=== PATIENT | male | born 1955 | race Caucasian/White ===

== ENCOUNTER 2023-08-04 07:38 | Outpatient (OUT) | payer MEDICARE, SELFPAY ==
--- NOTE | 2023-08-04 07:39 | VEIN_ITS ---
Patient Name: GLENROY MOORE MR#: [id number] : 1955 Exam Date: 08/04/2023 Ordering Doctor: DR REINA HA D.P.M. RADIOLOGY REPORT PROCEDURE: VC EXT VENOUS REFLUX DOMI LMTD COMPARISON: None. INDICATIONS: I83.813 Painful varicose veins of bilat lower extremities TECHNIQUE: Duplex imaging of the lower extremity to assess the deep and superficial venous system for the presence of deep or superficial venous incompetence and to document the location and severity of disease. The study includes evaluation of the great saphenous vein (GSV), anterior accessory saphenous vein (AASV) and small saphenous vein (SSV). Patient scanned in reverse Trendelenburg and standing. FINDINGS: RIGHT LOWER EXTREMITY: Saphenofemoral Junction Reflux: Yes 6.5mm 2.7 sec GSV: Diam (mm) Reflux/ Time (sec) Proximal Thigh 6.4 Yes 3.0 Mid Thigh 4.0 Yes 1.4 Distal Thigh 2.1 Yes 1.0 Prox Calf 1.1 Yes 1.0 Mid Calf Saphenopopliteal Junction Reflux: 3.4mm Yes 1.0 SSV: Proximal Calf 2.7 No Mid Calf 2.9 0.8 AASV: Proximal Thigh 3.3 No Mid Thigh 2.4 No Distal Thigh Thrombi: No acute or chronic thrombus visualized Compressibility: Normal Flow: Normal Preforator: Dist/med calf 3.5mm with 1.2s reflux. Mid/med calf 3.7mm with 1.0s reflux. Mid/med calf 3.3mm with 1.4s reflux. Tech Note: Incompetent GSV. Patent varicose vein dist/med calf 2.8mm with 0.8s reflux. Patent varicose vein mid/med thigh 2.4mm with 0.8s reflux. LEFT LOWER EXTREMITY: Saphenofemoral Junction Reflux: Yes 7.0 mm 1.7 sec GSV: Diam (mm) Reflux/Time (sec) Proximal Thigh 3.6 No Mid Thigh 1.9 No Distal Thigh 1.8 Yes 0.5 Prox Calf N/A Mid Calf N/A Saphenopopliteal Junction Relux: 3.5 mm No SSV: Proximal Calf 3.3 No Mid Calf 1.7 No AASV: Not present Proximal Thigh Mid Thigh Distal Thigh Thrombi: No acute or chronic thrombus visualized Compressibility: Normal Flow: Normal Drum Tender: Dist/med 4.5mm with 0s reflux. Dist/med calf 3.6mm 0.6s reflux. Tech Note: Patent varicose vein dist/med calf 3.5mm with 0.8s reflux. CONCLUSION: 1. Dilated incompetent right great saphenous vein with associated branch saphenous varicosities. 2. 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 Dictated by: Adrian Rothman M.D. on 08/04/2023 at 08:57 Approved by: Adrian Rothman M.D. on 08/04/2023 at 09:25
--- NOTE | 2023-08-04 07:39 | VEIN_ITS ---
Patient Name: GLENROY MOORE MR#: [id number] : 1955 Exam Date: 08/04/2023 Ordering Doctor: DR REINA HA D.P.M. RADIOLOGY REPORT PROCEDURE: FACILITY [facility] - OFFICE VISIT INITIAL COMPARISON: None. PROGRESS NOTES: [age] year old male who presents with a several month history of reoccurring spontaneous wounds on lower right leg and right lower extremity edema. The patient's right leg symptoms are worse than the left. There has been a progression of symptoms . Wounds have now finally healed with assistance from the wound clinic. Lower extremity swelling increases with prolonged leg dependency. The patient describes an improvement with rest and elevation. The patient denies any signs and symptoms to suggest arterial ischemia. The patient describes a family history of diabetes mellitus type 2. The patient has drinking and smoking history of current alcohol consumption and cigarette smoking. Patient has a past medical history significant for hypertension. The patient denies a history of deep venous thrombus or pulmonary embolus. See separate history and physical for medication list. No prior treatment for varicose or spider veins. Current use of compression stockings. After review of nurse notes, history and physical exam I discussed at length the pathophysiology of venous hypertension and possible treatments, therapies and strategies available. We discussed at length the importance of elevating the lower extremities above the level of the heart, increased physical activity and compression stocking use. Ultrasound venous reflux study performed today was discussed at length with the patient. The report demonstrates abnormally dilated and incompetent right great saphenous vein and right calf denitrator veins. PHYSICAL EXAM: The right leg demonstrates several varicosities, no significant spider veins, multiple recently healed wounds with no currently active ulceration, mild edema, moderate skin discoloration. The left leg demonstrates no significant varicosities, no appreciable spider veins, no ulceration, no edema, no skin discoloration. Both thighs, legs and feet were symmetrically warm to the touch. Good posterior tibial and dorsalis pedis pulses were present bilaterally. VEIN/ Facility [facility] Comprehensive IMPRESSION: 1. Right lower extremity venous insufficiency 2. Right lower extremity varicose veins 3. Mild right lower extremity subcutaneous edema 4. No flow significant arterial disease 5. CEAP: C5, DP, AP, AK PLAN: 1. Continued use of compression stockings 2. Elevated legs and increased physical activity symptomatic relief 3. Endovenous laser ablation of right great saphenous vein, right calf denitrator veins. 4. Microfoam chemical ablation of right leg incompetent branch saphenous varicosities. Nurse notes, history and physical were reviewed and confirmed, see attached forms. The nurse was present throughout the physical exam and consultation Dictated by: Adrian Rothman M.D. on 08/04/2023 at 09:25 Approved by: Adrian Rothman M.D. on 08/04/2023 at 10:52
== END 2023-08-04 07:39 | disposition home or self-care (01) ==
LOC: VC 07:38
PROVIDERS: PCP Podiatrist Foot & Ankle Surgery; Visit Provider Podiatrist Foot & Ankle Surgery
DX: I83.813 Varicose veins of bilateral lower extremities with pain (principal)
CPT/HCPCS: 93970; G0463

== ENCOUNTER 2023-08-17 08:52 | Outpatient (OUT) | payer MEDICARE, SELFPAY ==
--- NOTE | 2023-08-17 08:55 | VEIN_ITS ---
[address] [address] Patient Name: GLENROY MOORE MRN: [id number] date: 1955 Sex: M Assigned Patient Location: Current Patient Location: Accession/Order Number: [id number] Exam Date: 08/17/2023 09:24 Report Date: 08/17/2023 10:15 At the request of: MARYANN HENLEY Procedure: VC Endovenous Ablation 1VeinRT EXAMINATION: VC Endovenous Ablation 1VeinRT HISTORY: Pain due to varicose veins of bilateral legs I83.813 The risks and benefits of the procedure had been previously discussed, and were rediscussed at length. Informed written consent was obtained. Vannessa Rome RN and Maeve Jacques RDMS, RVT assisted. Time out procedure was performed. The right lower extremity was prepared and draped in the usual sterile fashion to allow knee flexion in the sterile field. Duplex ultrasound probe was draped in a sterile cover, sterile transmission gel was used. Venous mapping was performed with the areas of dilation and large tributaries marked. The total length was 14 cm from the entry mid to upper thigh to 3 cm below the Saphenofemoral junction. The diameter of the right great saphenous vein ranged from 6.4 mm. A 30 gauge needle and 1% buffered lidocaine was used to anesthetize the entry site. A 4 mm incision was made with a scalpel and the saphenous vein was entered percutaneously under direct ultrasound guidance with a micropuncture set, a single stick was successful in gaining access. A micro-guide wire was inserted and the needle removed. A micro-set including a dilator was inserted over the microwire and the needle and dilator were removed. A guide wire was inserted through the micro-set and guided through the saphenous vein to the saphenofemoral junction. The dilator was removed and an introducer sheath was inserted over the wire until the end of the sheath entered the saphenofemoral junction. The dilator and wire were removed and the 600 micron fiber was introduced and placed and positioned so that it extended beyond the sheath and was 3 cm distal to the saphenofemoral or saphenopopliteal junction. Final position of the fiber was determined by ultrasound guidance and duplex imaging. Tumescent anesthetic was delivered by ultrasound guidance. 100 cc of fluid was delivered along the entire course of the saphenous vein. The solution consisted of 1000 cc of normal saline with 40 mL of 1% lidocaine and 20 mL of sodium bicarbonate. A final positioning check was made. The energy source was turned on by means of the foot pedal and the fiber and sheath were withdrawn. The total number of Joules delivered was 1046. The laser was active for 131 seconds under continuous pulse, average laser use of 8 J. Laser start time 9:50 AM, 08/17/2023. Laser stop time 9:52 AM, 08/17/2023. A duplex ultrasound revealed compressibility and flow at the saphenofemoral junction immediately after the procedure. Hemostasis at the access site was achieved. The skin incision of the saphenous vein was closed with a 4 x 4. A compression stocking was applied. Postop instructions were given. A follow up appointment was recommended and scheduled. The patient tolerated the procedure well. Electronically authenticated by: JONI BOYCE Date: 08/17/2023 10:15
[2023-08-17] MEDS: LIDOCAINE HCL 1% 100 MG/10 ML MDV INJ (09:10)
[2023-08-17] MEDS: 0.9 % SODIUM CHLORIDE 500 ML, LIDOCAINE HCL 20 ML, SODIUM BICARBONATE 10 MEQ INJ (09:11)
== END 2023-08-17 08:53 | disposition home or self-care (01) ==
LOC: VC 08:52
PROVIDERS: PCP Podiatrist Foot & Ankle Surgery; Visit Provider Radiology Diagnostic Radiology
DX: I83.813 Varicose veins of bilateral lower extremities with pain (principal)
CPT/HCPCS: 36478

== ENCOUNTER 2023-08-24 10:36 | Outpatient (OUT) | payer MEDICARE, SELFPAY ==
--- NOTE | 2023-08-24 | VEIN_ITS ---
Patient Name: GLENROY MOORE MR#: [id number] : 1955 Exam Date: 08/24/2023 Ordering Doctor: DR ELLIS BRITTON M.D. RADIOLOGY REPORT PROCEDURE: VC [facility]ACILITY [facility] - OFFICE VISIT FOLLOW UP COMPARISON: None. PROGRESS NOTES: The patient reports no significant problems following intravenous laser ablation of the right great saphenous vein. The patient did not require oral analgesics. The patient has worn his compression stocking the did have questions surrounding its use. I did encourage continued use of compression stocking for several weeks. The patient has followed our recommendations to walk 20-30 minutes once or twice per day since the procedure. Physical exam demonstrates extensive skin thickening and nearly healed ulcerations below the knee. Thrombosed right great saphenous vein can be palpated. No bruising is observed. No erythema or warmth to suggest cellulitis or thrombophlebitis Review of the ultrasound performed the same day demonstrates occlusive thrombus extending throughout the treated right great saphenous vein with heat induced thrombus 1.7 cm from the saphenofemoral junction. No deep vein thrombus. The patient expressed a desire to proceed with treatment of incompetent right leg perforating veins with associated ulcerations. VEIN/ Facility EST LMTD IMPRESSION: 1. Successful ablation of the saphenous vein 2. Persistent incompetent right leg perforating veins with associated venous stasis ulcerations. PLAN: Intravenous laser ablation right leg incompetent perforating veins Nurse notes, history and physical were reviewed and confirmed, see attached forms. The nurse was present throughout the physical exam and consultation Dictated by: Ellis Britton MD on 08/24/2023 at 11:38 Approved by: Ellis Britton MD on 08/24/2023 at 11:41
--- NOTE | 2023-08-24 | VEIN_ITS ---
Patient Name: GLENROY MOORE MR#: [id number] : 1955 Exam Date: 08/24/2023 Ordering Doctor: DR ELLIS BRITTON M.D. RADIOLOGY REPORT PROCEDURE: VC EXT VENOUS RT LMTD COMPARISON: None. INDICATIONS: Pain due to varicose veins of bilateral legs I83.813 TECHNIQUE: Lower extremity corona scale and Duplex Doppler evaluation of the deep venous system from the inguinal ligament through the calf veins. FINDINGS: REGION: Right lower extremity. THROMBI: Negative for DVT. Heat induced thrombus visualized 1.7cm from SFJ. The heat induced thrombus extends from groin to mid thigh. COMPRESSIBILITY: Non-compressible segments corresponding to thrombus FLOW: Areas of absent flow corresponding to thrombus CONCLUSION: Post ablation occlusion of the right great saphenous vein with heat induced thrombus 1.7 cm from the saphenofemoral junction Dictated by: Ellis Britton MD on 08/24/2023 at 11:07 Approved by: Ellis Britton MD on 08/24/2023 at 11:08
== END 2023-08-24 10:37 | disposition home or self-care (01) ==
LOC: VC 10:36
PROVIDERS: PCP Radiology Diagnostic Radiology; Visit Provider Radiology Diagnostic Radiology
DX: I80.01 Phlebitis and thrombophlebitis of superficial vessels of right lower extremity (principal); I83.813 Varicose veins of bilateral lower extremities with pain
CPT/HCPCS: 93971; G0463

== ENCOUNTER 2023-09-15 08:25 | Outpatient (OUT) | payer MEDICARE, SELFPAY ==
--- NOTE | 2023-09-15 08:26 | VEIN_ITS ---
[address] [address] Patient Name: GLENROY MOORE MRN: [id number] date: 1955 Sex: M Assigned Patient Location: Current Patient Location: Accession/Order Number: [id number] Exam Date: 09/15/2023 08:30 Report Date: 09/15/2023 09:18 At the request of: MARYANN HENLEY Procedure: VC Endovenous Perf Ablation RT EXAMINATION: VC Endovenous Perf Ablation RT COMPARISON: 08/24/2023, 08/04/2023 INDICATIONS: Pain due to varicose veins of bilateral legs I83.813 OPERATIVE REPORT: Diagnosis: Superficial venous reflux, incompetent perforating veins Procedure: Endovenous laser ablation of the right dye range feeder(s) Procedure: The patient was positioned supine on the table and the leg was prepped and draped to allow for visualization during venous access. A sterile cover was draped over a 16 mhz ultrasound probe. Venous mapping was performed prior to the procedure noting location and size of vessel(s). Stick Roller vein 1: Right distal medial lower leg. The diameter of the vein ranged from 6 mm's below the muscular fascia to 3.7 mm's at the entry point. Using a 30 gauge needle the entry site was anesthetized with 1 cc of 1% buffered lidocaine. Access was gained percutaneously, with a 21-gauge needle, into the dye range feeder vein under ultrasound guidance. The needle was advanced into the desired position and the pre-measured 400-micron fiber was then inserted into the needle and locked in place. The position of the fiber was imaged with ultrasound guidance. The fiber tip was visualized to be 15 mm from the deep vessel. An anesthetic solution of 4cc 1% buffered lidocaine was delivered along the course of the vein under ultrasound guidance using a syringe. A final positioning check of the laser fiber tip was performed. The laser was activated by means of a foot-pedal and the fiber and needle were withdrawn together in accordance to the desired joules per treatment area/spot weld. 3 areas/spot welds were performed, and the total number of joules delivered was 154. The total time of energy delivery was 20 seconds. A duplex ultrasound revealed compressibility and flow of the deep system immediately after the procedure. Hemostasis of the access site was achieved . Stick Roller vein 2: Right distal medial lower leg. The diameter of the vein ranged from 5 mm's below the muscular fascia to 3 mm's at the entry point. Using a 30 gauge needle the entry site was anesthetized with 1 cc of 1% buffered lidocaine. Access was gained percutaneously, with a 21-gauge needle, into the dye range feeder vein under ultrasound guidance. The needle was advanced into the desired position and the pre-measured 400-micron fiber was then inserted into the needle and locked in place. The position of the fiber was imaged with ultrasound guidance. The fiber tip was visualized to be 20 mm from the deep vessel. An anesthetic solution of 4 cc 1% buffered lidocaine was delivered along the course of the vein under ultrasound guidance using a syringe. A final positioning check of the laser fiber tip was performed. The laser was activated by means of a foot-pedal and the fiber and needle were withdrawn together in accordance to the desired joules per treatment area/spot weld. 3 areas/spot welds were performed, and the total number of joules delivered was 124. The total time of energy delivery was 16 seconds. A duplex ultrasound revealed compressibility and flow of the deep system immediately after the procedure. Hemostasis of the access site was achieved. Stick Roller vein 3: Right mid lateral lower leg. The diameter of the vein ranged from 5 mm's below the muscular fascia to 3.5 mm's at the entry point. Using a 30 gauge needle the entry site was anesthetized with 1 cc of 1% buffered lidocaine. Access was gained percutaneously, with a 21-gauge needle, into the dye range feeder vein under ultrasound guidance. The needle was advanced into the desired position and the pre-measured 400-micron fiber was then inserted into the needle and locked in place. The position of the fiber was imaged with ultrasound guidance. The fiber tip was visualized to be 15 mm from the deep vessel. An anesthetic solution of 3 cc 1% buffered lidocaine was delivered along the course of the vein under ultrasound guidance using a syringe. A final positioning check of the laser fiber tip was performed. The laser was activated by means of a foot-pedal and the fiber and needle were withdrawn together in accordance to the desired joules per treatment area/spot weld. 2 areas/spot welds were performed, and the total number of joules delivered was 90. The total time of energy delivery was 11 seconds. A duplex ultrasound revealed compressibility and flow of the deep system immediately after the procedure. Hemostasis of the access site was achieved and dressed. A 20-30 mm compression stocking over coban was placed on the treated leg. Post-Op instructions were given, and a follow-up appointment was made. CONCLUSION: 1. Technically successful endovenous laser ablation of 3 incompetent right leg dye range feeder veins Electronically authenticated by: MARYANN HENLEY Date: 09/15/2023 09:18
--- OUTSIDE RECORDS SUMMARY | 2023-09-15 08:28 | XMS_ITS | CCD ---
Author Name Unknown Address [address] [facility] [address] [place] [address] Organization [facility] Care Team Providers Care Commercial Instructor Supervisor Name Role Phone Dolce, Brett R Admitting Unavailable Karen CEPHALOMETRIC ANALYST-C, Charisse A Primary Care Unavailable Dolce, Brett R Attending Unavailable Dolce, Brett R Attending Unavailable Karen CEPHALOMETRIC ANALYST-C, Charisse A Primary Care Unavailable Dolce, Brett R Admitting Unavailable Karen CEPHALOMETRIC ANALYST-C, Charisse A Attending Unavailable Karen CEPHALOMETRIC ANALYST-C, Charisse A Primary Care Unavailable Dolce, Brett R Attending Unavailable Dolce, Brett R Admitting Unavailable Karen CEPHALOMETRIC ANALYST-C, Charisse A Primary Care Unavailable Juan David, Alberto Admitting Unavailable Juan David Alberto Attending Unavailable Karen CEPHALOMETRIC ANALYST-C, Charisse A Primary Care Unavailable SHILOH Park Admitting Unavailable SHILOH Park Attending Unavailable Karen CEPHALOMETRIC ANALYST-C, Charisse A Primary Care Unavailable Fall, Alberto Admitting Unavailable Juan David, Alberto Attending Unavailable Karen CEPHALOMETRIC ANALYST-C, Charisse A Primary Care Unavailable Dolce, Brett R Attending Unavailable Dolce, Brett R Admitting Unavailable Karen CEPHALOMETRIC ANALYST-C, Charisse A Primary Care Unavailable Karen CEPHALOMETRIC ANALYST-C, Charisse A Attending Unavailable Karen CEPHALOMETRIC ANALYST-C, Charisse A Primary Care Unavailable Juan David, Alberto Attending Unavailable Fall, Alberto Admitting Unavailable Karen CEPHALOMETRIC ANALYST-C, Charisse A Primary Care Unavailable Dolce, Brett R Admitting Unavailable Karen CEPHALOMETRIC ANALYST-C, Charisse A Primary Care Unavailable Dolce, Brett R Attending Unavailable Dolce, Brett R Attending Unavailable Dolce, Brett R Admitting Unavailable Karen CEPHALOMETRIC ANALYST-C, Charisse A Primary Care Unavailable TERRANCE JONES Admitting Unavailable TERRANCE JONES Attending Unavailable Karen CEPHALOMETRIC ANALYST-C, Charisse A Primary Care Unavailable Karen CEPHALOMETRIC ANALYST-C, Charisse A Admitting Unavailable Karen CEPHALOMETRIC ANALYST-C, Charisse A Attending Unavailable Karen CEPHALOMETRIC ANALYST-C, Charisse A Primary Care Unavailable Alberto Fall Admitting Unavailable Alberto Fall Attending Unavailable Karen CEPHALOMETRIC ANALYST-C, Charisse A Primary Care Unavailable Karen CEPHALOMETRIC ANALYST-C, Charisse A Attending Unavailable Karen CEPHALOMETRIC ANALYST-C, Charisse A Admitting Unavailable Karen CEPHALOMETRIC ANALYST-C, Charisse A Primary Care Unavailable Results Test Name Value Interpretation Reference Range Facility Coding Summaryon 08-04-2023 Coding Summary HTMLBase 64 OqzmnxmqMRz9dWu+PGhlY WQ+VH3IHWJfV21nfOHjvJ 4iO5CRUTrKAugoCLCJFJd EIlInzgOzVE7hoSGbIVMy IC8+ZQ0cFHTqKwqoxJShk 1L7wAD9K07rsm7nURqynL Z5RLTiPjZrjczlf0xnvFv 6IDcuNmluOyBt DPEjsQ11JIJ0tM07Dr23z DLdgHWbd5iqjXo4TnCvYR GvJHU2tXxoKXzts9ZuDTZ eD67acBPcn0Y8 GEWikHcjzGZaVqQmzNE0s H6aIEawyeoxr4athkatBl f5uc90zIPch2R8jYW3L3S prnF2LRBnwCVt HeudnSEVzC8ftxuwz3zfa grqTmMaRPBsNYw2HUv5GI QhwUcwPrHeVA74AGN6RLI ieiCsY8ChPAJn xMsoVnD0k3J9Wr9ON6DOX twuF1TAZVMXIUqktVI+PC 05uy02H8TjGutiFrp2YHJ dGLD6dFX7bQ6g CSRgCIsri7F9mPE2P8Yhh oAmkr6nj1evNOMkDJeeE1 7zwXZjj9U8KLNfhYF8SKS cvGfuThHiqH52 Oyc+DUEruUroy9FgQlxjr 1gdg8uktSs8GoarWFEbdr EgeXcmTUE4n1OwKa6gVUZ rsAA2gRG9wN6w DfWcOpD3PZngI583UzVfm DUhZrweV16qD0FhkYX+PH ItMwr0RRIquKvaJQ9xT8U hZGRpbmctbGVm eWwaBM8rRKLnvbyaSTMxx D5cWLAwL8m9ZgPmOtT9OY moY7YyIQVsygliCc68pC9 fHfJdCnZ0HTgx W9TkpvV9BGTuhZClLWjqT HU2I57ep5K9DSLhMMUaHD A2qLV1oA0gwGfjqkqqbDA mdDsgdmVydGlj LNrfSGlfL351PPGdbHkwJ kNvZGluZyBEYXRlOiAgMT EvMjIvMjAyMzwvdGQ+PHR jLJX3aWgsXRAw eGBrKKvlBs6ynTqcyHhfC W8dFLPhiyjmKCAabZ8cJG GniJZcjGjjSA2iJIGtqiw fg800RbOxLCN3 GJJrqEPbM3EhyK3sNjEnB QWjKLKlK7GzlRJgEHjlQ2 59JFzeUyW3OXKivuKoF7B sLWFsaWduOiB0 r5Z0Ji9Rj8UitzevY5Bcq TXkGaLnLpzaLXs2R8SdGw wvdHI+BR74NSJvIZ45UYs 1XZS1cUilJCnf GHDzD7UgdJ7oDoTnBFKpY GRkOyc+PHRhYmxlIHdpZH RoPScxMDAlJyBzdHlsZT0 hIs9dCTUfBGJs vJupyZAdUyEue5wqTAImG NtoYI2yoLkjF2XwcJH7SD Jmf1d4Ds89D59gJ5UlrMT +LUYwmVT8uDY3 mG6fKyXoScT7WMqfG005Q zGtiYSxXyxti0ghs7nsoP a1IzN9JZLvelOxaKowXWK 5l4SuMy87F53r IHdpZHRoPSIxNSUiIHZhb Zipop2bwM4mRu1+PGNvbC S5oVJ1rD9mEtWtDhM5GEo jT204OeYnxQCm Brvpj7xto0baoWr8BhEvC EKyihZwwPawAWE6z4MqIx 75O4PscBves8XdRhk7ag3 1bUDqg1W0jQC4 H1AyZHJkcklhxVQgxYbqM O8kQTGmmriiKAZctL3cLA OdL3c7BcDnBmT5XUvrK2V vfnU2AREnmDMr MFHoaOEFbN6eihrwg9wkl foaNmQjVIRzUUw2VVl0PL XzbYlyLyPwLBJ0ZjF1ZBV 5qYAjdV9ecOcy rnnqcM4fVhp+TXT3mIXor RGXGF3uAvwikXP+PHRkIH Q8gKwqLTgiOKOthT7cTYD yF0d0GcPjRvK5 TShiE8JibkL1SOKvjIDnV OTzmSFZyM2lmgndv9ofid khCoOrIXLbRAw4SHs4VNF saWduOiBsZWZ0 QmH5WCZ5jVEfrF8odAqsi hazuB5nFkv+QmlydGggRG C9MHy1W6VpBzq6JZJemGj sSP1oxULrEBzf Vr2erXqkjAalUF9hFWHdq bohh620VdWbp1bpPCParL TsJFnnIAO0I18pq9I4SMS cYJIwEID9iRY4 xM5uwIheskzaySZcfZqtq wNmeRfxZJekSJbsV334YA ZaaOzjFgMmQQc2C4PwLss 2ENGeoYgiZI4w eRBwABzlZk5guUrjqPtsV O2iMPYyeilap390HbKoc0 oqQWUtbWQsPXypZWN9V56 wn0O5JJZsOSHh DGQ7dPK9hI3stPnupwpmu GVmdDsgdmVydGljYWwtYW rtL574TKLepYjzCwIknHx 7W8BpUgw9CWIl nZqzCV5mbTSqPBvwPo5sb UcqaJllIT7rZGJjlkhmr4 87YxEfm6dmVNRqyLKpUFd nVPG2D68uc0Y5 BLOlULGzHJJ3rLT4hK8sy GlnbjogbGVmdDsgdmVydG wvQManHPdaS202LEUiiUq nPlBhdGllbnQg GIlaGSb8X1OwYjjwgLJ+P M42NKSuLB35iTUkgDYcj7 naeQq9EyJiKWWfOVD2pWf hCNjvy8AxOISr O14ydCZvx9I0VLAnuHvrf ENaZkFeyVY1eK5uKIncah gwu4ojpqngGejhk2hwft3 7pJ40B63yXVjt ZHRoPSIzMCUiIHZhbGlnb n3twS6vBd2+JJOplQY4uQ T0sT3pIQNzIjW0GHfpE28 9InRvcCIvPjxj j3qev9shoId7BwU7OZQrf zXssWhhVJW8o0VpNy99K2 9sIHdpZHRoPSIyMCUiIHZ thTaqmq8dxK1b Ii8+OKEtgTV7iII7nI2yA oBvGfV6TAwlV344EbUapX NyEcyaP86pC2ZntZS+PHR tPsz0SNEhqNdd KA2gzWHrGTiyLb4fCNR7H kVyKaRlMCchS3MuKJGejf brrhtyqMG8UFWaOKMdaV8 6Iv3lrCypQQYy lIHRlZ3yesigg5jfksksI nMrTZDvLRd4GFw7MQParV nwDvPpNPB6WeQ1CQA3sIC kzQ2hbYaomccr dA0pD2LuXSFoprqfSf26r N9vQjWrSeB9WDqpJxi+TU 1NGcGrJiRrSZiKWG46G5S pZjl1PYGgyVni NZ9clAWjFWvbIz8ulGwbn RodTS6yFFPjcztpBILqnV 4aQQIzbRMhjWvnQQ0vQJO wkfzvh530QoEy QQD0KCLtuFBtV4NjtG3dD aWzNLBsMIPqX0HgqETpEH mjX342YHqgVyL3ABIygtN uG3AvHNLvdQic JcG2h2D7Jp4lVA8lME1jG BA7TK11PW12tIJct6L2sB P7J6UwAQNrgpxyeeecjFO 8WAMeRILoaK21 qYElCVvaAn1pa6A2v525W RHzVNZynV54Kq5vcChgDW IfxQONuW4cdfzwi6afexo gIzAwMDAwMDt0 RJr4HBCqoQgbYaNhOOP3H iN1ZFZ3mMFvqB6wuMokhj eewH6hJux+NjggWWVhcnM 6P8BeJhv5GKNy wHjmFW7krOVtCWkkMu5ca EsmtEkkHN0zWYAghptxHW GkuJ5fIGMivVOynSzqOD7 aORRqstwro053 DlRaCAK9BVEmhJMtK6Tkb Y8iRwWaNXMjPLOjH6ZfzF NeFOlrS582ZPowIsX2ZXZ gzyUrM1MhARLg kAgzRdZ3l6Q8Yq1ETBvAL Z84AT25gRXrf2X2rJM2U3 AvGJDcxubviifclNC9RIO eMCXiqF73uFUm RHdyEg7nf7F0c099JUCiK UTxrH83Nn4vzBlcPIGroI EKvI7cntbjs9sxehfiPyQ jHDIiLIs8ABt6 UKSxnDocAuPzTKW1CcF0Z LQ3cGWqaL0erTpppwsenE 9wOyc+T0M7H4UcZyhzxWK +XA69WYStSD61 cIAmoCLrb8bxcRv0OwQqJ HZpSLV0aFvaGQssj9KrSB OmF60smXPqr4I5OZIruSc hcHNlOyBlbXB0 xU6lSZbnvbjin1osohlrO ojjh0qoms61pU03B77mSP dpZHRoPSIzMCUiIHZhbGl qyd4lcW5wRj2+ FZIxfSE3wHG6cF3hElImY pB2OYmrN509SzEvsNRxSl zkp2qyw7vxkTr8RaXaBLR gdmFsaWduPSJ0 p5MnLm09P18cIDmyTLRxS WCyQUSyXXAegNlfyy8epX 9wIi8+TF9uy9ltbv23lR6 8dHI+PHRkIHN0 kOsuILddIPIjgV5qBOfyE hQ8IHZmVvBzgS41bPTzLS rrTg3qpQefmXwuFY5uCVF sitymy433OmXg u8nnGMUdzMPfZBaaDYN0J 17ab3P1MCEiWEZdWBU7qU Y6oI9coYestsokxXCdwTt gdmVydGljYWwt BJmcG191XGIdyDbpGjRlx SIfV7lhsqGKTR5gEuofrG Q+TMZxKPG8sIxgLKcpQKP qsS1rAJKfN2d5 GuMrMhU0IKlcY6AasuE9R HZjePSaUFCwcIJPqI5aqp xiy5rndeokBtCiBCMaFOj 5HAi7VWSrlOyw PwQyMCO3GwO8JKS8gYBft J9yaRjaaybcgM1uXro+Rk lOOjwvdGQ+YZKsRQJ5iRe pMAiyTFOshP3z CQJbM8q2OrOqUsZ5MKmgZ 6IjwsZ8OLJhlNXmAEDprU GJlS1vjczxm0oleulmLrA iXNUeOTo3YAq2 IJGbvPvkCwZfBMF6UkW9M XU2tJXclL2ehPrcixvcrS 9wOyc+TVJOOjwvdGQ+PHR bAYT1fAyiKNhr IAUhkC3uPAFxE2r3WkKzQ tJ8IAqaG5CuxcA1CGDfkR CzKJOyjEPCeV4qyqisv8t vcjogIzAwMDAw FTn3CYj3FZOhqMrjTnLcB CM2TyI8DGW4gMVemL3gaU dkobsrjU4wFlv+ZLY0KGX 1TX15TR24L8Hd PjwvdGFibGU+PHRhYmxlI HdpZHRoPScxMDAlJyBzdH ltJT1aZo1jCNJtIYGlgPc xvMNkEmIlh5zc YXB (more content not included)... [facility] Wound Care Noteon 08-02-2023 Wound Care Note [id number]#1.0 [facility] [id number]#1.0 [facility] Coding Summaryon 07-29-2023 Coding Summary HTMLBase 64 LlprjllmEFr1rFw+PGhlY WQ+QO7RTWOtC19hfHFqkM 8zI9KKVTfSEdbjAVAVKOj IKxCdftPxND4fmHTiHVFh IC8+SJ6rMGMhPpvgoULuu 4U2fUB6X64fhz7lBNwigU U7KUQcLeChruzoe4bazLk 6IDcuNmluOyBt ZQSxjS90QQK7uC79Jd66u YMhbRZhr1eswIy3OsUtRT YwHKK4cRgjDNzxd3DbHUL bC36hmPQku8E9 YCEcjJqfuDYjIsWtpWX6f Z4tVRnmmkrom4gysdqxCc v5iq50yJUxf8A1mQT4W6I wzeK1AWUqdHSv LfqfxJSScE3atmmtt9szl tzbHiXqYRQxCZk6SFh3RP YqgZwoZdIcRY28ERS0XWR jeePmI1LwANAs tCroIsU4v2U8Zk7QX1VDN jymP9KZVBHYBBipyTY+PC 28kp15H3WfUmmmVyw6ZFF tRWS7qTH3cK1p RSKjGYsbt3I0oWN4V2Mpf iYxjh6ly7weUPJuTIayG6 8jbZVwz3T4ACJfhLV9XDE esFhmOdUgfW67 Oyc+DGOkqKqbx0UcEdroo 7dem9qjxXf8DoziAXSedw NalNmyBTK3z4DpWr0rWXH ujZV7dTW7hQ3l UdGuJqY4ITtjP883BpXnh EMtGfmsD23eE6DmrYH+PH DrBsb8DXYypHmpLI9bT1N hZGRpbmctbGVm vWqbRS8mVAEgzcucPUFbs S0nTYYqV3w8YnZuZuK7KT ajD8MrNGEwhaqcPw37rP1 wJgMxUdC8NLvh K4KndbJ6JADjaSCvIFqxO QF4O49vs5U8SLLbTDEdJR E2cHW7lR5nfIwagarlbEK mdDsgdmVydGlj QJwmVJbuE559XFXjgUbaY kNvZGluZyBEYXRlOiAgMT EvMTYvMjAyMzwvdGQ+PHR xJBQ5cUflKYFp rQFxMRcrGl1htPpeoTswP V8sEFXvuvxmLUAmsF2oUZ MezVEzwYodHQ8bPFTudun za345XxPkSGV9 AKDbrSIiW5ZalS5iSqRuY YLbZFOcQ6UinQBtNMwzR7 56FUzkPrJ8FYOyqfVzO4S sLWFsaWduOiB0 j8N8Or4Nt9ScyfzmQ5Cmg JXdPdNrBcydDOa6W4OtYu wvdHI+KV00GNKaRP83OQb 9TZO2bThzTFkv RCNkI5DqtM4vLkCpECTlY GRkOyc+PHRhYmxlIHdpZH RoPScxMDAlJyBzdHlsZT0 rMe0wPFPgYLVv hLaluFWbBvFyi4dfAEYtM UrdFK0izXkmT0VakWI1RG Brc0a7Hk17W39zQ6NkeKE +DLKmxOB4yQW5 wJ9cHwOzLaX4ZGhaY161U dLtyZFpBcsnj7dwe3mycW o7YyR4MDIztoYjqKzdXJG 4k3CwDh84L80t IHdpZHRoPSIxNSUiIHZhb Nzdgs6omL5bVa7+PGNvbC N8eDG1aW9lRwOhUpB7ZVo xJ020CqGtcVQh Lmgrb1vli5cqqYi9RrAqH UFgkmNkzNobYMA8u6CtYy 35U9JulPnkj8EqTfw2pk5 6lDZqn9A2fSI1 U8VdEHHsmqkriYRxvZpmX N3eTFIrjdauRQVrbH6cWR EkG3m0VhErDsF8UEqvE2A wvuT7PVCmnKEk GDMdwJAJvC2kirpcy8rjr llhZlBsIMXqPSq8CNt0VI XweVsiRuAcWPY7UoD0VLU 0fRBkfB7gmAto ohroxF3pAgu+CDK6jIGls KHXBO6vInqstUR+PHRkIH T9nXpkPIocNPHmvD9iTYB yE2j3RaGsQcY1 CSqiP3PoewR0FEZboGHeC RPwmOIUeY0ejydil7dvdf ljBcHmBQKwXNj1PJq3NYP saWduOiBsZWZ0 XoG0IZH0hOVcwV1vmLxfb ljzlC8pPft+QmlydGggRG J9QDp5P3TyTgi1NMYgsPc cEA5goYWnUYvf Lk3aiOzleBfxLK2aRPKoj zgsr847BpNmn4rjYWSstW BlMMvzOLM3T74ms7U4SCI wNBJpWOJ1rDS5 vY4hrEwaxjsbhGWpkVlqh eEqpPobWBqnTNlkO220GK AdhCdyUpSxTHj4I9DnTuq 8PSZnyItdER7k iLTfKBbbCo0knAipqVtyI W7fBAZrcwxoh840VkEqe9 npUMNixWClGAbfSUB3G06 jr6H6RYXxCUYt VXF2lWM7dQ2uqIsbfkxrt GVmdDsgdmVydGljYWwtYW ocC065AFJzjIpoFmQtiIe 3E1LwHid6ARTp zTmrIB0ucXEpPOqmYy1lb ZuftAxkFE1dGVUsooajy9 34JzJbg2twKMLsqYGnRJl ySQV1Q52oh0W4 SMFbERKvTSK5iIH0jN5zp GlnbjogbGVmdDsgdmVydG byJDxrOWgpH536WDZirXk nPlBhdGllbnQg IOsjOHz4G8AqTmmtiPS+P R38OKZsUH93zTEjjTTfn1 yijTv3MqTqSEGrDVE9jRx hJUntw9HwMSHt H89roWYeo3H8ETBzbLjvo GHxUjOzyLO9gY6vQZlgzy iwc3qdruqlQjeie9jttk3 0tL82A75vDPcs ZHRoPSIzMCUiIHZhbGlnb j9abJ8jOo6+DCKkuIG2wF C7uA6mDZBfHbQ7DYsoC15 9InRvcCIvPjxj k9kfq4pevJl0VlQ2TGFqk yBmkJrnTSU9k3HsUw87H4 9sIHdpZHRoPSIyMCUiIHZ vjZdfwq2jxJ2l Ii8+KQQjkJL7xRX3bR4xQ lBoGjD9NPpgE005GxTxoZ TtTfbhQ93nC7SlaRO+PHR fYwt7RXUrfOvm SU5qbPWuQFskRo5yMFP8V jKeYyUhLGvwU7GwDHRhoq fobemcfSW5UHZtSUPrcF9 7Db0lkLqhOCWi uEXPxL6mjvjau3uvjvnhO kJqTPVuAZh5NXx3BENxwJ vpKlAwAZZ0DmP3CUO9gBO ldJ6dpQkgibch vI9lY0WvFPLgbclgTi55o Q1oBtKtEcS8QZigQej+TU 9CIuBwQxBpTQcTGO53C3I wStr0NVRdeTby SF2ukDGmWCjjKk6xkJmdn IarYH9qISZdprloNWYzaV 6pQUYsfFTodUcmTI4cJVB ootnsd867YgTf NXN9BXPdtUDrO5YgtI3pL nAyMNWyKKFlL8VhnPPrVB wyU788JMepWtB4GSKzbqX dH4WaEJQdyVia YdY6a3E5Ui2vQT5cCT4wX UN9YJ41IT05aDArl2V8hJ F4L9AwANIpbybicuugkUJ 4PZRuOPZdpS41 oNKeVXnpQc8rc3M8a912Q HUjPGZgmS21Gg1myZmoVX AbsXWLfO9ymxyoa3uwopb gIzAwMDAwMDt0 KPp3TNPwyKakCsFwTSG9Z vZ0FXO3eWInlQ1mhJvujr utlZ3fGfh+NjggWWVhcnM 0R4PsNtb8ZOAp pKbsAO8cyJAvYFswUl4yy JyfqGohYE5jUZQoduioTI ZrhK1fEZKzsCBdpKruFP3 vVTFvovjmh592 GkQgSOH4JKFjhNEtE0Mwv A6bXrVbSALlWBTnE9ZkgE YsLHwrI999YEvbHrI2CTD wtkVcU8TcEVRb rNktHfF4x8A4Od9WMCcLJ X32JN49lCNeq4H4eOF1P1 RuAOZfopzlxqgxmJX3ERS qBCSwnX80aRXp DVqdPx2vg1X4l290DZOfV THlsX80Lk0scPwgQEUxjT IJvP5hcmwfy8oahuzyVuZ xCMTqFDx5AHp7 JGXcuIinRbOkSZF0LaV3R AC9rRDaqU3ohFzrshklsA 9wOyc+X2T2N9JjAealjQS +QR99ONCxDQ16 bYIhuFCmo0nruJj1OyElV SCaHWP5gKzjZNrwj2NnJT OjC14wnMXlu1I7HKPgsIf hcHNlOyBlbXB0 wT6aLPircmgrk9jlyjzjH lglp1qors55kO46U29uZC dpZHRoPSIzMCUiIHZhbGl kqc9ycI7mMo8+ LRQwjRL4fWO7qW0fDkNwY jQ1QYetR569ZkWpkGIwYx udv5mwr5pvzTi2YtXsCDA gdmFsaWduPSJ0 m6JiOj88B28oOJqkDUKnR HZdPQOhQVJraWzbyr7nqD 9wIi8+YP5hi0pkeb94sB9 8dHI+PHRkIHN0 gCseDFyqDPPxiT9gAFrvJ uD4NXVoJqTfiK93fOJzIL obSs4zhLajlCiiAM4kFKC bfoezw557NfVu b3qgJELpzQVeTFwtPHA1I 05my6U1CWTcSJMsGGM6sM U3eC5ndRaamkixeXTnwWm gdmVydGljYWwt DHkpL251TUYghUanDzNzl YWhI1gqqxEWEF6pGnsziQ Q+IWJpLJO6dDbgQSubIJW kjQ1pMLAvQ3e7 OqJlGiV6MEjoZ5ElkcT7P VFvhNSeBUEjpILPcD5wtd rxf8pizlkrXtHqYPQoIOr 7JSy7EEYciIkt EyZpRAI0XnZ8UFJ6aYCwt H1rmEyokbphdV8iCug+Rk lOOjwvdGQ+QLJpFIU4cMg zNOxoIBOdsF7j IFVoH4c7KvHxEeG2RZteR 2JqhyH4XECocLSuOFUvxB NSvD5xvokyf2gkmvvbAzI sOGTlUPz1EOy0 RAEhiAfdUtEsPGC6QrY7X GG4dYUssR8pxDwkaijfzM 9wOyc+TVJOOjwvdGQ+PHR mIGV0hNwdEPjd BLGxuQ6vUXYfK8b1BoGzG vN5DZcdN5XikvT8UVNamF FzJPJlbYNDcN0suucvx9a vcjogIzAwMDAw GEd3EQi0THBhoButRiWyK LB9AlS2XFY7wNEffW9czZ ehzvhxrI1dDea+WRX4MEO 7FS57XU69S4Ft PjwvdGFibGU+PHRhYmxlI HdpZHRoPScxMDAlJyBzdH tmXC5aTk2qSDOqKVRptQf cpGZtQyCjd7yq YXB (more content not included)... [facility] Coding Summary HTMLBase 64 TbaoglbcINh4aHb+PGhlY WQ+EE5HXFSyV81wkRAzzR 1fD1EFZJkVUydrJPWEOJp BSvZlwoLzYI9shIFpVXBa IC8+PU1uUBVzKhopqQKha 8H9cLQ9S09haa6gPXxndV Q1YHHbViLlonvcw8cdiQa 6IDcuNmluOyBt XLShpD18OSG9xM53Wj92w APtlVSyt4aeeJx0OrIdZS ZyZWP8tOakSUemv0UsDZE dD74ofXFfx5E6 CNVttCaehFQlQcGuaSR6k T8tFXixjnmss4hxiungTi o3ta08qHVwr9P2wOF5M6F kwxL7MCOqvOYn ZgvblYDOsJ8fhukwj2gic akfAvLtPEUxDBk3TTh2TF UupRmrQnCqWJ37IMH4DOT ciuCdK3ItUOCe rYppSxH8r1R0Qk6FE1EVL yfcK6ONBOEUIMzkoVN+PC 07dv25M2FqJhypSdd1OXZ iWCH5hXR3eO9h VHLfJGfub1N0nGX3U7Tgl jFwza6hj9xgVFAjDVhxD6 7yuPRit4B1GRVonJQ2VGN yaWltFxPdmB98 Oyc+NVMtlRaed5NyFkarc 1zpc4nenXw6HnbdESWfat AojQotVES4j8UwBm8tCDB vrHQ9dWN6zT8s TnSmIjC6MFsbV579ZfKhc ZFlNhxbZ94yG3LyrII+PH ClMhv5BYExsWsfPO2vP5J hZGRpbmctbGVm tAozQV6iVTTdifkcVNRxt G0nFSGjF2h6EaHkVnE5OE uuW7QbKOThsexxRh45nS1 dKwFzFzW6SIyk R4UgqnJ0EAHqtSCxNVcuP QQ2O60pa1V9TCYrMWMeOT E5pFK0tI3byLulhhhpvAT mdDsgdmVydGlj JYpnNWwpK056HMQbaQziV kNvZGluZyBEYXRlOiAgMT EvMTYvMjAyMzwvdGQ+PHR xVQN5gQppRQUy nYQzHLzgLr3utOrtwPmwD T3yMZUxlhoxIQSdlU2tGV UfiCRgtUvcZU0lIFAtnad nk023AvOeTHU9 SHCvqGLnC0LvxK5qUdWqM JRhKXUaL7VrgBSuRQtjL3 68VHzpUrL6SSIvklIqU4O sLWFsaWduOiB0 k3N2Jv4Dm8DipcqnO1Poe MStNnWhNwxuTQd7U3AzEx wvdHI+MV36LVCjVO21UYk 0VDP4zCmdLAnd GGSoU4RaaA1lElOwBQQtH GRkOyc+PHRhYmxlIHdpZH RoPScxMDAlJyBzdHlsZT0 cIx6vLDDdRODa hWnbyPCcNxDrf2suADRkA RgmJN1jkFkbD1ZuiGF9QU Nam6v2Cp61I66rZ2McdBN +HZGveBM6vLM9 aQ3hHpHoIeJ4QNzsJ684Z rPeiFZdTfrqr7nfy1znlM w9WpY6DSYimoOvxXimEXC 3e0CtSk57V78u IHdpZHRoPSIxNSUiIHZhb Qxxmj2exC3cSf9+PGNvbC M2kDE7mD8bKvVyJmI7FSb cT672WrBheVKk Rjcut1crp8ikpFw9FjUhN GZxamAtvSecXHA2c6HqTv 77Y9JvePgeh3DvNdt8po7 4eDGjx0J1nDS4 N0FzKEEpozkbsGQwrUnyN L8lOXJctgyvFVChzJ6oRL YrS7h3KxBwPtT2MMmjC5B awuW6WFJplAWz OEBtjQDZiN2adthnn1yju lrtFoTvSIZiHVf0BFk7UB NqhUesAdHrCLT6WnI8EBD 8dOMybH1ujFnt omibtI1eNhh+ZPL0jGVid VKSLG7nReekfFJ+PHRkIH S7gJfiHXfhBPWatN8rUUC vA8l9SyBxHgM4 HGuoB7RkylZ5UDBgjUKeM AIpcRQHbM0carjfe4jiot dvFpRrMVIyOPo1DVq2UNZ saWduOiBsZWZ0 FuQ5XIC5aNKgiV8cxLdsn fficI6bHfg+QmlydGggRG N3EZk1L9FnTph9BMHcaAs sSE3jyPYuOOwt Go7ugIwvbMbhUW8vEUCgf iulg775PlAoo8dzIPDzsY OvCNltJAI8R20ai7I2HTQ sGWFdUYZ9rRJ3 mW7dpDganzctjMHzvLila sDhhIvzCJknBMudP607BR QszVexFvSnOBs1C2AsGts 2SPVqxPwuAI6e jIHmYMmuBz5geEajdTkvL S3yECQrnenos094BbNgt5 llPDRlfQHkPKbqBKC2T85 zq5Q9FUZaOOLk HFS5pCQ6sT4yfGdyqohah GVmdDsgdmVydGljYWwtYW sxK030HAWapTxlDpXbtXc 9H3NeIrq1ICXu vRtwBQ4weVWaHJxzKs9mv GgagDofLK7uNNIoihbbv7 85OcYip8uiUCBfjMQhPNt eWPF3R87yn7H1 YQLbDJMvOFR1aTO0iF5ne GlnbjogbGVmdDsgdmVydG ckLJtiURnyE209XKZpqXi nPlBhdGllbnQg LHhyKWi4Z8GtIvxwmGZ+P Q21PNVkGG76sMRzrLNsw5 ufkSb4OiQtRYScTXO6fEs sKMowo9AdMCDw U27keOLmk3D6DHQmqOnis KSkHeBcqMV6qR0nEKwbta jmy0dnntdqVkvfz7mcef1 2sR98Z51vRGvi ZHRoPSIzMCUiIHZhbGlnb f4gyX4yYp5+TJMrkXM1mA Q9sR1oEQFlGeU0FJweX95 9InRvcCIvPjxj d9mka3vzpXf9VgU2LEUnq uPkkEllMJH5i3RqQn04P2 9sIHdpZHRoPSIyMCUiIHZ zeXsuzk8btR9t Ii8+XRBcwGF6zPL1dZ7wB uRbDdP8YQhvP910CdMnlL QrFkgkT64xJ1YoyZK+PHR yDsd3RGGwzTar OV5ffUQnBEubGj7mUFX4T eGbPyOcACoyR0VaCACywz nlpihkxNS9EHMjAKPljG5 7Yx6dfHywUNJz bNEKeW9jeqwwo7zfnaklD sHoVXFoCDi6YOx9CDXukG mkHsXcRWO3ZoY1WBM4mCH jfM6dhSdljexh eS8yV1LfWORaynbsFu42w U5cVdCpEbK6VUykSrg+TU 6MOkScEcCvPKbUUN80D7D dXtz2CGYnaIly MI8oiSWmJMkbHy8kbRhal EglOM1cHPEawokbNBJzdV 9qOQGksEWumJjvQL6sIZO ovmycp008LaTo ONR0NNDgyJGyS8WdtY7kX hEgPOAuDMCfD1NkwINjWW nnM721MProHpY9ZTWtzbD rM6KkFWBhtEeu RhL2d9R2Cc6fAG7pAC4qV OB3KD57LG79aPZyf6B1tU S0S6EeNWSotipdhqunoMB 4MJVaDVUfzB21 wFVbEZvyJx8rl7R5r102V MMgKVPztX24Ez6yoViqLM QcuGQEdJ2asyicy1hczax gIzAwMDAwMDt0 LZa7RIUzbFhlSjJpRPF2V vR1EUN9uMGdtV1kmYgkgf bmnV6aQpl+NjggWWVhcnM 4H5EhFgd2DEVo yRmdQH2exRExKCpiZo3bq VfeyQtwPK1rCFPtpigeES LjfI1qBVIxdEXlmEgeIU5 iWAKandyeg805 BvHnTBY0NDVhzFCwZ5Npn J8gNhJyZOOnZWMyO7FfkU AkWXxpV155GCpqXoY3JCW xqxRsE7EqEPHq sAvxYzT1r7S6Fz2KYBwRU X21TS95vPNrh0Y8pAZ9A2 FaDBHoqblonydpaPZ6YGC lUCCagX96tANb UIfbUi7ci5L2e922JYKaB DIlrD75Th2gyXkvPGYmbC RWeG9aegqdf4eblgvvFxR uAZWvCBl1HGz3 HWVaeWylWxMpSKC6QjQ4X ZB7cQLesE6kbLeombovwG 9wOyc+B0J2M4NrFxgybEK +MJ57BXBbDO98 dHBpyWVwg6hvoVy2OrSuX UKxOAM2dBmdUIbfr2FxPR VzM60gdQNkq5K8NIHpiAm hcHNlOyBlbXB0 tO2dUTnmydhbe8zaurnoR xpzt3qdlx97bF28J72tHK dpZHRoPSIzMCUiIHZhbGl dyj2hlF8nUv3+ MPVhwXM5eCB9fV1sRiHaK eA2IXdqI085WmYqqKAeBc pat6efi6snkGd5KjZuUPA gdmFsaWduPSJ0 d4XzEg17F31bZPhkQUWlV ORbNETlQMDldOkoxs8ccX 9wIi8+LX4kd2ltdo29gA3 8dHI+PHRkIHN0 kJcxROzoONVqfO4fDJzuX gY9WTGjXjEwyE07vXMlOL vhEd3fzLkcvUfkLP4hYHN mgqsej799CbLv y4shISNrtVIaHDybDGI9J 31iv1R0YKEyHPHoHSY9oR B2iM1pyHhqjndhtKPnpXz gdmVydGljYWwt YMlaA569WPYrtSihAwGnm DGaE2rbzmDIHD7gHioqqD Q+GOFyIYW1tGivTQylPYW pqI3oXLRjM5f6 DxJeIuZ3FVaeO9XautQ8B ETqsPFhBZXvoXVMkD6krd cuj5uipvalDvQgDXTaUTr 2ZHb5YFUokDdx NvDaIZI7AnU5DCS8eKLro Z2hsSgqextzaX0sLbv+Rk lOOjwvdGQ+JRVhQJG5xHt vNEvfBGKcxN1l CHNcL8p1LsXcQrU0OPeaS 2VefbZ6TKFefZPzMNCvaK QNuO4fnabyi8gymnhbPbP dNBHoPOm5PQc5 PZZezXupLoKmCXX4RyW7T XH4tSTpgU9tqVdgzhrnrL 9wOyc+TVJOOjwvdGQ+PHR vRTL9dFyhYYks YVIyqZ0iZBDyU6y0ZyFtJ cZ6CZifY1LjfdT0HGIhmO DwPSNxgHYCxH2csykpv4q vcjogIzAwMDAw WIo0SOu4LQDioPwtJiLbE UL6LsE0NTW4bTBfnX7ajL zzwkcjpD0iPde+YTG7PJE 7AY85HZ22P8Dc PjwvdGFibGU+PHRhYmxlI HdpZHRoPScxMDAlJyBzdH ucQH0sVy9dVXBfDCDhqVo usFPdLaXma6mt YXB (more content not included)... [facility] Coding Summary HTMLBase 64 SziytdqqLFk7cVi+PGhlY WQ+YK8XIJNwQ35ndBZgmO 1oR8BSZLqMWmagQKERBEf RDkUmdwBqYY5qlWYqHYWl IC8+NI1rBGYaEbshlPQfw 7P2cTP7B08lzj1kORcswR U6JETyEhEbrngge4rurPd 6IDcuNmluOyBt RNHyjR31FBT1oE06Vd82a UUkyGVig1iyhOt6QfRjNJ AeSFA4mDzeOBsoj0AtBJC nV92msMVbd5Y7 RNEomHzqzKSpErYnnZG8q E0uUIfukcbbr0dfvvodHx d5qw51rXYza2O4gHC6Q5R uqvM1IWJasAPe YnuopDIQuD7qrsibd6fmd scgHjMlYFXsKQf7LFz9ZA MnsZubXxBuIW74ZBD6PUH nznAqD8LfPUUs qRfuWiJ0d7M4Xi5YK5GJW qlrE5OLVQUCCSgynLH+PC 54vv63K5YtQbfhIwj8LME sOJV8hNK5eN6d LEGlOVohi1A4xWD8W4Qvm gLqgf0zc6arEISbKDgwI9 9ebPFuf0Q2BELlfOY3LRM brHxlXjVtkY47 Oyc+NKKjpWzmo5PiTjjvr 8juq0gdtRe5UdxeYZTdws YrpOmqOQO8c8LkCx8jDIT fmPV5uJO8hD8l HmYfUaS0LNkhG171RrDzk DEjEwgfB23tC9WwxDO+PH RpEtq4RLIbdJplTW2gN8P hZGRpbmctbGVm oDttAF2gIWMvjccvCMZot C9dACQqF0u3ZoUbOzQ9LI ezA5CgLBDjtxlcKq31rE5 oBvUyHlD6DRrr Y5EcrnQ4EOBalWByPRwzB GD5C62pk7K2RBGdQSLsTD T4hGN1jO3gdUtbbmiwxHC mdDsgdmVydGlj IJrwIKpxP264TZKyyCifN kNvZGluZyBEYXRlOiAgMT EvMTYvMjAyMzwvdGQ+PHR zZBX8iHdhMNFg xNWxPEzeYd3zjQlvwLjwK X1nELIcwvowOIFdrM2lGS EafEWzcWmzZC3rZKDsdor sw832ElRxJSY4 IYWofGLrV9OlzC5gUhYfS CKxFDZzG3TkrCAfWFszX8 92JWnfFzT5ESQpscZaC2W sLWFsaWduOiB0 y4I1Vx8Jg0MncsxxY8Eof MQqLjUaOtpgODu1U8DvQe wvdHI+US12WHCyEC74FRf 0RKR6dCeuQMad FHZaC8PeoN4nDwJbGAUdE GRkOyc+PHRhYmxlIHdpZH RoPScxMDAlJyBzdHlsZT0 dVi3kEWNqYLPe aLaarRZoTkBjm4kuBYQzY BqdCI0vzSljX6PvgBX6CU Ixo2a9Mq97T29mU8NpoMN +ZLBjlUN6jIT1 zW6zTgTyYdX9FJffL033F eQocUPhLhxyg0biu8mljP s7BfQ6HMDrfgWzqTqgWVJ 6v8LvOr20L89t IHdpZHRoPSIxNSUiIHZhb Zqmex2qsS3qXp9+PGNvbC K2mYX4lS7tWhTcKpW7ZRr lD057QzZjtNIf Nsddv2gyc7iwiCg2KaVaS LDpzxSbyNqiAUM4w3DcEg 19B3BzqFahi7UvYzz2ti9 6sDPlr3C4uBA1 S4BvNHNfctsljRVbjEzsB Y1nJCPqqxshTLAzjI9fTQ XuZ8f9VmTjGzY9CEfdX7O rjeB5ZPYppGBi PMUojIIXuJ0cwptcc2fim snqNxHdIFXoZXd7VNq4GZ EbmCczCmUdSYG3MpI6JFT 5rTNblU2mlIkz bdgyqZ8oRzq+JRA6oTOkh IVZDD9iIccnkMR+PHRkIH C8hLynLDttPWSswV3oQYX bY0b6MhVxCnV5 WEhqU6KrgmI8RZAfjFYzE EEheVGHyA3zsdoox9fidu gfLzBuYGAyKCa9HFd4PMX saWduOiBsZWZ0 UuU7IID5yBFkrT2apEuft rhzpA5yWpp+QmlydGggRG L8JHs7Z9CcDra3XQNckOr yAV4xlNAzTPnv Af8ftUunfKvxQO8xIUMcu jkrh404BhXov1tmGBWzdZ OgHPqoHGZ8J56dp0K2NPQ gSULmCOP6nFT8 mP7nuLsmsrcqsGMdtPpkc qFanOrmNCwkNKeiK210QQ RbcDphOeXlGOh1R7NsKfw 3ITQpgCrkJP4a xPWnONzwWw8lcXgvuSsaH N9fPGVirtwwe542NuSpp9 bsUZQliBLsHVloHDS3O30 cq6A8NRMuGLYv DMP0kTC4hK4rkRqqhyrir GVmdDsgdmVydGljYWwtYW aoL421XADcrUgaSbZqdVn 7Z5KmKyh0DBUb vMcuFM3dnMMnHZptPe4ul SszhJjtKY9cFLKmbwdfk3 47PrQda4vyMLUqjKYsECa bNCZ4U09qc8Z5 BNOiCIRzQBL4rJO2wY0nf GlnbjogbGVmdDsgdmVydG wqSQcsHRncM204CGOchFf nPlBhdGllbnQg PMzgCUv3A7UrWcripUG+P X88XBZfKX93aKRolHHoi5 wmrXg0HoLyTOIuHRI9gNs uCIlhu6XaTDVy W40tsXRdj5E6SFNhrSopu SLfAqPexZB8aU5dTOifyj ary8eqjayvOkwky7wdyp6 8hY44Y12tKBea ZHRoPSIzMCUiIHZhbGlnb r4lgK7iPo8+QRKtyHI0uW H2hZ1eTWHyUaN6RLmeA24 9InRvcCIvPjxj n3hrz7usvDg8CnB2HIUnr bYtlUhfZTQ2j6JcXf43E6 9sIHdpZHRoPSIyMCUiIHZ zqGhguh8ykJ5x Ii8+NHQzwJB2hGI7zL0bG rGbLeS2LKszY514NiSpuR QmAqvdQ16bR6DrvCL+PHR vJzs6NTNsqBud DV6msJLhHAbvCn1vPEI2T aPaSuPeLArfK8JzBMNbxy xynfbbqIH1TUAiXUBwuN8 3Nt6nvZjfCCRh mMNLoG8yorexl6vgymxqE eMjXZKaNBx2BMf3ZJApiY eoJyCjGFK7IvG9SKF8xOI ynI6edSmzmwnm jP0fD1NgXXWbmivxVx01k B1sBjAxMjW0BLutBdn+TU 8WTvYvZeKtWWsHTU86S4X xMcj2ZREeoGjr OZ9yqGRqTKfrWj8zkGfex BlxYM6yOVLwwmtzDBCdrK 7rWSKrrGWjsItpEQ6wEQI wxpscx153KmVa IUC1QFItjJOjR6PmvD0iI vUiVZRfNVRlB2UwfGKeZJ uhF523JEdeJtE6SDAslnL hX5LgWDOziKjj XrA4q6I6Ef4aGR9wQJ1vN XI7WO78ZW09qWDgv3S1nT C1Y7YiPLVyntwguhagzSN 9ZGLaMCIpeL90 vPKjABygHc4ri6L9o656P BQcGGCuiX75Cl6zsRfzRU GbwINMkY9gsagye8uwyoy gIzAwMDAwMDt0 TKn9VDBtoGcuHyCrJVH7W pB7TMN4jPWpnV9bxWkipm lfvF6uGza+NjggWWVhcnM 0N0IlTjp8TOMi jEaiXF7qtNYaTTwlGh3ey XmvuMfmXU1fJNQmghljKX SuvR8sNUPecRGlaVcmRN6 hEMUixhqui927 IvBwPMZ2IFRbiNVsV3Ipg I8eIfTyCBGnOAAjG2IddA ZyJApaD420VNkmMgI6GPA kogLwQ0BxVSBp cHfsWnH3u7S4Ws9KUXrRY O91KX22cXMqs9H5zLP1C8 DcVRAobzgujouyyUT6RLB ePZPeuQ16nJHp PYrlXq5kn2R7o850VRMtU HCuuH65At7kaBrwJUEnxR SPmV8rxamai7gorrxoIhR iTIIiCRy2KWt7 CGIygRtbTrNdJOB2QdB8U GU6qLYbtO7rjVbzbzndnK 9wOyc+L1O1T4OkIhxhdBT +WR77YCTsLR67 oDCavXPkd9swzAa7EfFfI JEmPCQ4zCviNQkqn5XuEC BfF29raIJuz3Y4IRUmeBk hcHNlOyBlbXB0 vL7sKSvjdovyi5ggrdzsX ytud9wgfv40gV51R54kCI dpZHRoPSIzMCUiIHZhbGl axf4pfM6aYf3+ LDHbcAV9fVY7qY2lZgZeF kK6EJheU609LoYowVGhOp xod0ayv3jflQp3UdYuALT gdmFsaWduPSJ0 x4AvVf10A41eYQubHTMnW HSeWQZgIFCjxFhffk0urC 9wIi8+AX9lq8vckm56rB6 8dHI+PHRkIHN0 zUfrKSrxNRDlsL7tQIjeC cT9HIZtEhGlvO83nJVnWO apTi3alIrfqIkxUS8zQUD pdjxxg706MaLi m1bkUJXohMGcBMpjSVB9X 51hu1J8LBDwPSSaRZH3mL E1iJ9yaSznbideiDHsaVd gdmVydGljYWwt BRbqT737BEJrdKbbYzFtj PXfZ1ufnmGJDN1zAriiyI Q+YIXhIKM7eZfdIXrlXKC cxQ4wLPNcT0e0 GyDjUrD1VKnhM1FmksH3O EYzaGSaQIAkpYMXjL9oed rta1iirybxFgOnOXDqMTl 3GWh0EZRikMaw KsDcKSC0JuX2ZJH1qJGht L5whFiaocrquL3mBay+Rk lOOjwvdGQ+IAAzNCF8sPo uFNjfCVPcxY4x SSUkX7w7GjWgXyD5AXkmF 2QtoaW2OPBsjYPdSPDnaB TJdD6qgyodf6jsfyqdZrB tIWPwOVf7VPg7 FCVhnFlbXoSlOQI1VyR8G IC7nRXquA2noHwixtsdxK 9wOyc+TVJOOjwvdGQ+PHR xUWC7fBntLUzh NZSvhZ9yMLPjG1y3JxUlX yZ5SNfvK0NypbI1ATGnjP TcUHRenMCSuT4fpxxja7q vcjogIzAwMDAw QPg1UMv3QCKpnXvmZuMeQ UZ2MoI4NJH5tAZujN2wyM ucnfpvdB4kUos+HAD1JLI 1UV38BP24P9Os PjwvdGFibGU+PHRhYmxlI HdpZHRoPScxMDAlJyBzdH vrEQ1iNk1mDWXiFHThbQg xcORsIgIin1nj YXB (more content not included)... [facility] Wound Care Noteon 07-16-2023 Wound Care Note [phone] 1 [id number] [facility] Coding Summaryon 07-15-2023 Coding Summary HTMLBase 64 NmgulrowOIu5yUg+PGhlY WQ+AR1BJGIbM93bjWWcvJ 5lV6ENMQsXIuuhORRYCBg NKwAnjhBkZW9uuFAmLOOl IC8+NE1sDOHmZyfwdREtl 6O7oFA4L29yfm8bFRzgaJ C4ECQaMsTyoyrbn2einUw 6IDcuNmluOyBt MPVncD99PZY6mR11Zr07d NIjoHQgg8njxNq1MhZuCG NtAGS9vHmfJIpxm8FnSZP fG88ucFIow7M5 LKHroUdpxMMiOhPbzIO7h G3qDUngqkrny4yvehylBh [id number] fmxM2ZJVciIIs OpsivYZBnU5txlnhs5szm hlyEqWiTEIsDRh5BGr5NR BudSyjUyIgKR32APM1CFP mekCiE6KoHSWj yEgwFpO7w7Z7Np3CQ6FDL cesI9JHBCNVBVfblIZ+PC 35di22T9XxVqsaWjq0MKG mHVH7yPL7mJ7c BLVqUQcov9Q4iUT2U8Fqj pYome1zs4znSFGsVGjsV4 7biKDtj5K1XYKhrRU4ZJX jtBmjImJnaE95 Oyc+BADacQoop6HuKhkpm 2fss7kxnVw4ZhwnAGPovr KfbMszNAF3k4VhAf5rHLE jgXD5xFB5dY8e LuNyLtL6AWwlM915ClZpy FMiTfldR00uN5DonDI+PH DfKpo9VSIodCgtQQ6pZ6N hZGRpbmctbGVm tZgvII6vUNJymdqoXOTez C6cHUDyQ9i1XfOaWvL6XL otZ6SuGFAbxqnmWo51rT4 vKsWxGfH3ZWmo B8NbrbD3KFHjrCHxLNzqB PP8R91wh4N9FKIvBSEdXU M1yGX0cV2duEzhhaahsAL mdDsgdmVydGlj RHboDYueB295SWEbxFyyO kNvZGluZyBEYXRlOiAgMT EvMDIvMjAyMzwvdGQ+PHR wIPG4lVdhWXOt aSKyTGthQo0seYqxqSaxJ F4qRKIabiecRYXvzA4yIG KgmWMjrOfvIC6aQYXcmuh sv237DuXnRID6 RGFlwAHeJ6SeeB5yIlHgC FSdGTFzB1BcjOEnPPggA7 98XManMxW9HHAvwpIfP0G sLWFsaWduOiB0 q4F9Rl9Gd6CmlmtuA5Qyr GNlPdCtSjofVWp3F7JoIa wvdHI+ZK55ZTIaWK65KOv 8QQV8oCssESmg DBYrG9TifZ0wDiJsZJGjS GRkOyc+PHRhYmxlIHdpZH RoPScxMDAlJyBzdHlsZT0 pFe4xNXQtAWIa cHsqwOUoNkThj1crTSAsT KcoZH4ifUltG2AguXI4WV Rln6h7Wq44K16tA9AvzST +GCLsvJY3pUQ7 yE2jIlJiPeX8AOhnC471Z iLvkRAuVpthx8hna2npzQ q7KbW0HEDmleNdsWmxLRA 5w7PiBy88J47y IHdpZHRoPSIxNSUiIHZhb Gcclx2cbJ0jBa2+PGNvbC U9uAS8kV1vNmDkUjQ4ZUz fU085BrNhfBGi Pvlif8xou0ulrYr7GtVnY DFepkCtoJlfWBX5h0RnLx 50K7NsjPnee0KuHdh2ij3 3fVXbl4Y7iLA1 G9CxKTGhzfnvwUCovKxfY P5xSZDhqzuoOUAmfX8cEU BdP0h2UtWgOiS6BNcnH5A dhrU7MRGfdEYv JGPsxEABjW6ocyivr9jje jzqGoWcHVZsFWx9AUb0SR CbuFpeCdBfTUZ2JfU4ZSL 4gVXwpC9awWtz prtlqD4zLkb+TLD2xKZbu ZSJFL8qVbesdPV+PHRkIH P1wDagOAoqMQKhoT2cBXP cF0j2EfRlEkN4 BDvnM9RtryJ9ADTjnZQuJ CWznDFLpV6xygnzg5mkvb ptTxKtSTVoVBn3NKc1AEW saWduOiBsZWZ0 IuF7XZI2tCCbbA4tjUeai jspcR5bWkn+QmlydGggRG T8UNf8R7XwXps3RSAklSu uFT0xhGQiIKun Xk0bwUjkkQizAZ1lTODfq nond348HsFps4lcTMGidZ YcQZvpNZU1H39kv6M6RVK xBAZeRQZ2dLT3 eG8bzUfcsisozONypDovx wEzuRsoEVwtYCdfP271PU HqyMkmOiMrLTd6A4NzImt 7OIAmnNkhNQ7w nWQuJWwzIh0jfThioEmeJ C3xJEWxyptbh359MpQyk5 weSRHtiWZxTIpdUNH3F57 eh2U1CXWlYUUr FTY4kRE4uL5joSkttssht GVmdDsgdmVydGljYWwtYW quH805SMUduHzbToHcxEq 1U4PfVhl1BRTb lRxoGZ5wkJEiPMdfOd2pn JmbmEybEF1gADUjcenkm1 75CbXoo6lbAMBdoUIzCRw vYTJ4Y79co2A9 QKQbDVBsCCB1oNA3eZ6og GlnbjogbGVmdDsgdmVydG rfKWdmSThjK451FXFjzUr nPlBhdGllbnQg VQlmTYq3C6DuIqjqzZQ+P G66XVPsSJ08eFObhVVea7 libKa6QdOvSSZkJLV6kHn jNDnyb1QvULGg H76wjSHsj8P0ERLpfXhgv SKdBhExtVI8zM8yDSxlgv fnl3ctevqmDseyh3yght8 0dJ19O32iYRzs ZHRoPSIzMCUiIHZhbGlnb b2ubR6hUd4+ZFOwqZA9fP Y2qS9mHYBlSsV5EOloU66 9InRvcCIvPjxj w2uve3vyoKy3HvI2PWEkz vDhoRyoNIH3i9YlOh04S3 9sIHdpZHRoPSIyMCUiIHZ ixMwoey0hdD3n Ii8+JPMchHV5mVZ9zN1nL qPtGlG7CQhtN393EwLpsU AuHvwlX78qA4MarFX+PHR mUcr1ZUMpjTcu CO2zyRGpHPtpQq3jDER8I kBhWeWiDXhjO6HtZMDbcj kxhliqcSX4MYNhXPGqqA2 7Jq4kjSdvEINl wGASvW7xxcrps3zjauotV yKzABTaMSz1MFg2FVFkkI vqWjWuADX6RbU7YEV6pBV zbT8mlFxikhci jD2mD2ByMSAxfigaFm67u I7xEqKvDaU9KWtgKmd+TU 2FTyFbNzPwOHtZVO72Z3W bQqt2GJUsdNyy XU6brYKlHZnoUi6uhFbxx MowYD8mIZAwfemePASamA 3cWXTiyHMciCroYT5yVTR mipzlm142MtEm KHD1ZBYanFKtG4VoxT4wE tBoIBJfURNaA9NfsIBqKS xkG065FKszXyO6DZBjmxY lI8YtSRXaiSie FfF8t4X3Qn0tIU9bWE1cL MF9YJ56GI74eKUak2F7rV J5B6BbNTHdpgaotsneoQA 9JWBmDXOhgW19 eFZhFAfsGa1lj4Z2o088E YJqYDCkjH66Wi7kdYydBE IctVMJeC0ujnugl6sldrk gIzAwMDAwMDt0 UWa9PYBskHorXcPtVFM8I vW1NAT8iNByaF1txGwrkb rgaV9dTyx+NjggWWVhcnM 8I8JbUmb6MLUr lQheCV3xgQWzSKnsCb2mx IgezBfqSW7lHTPqzrtdER UulN5yPOWssMTksXplBQ4 tNXRbcnygq952 UwMuJNL9KZXraNBlU1Dbx X3rJhIuJZAzFFHwN1PxfO AdNXebF713JQqrTyM6FCW jqwTwR0JlMRPk wDuhGlQ2e8G2Se5DNUdRC T57GL79cAEzw8Q9lCI4F7 TsNFWcsjfmqfvwwCX8ZDJ cIUCdxT61qUKi IAmuMl6la4L4d643RYUgC QNceE42Ie9hqSavTZEcuC AUiL0apsipi6yzwnpaGzE oEETwUZc3UVv4 FLHpnDyuKzCcEFP1XbF7H CI8wURajO1lbMkmebqykT 9wOyc+G1B2B3AhDzyceHE +FQ01XAQkYI63 jPGziPVvc7usnCk1WbWsM BOnFHJ1wBzfZBhot3XiTO LoQ82jgQYll3F4TMUwcCk hcHNlOyBlbXB0 tC7cWMmfvrqrm0qkhvllX mfmr0kihq17hG09A03vUL dpZHRoPSIzMCUiIHZhbGl bxc6svS6pGb4+ OREbtZZ5zXS7pB9eIaGxK mB9PWvjB022PpAamUOhWm juw7yhc7jxlHl6QqKcVPE gdmFsaWduPSJ0 a2NiQk94M82xDOxlVQGkT FBiYIKbOPTukIyowi6igN 9wIi8+DH0kx3chrx08kC5 8dHI+PHRkIHN0 dWdqLAxzQOYdlL1vSDviZ rJ2TZLlMmScbA86tZVgNU pbFg7juOdwuUrmUX3lRGD mqmunp541FiIa c7ueBTXdsIKiEHyqQGL2E 21qt7V7FALwBGWsYXR0fQ H2pE4jhJbgfhqwtXBkbZm gdmVydGljYWwt QGqnL866CSMqwYkiKfMby NOlB3lyjoDHBB2fBybmrS Q+JISkDLH1fJcdYCxyFRQ qpR7mLDAmS0p1 ViHfLqB6RUnqI6BogjV6N GEwvYRkGRUsoPKFgF1dcr rcq9knnsowHbXxUJAuJZc 3WJc9XTNmaEjr XjGmAEK5IlI7TCY0dSIoh C5xtNholpxkzC7aCbl+Rk lOOjwvdGQ+IKEtEKD8uRi uBEcmOYKmbP5e QTTlP1i9ZfNiNfM2ZBpuM 3UwoeP0HRMsxRPwARXfqW GCpU8btbgnc2wwrzxbTcX lNDGkDNp0RTx2 PNDkuEctUrTfRUY0AnC5K TC4pHNkhD3xrKmjylrpuM 9wOyc+TVJOOjwvdGQ+PHR uFGP6lVejBIfa LEQjaN6dZZXgU7f5JeNnE uN8IYkpG0WinjA4NVNwcP ZvXWEnxVHCbS7shprax3m vcjogIzAwMDAw YVl5FXt6ZKFazZlsWxFgO UV4ClY1GDI0uBZxaX6ouK oldstsvZ3dNeu+OXB3KJY 1DW46OZ61U3Hj PjwvdGFibGU+PHRhYmxlI HdpZHRoPScxMDAlJyBzdH dtMU0xDs8dJGHoESGllXs rnKFeBuUam1fb YXB (more content not included)... [facility] Wound Care Noteon 07-09-2023 Wound Care Note [id number]. 00OTGTIFF [facility] Coding Summaryon 07-06-2023 Coding Summary HTMLBase 64 XpdvzsdiWBq4kYu+PGhlY WQ+HI9PQDMzS53prLSgqX 1kB9GKJPhEOqyuPHSJTTz YCeIcqvQsHC3amODpAGEw IC8+QL9fIGFyCaobiUAdv 5U5sMG3P96kyi8gASaaeJ W0EVEuWiLqxefon7viyOo 6IDcuNmluOyBt MPOinN23JQH4zE42Xd02r YZewPUnk3uorAk1UnInUU HaOJL6sUrfLEoci4AgECD nA99mrWYlz4C9 IHGdsZxvpAHjIpYghLH0m Y0sUKxsymjlt9pzfqlaWf n3ra88cYTyr3G0xRS9P4O kdxS7OTSgxGHk DjgxmHUWxS0jzraoq0vui bnxPnKkEJCiGLj4FGv5FS YzzQobHvKwDM17QNL6IPC kzpSwZ4NlJXBe wVsaDpD0n8C2Rr3YQ8WWF lzsG3ALGMSPZEdsqMS+PC 50mh71B3AkLslzOpa4OWI eTZC8wBF0vZ9f HIHrSHkvb3H3jSA3D4Ihd tIwal9pq0eiDBZgCEdiH3 7opSUeg1W5KQWneQT7TXP osUacCxMadF87 Oyc+TLHtnNmxs9XhFmxfk 8jzv1mslWk8PbzuJUKklr LbsOvpQAI1p0TzRz1yWUV viES9kWU3uM4o OeFhNbR8GOmfS861OmQpb RIsItihQ73iI5HuhJD+PH EeJcr0NQAcnQswDD2oB9K hZGRpbmctbGVm kQdkON3gGYBojxqvGHLou F4vVBQuI4v4TnRhDrI5AI auN2BpVTBwaftiQs26uM8 nKlGxIsL6FSse G3MotpW1BTVrdJKcFYyvV ZR6E41te1P7AKOfEGSqHV M3yMS1aK4ekTwrtnxohIW mdDsgdmVydGlj BYqmSOrrZ162RPXnsQvbI kNvZGluZyBEYXRlOiAgMT AvMjQvMjAyMzwvdGQ+PHR nRWW4bAqzEYJl mSGsUTocHw1iiAacbWwqG O4hKRMrnwcfOYNgcQ6yFS JrqFKxvTvcNL2zXZKmepc ka749AfWdLMZ9 RJLuaERvK4GojV2nYjGwQ SQgNIFeS8UikIRwBNrfN9 32GIhnTaY2NXAcloCdB7E sLWFsaWduOiB0 u2Z9Jb2Gw8WsbmroS0Apo EPkFmWsYfviMMa0I1VjWk wvdHI+RG68RGIgLB70OYk 9RPJ6iCtxOHxr IVNdL3ZwqV1zHkJyQMUyO GRkOyc+PHRhYmxlIHdpZH RoPScxMDAlJyBzdHlsZT0 wUn9iEDAqNYGr wRnyjSPeOyZcr8xtMFMzS KvbLI3pcUwxX7BfzXN4DN Xcr2o6Hd38C42eR6YnhDE +PNLsjLU6bVC2 qD8eWhFeRdJ4EHkpD968G ePbbOLlFtvot6ihj6kitK i2BcB3XTNqubPjxNnzHBQ 9a3XiRz68Y55q IHdpZHRoPSIxNSUiIHZhb Osrgu1dqS2gOw2+PGNvbC F7aII3xL7kCoClBnZ4GOh xR088VlTslXUk Dmjec6zqw5eevNz3ItGoH TOsblSgcOgnQRS1m2YcDq 49M5VwlAqwg3WwZdl5oz0 1zTDuh9T7bIW2 G4CdRKXxpsoojUZcgVhbX D5jQNXloujuQGPsrJ3uIX QpO0a1UeNcEqX0EXdzX6C przQ9URQepUNz PPGweSEZlZ7cmyaoj1amh wguFpBaRTRuIMq3RTe0AM DlrQzwYeJyMMF0MeX6MSG 9hDPmtY8njDqj aqdmeF2jJlw+UYO9dUTxw GUGAU1zRjrivKL+PHRkIH X3xNbdPFvhEBOmvO3zSVS mG6d5ExEoSsC4 STetQ0FpwkD3VMXumLBnB BLhpHDWiG4haeuiw7kzct nhYaOvXNPaXAt8LIw5GBN saWduOiBsZWZ0 JiW0TWW7zFIriP3gdUusm wkgcV3lLwq+QmlydGggRG R5POh2F6VrSvv4MEEhwWz lFK5kuVIcLCfp Ij0abLhdxSfxJI4yCWUyv iucf010SsDas2vnPOVxrD KfIXbjLPQ0A43vt6E1JFW yZIOmMSH7aOS7 mO4smCyeeytkiBPstJrhf yYckTwoJCzxLJobJ577GL IdpSfvTeRtTYy4N6VcAcn 9MFMsuUbmLV5c pUBoDRzlHf2ohKlxrTunO J2bHOXkdtteb447FkMix8 ieYNTttSRjKLygSYS7G58 ia0B1RSHyWVKn TNI9gCL9sG6bdLyuomjyf GVmdDsgdmVydGljYWwtYW osT617CPYiqYowXpKyeGi 9M3DpZog4WQEw qPhwNY2zjAGcRObxVr3xk QsueRwxBL3iTXDqlyeov2 90PdQvn2teRKLgeZCkJGu sTAL0L85gs3Q0 LEIxXDOcPGY2ePJ7jF2oz GlnbjogbGVmdDsgdmVydG lrFQrfRQeiG613VNAgjGu nPlBhdGllbnQg OSjlDMn1F0IfXmuajQO+P V89IXPiMQ53xDFfaZHee3 ieoEv3WoFwASQbSHP4hBz uNRmlj0RxNBUi U49wwAKez7M1KSUdwSakl RTlUvSrzIZ0gZ1aDSbqma vvg0llhtxrCugvv3jztu0 2pS70W43uOPti ZHRoPSIzMCUiIHZhbGlnb i0zcK5dKx4+JOZzvLY5mL E7hJ2eRSGtMfK6BNhzK52 9InRvcCIvPjxj i0fqw0ztfMm7DlK1FBOqq bOznAlvSQX4z2RdZd93N7 9sIHdpZHRoPSIyMCUiIHZ fkHvsuk3hxN6k Ii8+JQDhzYP8aML2cQ7pD rWjPtL9GYziF099CbNnfA MdIxtcH08zX2BgiRP+PHR fEdt7FZLsuMtu AW9laJWuGIgxSv0yPMU3H fUzXfTgHIckY7XzFZNkkf olhkqddYW5EUUqPNSzfI4 4Gh3hjRcjYRNk rVZWdD9rlamxb0ouvztkJ mMeNXHzTEs4SLb2MXIpwJ cqDwHfNMV0GoH8FOE9vFN ztQ0fbJfvvcxp tL7wP9LlOIWboadpTh72w Z2rQfSxBiU6LEirIlt+TU 1PUnVjNjUwFVaLSR38J0Z xJvn0QUBcxVgq DS4isVBsWLevGf3kgKpfm MylFI9kZXAxvfueLJKhcT 2gDEEzxZOtpOlfCT1rKYO mgeytn302SvJu CYE2BUYnbCIxO5TofI1jY rJqFDWsRUUhN2EjnXVqAS vnR392GNybRgQ5MKWedeB pK1PcHVZdoEnm XvT0k2O8Yv0wQF2zVI0uY DM7SX36UX93mEIua0R1yN I9O7LmKYBuiongfxdpoYV 2QLDjPQRgxE16 vMAaIEyjMp3wf2Q0a052K IEbQHUovF33Td3ctLwzJD LxzCPYbS5hgoveb7pduod gIzAwMDAwMDt0 YOt7QSAfnJqaOlLlYME3F eK3CQB5rZSfgL0bpUflkz ttyN8oIxo+NjggWWVhcnM 5U2OmVfv0SVMo fNnbKV5isBTeFHzqEa6as PdbrBhuVW2cEMSfwwtlQV VxoR6iULCnzRFmuLneWM1 eDLNoefkaz849 KySsSAQ0LXClxPWuT5Yao P3yKzOzUGBlRKDmK8AepJ DjXLheM008MXclPaC8TKH tnsSrW4VrHGZw wBpbNuQ4e7B2Oq1QRDrVG Q11BQ13iUYjh0T1hLO1A1 EpTSNgbvoqrufhdRU4LQX lNQUnhM53jQTg UAcoXn8iz2W5e259DTMfI ZAchD28Py3hhQmvBAWoxJ SSoD4uqnmyo1mofrwyCiR oCXXvROh0HLr6 AHHgnSosImFbHJE9WrP5T OJ4uABbjL3cyPrrfueeyR 9wOyc+L2T1I5KsHwcidBO +OA62UXXtSZ28 sXYfyJVhi3midVi9YyDxS JJbAYL4tCeoGMyza3CzTM HvI89egYCvi7J5EDLgoUy hcHNlOyBlbXB0 zT2wFPkrlwuac4odtflwN kejr7qgot97bB69Y47yFC dpZHRoPSIzMCUiIHZhbGl tge4ktZ6jVr8+ XEAbdVI9rFL1zV2pLaJyC qJ0NJqyC910AfPzmUStCo wop1xmi1eznTe2DtTgFDN gdmFsaWduPSJ0 j5KqTx10D87vCNvdEUWxC PUvYBFhYOShqZnfln3ziR 9wIi8+KJ1td0fggb63qT2 8dHI+PHRkIHN0 iHuvBNnyLTCauD3iQMscI hM6GHLfUcAvsR25aEUwTY ttOy7dlWdfiNuaFU4uEFP kmjocg528GhDt q2smVKHhzKAjOAdfEEH7L 14ez1F2BFQcZBKeJEB2xY D5hU4boPqyeutrwFCfvAl gdmVydGljYWwt QEvlA309KRHlgYmsWjUvq QMcJ6nuruWAPI5kCburwT Q+EIZdQHE0xUzqZUpaDXL lmU5lVBNkU8i7 WpBiNdK9HCnhH2WdxpT1U JSouPFfLIOemGIYlK2qet dbk6jpsynhAgRbMOXfAAt 5YCo5JLVjqSpq CtElSSF5KuM2TVG7gKQmo Y3rySnkeeqgnD5nJwa+Rk lOOjwvdGQ+CCGjNRS8mLj tLCnaOZMldP5r XBOeW7f9WxGySlQ2CKnwO 1VbxyE0NSHcyWOzCMDfhD UXhC3hqtfmr3pdqqefNgV cJGDrJNf4QDz7 YAFxuUmvTkVzMGX9YxZ2C ZS8wMUfqW7grLpdssvskA 9wOyc+TVJOOjwvdGQ+PHR hSKK4tYgcHEna DWDgmH6yLDGqT5a1CmIiZ pZ0ZAobT1VgesA8JQCbyP CzONNjnCMHyE8labmyo0w vcjogIzAwMDAw IEw4TQp3YELreAkwWpJeZ AJ2KyX0XJE3sJVgyL0oeI ruzffjvJ2tXja+BOL0PXM 8JP94CL93T9Ay PjwvdGFibGU+PHRhYmxlI HdpZHRoPScxMDAlJyBzdH xjBE6wEu9aZHVmXDNabZl noGOiUuFmu0qv YXB (more content not included)... [facility] Coding Summary HTMLBase 64 DbppellvCUp7vKk+PGhlY WQ+VH2BQLSoC81yfIRfrU 6oD4DISZsOSdwePYMZLBk SCvDhdzWfNA6jsHHkYQPj IC8+PA8mHEQjLrmbkWIob 4A7xXT1Q84jjj1pFZtyoP H5GPVgIhOuhobom4zbiBy 6IDcuNmluOyBt XCGjlB39UWZ3mN21Uj27r FWxmQWyc8jtjJs1RnWpZZ FuMLX7fHziOMldu5KbLSY nF02inSYvs4S1 YIXuzAwwdZPiVuQlhZT1i X8bYJtvvajmq2llfzdiAt d6ou37tPNuu7R7nZZ6E4E wukK5IEKctIDr SdwjiJLLqI0mhckse7hdu hdbQmWbKSHwGNi7UNj5IH RevOjuTtDuYS10EJA7RYZ ulaWgC0XpCOBp sEoeMtS7a9D7Qw0XP7CRQ jooK1IBYSLFVHcjqZA+PC 60yj65N3OrYexiYzg2EZQ eMML5iNO9hK0g MAQlOWfkm6S7bCJ6Y1Tfh zUxox8jg2wkYBLoDMwqP2 1jwLEwk1R8DHAcyLV3MVK byAhaPzRbjH73 Oyc+SLUkaOins7JjLvrac 5odi6hqwJj4FpbwVMWwaj ZqmMeqDGS9d3FcFq2yJNG dwVC6lSA9wR9s HvGwNhC5NFnvP830MqJqs VJoSxtrY64xL0PqbBA+PH KeKbv4WACkpCtsIG7vX3X hZGRpbmctbGVm bLaeEX1hMUVxetdoOAIvc H7bCLKmB8n5HbOuReI1WJ ilU1MzRDEwapkoVi77nK4 jGfKaLxX5TCcw C1OaneX2YKIouAGcDXtrH IP4X54gr6P5ZZZfPHSdTB E8uBB3sH3rvFgnfoivkKQ mdDsgdmVydGlj DTplSCsnQ717HSAgfIglY kNvZGluZyBEYXRlOiAgMT AvMjQvMjAyMzwvdGQ+PHR bKBD1dMghLYRt lEDzYUqiCj6dgPspjBdwE U5kRAEwddeeAGYeyU7lXO PlyUMmxDgfIQ5jQWFktbh ee909NuTbXTF2 QULwoZVlU6JlzU2mPbKmS ARgVVKhE6FywDEkYMwwA1 29TFrgHfN5YUQbcyJvD4N sLWFsaWduOiB0 y2I0To0To1OedltoZ5Djp SYmAmTcClutSWf0W8VxLf wvdHI+CC91YEFcQM83ELb 1YFI0pCykEIzw JBBoH2HejL8hByZtMGEvF GRkOyc+PHRhYmxlIHdpZH RoPScxMDAlJyBzdHlsZT0 rZl9zWCDqQISf uLvsxEKrMwRdj6cwPNRnN HvjQU4pzRoiZ0DfvZL0XD Sya2n3Iu78J30oX0YkbRX +KAAfyJB6tKV5 qX3xIsZeVoC5FUcvQ675S lUmaNSzMrmqy8svh6rymY s4DmK4QRMrnpCwdPloRFZ 2r2NoKr52L87z IHdpZHRoPSIxNSUiIHZhb Dkqif7czY8mKb7+PGNvbC S7gCD7iI4rLtJvVpA9FAc rO863CqWffDJb Emfmj0som7ubnId7TjYzQ BTdapOlpWliFGT4f5RjUf 00O5RlfLnlm8VeVgt2cd7 0eOJpx6D9gMR0 Z0TkFIRfpkwvaHXmgKztU K1dWTObneleASFdgH9mFM NfO8i6KkXcVsB5AKdaH6P gxmB5WQTrdZZb WJJuiUYUfD1cpvrij7jrr mmaQtRxWXCjYXr2ZAc0DZ IhhVfdBxIqTCI3YfG5CMI 2vWYlsK1opFqi mpqebW9gIad+WOL4wWBtw WHMLD4yPevapHL+PHRkIH J0eEnbWGjiGZVngW2mIZN gE2i9FjZgQfP1 JSsrV7AxtfY0PIEcvYTtM AEctIQRiB6hpmmzt6mign rzRgRkTMCzEHo5VKe9YBW saWduOiBsZWZ0 CsU1JGY0xDLqgZ4cgUgfy nyxyP7bNuc+QmlydGggRG T7WCq9Z7IpQgn5OYIzgXf zIW0cwFOrHRie Vs1htSfypYyaLR7fPGOwf enbf380LqKgp3cxNAZekA MjPUdoHIP4P57bq3A0IHL sQCMqTHU5mDF4 pN8oqFimtryucSLjcAcxq iGjuDaiQSsvGCjzR465GR WzzRtkEzAnGNl4S2SfSzd 5PDJnzJmhXV4i uUMlDHyjYd4blDsagVcuK E8dGUTjjwxyb183JkGxz2 puKHPkeDPqWRxpJZM8B50 zj0A8LYSkVNBn WVV3gCJ6fL7kuRbpvtesd GVmdDsgdmVydGljYWwtYW jmK875DULsuGiiEhBpdHp 6G7KkYup8XPWd bByfRW4fgEOeCKolQe0vp BkpdKwgUK8oEVEdnwcri6 19GfEwb0oxRFLovBExCSk mNZM9S56pv9O5 FQDiUMNkPHX7gMV2yC6ty GlnbjogbGVmdDsgdmVydG hxMUsvDZvnB409CBLgfXl nPlBhdGllbnQg KCspTAv5N6MjPjasrNO+P M11AKDxSB48uAWljQOlr6 lsbHa7PsIsVZYhRLB8dVt zXFyzd1UpZUZb A10ikVSya6E0ZYJyqBbve AQfGaBaaJG9zT4pMRomys vzv6qzoulrDiubd2sgiv7 7tR62T36pYWcn ZHRoPSIzMCUiIHZhbGlnb u0glC6iWy1+CLBjkKC1xO Y4hO6pCKJyTkO3EOftV01 9InRvcCIvPjxj t4vxa0xanLp2KcI5IQYfd jSpgXpyXER0a8PzJw09M0 9sIHdpZHRoPSIyMCUiIHZ qjKjxsa4lpM4m Ii8+NMXxdBC2uXS9zV4cO nGjQuB0UCpoE037ZrQtiF IfCirzA43lQ2GbpOQ+PHR oIxz8LWHidAxl LC9cnEBpBZnfSs7pBBX4T hThKwXrALxbY3JsUMSogq xgajgvgCP4PKQoNTPxyM6 1Fa2pfEgdXRTe pXBFfE6ahvmfi1rqhgygB lJiHWBlOPv4SSz5KXIyyW rsXsUiMWS4TjT7AVM6oWE qlE6itZmlidkb iB5sK4ZuGXCegzsuWw92r F2dCqGiBjK0CWgySxb+TU 9COhKiPgViXShPWI92S5K kDwa5IZHatEqx VO8edEQzSZubFd5yqVkhn EbjDM4pGMMxdudlUYYnvS 9sJXFewQXsmTkxFF6rHGM mpctbj524GvZc RML4ZAHymUFsA3NboY6aT pLeBQXoVPNmE8TajDJzMX wwW296PZoqGjF4HFGwlkM zJ2CiDRJhlRbj HdW6e9D2Jz6yCK0fPC8bG DV3CQ92WS66xGRmk1X5hG Y7I0ZlZLDwmtudpjfzpAL 3VXHkCKRjfG29 hASyXYsmNy2pq8D4s533I RSzRTAjgM64Fc4jbMkwVI CbrFCAmO7rmibgv6payzv gIzAwMDAwMDt0 RPx0JDXamYyjVmIlSHO6S bB2JEC7cCDavU9vyZnbxh cbgT3iEsf+NjggWWVhcnM 5B1OdTgb1QNBq aOqsYI6kkLBnNDhsWh6zr VumvWucZZ3iKUTwncglKV IxnH2rBSYbbWHfrGdvOW6 iBYSauynep211 VfXbTPQ1DJBveIJnF6Wss Z8eQlPwICNiPZJmC8UmhY JaRKhiJ064JYafPfB8IGN vqeDvS6NjGVWh yShlMpX0r3J9Hs2JDAwBS F95PZ63uYVoz2S2uYD2Z6 KrCIFadpeobhbowSS4ZOU rVOBazI01lSQu EYtfDu4ws4B7j587POVnU GEtmL93Sr4ayRdjAHAcqG DXmL5pzczjr6ilqmjyAlF qOXRoFMb7TLa2 QGEvwPofErWuACQ8PvC3D HI7xIKmuZ6xwYatzqtryJ 9wOyc+M1Q6F2PdJmxxxWL +OU39VHZmJE20 vMFwyVImj0whlLu2ZoRaY QYpFZF6tHqaJGerz8YjZP IgY86gyPXus1O1KUTahTv hcHNlOyBlbXB0 iB3gJNxazebfl5ypzarcI vxba8tfxp31tH99L20dCB dpZHRoPSIzMCUiIHZhbGl sok4qoO4yGs4+ JIKfbDM0uPB3wI4tEjNyZ bY2SZnxQ641DiRcjKSiEm tsp4bmw4wgtGz0QqHcDKP gdmFsaWduPSJ0 i0OsTa38D27yBGqtGDRzA MRqHWOjTQUupTpydj4upZ 9wIi8+YZ7xf1doqs66nU8 8dHI+PHRkIHN0 uDzfXSpoODHqrQ0iXAufV mC3HJNsUyFvrG56jDKeLK hvPf4waVhxpYtgOA6zKXJ bonusf926RqDh n9ggLRYilKPcZJibSYT1A 98ai4C3DFQsJMAjXSI6hS J1cA9cnQremkgqiHGlnUf gdmVydGljYWwt IPsgZ249KXHxfZupFmEyc LPqO8egcaBROE3nBibdfP Q+PEIuEUY9bNqsXMqyPHM uhS6rLJAuI1b2 DwBmZtW7DZgxT7EybcF9F PPdjYHsCNNvbFPHjT7qqx eml8wdfmygUmEmDXEbLIv 1GNo2SGIobMur UmWpDOX6ZpI9HME8lBXki P5qjSeszvlslC8yLvl+Rk lOOjwvdGQ+JDVoKMJ3xWf iDUvsCHZfuR8s MMMcT7f7TiZaZiX3HTfhT 5NxyyR6ROTqnGSzAJMhxO SWuN8upeqkn1baqdzrUdD cUHWxNNg4GNo8 WGZnrNsqLuTrWXC2IlO0W AK8zLWrpK5osMqljdplyA 9wOyc+TVJOOjwvdGQ+PHR dSMO8tNhlHVml AGGfwS3gMXEiQ7e6ZoBiX fC8TAlkN7RbhwQ8JNAomZ HbTUAsoJVIzR8yhdqbv1k vcjogIzAwMDAw UGk3ZCz8SJDfrOouUwNcN MC5JvM0BZY9uLAotJ0cpB yvildyxZ9vYfh+FAJ7MFE 1CY74WY96I6Pt PjwvdGFibGU+PHRhYmxlI HdpZHRoPScxMDAlJyBzdH izMB9xFo9aWTIhOEKjzXi jvDNzPpTpk2yd YXB (more content not included)... [facility] Wound Care Noteon 07-05-2023 Wound Care Note [phone] [phone] [id number] [id number] [facility] Coding Summaryon 07-01-2023 Coding Summary HTMLBase 64 QyudpmjlEFh9dPm+PGhlY WQ+RZ4UVHJzO28blEThnP 5iP0YOLLaONfsrUNNJWDc TMfJtnmSdAT6mrAKiMGPn IC8+BI2jCCJbRytbjMEyp 9G2oZH0V35hat4dCJgcnQ B8KCNcTjOvnbjkd1rwjOo 6IDcuNmluOyBt RPUmrR67UWE4yR58Ve33v KGvyBKzw3triGr9LrPcQH QeEAB3xZhtGMszx0HvSYU rK10iiNZxw6Y7 LGXawQdjxHMpSnJagOU9y B2iYGsepyizk2hnhmfuMx y6wn11sFOiy2G2nQT4N3R mfuD9DSPtrKUz LuetiAMZqI0mjkgeu3jcg dyuMdHdDDDnJJi6QOa9UZ TncCqgKiVbOF43PEM2YCT jnaAhJ9NsAKQs dAvdEzN7k4O0Iv8FU4NXP lzgM5FYTEUGWOgieDN+PC 54kj75P7BbShjcOta6GHF kWRR8yBE2dI1z OWLdORpte0F8wDZ6V6Qae cHbzt1ty2uhJYOnZBqyT3 8rmBHkg7J9ZXCduDE6VPP muAujUwYtuH19 Oyc+DMEegWsuv2NzOzdde 8unm2upeWn7MuwvWLMmto VueKwlYYS7x0ObZi0lDSS bbCR6bJU6nU7t KyLqFhC7UDlqJ211QhUfu FLlTxtmV22eZ5UycME+PH UfWky1GFErsUbnGX1aP1E hZGRpbmctbGVm lXdwEQ6lDIUpzkqdGTXbo M6tXVNpI1p4FnWqLaP6GS jcG2BrXLDjdiyyIp54aA4 dKnLsFfU8AAda V0NhkkI1OOOklOYmEUjsK OI7L22vc7N4QFJbUVIoOV Q8lPT6wY1hiJtcgmjlbWW mdDsgdmVydGlj FDgcFJwoU419YNMteXnsD kNvZGluZyBEYXRlOiAgMT AvMTkvMjAyMzwvdGQ+PHR wSKM0zHrsQSZt qFIqSFkwFf2doKnazSybS M1iBZDwkexhGRHxbA3uIA HqyISduQtgFP1jIJCxrcw at100YoQpLWU2 KFWieIOgM0YawN6kWeQuL ZNuYSThV2IbsGUxUAalL8 25WBhnJoW6JHDajjJsR1S sLWFsaWduOiB0 i4P8Ke6Vy7OgyvwhR2Fyd MAqQtXrZwrgTLr8I4PrMg wvdHI+PX69TAHeFW06ICn 5FIR6wCnlZWgk FQSnH3OigZ7yDiUsHPKiS GRkOyc+PHRhYmxlIHdpZH RoPScxMDAlJyBzdHlsZT0 aNy0qSTLyVCVx aDcbaAVtXtDwh6ozWIYbU PrqFX6jqYwxL3VavWZ6QH Rmq5x6Rx58P48wC9SmuAK +BMDunZY9dKB9 rG8pKfIoSfN5SVzjG378T bYbdVEeDzylr9szd3oquR g6ZvM5KJEevaEfgOlgAID 7f9FlDs91B77w IHdpZHRoPSIxNSUiIHZhb Zibuq3kcP1jPz6+PGNvbC E8mQM2wK0hHiPgFxM5SPc xD319QaWcsLAy Ipuvv3saf1zpaWz3JkGqX TBmhxMimCuaJVU1e8UpBh 13U7EypOimy7AbHmk6gl1 9wMVej0R7fLY2 V6RrXJTdtrimhOSmqPufD V1uPIQmifciAJCooT6aAZ IeA1k6PpGpSmL4MHtmF3O ovuO1OPLzhZJm KIOdzUVUjD9hgwsjs9ioo hnvGtEjQGAzEQi1KOp0BR LehIvjAzTxADY6LeO2WOH 5uYHewE9uoFhx xwrleT4eArz+EUQ4pCFyl AONWL9pHckugEN+PHRkIH M5hIiwPQboUWWaaN2cYWT fN4y1FyHiGqS2 WBdtN5WiwgD8FWFwmGYjR YGuvJSWgE1uwiosw6akjf nmVjTfZDYkMPh4VOy3BPG saWduOiBsZWZ0 TpQ4MMK1dAJloR3hwNpme concJ8oTla+QmlydGggRG W9WDt8O8KgUsm6ZVCcqBy fAU2ppDVrBGwo Qf9yfEridYhwOD5uRYGbt jaun020YmFsr8ysFKYykK WxUGkxUDA1H75fx3C6XDO kVMVaZGK5zUY9 uV2pnRpjllobsJWykFuty yQftWydOZmsEDywN807MY JoaOsmJwAkGOt3P1PjKuc 1ZUXqoAilKM5j iHKiFPyiXw4bzDjzwBujR L5mVBEmezzec318CbSxl4 trXMPhdTFaGFayYDG0L49 bb0L3JHGbXHGu VXP5nCP8fG2ouWmnpbeuq GVmdDsgdmVydGljYWwtYW izN468FDZovVddSqFppAk 3F2VqYob3UDVh tPzpCK5utIEsPPozEt1qz YoqjHcoAW7fFCVyehzhj1 18HlArl8eiTWEqcLZaVTv iILY8U09cj6V8 XPKhJQEcNRQ4mEL8aX5ni GlnbjogbGVmdDsgdmVydG jtFAuoPZqtR677TJOraJq nPlBhdGllbnQg BGucZFe4N0LxCzjusCB+P H78MYEkYD65nGGdsGFnd4 lyoTg7VnWrWLVmUIS7jQu iAQjag4EgKFZu G90yiMSeg8K7HVJchRojn PGhSmBflEX4qV1aHWsaed mpx0zthraoDtiab0yrzw2 9lW37D26tGRud ZHRoPSIzMCUiIHZhbGlnb r2mzT9iTy6+HDBsxZB9zA G4uY5jZTFmMrW3NGdfH13 9InRvcCIvPjxj e1gim9ndlFg6FxY0FGJuo lCcvKnsAMT9e6EcDj63C2 9sIHdpZHRoPSIyMCUiIHZ ysSxsaf9gxD9c Ii8+HASweOM5cVN7lH0gQ qNpUhY5GVtgQ134FtNqnB PyApgzP51rF4OtvAO+PHR oFoa7UVUtpCze OD0kgYHgJYnxDr0bPHO8E bFwHuTqZNtaF1NoHYUekh yonqjafZY3DEWlSFWooF5 4Qf6pmRgqAJYd yMAYnK8iqtzhq4jqtsgmA xWfVEDqQEa2ZZu9MTQmpE hcNuNjNMO8OyQ9IZI8kTW drM7nwVemdaxh aI5aD5YsJQTmutafIv81q T8nYwSaVxO2NZcrVoc+TU 8OYbLfLxCkBZrYRZ39B0C yWix8WYSnaTdp UI5arXIcMYtaRy3zhYyxr OytWG3jOUVzirrkLSIbtL 2qBKGjnJFecDwoRT8aHEQ thmfxc335GqGr PLK8IKCvsHDlA1UiaS5xH rEbXLPeJPPiP0UxyLPkEV pjA140URepBiU7NYJwneS oK9ZnBJDjpSih YkP3b4V8Je0yMP6tTD6dP UG4AH46LY35uXIrx4A4rY E1Y7OsSFPtftyhngwueBR 5TJJsSNSabW86 jLZjPUbjXc5je3U6d080S BQtTLOftP47Ce8nxLklWI JjwHFYfH6lejgjt6pgrkq gIzAwMDAwMDt0 QYg3IZFhmTghZsHpZYB2W kE5ICK4vUBjnE7yjZlgtr jewF5uMmt+NjggWWVhcnM 2I5TdKun8QATx tVlmAX2ljQTwBExmEu7hn GqfeTyfBW0oLGPnroijVN LyzB6wAFMdoSJotXstXX0 tGRCjqiwhc918 SvCuPVO2GKRefRUgL8Xhp Y9kDoHxHXOjXLQxI3EcrB UdIZkjG500AKhqKaQ1QUS qhePtN4UbNYRu aKjaJqW0x5O9Ny2WEEdPD L17KH14zALmr3O7vNX0M5 WbOJZcajrqcaaquHR1ESA bPATuhF97tJVx HRvsKn4cy8S1v225LUHzU RMceH55Ah7bxUzzYMEheT IFuC5uhkakz8dfsnxmJzD tRQGoQGk8VEs4 FAEywBgzXyCeBGA3DjF0P ON1iUUdrB9piQqxevxzaO 9wOyc+F9E8N3XvXjbdcGH +VI09MPDyTL93 hQWjzDEsv7gqbAp6WrUlF TOkTQA6mXliDNqxw4DjML IkQ86otTEil2Z9ZKDyoYu hcHNlOyBlbXB0 oZ3fUIfjpimoj2yaejchJ zlgx5yqql23dL37S91gWS dpZHRoPSIzMCUiIHZhbGl hjx6uiH9gAk5+ HVIrlBN7dCJ9kR7bCmPiR fA5QNifL820XaAmpTNhRs bta8yqw0rzsPl3DyFpCHX gdmFsaWduPSJ0 s9YuEt44U29lCIvdWMNgK JQvHAIbIYLfxCfbik3uiM 9wIi8+SG0yd9nykg84uR7 8dHI+PHRkIHN0 bPqrNTurSJLgjC9kVErsE cK7STKuKeNfhA53hOCiTA tuGz5awMxrfDsrOU0zYLS fjuail777TlJl c1auKSKplSBkTVrlIRM5Y 59an6W6HVHkGIYgYPZ1uL H9yT8mpNpwamzcuUAueWy gdmVydGljYWwt HXgeA815FODruFzpFiLda WFsV9ebytXFCX7mWvlyeJ Q+IIClCAR7cSbeCYzgKBY xrS3cYBQrC1x6 GsHbDzM1SSxeQ9KlelE3A LDizIEiXIBbeALSnR3kfj iij7dhxzpcSyGgBWNvICv 5HOu5YSTqbDul TyBxACE9FzJ1DIE8gCMcu C2rgLftimirsU3xJhn+Rk lOOjwvdGQ+WKKoWHR6jOh nTFmbLDQioN2t PFNbL9w2ZhIuBhO0YNvgF 1VlhbE7VKOtlEUqREJqfX GUpC4vxyqro4ougjfbCgJ aXQHcQZw4MZj7 LMCsvNrpZtFvZAV9TqW1U MU0gFOyxJ1jpGwkygftbR 9wOyc+TVJOOjwvdGQ+PHR nHLL0rZreISwn BHYnkQ3sMNPaK1v1PdInH eN1CMrnI7BrnrD4SUCpbD ThSHUtsSMIcJ5gietem4z vcjogIzAwMDAw QHw1UJn5GPAlfAliHpMsC JY8JfR7UKR2cCTjuE3abA obawxefR4lAiy+YYG5SNE 7ST06YB78B0Ra PjwvdGFibGU+PHRhYmxlI HdpZHRoPScxMDAlJyBzdH khLT2aVr9fQSXrLYWkoJy wtRKdTaFsm4wk YXB (more content not included)... [facility] Coding Summary HTMLBase 64 BybcjwvuBPd9yTk+PGhlY WQ+KC5KFLHcA99azNQakL 7nZ3SJGGvACuvhKZBEBAq TXyCwifWvPZ1vnNUiWXYn IC8+PB1xTCXbOlunfNRog 7Y7aBS1X20xfo5jVNipwP A2PRWlVfTwlzxgs5qicQb 6IDcuNmluOyBt NGOvwM63ILY1mT74Ix33a JAhvEDzm0fusJf7FtSfEN HyKAX2rMbgVCeer7TiLAM tM88zvGWqm5E3 WASdvDczvDGcSkEknBN0d N0lNEpxvsavz8kmdiwdKl k4qm85vERbr1E2nHD8U8R nssF9BJQaoTEz AaomiBGUjU2umaebm9kvq eqbGtFbOPFgKDj7UXb0BE FzyNidAgYpQR40PLR5RBH kdzPlC0QjNCCp iQlqFqN8g4S5Ey2XJ2YNN cydD8ARNNLEZHhbaVL+PC 95ar34N8PcZdwsGjs6XHH nVFZ6zOK5tW3c IGWaXKivo4H8vIV0R3Nsk gCemq3wv1pbVMEbTPydK1 9tnTEng4E1EJWyzDP5KHE dqSncKbLunQ14 Oyc+UFOxrEjdz8LdZjkhn 1kjh1esoNg4VszqPKOsul GbaCysZOE4c5RkNk8dOEL hhAS2qKM7wC6e GpQbSrL8LIonZ102GxImo VSjLzpvL14dY3ZqkLK+PH XtVhr8FUApwNcnSJ3fI2A hZGRpbmctbGVm wCsnHS4zGRByeznrXNIxm R2jGLFiP6e5HnKoZvO4MI qjE1WiRXYbiwqzUq97gE0 rEqEsIqM0QMea E6GgofK2DVCpvMJyNWgzP ZM8Y67ok9A4FMDoUKPiGT O6zEJ6cM8ieLrwbekpaRM mdDsgdmVydGlj LIrgRWnzF487JOTtxResY kNvZGluZyBEYXRlOiAgMT AvMTkvMjAyMzwvdGQ+PHR qEBR3bLuoRHLt gQSoCVebYj4wnDxbnZlcA T5fAQPjgaoqAAIiuW1tXE FgzDZauNggJW7kYLGlrcw pg089GdMbBBG0 RKHzxLSjT7UjgB3xLzYlY SJxJVJqC4HizXEkYTkbE7 90HKtzUuH9DDFfokFwI2B sLWFsaWduOiB0 b4U6Qy7Zz7XxeaspH4Szh ASqOyQgKipoWBh1T7UaKa wvdHI+GD80EEUmOG31WKf 3GPS3mOazTIoh EIFrH9IjyO7nGbPvGLVzM GRkOyc+PHRhYmxlIHdpZH RoPScxMDAlJyBzdHlsZT0 hOv3tUIVyVUTs fMydrDCgRoSxd0ogNAGnF RyuGD3jyJxwU9LbuVM3SH Xlc2w1Xb44I18xI4RdpMG +KZKlpBJ5eQC8 dQ0hHhTkBuR7FTvuD284Z iMacPOkWfvyd0cgj9mbkC v2KxD5UMFbdlKikYpuUSU 3e7CqSk11J75c IHdpZHRoPSIxNSUiIHZhb Gbaxu0uiD0uBi0+PGNvbC Q4cFC0nG1xHtPeAqC9PXm pD919XuXpwYYo Npvys1dhm8jthOr1MeUwN HTzbnDwcPecPCA0o1EeYf 52D5RuxIqdg0VqJbb6px6 2dHHvn8O8pBX1 G5JcBTQbxlisyXEjpIwyV I2fXGYbqrhoLIDssN5hWD HiT1k3YeDeWfJ3DEkoP4F tmfP6PGUfjNRv HNDonXTUiI9ipopki9hmn wgzWcHcLGWjIWk8PWr2CN EzyOuoMuWeVFG1IlW7MBA 2tCDpoX8rtCwq dqgocL8dGrf+XKX4pAHuw BXBHC0hVyxydAD+PHRkIH J0iPmzACcwJQEcmJ7gEKN cC2z7XiNrFgJ9 VWooW2NxyyH4NKUdrIPpD DQccRIHmI5yuapoi1hqby ktSxPtZYXiPPm3EGc7AOA saWduOiBsZWZ0 ZiB6XCU9qNVopW9nqVcfo fkldZ3jZei+QmlydGggRG W1UDy9T5EjXml8WPTdsOb mLU8dtPHaFFkd Is9ihApfyUrsVQ2pYFEyc dohy927KxNec7sxNEPnnT EeXXitSDJ9G12nj8Q0MRK vSCItUDD5nGP2 fJ9riMktgecbtCZjcQwwp fJvaAnbEUyjNPodC386CY AdpIseAwGrLTl2M2AfXwo 5GQSfiRebRG1m kJHhJVojGd8eyJxibBxkX X7zNJXtervys237BiMfl6 hhKICdnHEoZKtnTUS2N71 eq6R4MIToLYVk NAC0gFT1xE2qzTwtvguvn GVmdDsgdmVydGljYWwtYW apE862SMEakZhlCoPyiXv 5T4IvYqg6OUKz eGulJP6ndBImCBiyVw3yp OgelRuxLA7tBGEigrxbe6 14FbUde6azFMQepGFtOLv aOIQ1H14az2M1 PUWuDIAvBNJ8kOR7zI3kp GlnbjogbGVmdDsgdmVydG myJGbmXPdpF110BYJnfRr nPlBhdGllbnQg WRzfAGa3E9KvEyfigJW+P U47EYToZG09dYQltWGzr8 lyoXh0HuJoVYBmNPE5fVa mBIgsr7NvFPMn X88qqYUuz3Y0WCHfoAmvl PJdKbGtvLR0cW4jYVlbey dtm5djnknvUqfvn6opqr4 7mT77B23cUMaj ZHRoPSIzMCUiIHZhbGlnb c5anI4wAc3+UDWsaHC7vK W4vA8xZBLuEdS4BBdpN54 9InRvcCIvPjxj j8wui9rsaQh6GvB7YWIdo eVjzIvtJGE0u0YuHw45T2 9sIHdpZHRoPSIyMCUiIHZ oyAqafg8ieX2k Ii8+XKGsmHA5yBG6rL7hF fVqPbQ9SGwhO848NxSagV BzRzbpN13uK6CldMO+PHR zNgv0JNFupPtn TB2jeAJzKPinIh8pMLM8Y rLmUwHtXEklS9VgITOhpx iogxyvrHE0ERLeSXOxoW5 6Ag7fqWqgXKOc cJRJvZ1ibldvs2dwxfdcG aAmRDDyWBq2FDx6DVMhjY zfPzBnHJS5BdF8PRY0zBR ktO1rcOwomatd mP0cL9WgSDOgoyryIj23c P1qLpGrExE0ZWkqJev+TU 9ZTePjVxIuGOgHRM65F4Q cWmq7ZEXbtNvq MQ1xoKEvCVhhBo7zeHqaf BdfRX1pCMRjalxaYQVheL 7yPDQopVRdwCobAH8nWVW nabhjm581AjUi YUC6KCTayATtB9BxwG7dL mXhZMIoOKJqZ2PtnIThIY vwE158KHmsQpT7WWWloeX jW3KyVISovRrl EbD4o3F7Rv4aPZ3yAV3oE XU2TU94HM72uWFqd6P0kF D8O4DpNFHyogikbeuqeDR 6PPKqZHLnlB67 nDGdLLyfHx9de5N1x632K UDsLCGoxC63Kx8rdFykVU NbbDPJaD0ivdxsw7abzrr gIzAwMDAwMDt0 RWx0GIQrfGyvOfEcQFA3K eH5EZF3iMDglB1frYztno sqgZ8dEnv+NjggWWVhcnM 7R4ZiCyz6FDAb tFwqFU3omFIaVPhxXb1ku VqoeBgsZZ4aJIPsykflSD VsgN5pUIAevBXfmQwbLK0 vGIMadsbwo329 TcHjFBH5BITtoSWiV5Rob C3eYdXgTXEkLMVhB2WoxH EbOQpeI669JPtlEkG3UWC yllXbQ7ImVCVp aUyuHzT9b8X9Ew4MVJfTM G65MN50iRFeq7A9eFC8F2 YnKMIeqxnuueipkLB0FBP aOIClsR40pUXq WHkzEq1sm1L7a872MONqD UUfqP65Cn1ssXwsZJYfcO RLeO8hpxjwp3tzxvqgZdJ nPKXfIDk8JLm5 ZJYsnLcyHpNfKMO6MzY6C DG2zPUmrU0lgTjhwryqcK 9wOyc+G0D7E0FkYytamTZ +ZP23CZQnHT47 rYRdpZCqv3vynWl6DbUeX UQeWZB6zBfoRMamm7GhUB FvM65hoUPre7K5RWWpwNx hcHNlOyBlbXB0 uK8mQHozjoull7ceuqobB snbn5qfvj94wC09J98cYA dpZHRoPSIzMCUiIHZhbGl fku7bjR8bJc8+ QAEtxUI4gHR1rZ9tKdXjP uZ8PGxuO495FiVbwQAtWl ouk8bvn3sycNc5RaWeWBU gdmFsaWduPSJ0 o3SqNt74A05zYDkrEHAlN LPnLHFpHMWziZzaea2bnO 9wIi8+UT2in2tixc66sR2 8dHI+PHRkIHN0 oMzgOKlyXDTfeX2tLChgW vZ1AQFnXdPuvM04mSMkNN dfBg1inJoirLzzOL0oRIL fuifyg845OrMk r1hyMMSgdZIcVDroVFK8Q 19cf7K7SRToODWtMTR2sL G6lP7ogYstujkfsCJklVs gdmVydGljYWwt JJjcN409TTAmrIfqKbJqt RBcJ6znofLQJI0yCimanT Q+MWJzRSE7zXubDSrvCOR jkC6jDQTyI2k8 HxVvAuA1RXfuA6HssfD2Y LOfyINoPTYfaNNYtU4fhq ksh7pctpckXfRhIAPmRIw 9MHg1LDEkkAmd RmWbPCD0HeY8BGX4hGUiq Y9yyKkalznvwK4tZoo+Rk lOOjwvdGQ+XRAnYLZ3cXr mAPfqXUJgeZ9v KZSyX2q0ZmRpAyF2NLwuI 5XlbbM4KSTfiDVuOCKxaG AUwS0gphhsk2uceeziUiR zWRDoMQj5DTe4 HSJwjVtpMlEwVMG8McP1Q WY9nHBmaK5kzZaciwswoF 9wOyc+TVJOOjwvdGQ+PHR tJAB1sAugFJlv JKUasY9vDGZpK6n7JuWhQ wY8ZGwvF1EodtP5FBNycX MsWJLtpVPXzG5dxuuaf4c vcjogIzAwMDAw HXq8NMo5EUOvgDviBeWkB SD7JxK4XZZ5qDKaeY1msA trfdrsbM2iKyg+EVE2WFV 6PW50ZX68I3Sr PjwvdGFibGU+PHRhYmxlI HdpZHRoPScxMDAlJyBzdH xyBX6gRu7rXMPnGJAuoYt ajSWnTfGzt8kc YXB (more content not included)... [facility] Coding Summaryon 06-30-2023 Coding Summary HTMLBase 64 ZyptdqfeTPh4aIg+PGhlY WQ+DH7IVGYrA56pzKKhsA 9nB3JMSBzSLxfmGTXNVXl UXcVqfzUvTH0oaRHcJCWg IC8+YV5mJAOmIowzmXDsi 9O9aEA8S03oiu5sXUplpM E6LXNcKiBvpnuas2lhhLc 6IDcuNmluOyBt BBWwgM51VVW3pB57Mi84c ENovLNcj2jzuYt3OeHjZF YyECK7hCihHIhao7LrOYR rO50dzVFou0R9 OWKhjOdncSRfSqVxlQJ8p D8iZAcfermfd5ggsldeBz g3de00mSDil7W4fKM7Y2G nxsA7YTKrvCPj QombpRNWkU3yvpuhd9xvq txnPwAbTASgJSc0HBn6VL EtaYbtUfIdHU57AHV5BDV nyrVbL0SfMVHa sUhhUxQ4r8I8Wx0OF5OWD fjmA1CLNHXLYZclvIK+PC 14jx96U1VlDcutKlg7ARL cPAU4kZF1mR8l ZFUdMEtak3H9tRW5Y1Cpn dPufz6ma1sdRKJfCRooL4 7sqUOha4G4HLSgaMO5JTD ywPipNmBbvC56 Oyc+QCTaoUpvh5CwIubds 4ali4ufmJa3KizaIHHxcr IjwWjnUXI3z5McXd6sBOG fjLT3tWT5pP4h IiVbRiB6ZZopW788RlXfi COsMyjsD05uP7QdnUV+PH RoQay9JVNokJnhCJ2pM3D hZGRpbmctbGVm vNzeRD4lGBWgnetxJCVdw G8hUMPfQ2m3RbPxNpW0VH mnS5MgVTAmlgvhZq39iF0 mNtCtJtX3ZLyn M6ZrjpC8EURaqMIrWVekF KD5W90pi1P2MCZrMNTbER L6kCX1mZ3mrBunaraioOJ mdDsgdmVydGlj TLdiXOqiD454XAZxaIowN kNvZGluZyBEYXRlOiAgMT AvMTgvMjAyMzwvdGQ+PHR zGGW7lCpxANIs tEXpBZbsGa2epSdpeLjvZ L7jAHGpkpyeTMQrqR8mSW DhyUTbdJnfDI2fRXIszze ag885VeKgVMC1 EVJddZZsM6TwkP2xZfHnP AApLREqG8AcmDJbEZcqV8 97FIdkWkT1GBYvqyQxI1O sLWFsaWduOiB0 b4E1Cf5Vx5HcdarqX9Ehn NHpDeBcYgfwQPa4Z4MbKg wvdHI+DG67KTXcUQ83TBh 5RCH9qVmzBGru VPHcE6IsjO9uXsDpDLHbW GRkOyc+PHRhYmxlIHdpZH RoPScxMDAlJyBzdHlsZT0 mAm7fHAEoOBYd cQstnFPfAnXct2xuCJBeE DxaOW1rdNgiT2XnzIC5QK Xlj3z3Ip10W15fQ7JqcIP +BZEnaAE8yOR7 hW2aPjZgYaV5GWveW572K jHgiUBwPfuho1pov5rhcX g2GmP3KIMcceLhbAoqBUM 4z1HtGc10P40q IHdpZHRoPSIxNSUiIHZhb Pqjyb9gkE6fQk8+PGNvbC K6zXT5gR4rQxFeZxZ6OBz mN479ClNmlOBd Onozi3vvt5cjdHo1GyNkC KChhwFqdCzrBHV7m5QzEr 29Z1VwzQcgc7TnZvx6jw4 3jLNia7W2hNQ8 P4PjFOWzxvgmoVPdvKdzO U1aAECphzswQFWbtT3uBA NmS3c6ZnHsZaX6ZZjkG5N tapL7QMKwiNYa SZNfxZBIbV8ejtbvx6sfp ftzJsAxKOFcATc6EEj9YS KasEnxCwFeJIH4KjW7ERR 0aXZipV0smBbf cmcqyF4uQlz+KJN7gVQqk XUKEJ6aZzeijKL+PHRkIH B7xXlxNNvaVCTmyS3fEJH iV9a6EeEtYcU6 RPppV5LktqH7GZYpiTQxE JUfoWAHmG3dvqinh4eira bkOtLdURCpYHo6IUu0AYT saWduOiBsZWZ0 YxF1QJE5eHIdnN3fjKgrl ciytQ0oWdo+QmlydGggRG J4ZCj5G1EaZiz9BSVckUi kBS4yqKVpIMbq Hc5ycOvlxGzdUU6oMEZdw wpim217QbNul2miVSStqF YxSJtkWEO1G65yy5M2CUQ tIGSjINK5fXI6 gI9dnLdibirmeMSsjKhmu dTkwQkjYHofUAqbQ556GI GdlIntBgQkAHi7O0AeMqj 3NGFdlOysTS2q dINwOQkjYl9ntLmttWykL J5xKRWjoyebl868QhDke2 wfWYUatRShRIesWHF3S78 et9L6NFUzZRQg RML4cVQ3kG6ziVbxljvtv GVmdDsgdmVydGljYWwtYW ovM361OXLsnDpvKdAtfGk 3E8VvLvf4BUPt cFjqWN7usMYvHQkwUq7ll ZiidZvfYY0oCORasfsob6 60QwLkl9ugSXBucEYjANq tGWT6A11ji2Q5 VOByYSZiYDE7gVU3gQ1fj GlnbjogbGVmdDsgdmVydG faBWjwYZaaB277FAIcmOq nPlBhdGllbnQg HFjmEOm1Z9PtDaslsQN+P D83KBFaJH47zZKlmXTbr3 tjdPr1SaZtTZWqNTU6kAa nRHwyw8OnQITv N33xqXQlk4S2CJJakXqyd FQwJrIknAB4fF4lXYnhfa ruh3whfvgqFnvau4xhfr6 7rD19U68bXHvn ZHRoPSIzMCUiIHZhbGlnb y7teC8vBt3+HFQoyIL4iP T9hH3dRQKbTzQ2XWtaI59 9InRvcCIvPjxj f1bam9asiJv3VcC9UUMct fRmqZbdUBU1t8EjXu15B9 9sIHdpZHRoPSIyMCUiIHZ joAcyul4smR0n Ii8+HQAosOY8hLX7iB0sF sEuSnX5HCipA220QfPtfV VwThspN91qS6QogUR+PHR iWlp4EWSmySyr XP6otMNwCBhhMk8iXYC4V tMhSiIxTAfpK9WeTIDrjg ywrbmloNO2WUFpUZRydR9 6Di5clObxSZFk mUDEbL3pllcnx1gahcrjS fWhSWYiYJt4UFf9CRQklO oeWuTxRKG1PaK0AOX4xZW liG0imGbjgapx wS6oT2CeENVwbsuhVj00c N2bSoQcRdE7RDpoZjb+TU 2ZPiIoNaGrNGtZSS78W2V zNzd9PSPjjOoc TW2miFKgQThrOs5wpLzvu PnpVI0hVCBoscehGAXnkU 6xUAVsqJMgpXvoHF3aSLN brbebm925IsXg XDM3KHPzoZUzB8GxeP0pL sHfHDNwIAAvT5EghPKjRX meH250ZIrbUmS8HKTmyjP kL0SrJNBxrHuz QiJ3p1V0Ha6pHY5eZJ6gR MW0BS78VQ54rFWhq2X4kO H0X4VtFUMjqwzeweuhsMV 9QGMjPPWdsE41 sCZgGZvlEs1ps0E2p103M NAnDUAndO73Ih0nrIsnRU UqeYRYdD0xtnoru8nekui gIzAwMDAwMDt0 CSb1CSTpaPvfTzVyDKO5R hK0COP5rAHjtI7igSxjlc revI4eBpr+NjggWWVhcnM 6X6WrEkv1EKDh oDooZW5afGQlIGcvRq8yl XjchZbmDQ4mITFmdhfvJB MeeD5yPNMleBTirRggMJ8 uPLUgxfqdf105 HpVxVVK7CCVroECxM3Ney E5lTxIsVBBaUVSzA9SxtD RkKKjuX606HSmzJyN5ZEX bntYlL8XxDYEr uNzyYoO9q3O0Ex2HHVnOV Z96IJ01lQKuq1E8lEQ3Q2 ZuXXQmklkisltrqUF9YOF tVAVsvY89dUXm UDyvFx4bg2N3g718PCRaB COdzJ77Cx1vdNfiSBKmiD GVlP0lrjrvc0bnikabFsW cNPFbOUf3VQc5 WEClxYebBeYnSCO4HeU5W CE5wBLadD2bfPewqgeewZ 9wOyc+V7F5K3UyMzumdXY +LK49XVQuFH14 nPIccOZhc8hxiIo5FtJdE ABnJWV7iKcmYEqbf3MrLF RjV21hrYJsr6N6HVLicUb hcHNlOyBlbXB0 aT3oAByyewbhx6hrfgpoH umzg7pmno94vS00P43eBK dpZHRoPSIzMCUiIHZhbGl ptx4zxL0uMm7+ RONpuMV5aXR3fN7yZqKzC cD8JBvgT180EiKhhLQjZl jqs4ppe9jcxOn0UzRzLFJ gdmFsaWduPSJ0 r9PjIh08F68gORdnECArP SSbOGYmRFMoqIzfck9ilY 9wIi8+VL4qp7cudd53bH7 8dHI+PHRkIHN0 dDihOLviTKMboD1jAKujG xB3TZFkGvXqzI37cRBnHA jwUh9exCukkRohQL7fMJT lijkuz224ObLa h9rsKJWmoUBhVSztWTZ5P 01no7V0AOJeNBNqYKD1jM E4eH0vkQygskibrFEdmPs gdmVydGljYWwt LOpuP078UHOphTytYqCgy GAwT3ydvrDDFZ4vBglgrN Q+LXQwQYJ0hTmzBCspLLH ydD7zUTYsJ7a6 WxZlTsK3ECfeK5LqkcX2B UEgySFfQTXwfFTStN4smk zre7trsedtNwBtVZAtOOr 0SZu2CWAvgOpz SaRrYOP2PsL2EXN1lXYhn V4mqYaxgrmpnP7eNod+Rk lOOjwvdGQ+HEScHPP8wJd kLVfsRBOvrS1f PBBlJ9a4TeXwJwP6MEpmR 9NcgsS0HGQptJMdAEDsjL GFaB7uxysnv4fmslxcLcL bSDBeWKl4UIn3 NXDwuRpeFvAvWYH9RjQ9D JO9fSZllD3xhPfeyaveaM 9wOyc+TVJOOjwvdGQ+PHR lGUP4fHciFOxq CEOtdF4qTAJsM7u4MiHnG wX6SCrhB1OsdbK4RPVkwB LpYMNcaIGIyV8xrpkbm5w vcjogIzAwMDAw OWx3MDf6UIAeuFdzNkNeS QT1NtX2VUM8wWIqmN0qxV tinrnlfH1uWsj+IYE6DIQ 8SL84EW60J9Df PjwvdGFibGU+PHRhYmxlI HdpZHRoPScxMDAlJyBzdH idRX3mNt9nMXFnUADufXm flJHePzMts8hq YXB (more content not included)... [facility] Outside Recordson 06-28-2023 Outside Records [id number]#[facility] Note [id number]#[facility]. [facility] 06-24-2023 Coding Summary HTMLBase 64 QairvfppOKi0jAe+PGhlY WQ+HT1LLXBfM80tjRLcpU 0rS3DBILoRBfxiTKICWVw RWfJxhrMfOD7zyVKxXBJb IC8+UI4tZADfNqtdbFSxm 4V6qFE7G20coe4tYTffnS B2NTBsByYmfnvpv3ruwYf 6IDcuNmluOyBt ORGpjH36XJT9rR05Df12f UIhgYMwm7hfwXl5QcLzIZ GsLUV1mJmxYAluv2TjFZJ nP28hrWUax4U9 ZYAuuUzhxNXbIfPbzEA1e Q2fXSlovnjrp7ddhuvgPu m7or16eBIvm3D8gBC5X1D vazT0TWKxpTYk QibyeAOCuR6rbznkg2ull fkuDnHlUJBkCXp6NIr7OS RvqCduWzJaPO03PWN3BOD hrxFtW1HhNNPr dXbzLuB7v0O6Uk9VK0TVN jtkD0EWNWHFWComzIC+PC 10kh03M0OdKpowYee2XSG lLNV7lKW9nL6r KPMpALytl2Y7eTF6S6Svt aCahr8ql7nzZNCtTErzY0 2ilMBwk6U2JDCbyNJ7YPM acWbgWtJlgU07 Oyc+RIShfRfff7IrHweta 3zbb9viwAx1DxepILXkxu PphLzjSYR9i3NpWu2yPSM ldIB2nHD8lY7l BrOwYpW5EJarJ217WnNsi IFcDejoA11xI8UrcXH+PH IhVoi1RFLlgEvzOH2cD9M hZGRpbmctbGVm tGieYC2wHPDrdkufRNOli K0qKSEsF7q8IiZrKxI1QT giT1XpIXDjykrgMp86uI9 qYuYrFaB8CMkp N0FsfhP6VEJhlGPaIFrlX CQ6P82zn4V7SDPqUAFpGT Y8zGX0cT9ndTkffwuisVE mdDsgdmVydGlj WNmkMHugU231QYWzaFbaZ kNvZGluZyBEYXRlOiAgMT AvMTIvMjAyMzwvdGQ+PHR xFFP3zBreBVKq gIAoYOqnYq7kvGoimUgmD B5pBAMvuzenMKKolE0cER EpjRVbuRnaMZ4tNQQnadr bv227ZuZjCZJ4 ZWYmoGEnE9SyuS3aIjGuX EUsXIZtU8PncFOwIDfbE8 26GRydXgU0TRFcnyRpQ3W sLWFsaWduOiB0 y2C5Ev4Ai2TioolwB5Zxj JQkIvFzMlcwABn7R7PvPx wvdHI+UP10NAPhTG99OSh 6JOI2mTzmUKud PRNwY7FvpL1oQkSqBOZjZ GRkOyc+PHRhYmxlIHdpZH RoPScxMDAlJyBzdHlsZT0 eZi1nBWLlARUm gNmkcFJoRlNds6ytTGUtI TziUO2avWleN7KnaBH0NC Kma7u9Mu04M16uT6JjuEQ +TWFjwBC2xRX9 vU3hFmLjKgP0GLrmP207M uOjsWCnMgmkp2lgv0okqS q7EvE2JWHqgyAugVfkXCL 1z0SfCo15H75l IHdpZHRoPSIxNSUiIHZhb Isykf5nzJ5aUk4+PGNvbC I2nMU0qH7iInTmNoR3YZi vL366HlMqsRNn Wwymo7tqw1bpiQl1NnMyT VRqdhAuhEbhLBU3a6MfMk 29F4HxkMmxy8CoYdb0sj4 5cURcm3F4dPD8 U4RfVUGjrzodeQEuiXatX B4vZKWacxgnHXYaiV2uWJ VzA1a2ZfLpSqU4PZrtM2Y mnnF7CWQfhGEk XSUaaHDSoX2auouqv1tzb cqbLmDxCCCoKXu2ASy4IY OpaVidZhUoRFE4RtR2TTD 4hGGwyS3twFsy nywwwO9vZrs+SMT7fCQur BOXLR5fXvuccOW+PHRkIH K7wKwbKQzqKEZhxC1tOSN bT6x6GvHtMwO8 JNpeN1PkzfU6STKjuNSnR MMjvHLFdZ0ogrxpt4rgau opJnWpLZKhAUa1VHy2ALQ saWduOiBsZWZ0 QuM1ITT2pCLkjA4fsNktp lwhcM2gBej+QmlydGggRG G8FXj7S8FfGph9IZAnuKq qSD2vhOWnNDph Uu8axCkfgHwnZX2sGPCqv kbhe642ZyMes2nrZOJuvE SxHOmiQRV6E10wo9B7GKB tYUGlCDM8dKS7 sB2esZmehfejfHHaoStqi rOytVdgFBimMQipH470GZ GbiFflPxToNLm0Y3QbHmm 2UZTsrBttSK4v bMLvREygNx8kpPxajTqhK Z2zXCGodrlyq764SnErn5 riKPJdhWDzYWomPFD6N52 bf9W1CUJfYJGc PZT6lUI8rG9lhCckpugtl GVmdDsgdmVydGljYWwtYW joL342PIMkmQfkZdHilSp 5W6BfMyx1AYBl aQoiNS6wiOPcAZsmQr0tz YandLleHG6kLOZixbkmr8 05RyTcv5nhMHLfwMSeLNw uHNW7D83xw8R4 GUTqVMZmRCB4hUX8gJ5bi GlnbjogbGVmdDsgdmVydG kcPWgqRCdhH354UOWjbHm nPlBhdGllbnQg CWngTYl1G6DoLewdaIG+P V83SAQbHK19pUZwlJVjm0 wxmHj7AvBdBRXyTQA8jBs eGThyp2PmRETo Q25pcCJvw4B7MNRjwBtir WUbFdYabFN6rI0fWOfizs xif7paglxpDcklh5roqa0 5lI11W25pQVfj ZHRoPSIzMCUiIHZhbGlnb l8yqZ0oJw2+GYFomEZ7xV T7bP2jFMFmCvG9UMpoR80 9InRvcCIvPjxj e0tai7ybpVv1NxV4PKVvs uZykDkhASI2o9QbVc78I1 9sIHdpZHRoPSIyMCUiIHZ nrSyjda4xvX5x Ii8+NOEcaHI5sKD7oL2tL dVtQrJ0YLljA839HbBzlN AfPqejC85gI1FxoFI+PHR aTli2YAVmsYlq QP8nuMEuDLjaJl0kAJF5Z gTiGeUfKEgoI6WgKLInra yakzjtnGI1PTReTTRloR2 3Yw6zzRioKSYf cBLAjF6pvhtrk0awfzxvD eIfONFgJUg8VDz9WTFirX ucVrIbEER7IuY7WDZ8yBD dlK2blNjlnlqi aW5vE4UdUMGmghakTf81i H0vJuWyUnB9FLoaDxn+TU 4MHsBzZnRbSXuMNP64J6C bRme7HCRgnKoo FG6srLUkOTduTz2omVqiu GfqYV5hKVBlwfueNIIrlF 7kCGXatSPvgGgyMR0mRDE wsmkcz193LoDq JAM5ATZfdAOeZ5MhjW1pN hVqPRUmIOBnG5IkhREvYN lrE123CTbfXeT1OFMyzcC pB4VtBXYmwKsz YlQ1r7H3Cn7qYC9yEJ3yK EK0LM67XW34wLWcx5X8jH X5C4OxBKUqtpmfdaoxbGS 0YXQvLOEvaP70 oQBuJDxhAx1he0A6f095J ZThZUOviK25Il6kjCieJS OisEYRtX4tdlcgl9viyii gIzAwMDAwMDt0 OSo7DEQnaWblAjNmOHK3Y gO7WOL5wHGvwY0nxKqkjy tklF6jNra+NjggWWVhcnM 9W1GyCva8VQEo lBtbQK9egZFbSRofJh5je TyuhNsmOA2uTEWbehebQR JmgJ7xTZUjgQCfcMddBS0 aJITchzvue327 EsPlWTN2XVHqyBHyF7Qdd S5xJeApQXUePAYlR8YwjV VeGQzpL208VRjfVrU2FTY rayHqA1BqJTUb kAlmOkM6y3D8Av4YPTeFS Y87PY21eLLps2F1uKS1S6 VbBHBqjomtsyphtRI6YKQ mLADkuU63mNFe KXmdQn6zi3G5m573OLJoF LIdtB81Ru5fmGhnBLSfeJ AHsB8yuxfsg8vfpfzuQqB rNHHrOWa4OIq4 WCPiyCkmNdUfQUI5AyC4P TM3sIWcaF0lsDhofvnvtW 9wOyc+L3W5U1CtDwpabIZ +RS90ZCSaSQ62 hQFmrWKpg7vicEn1ZpFpD GYfQCN4hCmvKEmjn5CaFC DgG17pfVZys6I3TJRgvQx hcHNlOyBlbXB0 vL8rFEnxyrxjx0sezaecK fbkg7jmcw81zQ36H17qBR dpZHRoPSIzMCUiIHZhbGl thf7zyS3aFy2+ FRDfmJU9cEP7kK7bZnFaP rR2JSrcX001JeUuoILjRs vul5uil2qnoBe6OkEkWNB gdmFsaWduPSJ0 t4NnJf10X18wXJcxDRRkB OHzCICkRVQzsVpzkm6uzL 9wIi8+MC1fy4xevf82vR9 8dHI+PHRkIHN0 nMjoKCrjQINgmX4oZDxhU nJ4FHZbOlAdlJ62eDSvMR mhCa1duCvndQkcDW5fFAO jaofat347VqFe t8nnENCkcFNgLYraNYL2R 68bp7V9OBFzKJEaVSI7sC H0vV5nfWqobmqygNTwjBp gdmVydGljYWwt TDhpN401UVCkpJnuIlVnc WMpL0aploBMZN1vVtujoV Q+BAWbAPM6gDjxAFgbGXK diE6bUEGkK2l1 KjUqEoJ7EQghB2KaqqY7G LRzmCVwZCKmgRUFoW1myi bwx7fzgeyeVfPrNIPcGPr 7VIr7XTZvhIvp EhPlWEL0NkM4QGJ0pTMhw F5nlMoulfogyZ9iPrz+Rk lOOjwvdGQ+VEVtGCS8eRd yKGqzTZNxuD8o NQLzU0u4WiGpBfS2GOihJ 4PuonY4HRUwpAAkWKFnkS HZmD1ecszcc7mcbiqoGjK hWUPfJPo5ZAp0 ADZcxHowFwMaYRI4AtA5N PP4oLNtiY4yqPjfvnjdpR 9wOyc+TVJOOjwvdGQ+PHR sUHG6pLgiWTxk VFJvkA3xFITvQ2k6OvWdX hT6OIcoF0DaxdC5OQUypC HaWOSixNPEhJ2ttwpya6n vcjogIzAwMDAw JFp5XFe4WYRklRgvNcAiK HZ0JpJ2XQC7qIRujE9qkO jmdvbfuA8qRgl+RWZ1VWQ 5VF12WI51Y5Ft PjwvdGFibGU+PHRhYmxlI HdpZHRoPScxMDAlJyBzdH saHC4eTe8hNXAdQTRmoDw exUKbBsEen3ah YXB (more content not included)... [facility] Coding Summary HTMLBase 64 TjhplmrcLJq5iIw+PGhlY WQ+CA1ZZIRtF61zeLIikW 6jZ0VWLTiHWxlhZXNKAQx SWjYmnqLzIM2ywATzQRGr IC8+NI3tABKbQqmciQHvu 9U9mAQ0W27mea2bNRabqJ F0SIQdBkFnnhful8oyiUj 6IDcuNmluOyBt YIRjwI25SWK1gQ61Gm49c MFjdIFac3rxvOn8IpIlUZ ZhPNE5eMefBZmnm6YeTOQ tL42ciTHkp2Y9 SXLsfPdqeERkJeGrfKF3j D2gRBtvcebcg9tldjnrYs s4yt97uIRmn3C3mCT6W2L oqeG2BOIcpFXv UctpoASAcT5vrqklc4tcl jcbDtIlZEBiBHm1TRl2AM KoqHqrIlRyJI87DHG7ACS xuzCtS9OwYRJt hOyxUqU1u4H2Hi9EU5QAO gbfJ6KEKCIHCQqcpUW+PC 28el14R3PeEkplVtz1ZLA rWNM5fPS6xI7z OUHhRGbwf9K9aFE4A4Kul cQcsx8wn1uoSEVzWCvrV9 9huYBjr6L2UMCpnYH9TAR etLzhYsQceK57 Oyc+RAWqhZvks1XmLajfo 8qfh6hunDn7RkvfSDUcwa AlvIkyMPK1y8ViBk6yTYV mjSA7qFT0rW2f KsJoTjK7LGrqC683JlZel XUcAwwqD18pV8SfeXY+PH QrKzg0YDFocQpbVN5qE5N hZGRpbmctbGVm pWwxZQ5qFEKcucbmRFIuq T4pYVWjJ1c7JmUpEoG5ZF gqM5LzKEBssofrSk89mU5 yInTwSiQ5TYem X9OcfyK1EUJvlRFhQIyjP WJ6O06nw9H7ERTcGKVgSG E8eNC8xX0mwOxnmarcbBC mdDsgdmVydGlj KQixLCgoL719TAVtwKbwH kNvZGluZyBEYXRlOiAgMT AvMTIvMjAyMzwvdGQ+PHR vEMM3nQuiXKEe iYKfOCdmTk7pvPgbyGyuM T3rVAMzqvgyFOQpoM4lLI RpnMGifAnhRN6mPZRaeeg vl928CgIaKBN8 KDAluEFeK1FehV6lOdIoX UDoQQKpE9NuyHHhMMqsJ8 18AFucJqX3ZNMwuyYdS1Z sLWFsaWduOiB0 x6J7Jm2Gm2VkqkwnV7Ezl VGfNgXfAqdiAQi7T9LlOm wvdHI+FL93GIRxBN77BGg 7KYW5iXciOXjr AXDdQ2KniV9kNlKlQFSvT GRkOyc+PHRhYmxlIHdpZH RoPScxMDAlJyBzdHlsZT0 eSm4bJPHlHVNu oQuybQQlLiLhn0zpCOMgV LhfRE4spVapM6DsrKQ8OB Tzv8x6Vy93I08xZ4QevQA +UQOskMK7zUO7 yJ1xPcSeWxY2UOpzF309D xXiuGPsFvipx8ocm8kblQ h2JkL2TYAoegRyrZvgQES 3g8ZkTh74K86i IHdpZHRoPSIxNSUiIHZhb Exmli0fnJ8rJp2+PGNvbC D6qZP7wJ1cHbGeGiU7EUd aD697DwEwkTRo Nnjhf7ssd9rfbWf9PaPdK YWlyoWrmBojCFK0v9EkLe 85N4ZwyMbjs5FcUax5zn4 0vFXpg7B3jXD0 V9EvOJOujbohqTUrkXieM Y8oXPWzwvjvQDHknP6mWD AgG9i2OoVeEpD3SSnzE2X lanW6RNClcFZf YGPuiBIWnE1ukhddq4qea rnsKxLjNRSfMXk8TZd5MT EdaFszIpQdKCE7SnS0RDQ 0mXLwaA7bgNcn hulgpZ2eHcq+AMF6gMZjz LRLJA4tAryiaLB+PHRkIH J9oMaaNMbkITFypG2mTQM vY0g3LfEoDgS8 CUjbS7VhdcR8ISJlxYZbP MDemOMRkX3joefgj8ogwv jeFqOuVFQnWDf4GXs0PBN saWduOiBsZWZ0 JrJ1AFR0pQWeaO1npQtmp xdxzR7vScm+QmlydGggRG Q3SLe0A9BgAdl0RLVieFt nNA2rtPVjAZma Lp4vlHqkiXdwFG9dKKExi gjjn776HdKby0wtEFFgsH PjEHieDYR7H46ba7Z2ULH jXBVwNUM2dKW6 kT2yiYsululckJAaxEzux cNpkUgzWVmwIAdsA657SH MbgFybMlKwDPn5F1KdZwt 0XGLmiLvyUE0i jLEyMXmcMv5tbAkdjYnhM Z9uCXGmlgkbs887WnTln0 xbMWJmyOWmKLbzTYP3N25 se2D6YEJbEERy ESX1dCO0zH0mbWugvrynr GVmdDsgdmVydGljYWwtYW xxQ849XDFrxOthZeOimRm 4C0YvVoa0WIUg xEsnLQ8bjBYkZWsbYh5gy GwfrUdrGR8cHLYeiwqhh1 21LdTsd3klEOPxmPFnYCv iBNL4C45op8A2 BNEmRWHqSOX6zJF9pG0qu GlnbjogbGVmdDsgdmVydG mkDGqmDXjhN738ZKEhkFe nPlBhdGllbnQg GGeaCBl5X7RyGqiwiKR+P A70AVDxMZ84oMTxdUIke8 ddxLn5AyPtLIFxMAN7iEq wAQaqx3NdXBIb S68gxQPlc6K1GWPesKdxx QNpNcWxuLR5kK6uFLhubl sid5lltgigWutkz7znkn5 5tT44R20zOTwk ZHRoPSIzMCUiIHZhbGlnb q6beN6tKe7+SBEfrKW5xX U5uS4rKCGiRlC9AEjyC83 9InRvcCIvPjxj d5hux7nnuCa6UsI2SIXjn tQtjWfqGLY4e2YnJf72D1 9sIHdpZHRoPSIyMCUiIHZ ecWlkya8dsA3n Ii8+KRKcwVS4fHC4eV3hI eNtRqX5KUapJ680GaXfgV ZcOwqwQ17lS0SfjXE+PHR hYct4YHQmgXuy DL3jlCMcTDuwTo9eDSK0X lFaXoLmNPutY5UpLQDctn zswuxuyHN4OHZwPQEyaM1 6Vj9vnUitSHDg cIQHaL1tjcdyo1fnfdknL tTtDYClMPg8GZc5JASgpO ggCwRxCFS4SdC1JVU3tMH bfC3jxRmzleoj qE1sG9OmLCPuhzucRx79k K3cOtKkJbW8YHvbEdr+TU 5UUlUpPeRiMIdTIM78N2H nOmt5UKTmhUgf TM5mcADgFQabEf1rpFeeq AcaSY8uBODqnolxKZYlqK 1hVHDzhJImkQypYH6rZRD lrtoqr853QfTt EAM8INQiqEQbH1FzwE2jH sKuQAAfZDCiU0UeyFNjPK toD387RUrwXtR1NDJljkX iE7QoDLGmhFeq KmX6a9Q3Xh4kXS8dEX3cT LL0SX27LN26wIMfq8Y4qT V1P1ZkPRInjmerrvrzdZU 9LNOoJRDfkP41 bKOyMYynRl0je0G9x975F WCoWAAjiT33Dn3ctHxqKP UxjJBKgE8mlfsar6begvu gIzAwMDAwMDt0 YUb8PIRunXjgUuHhUSG9M yB7IMP5pAIhfQ6qiFcrgu regM7sTqa+NjggWWVhcnM 7Q5ZxWbx4OQQs xBnzSX0drQJuGBcjQo0rg RgyrJgaKL8yOLGjbxafJC NfcI0sRQBxbWGzwRrwXF6 nOPZhohvde495 YoMnWOJ3YQJnkIDaK0Pvc T5rVrMvECBkQWIgZ9PgfP IdFFmeW292JXheOxM2RCW zrjLpJ7BdBTVz zZrcYfV0j6H3Ih2UMUiEE S37RH10lNEwb8D0xHI5S8 JjMVMjiypjphzmeKN7NOL eGLEihE07eLFk VRdeIl1sv0Z9w150QSCaJ NWzkO45Ya0woFfhOIMcqJ EYlU1vywwak1oqdoxnWeT iXTEmPVb3KHl3 YTHbcWumNfOkRTF9MoF5Y TM9pPCzdD2qvNxgfjaupJ 9wOyc+E5N2H2WpFaufcJE +VZ74BZPwXY89 nPXfdYGuq2drpNq2XnZmA LYkPES0dGajQAhxe2KnTX IwG04uqCIhr3F7ENOiiSz hcHNlOyBlbXB0 xE9vLTgcjktcv2kvpudqE uhvy2ggvi12sG26Z15vTB dpZHRoPSIzMCUiIHZhbGl otz8woL7sMv8+ NJSfyIZ9jQN6tH2yNbEpN xO9ZFvhT916KtWqbVIqUp sca5bcn9dfaGe4XuKjXFH gdmFsaWduPSJ0 h4NoYk94L67hUQkuGIGwZ FArPOFrDUWoeXnllw9euS 9wIi8+VH0oa1sgul54sK8 8dHI+PHRkIHN0 eXjwOEksTJKqcE5bYRlrO jM7JSPoIxTxmR84bUWaDI exSn8dzZemoSqqHI2wUHS brtpez247SdHb n5ktUBLbqERxEXdoRBT8Z 60bc5O8ZYMmQFNaNVL4vZ M6wA5zhNfeovpqqSQfkYr gdmVydGljYWwt VCulK976FTOgfTlpPuJht XYyJ9fozxMMJY2aMtzdwZ Q+PFXjJCF5pGjyJOmsEOJ gaL5zDVDsJ9n8 RmFfBrY8YHdmV6SyswK7G WVtsPUiSSSnpCZQxJ4qkn veu0zgsjxcJqFxJQCaYRm 3MQo5CVAtrMgx ClFkHBN8ZkU5HYG2uWIca U7lzBvkittoqN7oPtm+Rk lOOjwvdGQ+PKThDCC2tWo kKLmvENVtpN5j XFEvB3t3MgJuGmN6JLtvL 1EnrzO0QPBvdLWqTDMoyG SYvT4enmcsp4sezxqvXqE mNSXyKPh8PAu5 EIAyfMbuEfXyBSF4WwE9N OT0aSAnaW8kyEtfnkydiQ 9wOyc+TVJOOjwvdGQ+PHR tOZP8dXbzNLod MKTtoX5zITMwD9j9FuJyG lI9WKvkZ4GlpxC8XRCroZ WzYKAllLYQsC9tasqsq6n vcjogIzAwMDAw PTk8TSd5MGWweXaxNjXzV VJ4KmA5RAR5wZFcwV6eeV whukbryG3uTrc+IHY3QXM 3VJ53FG19A3Vf PjwvdGFibGU+PHRhYmxlI HdpZHRoPScxMDAlJyBzdH vrGO6kYx5cSESjTRGjxVx zuCXhMbNlq7yj YXB (more content not included)... [facility] Patient Handouton 06-23-2023 Patient Handout Nutrition Fat and Cholesterol Restricted Eating Plan Eating a diet that limits fat and cholesterol may help lower your risk for heart disease and other conditions. Your body needs fat and cholesterol for basic functions, but eating too much of these things can be harmful to your health. Your health care provider may order lab tests to check your blood fat (lipid) and cholesterol levels. This helps your health care provider understand your risk for certain conditions and whether you need to make diet changes. Work with your health care provider or dietitian to make an eating plan that is right for you. Your plan includes: ? Limit your fat intake to % or less of your total calories a day. This is g of fat per day. ? Limit your saturated fat intake to % or less of your total calories a day. This is g of saturated fat per day. ? Limit the amount of cholesterol in your diet to less than mg a day. ? Eat g of fiber a day. What are tips for following this plan? General guidelines ? If you are overweight, work with your health care provider to lose weight safely. Losing just 5?10% of your body weight can improve your overall health and help prevent diseases such as diabetes and heart disease. ? Avoid: ? Foods with added sugar. ? Fried foods. ? Foods that contain partially hydrogenated oils, including stick margarine, some tub margarines, cookies, crackers, and other baked goods. ? If you drink alcohol: ? Limit how much you have to: ? 0?1 drink a day for women who are not . ? 0?2 drinks a day for men. ? Know how much alcohol is in a drink. In the [place] one drink equals one 12 oz bottle of beer (355 mL), one 5 oz glass of wine (148 mL), or one 1? oz glass of hard liquor (44 mL). Reading food labels ? Check food labels for: ? Trans fats or partially hydrogenated oils. Avoid foods that contain these. ? High amounts of saturated fat. Choose foods that are low in saturated fat (less than 2 g). ? The amount of cholesterol in each serving. ? The amount of fiber in each serving. ? Choose foods with healthy fats, such as: ? Monounsaturated and polyunsaturated fats. These include olive and canola oil, flaxseeds, walnuts, almonds, and seeds. ? [place]-3 fats. These are found in foods such as salmon, mackerel, sardines, tuna, flaxseed oil, and ground flaxseeds. ? Choose grain products that have whole grains. Look for the word whole as the first word in the ingredient list. Cooking ? Cook foods using methods other than frying. Baking, boiling, grilling, and broiling are some healthy options. ? Eat more home-cooked food and less restaurant, buffet, and fast food. ? Avoid cooking using saturated fats. ? Animal sources of saturated fats include meats, butter, and cream. ? Plant sources of saturated fats include palm oil, palm kernel oil, and coconut oil. Meal planning ? At meals, imagine dividing your plate into fourths: ? Fill one-half of your plate with vegetables, green salads, and fruit. ? Fill one-fourth of your plate with whole grains. ? Fill one-fourth of your plate with lean protein foods. ? Eat fish that is high in omega-3 fats at least two times a week. ? Eat more foods that contain fiber, such as whole grains, beans, apples, pears, berries, broccoli, carrots, peas, and barley. These foods help promote healthy cholesterol levels in the blood. What foods should I eat? Fruits All fresh, canned (in natural juice), or frozen fruits. Vegetables Fresh or frozen vegetables (raw, steamed, roasted, or grilled). Green salads. Grains Whole grains, such as whole wheat or whole grain breads, crackers, cereals, and pasta. Unsweetened oatmeal, bulgur, barley, quinoa, or brown rice. [place] or whole wheat flour tortillas. Meats and other proteins Ground beef (85% or leaner), grass-fed beef, or beef trimmed of fat. Skinless chicken or turkey. Ground chicken or turkey. Pork trimmed of fat. All fish and seafood. Egg whites. Dried beans, peas, or lentils. Unsalted nuts or seeds. Unsalted canned beans. Natural nut butters without added sugar and oil. Dairy Low-fat or nonfat dairy products, such as skim or 1% milk, 2% or reduced-fat cheeses, low-fat and fat-free ricotta or cottage cheese, or plain low-fat and nonfat yogurt. Fats and oils Tub margarine without trans fats. Light or reduced-fat mayonnaise and salad dressings. Avocado. [place], canola, sesame, or safflower oils. The items listed above may not be a complete list of foods and beverages you can eat. Contact a dietitian for more information. What foods should I avoid? Fruits Canned fruit in heavy syrup. Fruit in cream or butter sauce. Fried fruit. Vegetables Vegetables cooked in cheese, cream, or butter sauce. Fried vegetables. Grains White bread. White pasta. White rice. Cornbread. Bagels, pastries, and croissants. Crackers and snack foods that contain trans fat and hydrogen (more content not included)... [facility] Coding Summaryon 06-22-2023 Coding Summary HTMLBase 64 YsgfhffeYZg9fZv+PGhlY WQ+HM9DEPDbJ33znJDkhW 8sZ7SEPQdKEgraJIEDHNv KIlUfioSkEY5jeMMuMFEd IC8+IH3cHHUoSuzbfEToy 0W9oRP9C75ylb7lNQdkmG F8JOCsKgSqtcexg3udoIh 6IDcuNmluOyBt EDPvtB45YFQ0tD28Ny50g YNloTBhk6hozKg1RtYrGJ WmVTE1xXzyDYweb4AeWFF gE50gsZEhk6J5 SCNacWqfzBFcBfFxyKT2w H3mLBilxggsm2pzdhtpPi b7zh36zBKay7V3uIK3V0V kopJ4FJWxaKQc HstyqJBMnB1tvbvsm0mak cypCcTmMOGmDBq0AQl2YM YuhAopQwIrJG74EXP7YLY fmaNcL4GcVFSh hObbRxL3s2Y6Xc2SW3BWS adiC1ZRTQBHDQnlmES+PC 81ye48P9DnEcndSzs4MZM tJOY6xHB5rF9l JZLhBGmuu3U0tLF7I8Mby uWcln9ic7tzZWSpXMkwI4 9rgFXnd3F3JRLacLS3JHF ujAhkJpKxtP13 Oyc+XGShgVssv3DsEfftp 8vmk3evfWh3FcvuIPSibm ZmyKrfXSJ7q3IhYt9rGIV tbQS5kGG7dY3t YqDfYuC7DKwxS400VpFin PJdFpqfM04eT5FhxZY+PH EzCeq5GKYwzJyaYU1qK4L hZGRpbmctbGVm vRuhAK1vCQGtljreSWBlu J7bZKXwG4x8MuIyJhD8QI fbQ1DvFCAconuwNh20sK2 iOgMdTbD8SOak Y5KvxuG1QDJijGRiUCpiL FX5L30rv5V6OAEiHZZmNQ M8oOV9tY6acCynhezskKG mdDsgdmVydGlj QEslDLozT323HHOgtBelA kNvZGluZyBEYXRlOiAgMT AvMTAvMjAyMzwvdGQ+PHR oWBX8mZmhGBAw fRPxWKyqVs5bxFyjpIxkL S6mDEWfvxxyVDHdsH2qWA GutNLvgGbrVS1zQSZrdsc xw286UxBjQMJ9 WMLdoZHqX8KbbN4sZgStT OQrWCOmW8OhiQXjAJqwF7 71UGnlIrN8BYHxwqTdP0Q sLWFsaWduOiB0 t5C3Tn9Gd0XcfhvhN3Jtr JEjEuDpOnzkQCu8B1YpAi wvdHI+EK57ZXLtIQ98XDa 6LWF3tCbzVFhx ZEGyZ1BniX2qOpCpQXQhR GRkOyc+PHRhYmxlIHdpZH RoPScxMDAlJyBzdHlsZT0 qCs9dPHZwFVYd fKosxABgFcOtq8jkUTThS ZutDE3gbPnxQ2TnnND7NU Zfx8e1If57T99gH7EeuAB +PNGazMX8cWU8 pI8lBrQsTrG8DRieB560T vMiyTFaZuqjm9yze2wctV c4HkL1XAQifkUatUdjNQK 7s5XxEh61B37y IHdpZHRoPSIxNSUiIHZhb Zawwe6jyA6yAi4+PGNvbC J2mPS3fS6nNkAsQuM2THa jD866IrDapJFh Wdpzw3mrg6ehhIy6SpNvC OXlxeBrmVdwFRP6c5HeEm 71I2LulZull6OhIoh1gc3 5bKTam2M1gMM6 A1PhVHXlbhsheSAwdPnbX X9lIHWplxouUIYztB3dOP CpK0a1NuYqQbD5JGhkA2A grfP6YCUnqSLx VONasHAZmR4vizthf0rxa iunFqWrBLNrNOv3ZSr1NY EenFqwGjQfMNA8WzQ0FQQ 2mINvpF8ykMkh qqlckY6dPuk+ANI4sUMmi GZAEQ1oQseotRI+PHRkIH I5lLymEZjgHFDixY7sRSN rC1o2PvFeGoR0 AEitJ9CsanB6JKItgMTgS VZepYMAbG0cuhayc7vzhl ioDkBhCUAgOXa2VYr6TTY saWduOiBsZWZ0 MiZ6NPM8kTPcaQ7exIbuo pbtzX1lFzr+QmlydGggRG L5HTz9P6IhEvk8RLHzwLz yCT6tyESyCKjc Xr2tzIonfTjgIJ6aSTGgr dcim821NyEfw6esIHHgpL AeJMsgVYC3G46id5G6SVN hAIDuQIE5mKH1 sK6sfIawjygqbYGkrAhnn zUaoQygKVzpFXnsD058VH LecWgjHxPuVUl6B9ClIqa 6SQCrmCfrEB0z oGLhDWcmGo1fjXehdXdjB L6bRSOzuzitl652PnEwa6 gzWUTutODuVJccCUW5W83 nt7K3ZQQyJWAg WGG3zOS8kL2fsKpvhvtwu GVmdDsgdmVydGljYWwtYW yyM847KAXbcGydRwQxbNk 3F6QdCwa4RSZu cGglVP2miKSrYOjpKv8gs JtdlZukQN0tPHOwmnata7 05VfBll4thEBAujQKrCMf qTBS8Y48rp9A9 AOZcOSFbEMT0iOD5oO2kg GlnbjogbGVmdDsgdmVydG fwVMimYRedI423LZFfiOf nPlBhdGllbnQg SJjfNWc7V0OzHkhpuHU+P V72IMSxPC14tEUgwDOze3 rxjWd8OxGnIXNvPNJ0aSg jGHrkf3YnYECf H16fkMUpi8F6WCSetGdps UDeKyXeuYO4vC3kKQjdzg jhp8verhfmKmnmk5nfgm3 6dW60I92uXBjp ZHRoPSIzMCUiIHZhbGlnb y3fmD6pUu4+MVQicDA3tF C5dZ8iAHUiShT1ZFkxQ07 9InRvcCIvPjxj j3uod7zixLe0BrG9BUEoc kKleBfcZXU4l2HxSd55R4 9sIHdpZHRoPSIyMCUiIHZ ocVdauy3ymN6u Ii8+ZXGkxWY3gOQ2xC4dQ bPeBlZ0IPwqF718CfOwiN UgJmbvG88lR2ExqLF+PHR yJic3ZSGosOqj UZ8bpVHhEEbkBl5oREV8G fXzUpOiSUgeP0SpNKUyze pkoqeewGM0BQGfASGckG3 1Zx6eoWukPOEx nHVJyV2kazlns9wrdlovL tYaDNVoJPp4ZXs4WSTsuY pfTjEuMAJ5ReK0FIL6nQZ tbF6twZeveugb sA2fI8VcKCYwflciBb66a O0aPaCcIfR3QQhqOny+TU 6AWnRrUbHuXTgOCM25K9F eDnn3QITicLze SF7uhGObGPzzYs3qgYmkf RbcPM8xNHUzycuhCCAolB 0mVEWelYNtpZapTA5pNMT yuguub535ZxHy JQC4MKGaeVRxQ2TpyD9xP iWjERKgIPWqI8WhrUGbCT bdY680LSyjBrJ6PYNkngE iY2SoYEIvbNzk SsH6f5M4Lv6cWB4uIB1dM CL4NT06KG87yZQll7W1iJ L2G4XdRFVbxtbmlbrklWH 6JSPdRPDocQ29 nZWlHEpuYz0ct7Y5j829H NIsAXVxfK10Vr5utLteSG SqnPDSuC9gewqwv3ndrkt gIzAwMDAwMDt0 FZs7KNRwvSftRyUsSJZ0G nZ6THX7bFKcvS7lpIcqmm yzkA2vGiv+NjggWWVhcnM 3K1MeFlc5UHRo nTxzRM9ajADzWNnhVy5uu YccaPhsFP0bXKTqyavyUX KgzO9wSTCkrADnsGpfJN3 hBANwptesh295 OgMcIRT5RBRjiNUrR4Rag W3hRbMlCSRzPVBkJ0GygY AbYQiaU228NSibWaS7CTU stuBcP3AgDFTd kJmwKzE1w0I4Jp6GYPdDO Q23GB36yKCer3V9vFV5V7 DjJOCamzrvgktslFW5ZPO iZOEwoR94yFVo GAphKm8hg7B3o372AZHiR DGjuZ77Xm4hdNyrHKYhtQ KVdO9rowfog1zopfcdJwJ wUWKiKWz0DSb2 KQGmrEjoObQpFYJ0FoX4Q UC0dZTerS6njGkqjczdwZ 9wOyc+M6Q8P0VlCydgcGV +LJ61HOXfFX92 dIBwbYPic9fcxUx0VqDiD LZsRBS9wGsjRKjew7IdVQ JfY78dqILqx0I6MDFtlFt hcHNlOyBlbXB0 xX1wBSfaznowy3kxikakG rlkk3ogck20kM14G40uPE dpZHRoPSIzMCUiIHZhbGl rfo4zoQ8vFo1+ KVQrqHC2dHN5rG3vSkOcV gS9ODhfG954NwWdzWBzPs atk2hsn4gzxNj6QuDtIED gdmFsaWduPSJ0 p0EdYv74D92aRTysZIBsN VWoNVMcSJMnpWzjzl9jvG 9wIi8+UH2pq8ztsh96aR2 8dHI+PHRkIHN0 yAlyOVcjIYCeyW7ySAhsI zP8ROGvDfDkyV39oOBzQA jmKz6dzGwciIneAF3vHSX fzmmen145GxUk c9wuHYThgLWkFTffUWZ8G 00cr6P9UFJkYNMoYXE6vY N1mG0czLhikczpxTLbsQy gdmVydGljYWwt DEnbT743GZCofDikJaJid AVpS5olfgMUCI3xGqqdmJ Q+EEFbSAL1zCrhFEbsUCU mbL4wILUhK3q6 QdCbUiS2PQzqZ3VdduD0Z WEmpTUsYVRfpZGLcA2zhp kyo6ljsnyoGiYrAWJbQOz 6HKp8SVLftYuq SqLcJHM2YpN3OIL2bRUey Q1mzQsumziedR2vUvz+Rk lOOjwvdGQ+HCIjKJJ2cCj lXRepHOSykF8t UNZcW3p9KrBnHfZ3YVegD 0CfgaU7MNPimGZwXLYcvQ UVuX9uiinow9igpqrsMlL jFCLuBBu2RHr5 XOJreQwsUrIcFLR6GiO4E UR1fDYlnC8mdGhfrpbvyB 9wOyc+TVJOOjwvdGQ+PHR nARO4oTxpEJql VUCwaV7gHEBoR5z3WxTgP yB9QZeyA0InadE0VLOvpU WhYJCqtZOOuM8ygnkhe6t vcjogIzAwMDAw YFp2EXp2DWRnzSydMmSpN WM0EvA4QHK2bSDhvZ6bfX tgmtvceP5bBke+AJC2XYC 1OQ63NW36T4Dj PjwvdGFibGU+PHRhYmxlI HdpZHRoPScxMDAlJyBzdH brFS9lWb0pSUVxFKUvuHl aeIHiCcSwh8ng YXB (more content not included)... Normal [facility] .Auto Diff 106-21-2023 Auto [place] % 13 % High 12 [facility] Comment on above: Performed By: #### 1 [id number], 5265573, [id number], [id number] ####[facility] (DEFAULT)[address] [place] [address] 72361 Baso Abs# 0.1 x10 Normal 0.0-0.2 [facility] Comment on above: Performed By: #### 1 [id number], 2700454, [id number], [id number] ####[facility] (DEFAULT)[address] [place] [address] 17293 Basophils/100 WBC (Bld) 1.5 % Normal 0.2-2.0 [facility] Comment on above: Performed By: #### 1 [id number], 7185952, [id number], [id number] ####[facility] (DEFAULT)[address] [place] [address] 51506 Eos Abs# 0.9 x10 High 0.0-0.4 [facility] Comment on above: Performed By: #### 1 [id number], 4082894, [id number], [id number] ####[facility] (DEFAULT)[address] [place] [address] 46203 Eosinophils/100 WBC (Bld) 11.2 % High 0.9-4.0 [facility] Comment on above: Performed By: #### 1 8021049, 2409916, [id number], [id number] ####[facility] (DEFAULT)[address] [place] [address] 03879 Lymph Abs# 1.3 x10 Normal 1.3-2.9 [facility] Comment on above: Performed By: #### 1 [id number], 1959002, [id number], [id number] ####[facility] (DEFAULT)[address] [place] [address] 04032 Lymphocytes/100 WBC (Bld) 16 % Normal 14-48 [facility] Comment on above: Performed By: #### 1 [id number], 7476361, [id number], [id number] ####[facility] (DEFAULT)[address] [place] [address] 23223 [place] Abs# 1.0 x10 High 0.0-0.8 [facility] Comment on above: Performed By: #### 1 [id number], 6740931, [id number], [id number] ####[facility] (DEFAULT)[address] [place] [address] Neut Abs# 4.6 x10 Normal 1.5-9.2 [facility] Comment on above: Performed By: #### 1 7986097, 5018476, [id number], [id number] ####[facility] (DEFAULT)[address] [place] [address] Neutrophils/100 WBC (Bld) 58 % Normal 44-88 [facility] Comment on above: Performed By: #### 1 [id number], 9131096, [id number], [id number] ####[facility] (DEFAULT)[address] [place] [address] CBC w/ Auto Diffon Erythrocyte distribution width (RBC) [Ratio] 15.9 % High 11.5-15.0 [facility] Comment on above: Performed By: #### 1 2999728, 9639433, [id number], [id number] ####[facility] (DEFAULT)[address] [place] [address] Hematocrit (Bld) [Volume fraction] 48.2 % Normal 34.8-51.9 [facility] Comment on above: Performed By: #### 1 7181316, 1447526, [id number], [id number] ####[facility] (DEFAULT)[address] [place] [address] Hemoglobin (Bld) [Mass/Vol] 15.7 g/dL Normal 11.8-17.7 [facility] Comment on above: Performed By: #### 1 0104710, 2239573, [id number], [id number] ####[facility] (DEFAULT)[address] [place] [address] Man Diff? Auto Invalid Interpretation Code [facility] Comment on above: Performed By: #### 1 [id number], 1385391, [id number], [id number] ####[facility] (DEFAULT)[address] [place] [address] 74372 MCH (RBC) [Entitic mass] 29 pg Normal 24-34 [facility] Comment on above: Performed By: #### 1 0859508, 8848014, [id number], [id number] ####[facility] (DEFAULT)[address] [place] [address] MCHC (RBC) [Mass/Vol] 33 g/dL Normal 26-37 [facility] Comment on above: Performed By: #### 1 5091214, 9093701, [id number], [id number] ####[facility] (DEFAULT)[address] [place] [address] MCV (RBC) [Entitic vol] 89 fL Normal 81-100 [facility] Comment on above: Performed By: #### 1 9736701, 4300330, [id number], [id number] ####[facility] (DEFAULT)[address] [place] [address] Platelet 430 x10 High 138-427 [facility] Comment on above: Performed By: #### 1 5648748, 6227001, [id number], [id number] ####[facility] (DEFAULT)[address] [place] [address] Platelet mean volume (Bld) [Entitic vol] 6.2 fL Low 6.3-10.2 [facility] Comment on above: Performed By: #### 1 4692639, 0708733, [id number], [id number] ####[facility] (DEFAULT)[address] [place] [address] RBC 5.43 x10 High 3.70-5.30 [facility] Comment on above: Performed By: #### 1 8461497, 4907894, [id number], [id number] ####[facility] (DEFAULT)[address] [place] [address] WBC 7.9 x10 Normal 3.5-10.5 [facility] Comment on above: Performed By: #### 1 0260991, 7555774, [id number], [id number] ####[facility] (DEFAULT)[address] [place] [address] CMP Standardon 06-21-2023 eGFR Non AA >60 Invalid Interpretation Code [facility] Comment on above: Performed By: #### 1 1561607, 6659676, [id number], [id number] ####[facility] (DEFAULT)[address] [place] [address] eGFR AA >60 Invalid Interpretation Code [facility] Comment on above: Performed By: #### 1 3401931, 7364889, [id number], [id number] ####[facility] (DEFAULT)[address] [place] [address] Albumin [Mass/Vol] 3.6 g/dL Normal 3.5-5.0 [facility] Comment on above: Performed By: #### 1 5999366, 4023363, [id number], [id number] ####[facility] (DEFAULT)[address] [place] [address] Alk Phos 69 IU/L Normal 32-91 [facility] Comment on above: Performed By: #### 1 3256223, 2161115, [id number], [id number] ####[facility] (DEFAULT)[address] [place] [address] ALT [Catalytic activity/Vol] 14.0 U/L Low 17.0-63.0 [facility] Comment on above: Performed By: #### 1 4928839, 3670250, [id number], [id number] ####[facility] (DEFAULT)[address] [place] [address] AST [Catalytic activity/Vol] 23 U/L Normal 15-41 [facility] Comment on above: Performed By: #### 1 7104273, 4645380, [id number], [id number] ####[facility] (DEFAULT)[address] [place] [address] Bili Total 0.7 mg/dL Normal 0.3-1.2 [facility] Comment on above: Performed By: #### 1 2381161, 3077307, [id number], [id number] ####[facility] (DEFAULT)[address] [place] [address] 85441 Calcium [Mass/Vol] 8.9 mg/dL Normal 8.9-10.3 [facility] Comment on above: Performed By: #### 1 3291359, 7398742, [id number], [id number] ####[facility] (DEFAULT)[address] [place] [address] 70028 Chloride [Moles/Vol] 99 mmol/L Low 101-111 [facility] Comment on above: Performed By: #### 1 4522541, 1600541, [id number], [id number] ####[facility] (DEFAULT)[address] [place] [address] 20839 CO2 [Moles/Vol] 25 mmol/L Normal 21-32 [facility] Comment on above: Performed By: #### 1 3654293, 9599985, [id number], [id number] ####[facility] (DEFAULT)[address] [place] [address] 17405 Creatinine [Mass/Vol] 0.96 mg/dL Normal 0.90-1.30 [facility] Comment on above: Performed By: #### 1 1568528, 0683972, [id number], [id number] ####[facility] (DEFAULT)[address] [place] [address] 69354 Glucose [Mass/Vol] 105.0 mg/dL Normal 74.0-118.0 [facility] Comment on above: Performed By: #### 1 3363082, 1971812, 8076427149, [id number] ####[facility] (DEFAULT)[address] [place] [address] 94726 Potassium [Moles/Vol] 4.6 mmol/L Normal 3.6-5.1 [facility] Comment on above: Performed By: #### 1 7015729, 1186830, [id number], [id number] ####[facility] (DEFAULT)[address] [place] [address] 33884 Protein [Mass/Vol] 7.3 g/dL Normal 6.5-8.1 [facility] Comment on above: Performed By: #### 1 7131943, 3707281, [id number], [id number] ####[facility] (DEFAULT)[address] [place] [address] Sodium [Moles/Vol] 133.0 mmol/L Low 136.0-144.0 [facility] Comment on above: Performed By: #### 1 9263726, 2860478, [id number], [id number] ####[facility] (DEFAULT)[address] [place] [address] Urea nitrogen [Mass/Vol] 8 mg/dL Normal 8-26 [facility] Comment on above: Performed By: #### 1 7835154, 8470518, [id number], [id number] ####[facility] (DEFAULT)[address] [place] [address] Albumin/Globulin [Mass ratio] 0.9 {ratio} Low 1.4-2.6 [facility] Comment on above: Performed By: #### 1 2795159, 7581560, [id number], [id number] ####[facility] (DEFAULT)[address] [place] [address] 28287 Anion gap [Moles/Vol] 13.6 mmol/L Normal 5.0-19.0 [facility] Comment on above: Performed By: #### 1 9187161, 0174082, 1269004603, [id number] ####[facility] (DEFAULT)[address] [place] [address] Globulin (S) [Mass/Vol] 3.7 g/dL Normal 1.5-4.3 [facility] Comment on above: Performed By: #### 1 0961543, 1664913, [id number], [id number] ####[facility] (DEFAULT)[address] [place] [address] Osmolality 265 mOsm/L Invalid Interpretation Code [facility] Comment on above: Performed By: #### 1 0218226, 0064138, [id number], [id number] ####[facility] (DEFAULT)[address] [place] [address] 38199 Urea nitrogen/Creatinin e [Mass ratio] 8.3 mg/mg Normal 4.6-16.2 [facility] Comment on above: Performed By: #### 1 6055255, 0713474, [id number], [id number] ####[facility] (DEFAULT)[address] [place] [address] 40283 Lipid Panel Standardon 06-21 Cholesterol [Mass/Vol] 225.0 mg/dL High 66.0-200.0 [facility] Comment on above: Performed By: #### 1 8707759, 7119294, 7219353588, [id number] ####[facility] (DEFAULT)[address] [place] [address] 48793 Cholesterol in HDL [Mass/Vol] 91 mg/dL High 40-71 [facility] Comment on above: Performed By: #### 1 1758980, 5851819, 0101058175, [id number] ####[facility] (DEFAULT)[address] [place] [address] 95564 Triglyceride [Mass/Vol] 104.0 mg/dL Normal 0.0-150.0 [facility] Comment on above: Performed By: #### 1 7553858, 0974741, 0636093610, [id number] ####[facility] (DEFAULT)[address] [place] [address] 44542 Cholesterol in LDL [Mass/Vol] 113 mg/dL High 1-100 [facility] Comment on above: Performed By: #### 1 7950726, 0017162, [id number], [id number] ####[facility] (DEFAULT)[address] [place] [address] 16854 Cholesterol.total/ Cholesterol in HDL [Mass ratio] 2.4 {ratio} Normal 0.0-4.5 [facility] Comment on above: Performed By: #### 1 7483175, 7007054, [id number], [id number] ####[facility] (DEFAULT)[address] [place] [address] 83885 VLDL. 21 mg/dL Normal 5-40 [facility] Comment on above: Performed By: #### 1 5843233, 8264832, [id number], [id number] ####[facility] (DEFAULT)[address] [place] [address] Provider Orderson 06-16-2023 Provider Orders [id number] [facility] Wound Cultureon 06-16-2023 Wound Culture Light growth of Staphylococcus epidermidis Normal skin poonam isolated No pathogens isolated No JUANCHO performed on this organism No organisms seen. [facility] Comment on above: Performed By: #### 6 [id number] ####[facility] (DEFAULT)[address] [place] [address] 17475 Coding Summaryon 05-31-2023 Coding Summary HTMLBase 64 TvvbmhcjPNx0fEa+PGhlY WQ+TX4BCMNfV12jjGTanH 5cU5THTSbQGoflJEDIESx WDlPcxvXvEC3hcUTvEBDn IC8+VZ9cPQGxJbynxXJvq 1T7pYQ3N66miw0zWXskwI J2WBSbSmQyatgny8qtpNh 6IDcuNmluOyBt EHQslU41PZO5wM55Xs33v WQtiNCkx3gevAd5IoOuVU DbETG9tRwrJQebk6UuMLZ cA58uwVYzr3A6 FMLhmCajjCGlSuKfuXV5u R0oSKxwnwwqp0hefeqzGi q6eb52zXSqp8O0rDC3I6M gwpR3HDXkeXFo HsrikEZKiP0vztxvt5qqu yrgAlRsRAWaSAs4IOr2PY OaxLbiNwHyDI42BWK6GME wkbVgI0KcHQRi dKfaSzD1n0Y0Pb9MI6ZHK gkgD1OJSMHNXKwgtJA+PC 40mw99F8SjGfhcIrp3AKD iMHW2sXO4xO4z CWUeDZsti4G9cTS0M7Egf tLqxa8vz8raPDDiTZbbR4 0ltCGsj4V0BVAkxQQ1PWC upTurXpTxcT03 Oyc+NBZypCvxm8LhPxuyg 0meg8afoOu1BkaeZUWvpe WvmCsnKFD0u9QwRe3zGXZ tuXW4jLE7iT2d OtFtVnA3KZglX617SvShy RVyUariG72gA4KrvBT+PH QmTfi5GPFxpNyhKK5zW8R hZGRpbmctbGVm vDfeFT0pQLWucgbmDLSek M0sUAPwE2a6JiMgWyQ1BS mcW6OyCNZqwtaaHg84uR4 vZzExDzG0AXgx I9VpmsH4JROhcIRmKUyiI OL1F44dy2N4BDGbWCWpQP E0rVU2xV1dgGkchgcxdYT mdDsgdmVydGlj YVzsOTwfU478ETHgwHphO kNvZGluZyBEYXRlOiAgMD kvMTgvMjAyMzwvdGQ+PHR pIUD3hNnrLAEb dCExDCwxPj0myPjjqHtxX W5tFKMaiyhuLLCkhH3oOF TmgDJmmEjzAZ5qXPZvxzs ch567McUyNRW6 QQNchMLlH1WjoP6iObCiQ YRhSFOoU7QazNGaMRkjK3 13STpwYtO6FOPpqjUoQ0S sLWFsaWduOiB0 d8Q4Lr5Ng0SzdtmlG3Ynt CXnBhLkAikcMFz0B8WaIu wvdHI+IB36NLWrAW51IXe 1TKU7eXadLGqo VXScK5MryN7yTsItRMOvR GRkOyc+PHRhYmxlIHdpZH RoPScxMDAlJyBzdHlsZT0 pYh2mSVOwIUHb nHkguXEyBdBif9oiEJLvI QxpCO4nbFcuZ7LnjQG6NM Yxo6e6Ns81X57kH3TlsFS +YNWzxHY7gPX9 hB7vLkYoYzH2WKyvR661P aQziOYgOdjnu2cxj0souF f8EgR0NUHyovPskCchAPA 0v2EiRl26I49s IHdpZHRoPSIxNSUiIHZhb Ytssn5npZ7rRo5+PGNvbC D4hOC5gT7fPpJsGrX4JNw wQ427SqTijEBl Mlnik4gxo9xcpSh0MwCuD VZysnKwrEfjTHR6w9AvFp 60U3SpcEurl2NrZky1un0 3pRXae3U9zJU1 T3UqRVMvrecgkBVqjIvrR I2oVUKnqrvuRPCsvK6tCH UyW5i1CiGyDsD8WXkhT7K axjH7VLSvkZFq LQMegLQFhU6lxpfmu7ryg qwxCqKqRYNoHLx2VSv3ZH EocDhbEuQlWIO3LdW6KYG 0lFUmlT3ovNdf lmgzdB9jCao+PFV1zOCdn OINQZ6fTjsxvIP+PHRkIH L5cKhhQAndBYTzkG7jZYP yP9q6MzVpNdD0 JFwnL8GhfwA2FESmlJCwO LTpbQLGxO7chezcl8rski fvImFjNEBlKOp8HAw2VPR saWduOiBsZWZ0 ZvA1GSR3uQHkrI3vuLepp uqaoD0tQbd+QmlydGggRG Z9KPn6R5AcGev1JQTqgHm hZO4qiFZbDXqt Qj7wyWxoyErmSF3qCPLvn cpvj454BhHhc3gqZSNtaC KfEKdxOHC1A80rt4B0NXV qMUAtGQJ6mLA1 qC6tfJajqktjzZHvoJlyb oLgeQfvXEqrQRjmV786NB GcpDrmIgSoSSh6M2NtGer 6IYXnjMnvQT4t cZSiGPoqBe4pnPndsAzqY S4pPVZewhiln457MbSwm4 sgKSTtrSKwVJevAKF6O38 de5S8UTKjSSGl LPS9iMC3wT4ceMlnbstni GVmdDsgdmVydGljYWwtYW nkV563PULlpNffNkFwaCg 7Q3QkVxf9WMUd zMteMU4brONjRLclLb9ib QmukYwfOP7iANQpfuptq3 37VcTys8dxNIExhPNtOGs iLJW4A41lm5Y6 ITXiFMOePAK2dHE1dB9gb GlnbjogbGVmdDsgdmVydG wwLUesCKyfF791TQFtxXr nPlBhdGllbnQg RRqhOZv5J7VaJsupjIN+P O41GUZqQC75cQOvgHAjm0 almSx8QxSeOWYhOLC5zJw pSJnaz8HnSJCw I15qmOByw4F2MPFotEtrf PFaNtLgzEQ3jW8lYFatfu qhh0wovquwShwbt0xnbd3 5dY28V75lUCnq ZHRoPSIzMCUiIHZhbGlnb r0iiS3kMg7+PEMtlWM5mQ D7sI0tQIPmUkJ8NYopS63 9InRvcCIvPjxj x8jeu3cffRe3FbL6BYZcu zYoeRoeSHW0m7WkLs26H1 9sIHdpZHRoPSIyMCUiIHZ wiLucyu8jjL2i Ii8+NJIsnXJ3nNQ1yO2iS wEsTvT4SMuxS069CvEfpJ KqBdebW24pO6KujUG+PHR zClm7DSOajTpt RM1ilYXiTDryMx5gYKI4I yLfEgSbGMdrJ9BlFMGkfi ucupyhzTK8UWJgMJZclX9 5Rl6ygYlwSAHe yMQDgJ9jikzbz9pumutfI uDzEBRaLBi9HAh3ANOdrJ rlJkOhAIH0UwQ7HBQ0yNS ubW4pdRbqltsl xN6lN3CyEEAfttflAt52h N1iYzYlKlD8WEqfZow+TU 6GRpMtRwRxMEkMMD05P7W bSvr1FZBkoSqv SD5loRQtUSudZl3srBeop CugUJ7xIOFvckdiUDBdbD 4uDBTkoURwwHcrYD0yCCX hlyfor337CyEy WEX4WVFdhWBnW3NoiW0lR vEiOOMsTIOnC2SwuOAfEX vtB257AGlrOfU9NWXuquR bG3NyVITxaNcm NiV2u1K6Yw7jWI5zBT7sA HI1KU18KQ50gNZie3V7cU R9T5JoWLMznyxsanyzcSX 9NRLvETXgpC98 dEPjITwgUq8mx4V5l109M IBeUARmaW93Bq5bqChiVL EpmCHTeD8nmawam0uqgth gIzAwMDAwMDt0 CRk8XTCprGdcErJfLGS1R hH5DFQ4fASynV8bdTanfx mziL6jNuy+NjggWWVhcnM 1Z0ArZiu1FAAz uFjoFU3zmSVkMLmgDf7ru TtkdNcgJX5dSCRtodkcGE JppJ8kZJXzyPVvlKdlXY4 yMEZtmgafq955 RzZaQOX4GSRwdRUmR6Qpe B0rMkMiTYNiWURiR3XzqK FiRQmmO243LVqaPyD2TYX wpwWvZ1FmCKCj eDbgTxZ9s0P3Mw5ISEvFR J92TZ89wEGdf7F5bWN5A8 JnUBHrdawsitmubMG0MSD eUTWlpP49jUQo XKocTv9uw7F8e595CBRuC KHfaE22Sf4jkYpjSYOrrC WRaJ9adaiux8ocouigOqX dLAYbKYh7QJu8 JZGnyMelTjWlLYZ5LpU6V BO0lCYxaV3nsIqqiddfnP 9wOyc+F1K0H3DdJvobsXR +EH26FZOqNV61 uFTblVPxi6tmeTe1TmVoP UEtCQM0sFnxPLovc5ChAP XeV56vdQKzu8N6OHFzkCr hcHNlOyBlbXB0 vQ2pRGfnwpjnt0aslrwfU vsjh0sdrw03wR29Z48xID dpZHRoPSIzMCUiIHZhbGl uet6loF1zCj7+ QGUdzMK3vQC9oL0cYxIwN wJ1MWygL987JwUymJYtQn ccy3hgq3woxWs4SaViZGR gdmFsaWduPSJ0 a1KbMj69S10zXYzyNBDfA KIxPHEeMPKwhAsaxq8lkX 9wIi8+JE2sp3lkup58oI0 8dHI+PHRkIHN0 uEypNSmfIADldF1wDUlpD bW0NZWmVvXiwM01vLFnXW azTv4vaGtzhBowDI0jDGR yuzrze367UeVr o1kjXEAnjDWoLNdqUAU5X 44rn1I7VCQgPJUrXQY4zG O5lH7lpPzemhdadLOgyNb gdmVydGljYWwt XDqiS962HVBgyMbnPoRsj IJjQ7cmrzEUUZ4qYqkycL Q+KNHwICX7iClbJYxlVDK nvE8wIXLmX0b3 MxTbMpT1HZwsB0MewcU0Q ZQqoLOaGOCjqJTUqQ8kox srs2gacknhJfXgFOVmYPt 5STj9ZZRoxDba FeOhIOB0GiW7HHT7oMEyq P4ykUgpksjqwS7tKql+Rk lOOjwvdGQ+BODsJGT1tDb bSIfrSWXqzM8i XZZjT4r8TeOdIxU3HWogF 5BwiiE5GQBpdMUjCBNhmF HSzP5sctfcr1ikdsbdFyC tIDGiRIv5MAf1 CJInqRxpYmPqBGY2OvL3D FA7zXEqtR1rvNeumhpwzE 9wOyc+TVJOOjwvdGQ+PHR yLTZ9bJkoLPcc ORBxzL8jZUAwV6k9DrSuJ eX7DCwlB8PdbxU2NCMpeE YqNYPsgCVIhB6dviuqq6a vcjogIzAwMDAw AAg1XGo9XROapUjiXzOhG KO0JuY2UIE7vBXmsL4vtG pfjfzchC1gRtz+KLB5BBL 1LX89TV58R1Kb PjwvdGFibGU+PHRhYmxlI HdpZHRoPScxMDAlJyBzdH taQQ8cQa0hYJFhENIjoPa ajPEfEfPwm3bx YXB (more content not included)... Normal [facility] US LE Venous Duplex Righton 05-26-2023 US LE Venous Duplex Right CLINICAL HISTORY: Right lower extremity swelling. COMPARISON: None available. TECHNIQUE: Grayscale, compression, color and waveform Doppler analysis of the right lower extremity venous systems was performed. FINDINGS: There is no venous thrombosis, abnormal masses, fluid collections, or other findings of concern identified within the right lower extremity. IMPRESSION: NO RIGHT LOWER EXTREMITY DVT IDENTIFIED. Final Signed (Electronic Signature): Adrian Staples MD 05/26/23 11:14 a Technologist: DIANA [facility] Provider Orderson 05-19-2023 Provider Orders [id number] [facility] Encounters Encounter Date Encounter Type Care Provider Facility Start: 08-03-2023 End: 08-04-2023 ambulatory SHILOH Park Facility:[facility] Start: 07-26-2023 End: 07-27-2023 ambulatory Brett R Dolce Facility:[facility] Start: 07-22-2023 End: 07-23-2023 ambulatory Alberto Fall Facility:[facility] Start: 07-19-2023 End: 07-20-2023 ambulatory Brett R Dolce Facility:[facility] Start: 07-12-2023 End: 07-13-2023 ambulatory Brett R Dolce Facility:[facility] Start: 07-05-2023 End: 07-06-2023 ambulatory Brett R Dolce Facility:[facility] Start: 07-02-2023 End: 07-03-2023 ambulatory Alberto Fall Facility:[facility] Start: 06-30-2023 End: 07-01-2023 ambulatory Alberto Fall Facility:[facility] Start: 06-28-2023 End: 06-29-2023 ambulatory Brett R Dolce Facility:[facility] Start: 06-23-2023 End: 06-24-2023 ambulatory Charisse A Karen CEPHALOMETRIC ANALYST-C Facility: [facility] Start: 06-23-2023 End: 06-24-2023 ambulatory Alberto Fall Facility:[facility] Start: 06-21-2023 End: 06-22-2023 ambulatory Brett R Dolce Facility:[facility] Start: 06-21-2023 End: 06-22-2023 ambulatory Charisse A Karen CEPHALOMETRIC ANALYST-C Facility:[facility] Start: 06-16-2023 End: 06-17-2023 ambulatory Charisse A Karen CEPHALOMETRIC ANALYST-C Facility:[facility] Start: 06-16-2023 End: 06-17-2023 ambulatory Charisse A Karen CEPHALOMETRIC ANALYST-C Facility: [facility] Start: 05-26-2023 End: 05-27-2023 ambulatory TERRANCE JONES Facility:[facility] Payers Date Payer Category Payer Medicare [id number] 1955 [facility] [id number] 2.16.8 40.1.913286.3.579.2. 1955 Unknown [id number] 2.16.8 40.1.938834.3.579.2. 1955 Unknown [id number] 2.16.8 40.1.399080.3.579.2. 1955 Unknown [id number] 2.16.8 40.1.793857.3.579.2. 1955 Unknown [id number] 2.16.8 40.1.147276.3.579.2. 1955 Unknown [id number] 2.16.8 40.1.444680.3.579.2. 1955 Unknown [id number] 2.16.8 40.1.693352.3.579.2. 1955 Unknown [id number] 2.16.8 40.1.907313.3.579.2. 1955 Unknown [id number] 2.16.8 40.1.456732.3.579.2. 1955 Unknown [id number] 2.16.8 40.1.162622.3.579.2. 1955 Unknown [id number] 2.16.8 40.1.092333.3.579.2. 1955 Unknown [id number] 2.16.8 40.1.021254.3.579.2. 1955 Unknown [id number] 2.16.8 40.1.252641.3.579.2. 1955 Unknown [id number] 2.16.8 40.1.093487.3.579.2. 1955 Unknown [id number] 2.16.8 40.1.155622.3.579.2. 1955 Unknown [id number] 2.16.8 40.1.897576.3.579. Medication management note 09-14-2023 Note Date & Type Note Facility 09-14-2023 Note Entered by Ashley Echeverria on September 14, 2023 08:04:05 EST From: Rosalinda Echeverria To: [facility] #[id number] Sent: 09/14/2023 08:04:05 EST Subject: Medication Management Not Approved: Refill not appropriate, proposed to provider amLODIPine (AMLODIPINE BESYLATE 5 MG TAB) take 1 tablet by mouth once daily Qty: 30 tab(s) Days Supply: 30 Refills: 0 Substitutions Allowed Route To [facility]acy - [id number] Signed by Rosalinda Echeverria [id number] To: Karen PARRA, Charisse Tidwell CNP Sent: September 13, 2023 8:55:00 AM [employer] Subject: Medication Management Due: September 14, 2023 12:30:25 AM [employer]ENT On Hold Pending Signature Drug: amLODIPine (amLODIPine 5 mg oral tablet), 1 tab(s) PO Daily Quantity: 30 tab(s) Days Supply: 30 Refills: 1 Substitutions Allowed Notes from Pharmacy: Dispensed Drug: amLODIPine (amLODIPine 5 mg oral tablet), take 1 tablet by mouth once daily Quantity: 30 tab(s) Days Supply: 30 Refills: 0 Substitutions Allowed Notes from Pharmacy: [facility] Summary Purpose Family History No Family History Records Found Advance Directives No Advanced Directives Records Found Additional Source Comments (unrecognized sect ion and content) No Status Records Found INFORMATION SOURCE (unrecogn ized section and content) DATE CREATED AUTHOR 09/14/2023 [facility] FOR RECORDS PERTAINING TO PATIENTS WHO ARE OR HAVE BEEN ENROLLED IN A CHEMICAL DEPENDENCY/SUBSTANCEABUSE PROGRAM, SOME INFORMATION MAY BE OMITTED. This clinical summary was aggregated from multiple sources. Caution should be exercised in using it in the provision of clinical care. This summary normalizes information from multiple sources, and as a consequence, information in this document may materially change the coding, format and clinical context of patient data. In addition, data may be omitted in some cases. CLINICAL DECISIONS SHOULD BE BASED ON THE PRIMARY CLINICAL RECORDS. [facility] [employer] [facility]. provides no warranty or guarantee of the accuracy or completeness of information in this document.
[2023-09-15] MEDS: LIDOCAINE HCL 20 ML, SODIUM BICARBONATE 2 MEQ INJ (08:45)
== END 2023-09-15 08:26 | disposition home or self-care (01) ==
LOC: VC 08:25
PROVIDERS: PCP Radiology Diagnostic Radiology; Visit Provider Radiology Diagnostic Radiology
DX: I83.813 Varicose veins of bilateral lower extremities with pain (principal)
CPT/HCPCS: 36478

== ENCOUNTER 2023-09-29 08:58 | Outpatient (OUT) | payer MEDICARE, SELFPAY ==
--- NOTE | 2023-09-29 09:00 | VEIN_ITS ---
Patient Name: GLENROY MOORE MR#: [id number] : 1955 Exam Date: 09/29/2023 Ordering Doctor: DR Ellis Britton M.D. RADIOLOGY REPORT PROCEDURE: [facility] - OFFICE VISIT FOLLOW UP COMPARISON: [facility], 08/24/2023. 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 The patient has worn his compression stocking. The patient did not require oral analgesics. The patient has tried exercised best visibility. Physical exam demonstrates reduction in overall swelling of the right leg. Persistent skin thickening and scaliness is observed. No large varicose veins can be seen. Review of the ultrasound performed the same day demonstrates occlusive thrombus into of the treated perforating veins with nonocclusive thrombus in a 3rd treated perforating vein of the right calf. No deep vein thrombus. The patient expressed a desire to proceed with treatment of incompetent varicose veins with micro foam chemical ablation. [facility] IM[facility]ION: 1. Successful ablation of treated right leg incompetent perforating vein. 2. Persistent right leg varicose veins. PLAN: Micro foam chemical ablation incompetent right leg varicose veins Nurse notes, history and physical were reviewed and confirmed, see attached forms. The nurse was present throughout the physical exam and consultation Dictated by: Ellis Britton MD on 09/29/2023 at 09:45 Approved by: Ellis Britton MD on 09/29/2023 at 09:46
--- NOTE | 2023-09-29 09:00 | VEIN_ITS ---
Patient Name: GLENROY MOORE MR#: [id number] : 1955 Exam Date: 09/29/2023 Ordering Doctor: DR ELLIS BRITTON M.D. RADIOLOGY REPORT PROCEDURE: [facility] EXT VENOUS RT LMTD COMPARISON: VC EXT VENOUS RT LMTD, 08/24/2023. INDICATIONS: I80.01 Phlebitis of superficial veins of rt lower extremity TECHNIQUE: Lower extremity corona scale and Duplex Doppler evaluation of the deep venous system from the inguinal ligament through the calf veins. FINDINGS: REGION: Right lower extremity. THROMBI: Negative for DVT. Heat induced thrombus visualized in two distal medial perforators and partial thrombus in mid medial right leg manager machine. COMPRESSIBILITY: Non-compressible & partially compressible segments. Non-compressible segments corresponding to thrombus FLOW: Decreased and absent flow corresponding to thrombus CONCLUSION: Complete occlusion of 2 treated perforating veins with partial occlusion of a 3rd treated perforating vein Dictated by: Ellis Britton MD on 09/29/2023 at 09:31 Approved by: Ellis Britton MD on 09/29/2023 at 09:32
--- OUTSIDE RECORDS SUMMARY | 2023-09-29 09:01 | XMS_ITS | CCD ---
Author Name Unknown Address [address] [facility] [place] [address] Organization [facility] Care Team Providers Care Field Sales Consultant Name Role Phone Dolce, Brett R Admitting Unavailable Karen DOPE MAINTENANCE WORKER-C, Charisse A Primary Care Unavailable Dolce, Brett R Attending Unavailable Dolce, Brett R Attending Unavailable Karen DOPE MAINTENANCE WORKER-C, Charisse A Primary Care Unavailable Dolce, Brett R Admitting Unavailable Karen DOPE MAINTENANCE WORKER-C, Charisse A Attending Unavailable Karen DOPE MAINTENANCE WORKER-C, Charisse A Primary Care Unavailable Dolce, Brett R Attending Unavailable Dolce, Brett R Admitting Unavailable Karen DOPE MAINTENANCE WORKER-C, Charisse A Primary Care Unavailable Juan David, Alberto Admitting Unavailable Juan David Alberto Attending Unavailable Karen DOPE MAINTENANCE WORKER-C, Charisse A Primary Care Unavailable SHILOH Park Admitting Unavailable SHILOH Park Attending Unavailable Karen DOPE MAINTENANCE WORKER-C, Charisse A Primary Care Unavailable Fall, Alberto Admitting Unavailable Juan David, Alberto Attending Unavailable Karen DOPE MAINTENANCE WORKER-C, Charisse A Primary Care Unavailable Dolce, Brett R Attending Unavailable Dolce, Brett R Admitting Unavailable Karen DOPE MAINTENANCE WORKER-C, Charisse A Primary Care Unavailable Karen DOPE MAINTENANCE WORKER-C, Charisse A Attending Unavailable Karen DOPE MAINTENANCE WORKER-C, Charisse A Primary Care Unavailable Juan David, Alberto Attending Unavailable Fall, Alberto Admitting Unavailable Karen DOPE MAINTENANCE WORKER-C, Charisse A Primary Care Unavailable Dolce, Brett R Admitting Unavailable Karen DOPE MAINTENANCE WORKER-C, Charisse A Primary Care Unavailable Dolce, Brett R Attending Unavailable Dolce, Brett R Attending Unavailable Dolce, Brett R Admitting Unavailable Karen DOPE MAINTENANCE WORKER-C, Charisse A Primary Care Unavailable TERRANCE JONES Admitting Unavailable TERRANCE JONES Attending Unavailable Karen DOPE MAINTENANCE WORKER-C, Charisse A Primary Care Unavailable Karen DOPE MAINTENANCE WORKER-C, Charisse A Admitting Unavailable Karen DOPE MAINTENANCE WORKER-C, Charisse A Attending Unavailable Karen DOPE MAINTENANCE WORKER-C, Charisse A Primary Care Unavailable Alberto Fall Admitting Unavailable Alberto Fall Attending Unavailable Karen DOPE MAINTENANCE WORKER-C, Charisse A Primary Care Unavailable Karen DOPE MAINTENANCE WORKER-C, Charisse A Attending Unavailable Karen DOPE MAINTENANCE WORKER-C, Charisse A Admitting Unavailable Karen DOPE MAINTENANCE WORKER-C, Charisse A Primary Care Unavailable Results Test Name Value Interpretation Reference Range Facility Coding Summaryon 08-04-2023 Coding Summary HTMLBase 64 NgkmuktvVIh8hCo+PGhlY WQ+PA7VEAEcW22obZAatB 1hM7RIEQaFGjnwCQYPEFg HUlOucoPmWA0ooHHeDNIx IC8+GA2rTANbLqwmhTRgp 6P2zHX0B64cii3aRPyatL O0AQAvUsGbwrlxf1oqkTa 6IDcuNmluOyBt QNAgiF64ICA0jG18Bx08s ZEgxVUzx8gtbZa9DaWnUM BxLRE3yBkxYOedu1EsQUB lP74ipMLnx4C1 EWTanMyhhPDdHhYtzRO4g P1aKKzwtwxkc7hawxmjIm b2mb31yHMhp4C2pNQ3G2A oqhT5TTSrgLLj KrvfsBYRpD8qmppkw4lan qgbQsMxEJXnFOb1BSl9KI QjtIsdEqNlUW43GIE0CDN iykTkF6PkDMIw hFivCkU5x7N9Qy9LB4FMF qdeJ7VKFVFMRCsymNA+PC 29qt55F5VbOzanRhp6FSA eEZY8rEG7mZ6c JGEkCDwdn2Q9gNI1L7Cwy ySdvw0ic8giKRHrYAjpA5 7igPVbi7D6FDWaoLA9QGQ rrKsqEwPrmL25 Oyc+FLPklLuai2BtPvteq 9yea9lbxMl7VeilZFXbpc WiwDjnMSL7x8NoWt0wLEM moGE4xKG6iY6e BqIrWaW8CUflQ917WyWdc AGwKfvdO05qM5XrcEE+PH CbMyw5FFWqzXfcTA4eD9O hZGRpbmctbGVm xFchQQ5tIPFkdqamGYMzb X3yKWNtK8b9JpVcHcU4OX qvU5MiCXWysidaTj90fI6 hGyCrJeX4EXpf D8RqevM5VEHzeVTiSNnkN RG1U44xv1T0VOCfVLAcUU K5eKQ9cQ3ddEuxrvkifTF mdDsgdmVydGlj OCfiCMzpG139DGOgqOvtX kNvZGluZyBEYXRlOiAgMT EvMjIvMjAyMzwvdGQ+PHR eSUS6kSvmZCVl aKCmJSluJz8mxQhhgDhsU M9bXJBbokyhCHBgbL2eYL LcbCFfoMfnPH0pXPGblml zj685GcWnJTM6 GXHxlSUeO1ZluP2jYlPoI XCiDLJjF7TarINsZOuoE7 88LDrwUfY0JOMpslTqZ7A sLWFsaWduOiB0 s4I2Cq1Ua2CcsltiV1Tut MOuGdPzEexyPOg8F7LeIg wvdHI+NN65ZIAeWE56KRb 8TWZ4yGphPCok IWUhU3TsiC8bWiHjZZTiV GRkOyc+PHRhYmxlIHdpZH RoPScxMDAlJyBzdHlsZT0 qGi6wPBGlCDMq jEnmiJWtDcBgy4awPVExV YtuQX1hlExtR4AmpYT8TU Din1j4Ky11E43pF4PjqDL +NGTqzIG1zZB6 wP1tGlDcJzN8TQeqW846D zFjlWLpPzsdh4jok3lfiH t6GvQ9AIIzpdZmdJllFDW 7o6LaCa66O68y IHdpZHRoPSIxNSUiIHZhb Tcphy8ivC7nIs9+PGNvbC T1yQC5yF3gBzOpUsA4RAq eT330YvNrhLPm Egpbg3bzp0auhGq6BtLqN ONyamKqkLfyQEV5c2WpJg 45W3JitOkul3EvYpf6dh3 9oYPsp3V5yYV6 F1FpKJQywxfxkJSupNtvQ R7aLLNmfzujLPOvxG5fWA ZqY7e3EnWzAxS9JKnoW6R cxdC0VCHhnMPd DCUqsSTSsR2cwlcdu6hoi dqjPfSwFPAiMKm1YJn7GR TagIgsDcDwNDI7QyA1AZZ 1nHYlsW0gqZra yqwwaA0hUto+JBZ9eEHgc QRVMJ3zZwuoxMT+PHRkIH G7rEpzIYbcQEVvkU2kZNW iX5h3IkFdPkL4 BSxtR6MnkzC8PWJibROsY CSzyLAEtO0pdtpxx6iegy fhNcAyUUBrLRn5CIp9FVI saWduOiBsZWZ0 YvO8BVG4gARxjM6alFxen phksH0iFna+QmlydGggRG Q2WMd6D3UiCbp3FDJggFz gZC5dfILjLQwt Dz7bkQagrBkmZY3tGIPao gzes042IaOez6mmVSZicR RuDIikXYV2E31fx7T8YXE aQDCtLID4cRW2 fI1cgIkmwfzvxUPvvZvml dBghNxwNKcfSHjxY333OB VahZhkLvPbHNb4N1KdYyj 2KVRzxZldSO8l xPHkBKsjLy7bpHuddEovW L2tWULserbkv486PrYaw7 khSTNceENeZFvoTGP5X15 jn0A7NKIiRZZp XBU4zUB7oE9vdHypwouvj GVmdDsgdmVydGljYWwtYW feF665KAIhaRrtNmSlbSy 5Y9HlRjc2ATUh qHkrTC7gfJZyLZnwCf7ju UskqKfoBY3jZTSjawcvc3 32MoUxq0zmXYWfpJQpBTu nJPP7D68qd0N7 UHNgEIUlOZV9aUZ4eR4gv GlnbjogbGVmdDsgdmVydG maAPteTKoeS644ESIbvPi nPlBhdGllbnQg BGjvWPx7Q9XvKiiwdDW+P W42TMMiLA73eHFuwEZxu9 wabBa3EwCvQZHuWZD5uXh yURisq9SnCWVi T43twFZwd3M8WQRiyAbbe WFeSjYzbSW0sO1lBKnwij qjc2xiotabPlskn6yfkt4 5uV87A71nBLnl ZHRoPSIzMCUiIHZhbGlnb l2tkG6wDx6+VPAonZL5aU P8oA3bJLDqAlL4BJoqE45 9InRvcCIvPjxj z0jsx6gvrNi5TkH2BHXvz yMleVhbATH4x0ToTi14C1 9sIHdpZHRoPSIyMCUiIHZ wfLtzer4yxC3s Ii8+ABFpbLO7dSR6qZ0cJ oCaQnA2ZRanQ645SxOjiC SxRlohS46xO4VzqLJ+PHR qRpc8ILVaqKop QN5qyITzERdhHl8sWYT0J mJcPoGiGNtuE8WtBPRsed wouisikIG8RPJiSMSrnF5 2Gk5fiYkqFQKa gIBPiU4othmbt0sajcjvF cXgNWOkLCk6GLu4IYQzuH mwRqTsZLW2TcQ6YPM4iPV tbX5vjQubkgwc rJ2dI6CwAHQgfupmLk89a Y6bWmEeWyM4MTwoMkl+TU 4UZcEvLmVoUTlXBW12I0J jVxe8TPKssSxp TQ3qyZDtDHruDc1ilVnlb BqiCP9uFAAldjwfDISpiQ 5fEGAfmGVwfDrpPV9ePYL ybmgxv699NvNb BPH2LYKfgLTiT3HtvL0tI xZpVURoQQNkB9MogBWlDU ikQ697YGssEiJ6FHWrvsQ wM2GyUWKkjFlq SvG0q5R4Vx4zZI3uWQ5fC ZK9IV20WB08oKOsx7V5kO Y7E2AyRPJcirixrbeobRY 8XHQlQKEbzW11 mEOqVZuqMx4ji6B3b123Z JJfNIIeiA66Sl1soXlnFD PovRIUgX8covbaq4ygeov gIzAwMDAwMDt0 OUu9KDTaaNhrFiZtDBR3M kB4XQX3vKRkcE3wbGmvvs ckdM9rPfu+NjggWWVhcnM 3R3NeNhf4FERn bLugIM8xmAXlUFbmWx1fu PiaoSecVY5nVYMacibuMC OeoY1yINRpmQVbzJkfDZ3 wFLNaptumm641 YoAyTQQ0TJTxlDOvL6Tke H8wOzAmZXLqLMGgE9HixU JiEYpiZ160DNhcIgG4CSE mxnEgL9EaDKYn bJinQxU2p9G0Yh4BGFiGT N66KK55uRWpf5P6qHG1L9 DxPOIogvhownxgaGY6ERY lPFUyzN92rJNd HMhiTw5ye1Z2d962DDYbD EEwbR35Yf9cyPlaCEOglP XZpO3pazoxp1ozeurnLhN yYHGmRRi9ZNl1 DFQlxQzuAjAjQVE5HmF1U DH3iTPkrI6txSxojvfpfI 9wOyc+F1K8H1FyHmbcxQP +RK49YFMvFC05 iCXzcOPaj6mcnBg7NzCxT GJnFAS8uSmsCNwgt6OeRB NxL22cgWMky2G2LDKeuEz hcHNlOyBlbXB0 qK0jJOcxcfcoj7fksdqzN nrvu3jszn58tK33V50oOW dpZHRoPSIzMCUiIHZhbGl bnp5wpW4lFc0+ MDKwhJT0bCL3bT6uPwTrM uK7YEpdG422HdWmcIAwCr bmt2mgn5xxzUx9UgSaOBA gdmFsaWduPSJ0 d9UpLs76G60oCVypHYXcZ DNuEGFeWSKwmIamhg0tfQ 9wIi8+WF2zi5zevw81sF5 8dHI+PHRkIHN0 xLofSFjuIABbkN8zNZddZ mG2BTPkQsNinP03nMCrWK ttTd9vzJtmrClrGV7eIXK pxxwii302AkJi v7isTZTpoGNlSMizHKP5L 59vw4P4NBPiYCIeDMO9xI Y5aC4hxXkoffjwbVSmbSt gdmVydGljYWwt DPkzU233GQGgoChfXjWwo KCrK1avmwKUTO6sZevxkH Q+DQIsMOM5sOtsXDxmTVE nrC0bAFVyR3j7 KiMbReO3ZJicX3IbzsO1C MPmeYAkUZTtkEWCsZ1uej fsf0aygkukQdUiWMCcREh 2AWh9HDKwiQfg ExXcPSH9ZhN0OXG6bTDys C7tiUlmdkfvkR0vPlz+Rk lOOjwvdGQ+IXWrOFY0rUk cNIsnZQYwsX5j IXDbP7y7OoBjStG2VJbfH 9FnfkU2USFnuNJpYQXpvE MDnX5qifdhd7hxscawHtQ hAKZkKSq2TMu6 NVJpjBtkLkShZMT6HkI0D XA6oQJvsC7dkEniavwzcN 9wOyc+TVJOOjwvdGQ+PHR tRDV7dMvbLHlp MYShdH3jLWLaA6n9LpNpP eZ2YFipX0SczwU2IBUneF QjFRQrpHCXgG7ffnhjn0y vcjogIzAwMDAw MBv5PBt4NPZnaAokZnXzE GA9WxZ5TIR7xDTavU3qmL pcehzkvV2tHou+FHX7KLK 4MP79OO70M5Qo PjwvdGFibGU+PHRhYmxlI HdpZHRoPScxMDAlJyBzdH beLY0jSr6bXXRpODLhuVu oiWKxZrFlr5uo YXB (more content not included)... [facility] Wound Care Noteon 08-02-2023 Wound Care Note [id number]#1.0 [facility] [id number]#1.[address] Coding Summaryon 07-29-2023 Coding Summary HTMLBase 64 CwossijxZPt3jRb+PGhlY WQ+XK3IAIMlY07hoIQpjF 9hE6MYQUgDEyafNJXKEDy ILvTnfxIgQH0cbSFpZESs IC8+XI7zVFShMbtdvYZrn 3U7sFO4X53rbx6xPXdqnG R3OHJcMbYhjmbtm2qjzOn 6IDcuNmluOyBt TZCtnA30RJD4aG58St19n DIluWLnd7syxIz9MiOzLC QzNUM3mDjmPIlki4SrLTX vT34doWFhd3B9 ZQKtmErusHZaTpRciVQ8w L5zXWbcbwohy7ovmjdiZz u5ub36sBRod8C2fFD1X9D hinI4QPYjgAUj NtngcBHMxG4zvdfys2jxj cyoDjOuTBJwVCq0AOo8QJ JseVehWmAdKP08UPN6LCS euqKfU9TeUMLo eUntIrC1l3N1Wu8TI8LXX unyZ5GWUAXIYQaerSG+PC 67on22B2FtVbupBat6YMA xBIR6aWR2yT4n SRNpDErfi0N1yEP8C6Nfk iFggd9hi8cgAUQxFPpeP7 5htYMtn3H0VZAylKV1BED laDvfYpUqyI29 Oyc+MLVxgUkwn1DjBeqkq 3mkw5kpnNn8CyecWIVkmg DusFolBFD8u7NeFv4iSAE vaFR5cWQ9vW8e WpAhSxA7WBpuD064LqIci FRxCxseA09jS3VjqEF+PH ZgChp8VKNonKbgBP9jV5O hZGRpbmctbGVm nRnwUB9aQPCwkvttZYGqy X6bOSAmC2p4TeZlOsO0YN sdW3EyMRCyhfpoIw74wN8 cOpRbGeF0JDup O6HkycT0MRZmcOOwCCfqT TE9B81jx1S0TJMbWRQpIQ U2sWY1uN9otTolcoeyyCE mdDsgdmVydGlj AJksFTgfG645DACfiHvjL kNvZGluZyBEYXRlOiAgMT EvMTYvMjAyMzwvdGQ+PHR oPJF7kMzxNPCv eKOoMRndSs8bxVyfvWhdH J4rYMSjxwrmMEEfbV3kXE HhvNPkcHdpAE4wAHErvgf qi021ByTnURC0 TALkoIEoV6BexG1oLqKnO BEzYGMsK9QvmEInTGncV8 45CSchTtM7DFUuhwFuH2R sLWFsaWduOiB0 y2B8Ef1Mv4XqnwzcF2Cfh SMjZoDmEcgaKAs5M5AkOd wvdHI+ZX94XUViMP66GDb 4YMC0tRrxTJfx KDBwF9HiiU1tOhHwFPZlJ GRkOyc+PHRhYmxlIHdpZH RoPScxMDAlJyBzdHlsZT0 mNc7qTPUzWWZh lMzdwYUjZcZcd6gpNLBrT GxbOT1lzRnhH6FwkAX8AV Zqr3f8Ps77N50xP8OirIC +VLVelHZ6tIJ3 dH8tFfXhFrC4OXnuW964C tGomJHaVkcke2wvv6hayD d2XgU8CKZjjsAczWeqZDF 4o5ApYv16L15d IHdpZHRoPSIxNSUiIHZhb Rnopg5paG7jPa1+PGNvbC L2lQZ9iR2xHcPbJzY8WXh zG236NxUwvKKa Uzjef7hko3owyTa0GoHsV KWctlAlhTchCHB4t1RiTm 65O8KmhUbwj8MjPij5fh7 6oDKui2G7xKT7 K7BvNLKafknguCCvhFhbK Q4mSPHlfynrKGSltY7mAN ThW5k9RhIeXmT8HRalQ6Q hqfX0NUBzzANy IRXihEDTeH3jfbghu5kjd pwhZjVsVZKlNKe0QAr9YY RckVerXbPdRPX3GlK2AVK 6fQCimX8sfUnd lfulbR9aWaf+HYA6xLLij CDDVW5iOnednSH+PHRkIH O7kSymFEbbJJCgeP7lMXT aE8g0BaEcUpX4 OByaL3CznuG2TVHniFMcO TEevMZUwN7swmcqk3qarh cmCiUyUVOgNJw5VQr7FOZ saWduOiBsZWZ0 ZuY9HFG5gMTceT9hoMusc sbwzC5kSxp+QmlydGggRG V2DAd6B5XoQuv0ZJNsfVj zGR8pdXNpZGvn Xa2paKfczKnvWM0gFEEks zgjc068FoAem8dvXDWkkO InABwkGDO4E12kl0B5LVU qNNChNHU3vVA4 wK8fiAwniheqdXRjfJhla gWxhDesLRquUEesW171GB YoyLccQjCeXMj6I9QkWmv 7XVTlyKduFU2g wEDrKHehZi3khDlejWahJ L0dZTMvjxuyj275QdVvb8 bdNJTjxYXpILxfLKC8U09 gf2M8HWWjDPVd CSS0bXV3vT4geScwczszn GVmdDsgdmVydGljYWwtYW hhO887RIKnaUvsEbYbsBp 4G6MdCxy8SIVf zJqmFR4hdMJxXCewRf8oz RjphKehWA7vXFYsqopeu8 70FyRyv8mdTTUppHZmRQw eHXT3R11nx5C9 YGMeTTQxMTH8nNW1wX6cg GlnbjogbGVmdDsgdmVydG paTBlqNTysT523ECTnnDv nPlBhdGllbnQg FKfqLNg0W6BqAsbhqIX+P J47XYUyKJ76rQPzvGHiu7 jhtAb1JkHmMZUiGQO8uVr nXVjrv3KbTFSr Y30ddVGky4Q0YGDljRdsf NHpGwIhsCI4jJ0eIEexip bkw6lfpdirHcpqi2hnxs9 4gM13W46rENzy ZHRoPSIzMCUiIHZhbGlnb p5jyM6aBj8+HZPaqUN9vK X5wT5nROZbUcL8IKakP70 9InRvcCIvPjxj j2zlr4takOs3YvC6UCPjo cPifCcaOIF2c1AqNa84O5 9sIHdpZHRoPSIyMCUiIHZ exEcksn0aeG9v Ii8+SRRxnUL4fQB4wB5lP jPvBqC1SXajG805XyHmqY SmKixwU17mD6YvlRH+PHR vOiw5JMKgsGoy KE3rsELjMXhaBg1kOMP8W aQxVaPoWWssO7McUGPoyy cgrknmsIS9BMUqMNRlkZ1 1Kk9pzEmgLCUm zRRPrE3kbmspq5pgdobaU wIzXRYaHMq9CHn1UWWscC hzZlDiZLL6KoW5UDV2pPK pdW6osJhexqbl vT0xM0FcSDXrwjqxFf37s T7zFyPnHhS0YThuLyz+TU 0VGtGsCfYbDBtBGT81I8V uZbq8GWWwpCkr QJ5vsOWqAPfxXg5tzUorz HxkSZ3iXVTsuiwoBQHjpD 6fRMMipVIisPcyUY5tINB sczavz479UoNz FVQ2OGTvfBSoZ0KwsY9dI nUvISHkKFHbD5NhjLNpRT ybA458YDtaYvP5FYPhljB oJ9IqNCNntLqe ZiR2f3R4Fx1vLN8aNE8bS BE0QL11JF75eRKlo6I0jA K5K8QlHJHgvxrgevxktNQ 7HIOzPHIbqG99 fSSzXSieQm7ge0Q3y769N XTyZMSspN05Vh7jmMfrHD SynHPMrN4crqaor0rzots gIzAwMDAwMDt0 ALd6GJMdrUlgWfRmGDH6Y bA3FVW7cCSlfZ7anTzsqy evbM9nQwh+NjggWWVhcnM 3Z5SdXhf5IELu iLclKY0onPUzOJvhSg0py RqfpAxwWG1nEAPkxjzeGF IgjH4lXOEuaSEodDzhID4 zVLRgzoacz297 YoFjZYA2YPUxmYGuG5Gad A8iTqAfUZAuGGBdC8DfyO QlQFsaW254IQcuHxY3YAM nolWnL3OtTAEv jKatSeM1c9V2Pa8NGZzPH I64FM73xTAua0S6jZX7T4 TiNZTwxftjwnrnuFQ6SQV qUNRftH90hHAi LVbmSe5rf9P8z165WPHqP KSaoA86Er6bpJvoLVRltN TYdD6onuosd9xgijbnJeM tSNCgVOc1SPe2 UNPxmKqzPeTrRXW0NgE0I ZC8pZPzhN8eaXpgciacrS 9wOyc+T8A1J1FeLppegVJ +UT41NHObLU41 cNWodGAjh1ichOn9ZpGsA GNpPSH8pGozJCtko9NkDI KdJ82zmGUoe4U6DFTnlGa hcHNlOyBlbXB0 wB4zITgoendjj4dbdjvbO vfbs9pdws36cP24T29yJO dpZHRoPSIzMCUiIHZhbGl edp9dfC2dZm3+ XMGvpIO5wFB9pL6yYvTjH aD5VPrlB702XnTkpNIsFs nnc9jxd6ggqWg0GxFpNJK gdmFsaWduPSJ0 k3CjAa83J27aKAfvQJExB BTwAZFdEXBbrQnhiw1qdW 9wIi8+TI1pp7ciws82aC5 8dHI+PHRkIHN0 tUduIYjkPQKzmN7qTBxfZ lW8LMSoDvPknB25lXBuSE waBk2zfPyvaVtuMU8wBQA yejbpl260SnMr d3ijTBLeuYFdLIkcLSX9U 96tv3C0ZLXzLONgUGA8kE O4nH8muFpqksflrEFkfBq gdmVydGljYWwt IFxyB782HQHabKjhIcPjn BTrZ6cekvOLDN0nRlkfjO Q+PIDtYUW4jFgkRYuxLBJ chM0aPYDqG4q3 BpNnWeX3SWsdZ6YjgjK9I OWzzTIpSIGidYFEtY0tmd bzd2nbulaqVyKlADIwHVd 6VEx3ZUDzjQrx ZyKfNQD9AbA0SFQ3aKNbd Z2shBlndihvfK7zNla+Rk lOOjwvdGQ+YSEdZUB8eXx xOHsiSORwnM6z VSRmD5n9ImXySgP0HPhaP 1QuukB8TICiiWFxSHCowE UIyY2escsbm1ucdtdoKzO eDPKjTOn5VRz4 OJZpqWnuMcOxMPU6XqU2D GF4uWElwS4ffHmxnnnqmQ 9wOyc+TVJOOjwvdGQ+PHR xNWB9yOhrXJjd ZBKikA0wIIJuK7q8MlYhC kX8DObuV2DyvwK8FUEsaY ZzIYNqcOGQfQ9vrjxbx5b vcjogIzAwMDAw RPt8JTq7WHPexIhoWsOrA YK4ZaE7AQA6cJZzvM6qnV xmnjgtwR6hOgy+LRF9FAM 0DC25IX49G8Dj PjwvdGFibGU+PHRhYmxlI HdpZHRoPScxMDAlJyBzdH oaOC1oJr9gARXcAJGzgDh auDSmFdJzh4lr YXB (more content not included)... [facility] Coding Summary HTMLBase 64 LjbzducqGAn6jJq+PGhlY WQ+OG2OGHStM86lkIBojO 5nM2OHTDxWTwrgDQMKIMb VRrGwdnWzDN3woSShKKBu IC8+EK5sREBhAqvwnVEau 6O2fAY8T65ubm5mNMclwM F5UJHfNzQkyrpft0yfbDg 6IDcuNmluOyBt RHRpcL20DBE0nK59Qf84w VUiwUSxr9mygHa3YmAiTY MqWAE0kWwqYWbvv5IoHLH uT09poZRky1J4 RGXjeCufdTRbMhUeqNH0p C3pVTucrnqqv9fotaiyIo n4hw84oTDtd4X0kYU3H5Q synE9JRDhiVFn SiswcNFGiN1bcajyi1sov umtNyCuHZNuYTl9WXw9WX SzyMgjKfTzNM20BPQ8PSO rgvJgN7NiEUDt iEkvRkZ6u6R0Xm8CA3XIB lyxF2PQYTVJCAuflYI+PC 29pl48I8WwXhfhJzp9BAC yOLJ7tOZ7yI4x NRZeURjit6K6mAC9M5Mlp qOmvv8gs6xkJVWnKLajN6 6poNGyx2M1NUNmjNR9CTN ccLvpHmZaqO30 Oyc+SBClrJthd7GaVftkz 8kpd7qjtIm9NganFODkda FbdApzIUA7a0DuFq4wAZZ ifEU7oFI0tY0h OkObXkH4NZxyI609OsRde MFhYsstJ57tQ7SqmOR+PH OpPlg7KFSefIwjWQ6nP5O hZGRpbmctbGVm bBojUB1dRDHzkmuxYEPju N0eYUQdB7j5QfYgTaJ1OH qrO4PpHMYpjxnmGt68jU5 dAkQxQaZ9WIrw D4FihvS3BTSpgIXyHVhrH FE4S13jf0G9UMXiGUOcEX U9lFC5wC7sdRphtezgkQP mdDsgdmVydGlj DOeoAOcbT303AZTlrKiyV kNvZGluZyBEYXRlOiAgMT EvMTYvMjAyMzwvdGQ+PHR uINW2gTvfHXKl kZCjANeaQw0ybDkcnFczN R0gXPAwvyvwANQzoK7pFU DhcJDrcRppLH0kSEHmmdn zc511QoKzRDL3 VEYjbEPjI9AkrJ0oEsGmT AArZGUwV1HlmWKhEKffX0 71NSzqLpR3SIUmnyYhT9J sLWFsaWduOiB0 m8R4Dx8Xq9CrgfmgZ7Wfw NSeYpXyYtidGBh1P5FcQn wvdHI+AI89IHZtQQ06LGw 7PGR3qHlqFSnj FOCqJ2FxjP2hEnIgTESpM GRkOyc+PHRhYmxlIHdpZH RoPScxMDAlJyBzdHlsZT0 uVw7nMCYnIIQu uLuaxAKdSiOlw8lpIZDcR PiqZS8bxOiqX2FqgVL8MN Qyy0b5Eq61R33eO9XcqXL +YHBzfJY7oQU8 tZ5jTgEfEkT1ANjxE225C kCmzLHzYqeae4wyi2bynM j4FzG0PGBsrmXzqOzeUYV 9x1UyMn93N75k IHdpZHRoPSIxNSUiIHZhb Dvwfy7ngV3uKh4+PGNvbC K4oFJ6bG2xDiVkYnE7QYq gZ042JnFpuCVl Vwwpi9vhf4qebMm7CaLoX GMpjkZzcKrwQOS5g5JxZf 79C7UehQomc8IpHzw5dk9 9yHOnx5I5vZH8 J9XcSQAamsfhtYNrmNoyB C9iBVQodhjjSZYikA8eQV PcQ8b1MaWjLyV9OUtwC4R wnhL2UEJzoKEy IRLubZSPhM7yxuzdy0kfz hywMcBaTSBjGOj4TYz0TQ DieGvlEcUvBLI9BrF7JRE 6xJKumD7vwLmq txgtiE6xMnn+CVX4qRUsd AUAJK8rJwjfmWE+PHRkIH N9eLqeLRdlBFRldD0iIRD iH6o4QvAiGqE8 MSugS4YtcdV6UBOpaQCvA BPtyWIOeB9tphkty5zyes vfKpCiLDDgZHz2GWq2RQQ saWduOiBsZWZ0 ElO0LNJ6oLSxyR4gaZcei ydqwO3aPaf+QmlydGggRG Q2PHr2P6ViOco8TIEomPo uTP9wzDSsCBrz Ig9ioXfvvDcsCC0jLIIyk pwoo152LzUgu7atPCCloA LhOHxhROY4K82wp7O9PPM wNWLhLMX0hMD1 gN7vnDuaexwedUPtoKpnr nXebPbyKJmzLKmiO967MY UqtQnlDvBvVSf9O3IhMii 5JONxzFxuNT6v dNVeLTllXp5psPbioGkyB E9iUGIlvmzlb928XfGnu6 vgZJGtwXCwJDvvKKT3I55 tq0X2JNDfXSCc RSE7aNB9cS6nyLjxptpdn GVmdDsgdmVydGljYWwtYW wgE375JNDdfOdvUcRqtJh 9H9WoPur6YLXy iEheIS1jaGPrRPbsAo0rs UnjzLghAW0wHANxtfbib7 60VfIjv1vaWALayAFgUEw eVKL2M70uw3C6 QHFdNILpQDN6sLN2vA1xd GlnbjogbGVmdDsgdmVydG pmRPtkXGdzP983MHTiaZw nPlBhdGllbnQg QRlqSRj4Z4MeYroejXT+P A06ORUzGI50nLDzcCZxk8 dxoOq3UeWwWNXiQJO3cQh rJTvxm3SoTRGp I90zpMJaj1J0KJXxxXrbj NOwQoNtlGL0jV1rKWgppg tcs6whgunrLnzhm3dpab5 6sH10Q20nJSlx ZHRoPSIzMCUiIHZhbGlnb e6myL8fXn8+GSKurCM1uO X4wG5zQLCuXxV1AZknX04 9InRvcCIvPjxj e1cva3zjzLa0QgG2RHPlq sUssSzrQNV0h6CsXu07F5 9sIHdpZHRoPSIyMCUiIHZ mvEdgju6zjK8h Ii8+WXRgfEH0mVI7vF7uF kKvNgA5FEruZ681OfMpmO GcLnjmO11wV9KqtSE+PHR iRqv0KAOhaOnt IV7ezAGaVDmgYh9rRHG6J aEvWsYvJYdbO0HjBSCmkz psvdiomHS8JGUtSYDagT1 9Jw9zaGasWPIn gZOPpQ8htpwii4lvgpauE eIeFGTnAEy8QPw9PUDltG ywSkOkZFP3KmK2IPU0fYR swJ3woBcrzwky eK2oK6FnKTFezoncRr88y D9yAtNmMtO9CFujUrz+TU 7NQaAnPpNfFRgZSC40S7G lVyd7ZSXedLho OT3ajCAmZPprRd9lpKczm WfoIP3vSDAvpmuiVWMfxN 7gIPUadEJlaZyzQS1uLGK fembbx179BjOf KDO0KCGfoUUjE4EhuP1yR pBhFVFaIOAjU5XgiLEyNK dwR023MHhlZdH9CIFzbsZ jI1NqVXWirEzf InO9o2N2Ab6tQP2sYX2dU JB6KB34ND42yQVmc3O7oD L8O0WdTOHoiozkjgmfgBB 9QWClDJSmaA91 sORdTTuhEs0gl0R9f419P DXbUVEsiB81Rq2raXvkCL BzgDKZxV7ltzxub9bunzb gIzAwMDAwMDt0 DJi5KQPakZveGzIsKIC4H lF4OSE9kKDzcH6vaLjmny gbyX9hPia+NjggWWVhcnM 1N7GvOlt8HNAl vNvoVH4vlTIyNXvcMs0ub OrdeWdiSQ0cZFHpudajDU JjgA5sGEDymNYhmMnaBD9 fGMWmghune308 ZtWmEOO5NIMwnYFsQ9Czx P1mRzZrRWMxQKClS4GipZ HvSFvkM540HRedQlQ3IRU yscLsM4YeBDVt pNnsUqW3l9Q7Pu9EINpEE Z10PI37bJXjb7L6nBP8C7 PbBDVoomkkjtzhoZR2UTF mXUFegM05dMAs WXezLd1wp5Z8i696BATvW VQdwC79Vt3suGejBVOraA WCaG4aaqmlg4rvbcltTjZ qFTHsZUk2XWm5 WNIgjBzwWtYiPCA5PyV8T UY7cNHgeI7izUiwvkcdnL 9wOyc+Y6I7F4OuYxywkGR +JX02XVXaMQ46 vAHgiCUbq8okpKy1RaBuV DOdTTX7vBhvNExyz0CaCI VnJ14jkWOlv3A0KYHwfHx hcHNlOyBlbXB0 xE7oLXjpfzmtc1mpqivxR scix2poqs08wE83K09iXX dpZHRoPSIzMCUiIHZhbGl hzi4erZ4uYe2+ RHJrwCN0vBP1iB4wYyMbS uR3QHtfM638FsQomPOlXn iip4ifr9iutQs2DsBbSAP gdmFsaWduPSJ0 f7AqZp55U13pNYvzKJKrN BMqNUHbGEBosBczoi9whS 9wIi8+DN7if4zxvv28kS7 8dHI+PHRkIHN0 rFpqZNoyIMKmpP6oFRqzW gX9GVHjGmKcyX48aWZnBS waBe1eiPoqdGxqGP3aLOF vednqw593ExVh x4hfNPIvlUGhAVejYHZ6O 79dv5N9YWPvSJJzIRH2lS S9dD5bpApxptatjCYhrAj gdmVydGljYWwt SAvkV447GYKmcIamHgNib GJoB6isrrTKPZ3xVuiflV Q+VBLjLNO4zAckHMebUTF asR9gUZZaX5i4 IfIxDyR0RTdtS9CksqX6F QXcmGJtOUUnzJLNvC3epm aen8uldjcoJwMiJFBiKRb 9BEc0SCYyjWba YqCiTPG8ZfM3NQA9zHPon H6egAmchrjyeL2oJhu+Rk lOOjwvdGQ+ZKSmXRC8cHa bEXxgWKEzsZ3x YBSgX0r9DsCgCaX9JBbbR 3KjawU9CQKrjFVlMBMmsL XPuX1cmkcss4vihajjCsZ eROYoWPs9FNf8 CWFghZfvEuAxPKJ9JqF2X HN5tDQgxC2ydDqpazsqvE 9wOyc+TVJOOjwvdGQ+PHR dCEI6iVkvWIwb SDKgpV9pAVYjA4l3OwVcJ iP4AIigK7ChkkJ9MGHuiN WaTXMtaRZAtD1fmrbjk7d vcjogIzAwMDAw BVs3JXi6KYQhmMdoFkMbA UT1AzU4TQJ6rBSmkJ3xsD wxjumdvY1zTwj+BKT5MXZ 5NM45VN76I3Mq PjwvdGFibGU+PHRhYmxlI HdpZHRoPScxMDAlJyBzdH jnIR0bPm1rPSAyOMSdkXe qpQRwUmDnh4vq YXB (more content not included)... [facility] Coding Summary HTMLBase 64 TjmuscwxIFl5sCb+PGhlY WQ+ND9BQXAmQ66dkYXacP 2cV5HTUZsWAvrwWYLQLPf GPrBzmmJyMN4cfNHbJDIr IC8+EO1oDJYgFbcirERaq 9L8nBM8G63vth6qSHofnC Z1OJDsTrPixvmkb7jafDy 6IDcuNmluOyBt XEDrfQ65YKZ5qX90Sr67u JBngNUov1oizMv3BdSwYJ OpASF1eTycIVdau1CrKJD yU86ubCVjr3A6 TIPyjPtklRLbVbUrrND5m R5mYXwbubgsh3pmyducAy c9ta31cWRfb4O6bLK9A6U zqmF9RWYkjLQb JawfxCOQlW2mlxber8xpi zqxKrOxAHAtXTs7AIr3PR JqoIeeWpVsJV97IHY7SHH bkiKeV2XoSVNh eGtuYcK2q9C7Vf7TV2XVB kzeK8AFXSLQXCxgyKF+PC 58rh29I3ItQxjvYzj6HZN tKEZ3nFF0dL0t BOYzXNoll9W3qQC3I9Vjd pWmwx1ch3peONOxXDueX4 7xvZAxz4V3UTScnKY9VTU oeYbvVtDumK92 Oyc+MHYkuKtch4OkOqlyv 0ouo7txsZn1EqeyARWatt EnaYpwQMK3o9TdVb0iXCO ntXE6bDZ9bT1j YzYoWxE9MBnqO973SlJdq BCzYvyzD07xM9LypAP+PH BgOvl0VDGogSeoGI5hX4D hZGRpbmctbGVm wQzwQF5oKZCjjkqsHGJyi V5wHZLrK5j7PtYqJpC8AW xvZ5CiLNSoardlDo30iN7 jOtZuLqS0DKlj Q7RzytS5MRCnyCFdQCzmI KN3R65rg7T1HDTcEYWmTH B2iLS8lA9ntXaerfijsVW mdDsgdmVydGlj UXrnDPcuY406OOKpnKpjQ kNvZGluZyBEYXRlOiAgMT EvMTYvMjAyMzwvdGQ+PHR yPML7oUleNQJa eLWlKXoaDq9uyJupxPtiM R1kIGQsoyzcXUUoeC8sKM GgcHFjzGduCQ7qWBQjzhs fk320XzQtYVP4 JGKylOCiH2TvuE0xUeKwS VZvTJWdO0QgpMSyTMdfK2 28VTmiJgD3FOCebnPkD9P sLWFsaWduOiB0 b4B1Mu6Em1DnkdgxR0Zdl ZGrMbOxPnshYJo7K7IbHw wvdHI+ZF45AGAfFU42VJc 0ZXE4oYaoMVol TQNmP2LiyI6fHuTrQRUrL GRkOyc+PHRhYmxlIHdpZH RoPScxMDAlJyBzdHlsZT0 dQu5zGACdWRWh wSdvpJHeUjOvs2nuYJSdJ XmhXF7mxPndE7OglFF1HX Drc0j2Ay85Z84wG3GqoAP +CESvbNM9fAN5 bG8yYiUgNsH5TVtwC608E uBddAKwYbucn6vqe8xmmA p5BcC5ACFojhAotYebLRC 2f8WdSg70M43t IHdpZHRoPSIxNSUiIHZhb Oulxi1rjS0sJp0+PGNvbC B6xGU9kD1iOrKpMyS3VLb zC690YxOlbQVx Nzjlj7vmn1olgVa1VoVeQ ZJxkfEttQpgOSZ9e8LnFz 93R6AvjJwvg4IrHce3sb2 6yYZif7M9hWK3 G7HiMHUsrfobhMDnyHxyU X0yADFdedamADEjpE5aAB NgO6l2XtKsAeS8PYjoK3Q lmhU0ZAXybLJi UECkqZFZlR1dbpqvh7fmy htlOdPwVQLrEFq7LLv1RD CgqMhgYeVcKVJ9FtH2ZUS 1lYMluN6uiPgj gtpbhF6xWjj+QYT8yPYkh LTPCA8zGcanwHJ+PHRkIH V1bJksNEdbZAUqhU3uZUJ zE9m3RlVmCiC3 QGmaV3KbzqZ4LLRhhZPfL HRdrDVFmD2ftufok8qqmk hjMhJrXNIuJTp1FOf6ARJ saWduOiBsZWZ0 AwB9GZG6uHEhrY3roPvpm bojmZ1pVdo+QmlydGggRG X8XGs5A2OlEtd5ZUCpgKo aXN0uwAAnVQhi Md4qvFmsqOksIB9cKYNym ytag612YyPak4lvEBRtrN AfESajAAI0G64il9Q6DPA iODGsKVS0lKD9 oB3gfWkoxwfyrPEueMoim iLjnTviHYjrXCmaE436EH LhnYpwQgVqAZn9I3FxPib 9FSHwcCrfGJ8g aSRgBOyrFq8liEoudEayV D7tDGJhtgzqu746BqRcv1 xfYKNtjHYgTVolCSY4N59 oa3O1LKXrPUEu FYN7dVA3fM1hdPynclpks GVmdDsgdmVydGljYWwtYW ksL603DKSavDkrJiBsqEx 1G6RrGsb1CLTg lBkaUX8bcXDwIIwzFg5dh DvpcGwnNM0jZADdiezgg1 62LcEyx7wdDBRbmRSuJCo sMDW2C79ac4S1 LLOqEBRuVOB2cVV7rJ9sy GlnbjogbGVmdDsgdmVydG grRYjdLVpsQ199PWEnpDx nPlBhdGllbnQg JBstQNq8D4NwLofayUL+P B44VBNhLO34hNBmsJLas7 apiVx0OoYbGVFuKUV4hJj kVZgbi7DbVXMz H44qaEXwi6C3IBRasJgnp WFwOuNenRW1mJ3fWZwmsa aru9huqwgfIbogm4medd4 9zZ95E91lWCyx ZHRoPSIzMCUiIHZhbGlnb i8ldS4eIq1+NQWwiJV3vH F1fH8pXZPqQeU3NHamX45 9InRvcCIvPjxj y5btw2zonAq1RuS1SJVwy zIwqAobNYA5z0NaOx02Z7 9sIHdpZHRoPSIyMCUiIHZ mbZgiih0aoP1p Ii8+QAGpsJW0kPP7fT5cA tPhSwP4BKqlG332XxLbgD DeOuxbL74aT4KlxZD+PHR sVgz7SAQduJxe VZ3lpYKzXOiaMd0nCSZ4Z wMrBlMoXKtcS0JtNNJqoq kvkzrtbCL0JCMwLNKlsF9 2As1bdGzfNMSj aHWSuQ1kepmdf1gxlqilS tTcRJFdGKv3SFg7GYVafM alMjPwBYR3YvV4AJR9mDU wwN8clHslgqfc cZ0iX0TzOJGpkvajXd50d E0rYjHcXcF1OTkiSjr+TU 3BXpGtWlNaSSpFFP58E3G uZpu9GPUdbUkz SO3uxGAqCUwgBc6qjLkib IjjTB3qZPTkpdonJQUxdA 1wPTRzvIOjhQqbCT2bNUV mpgcrk381DlWn DCQ9LRJbxHYkP5GvjW1eU oNeLBWqCXFpE5RzuAIkCG tqN607TVqpHbR5EYLcnfD zP8NrPIUrlQls EjC5k2I1El2dGH0tOU8lB JM4SQ14CF48gBSoh3P2oM W5X3CdWLTjdtnovucntUU 9MJUbFIFcdW02 hQDoGQejRt7jg8Y5m622L DXsUDYbcN59Jn5tqTkhUC SunUMLzF8mutlbl2fvrdu gIzAwMDAwMDt0 WPm0PPRvnEhuCrViCAZ4H nJ0UCY9bPJjoH8ueLqyzn cpdH0rGgz+NjggWWVhcnM 3V9WqUpe2ISVn fYqpQA8idXVoBGiyDu5sg NsveWwgLF6zDDPhwkitNF YhyE4aVSHwmQKviWzhDP3 cSFSsfkxvu554 YmInURZ3JQZzaWWyT5Pvk R7iSjJwODVcPFPhO4FdnD FqZHsuY031IQmvMyF8BNS cseDfM5RgIOFx jBvqWqI0p1K7La6NPIsDW C80KI15hHGqn8T8nBJ8F0 TxOTYlxthubbkmxOR9SWG jBBOsuV83rVAe RFkvUc8sb0K5x346GZKqJ WNcxA14Bo9doYziIXJmuE IIgJ1qqcsni0xfesabZaS vEZCbPXl5GPe8 FDZzoIibGcUaOUI3EtK0R QR5aKJflJ7oiDwtbzrgzT 9wOyc+I5L7G8RgPiezvOF +GL80BNAcYL03 pQHksNFnu1dzmZf3YlLmW ZAqOCD8fAqqNNitw2PjFH OvU13geQEdp7N9XDXtfNo hcHNlOyBlbXB0 aD4qZHtfhtipv4oxoeqmG owsh2copo75mL61Q00gYZ dpZHRoPSIzMCUiIHZhbGl xwg6wcC1iMn9+ YASdfKK3fTO4pL8oDhQpO yT5BIpyB519EkGqsSXgUd csh1dbx6rucMe3KqErIPB gdmFsaWduPSJ0 a0CxBq47V84kHMnuFSOzP PDrOZWfPTRoiIlzsj5bhO 9wIi8+KR7fq5wlbs49mH0 8dHI+PHRkIHN0 dDifIQpoWNMebK5jQXubR fX4FNJxYjCrxV26qUZtUA dlCg0bmZuyzLqfRK9tSYP zccykt327WqFo g7qqXZDezCWzGLsyJAJ4F 12zh1F9NCVmIZAqMZB1jU C0vA3ujFcxlibfxGXffSc gdmVydGljYWwt BBceD633VCRbwVvxMwSlf VBgV2wujcQFTX4fFhvgyY Q+YVZePUD4kUblPXvpPRJ rdR9oUPEbN5s2 NxCrAmR1HPeiH7PegrK6M TZkcPYyIMDajIGQsA9ydl wxw5ncncjmHoKsBOCzERh 8QKy8LUNgjRaq KtDeJJW4DuZ9QKC5oMEhf B3uvMosnuscuG0zTdl+Rk lOOjwvdGQ+SDQgZHA7dEd cGCyoVESxcC7p RAFuH7f4SiInKqD3RWdpJ 5JkuiF0ZPDbkTYfFFMpmF CBwW0nwolig2oovdxbQsE eXFHvMIf6UWq1 NDMnhNmiWtBfLPT4EwV7N RB2kEFvcB3dbBiyymanpQ 9wOyc+TVJOOjwvdGQ+PHR sOXF6mSnzLBvk LIMtjL1dTPXfS3s1TkXaC xY7MGpdB8NxqmA7UOXajJ UdABXjuOWAwR4rjdnpi8r vcjogIzAwMDAw UJa7TCi2NWZiaXocHjRvI OB4TyA0JPI8iUDglU6vpO qmlibfnJ0cDxv+TCC8QWY 1MK94WP46E8Ls PjwvdGFibGU+PHRhYmxlI HdpZHRoPScxMDAlJyBzdH twOW1oNp1eWBBlONWgqYj nhJSfJmLnr8pm YXB (more content not included)... [facility] Wound Care Noteon 07-16-2023 Wound Care Note [phone] 1 [id number] [facility] Coding Summaryon 07-15-2023 Coding Summary HTMLBase 64 RfcpvovoDWz2bDi+PGhlY WQ+OT9WSKLoE24thRSznI 5sJ4AORCvDAdulLRHSUFj KBkLshbOfWM2xyGRsWRXb IC8+QJ7uKUZiLccklLRtj 5N0tYS7W19usb8bXAdtxJ Q0WKNfOeRhvkmho4gcrPl 6IDcuNmluOyBt GIUuhD09RFY3sZ85Tb83l NAupUYaz9sjmHw4PsHyRU DvDAK2qYdnTJgbi6SjFLB cM83itQOzy7R0 DQYqcClmdILxOjKgyVL6o D8bFVnjnrkjh8qvjjpvCf [id number] rllB3XYHugDJj EpplmDUBeV6iqjmap1asv gfiQgOfCPBcQPz2GGl9OR FxbSyqAaInNB19QHX7WLC lcmYiU8UkYZSl qThbGyY9a7G6Av0ZH3QIZ gleT1BTSWXCCIcvpRZ+PC 13jt42W4EoRtszAoo4HVR zBNI5nWR3gY4h CPQdVEnuw1Y0jRN8T3Ihv vXvwi5rq3trJLJuZSvnM8 5ttRQxg4V2VHNyvIG5CYW nnPjwUlOkaH91 Oyc+TEDzeTawu6JgYtawa 0jub4hfeCu5TorzDNFtfm AseNxbJRJ9t4QxAx6hFUP glKV4zXA4sT2d KwQxHoX2GSljL267BcKyq OLqUohvR11hB4WtjQV+PH UsYcs3TLJyxKlwDL0hW6C hZGRpbmctbGVm rSbpSM0zOUBifpeiYBZoh N6zLVBaM0q5BcPlQuC1RK maM1NvFPStiomfCb34tZ3 oOrUxOjS7VNnd O4BvnkZ6SAWtiZHiVQnaK ZA6A82br8A1GMXvNQCoEW C4fUX6nK3jiOcruqxwhVE mdDsgdmVydGlj EYddYXlsQ349ZXBfaTrcJ kNvZGluZyBEYXRlOiAgMT EvMDIvMjAyMzwvdGQ+PHR cMYU6uIarQHBg bNAbHTrnMy4vtLdceHphT L2sJVFvwxnuUZYpoN0nBA IqrYAthMvqCT5iVILolav xx790KsQoUEQ8 DXMjzXVzJ5LozV9eDwLoE EJxFTOxH9IpgZBzECuuY8 29ZZrfBcI5THFlwxJmG8W sLWFsaWduOiB0 o8F0Kx0Je5FycjpvR0Rbu KYwFjDtItaeFFi3A0PzGy wvdHI+RY35CRJzAJ69OTy 8JBG9zDvjMMkg DDLvA0VopU5qPzXcLUIbP GRkOyc+PHRhYmxlIHdpZH RoPScxMDAlJyBzdHlsZT0 uLa2zVFJqJACv wXeowDJuNyYkw8uhXVJpL EijMY8lkSixJ2HoeJB6ZK Bbt4u5Ff45F89lZ1CmiHZ +WMYegYW8nQX3 vS5sCkYvOgG9GAmeB423H cNjlQLxQfvqv3imc5kajC f0YpQ6INHeprNfwKjqZNI 0g2GaJk18I87e IHdpZHRoPSIxNSUiIHZhb Foebt7yqR9hQi1+PGNvbC Z9aRF5dM6nMtLmIzG1VLt kF695HeOazCZt Nwrft7iue4yzhNj6XiInZ VDyjzGpqUyaISJ8x0BgEu 12G4GurWdso6GyGun6mg1 6zNRki7P5bVR6 G6KpROOmiriilOJgyQdaH P2dYSQsqyvfSCFmcL2vYA DxP4q2StSsHkJ8EQbnD5S khrI3CXKesDQu RQXngULXkY9zhvqek7bnj lpoEmOkCAXxYZq7VGv4QR ZpjAjzJoVxOZS7HpU3PYV 1oQRweU8zpAxg owkytZ5uQva+SSL9kFVac YLUNG7lPwweqNV+PHRkIH A1gZwaGTnnQNLyeX7lOTW hI3x1WpIzRrH0 XJvlL9BaxhO2QYRzhBPcD UFzdPQWnJ5wwusry2fovn uyKvNxKASdZOh6HSf0SYY saWduOiBsZWZ0 TmG6PNW4oWWnkU2lnKsaf mjrhV4mObe+QmlydGggRG K0UQr3S0AqNfy1FOAogWn wRQ4wrSFgOZka Rn4ykHfzdHntAX3jVNDwx evmi699JeHhh7dyXJJwhO RhYPjjWVS1E55al2S7PHX bYARoTFR8uPH0 oN2cfUojzitbfNWwfFjaw uHzlNrcWUnrZGolZ555ZW CkmMysXmZiDTr5D5JrGdt 0TNYahHqtCI5z aEKiPHifVg0aeIwpcFggH O8cEWGlhuodu244AkWpl8 srLKUmbKLeNHegLQG8Q83 bx8Q8EZKyYLPf FHH8aVN8gF6itFliwdlin GVmdDsgdmVydGljYWwtYW mqN675ACWbbLgyMxLzoSb 1K3HrKor1UAFf rJcaFZ6hcABuOXnvBo9fi YglaAbxBH8nDRUdovpez3 56WhRzy1zgACOivKJxKJi wHDA9K94qf5Q9 BXPeENOmUJV0dYG7bF3wy GlnbjogbGVmdDsgdmVydG wdRHunJQteU564DGFsmWv nPlBhdGllbnQg GSknLKt9I3JgQwxuxQZ+P U33JPNfUE61eSKiqVJig9 zocEa8XaXvXDGnKWS5fPg hZJktn7BzZHXu N16mgREkq9G6XMSjuMymf PEzZuTnbZF6fJ6rSDtmtg mwx7idnwlzBfzmp0srmf8 6hS88M54eZQct ZHRoPSIzMCUiIHZhbGlnb v0udJ5uNi7+PTFoxFO3oA T3xF4fETOvDpW2CAzmO72 9InRvcCIvPjxj k1hvx4jrfXl5RmA9QVGkq hQzeTctWYX6b8TiHc39S4 9sIHdpZHRoPSIyMCUiIHZ rwZmoea9kvK4y Ii8+ZRHutAJ7uJO8dO5qL rNsVlO7ZBjmL353FhKteY BeCgciS56dU8HnxLO+PHR jVnn8BRJvgRwx UJ7cdWWrNHdoQs7gLRC0T fUvPcEnKRnfP8GbXZUfnd cpcxmwgNI1ZGGcKWUreF0 7Ho8otYwtPNYt bJJWuJ3tiydiw5zmrwsaQ zWmNSZnJOe0QUm7ISFbcC jkHiPrSWW2VsR4CQT4vCO ieH7xaWozklhi zD5pF4OuLVHzmdgrWd25l W7rYbGrCiZ8WVbcQxv+TU 0JDqIuLmRfBYxCKM48Q1U aGbd2EZVfrQuj NN9uuXFvGGepNw3jcRtff TapLY4xJFNapsnaVGUcmP 5lHRGrxPQhuBtoVH9eGXS xtuhoa615FpXa NOS7VCHcuABjB6WhkS1wG iYxKCTcTYSeD9VdcHWmIY svY632JTvfIiI0CZCkkqK nX2AjJJWmxJly HhV8a5N3Ti5gBV1rJT3oA KH8OM07BB67ySWbg2I9vW H4F8JcBGTmgamicongaPI 0ZOZjBUXgbZ91 rYVaAWgxJs2uc7O2n475Q HKuCGPzyJ46Vl1qnGliTM MpoDUPeN7klxknu4lhljd gIzAwMDAwMDt0 XRy0CPPceRscSwFtYJP0O iS4RNK9hIDwtE3nmLyxvg lhvM9tKrn+NjggWWVhcnM 0D9RiHkl4TUNo qEbhKY0opPVpAFpcBt7er OeyhGvjNC7oZWNsvzuhOO RtoQ3tXXUmrLAaqHpaTP4 rMSZbartjg417 JtMhYOI6RJTvpPTnL0Drx Q9oZyKoQWKwNEWxP0PjsA TrCMcuV659BXggCgF2EJW ixeLuK0OsIZCo dWxsBdS0i2N8Gp9OTKyFO G40DN09aXFgk6S0yDC7Y4 YzVNDolqgtytzzwGA4SOS fJETpfB14iQMl BZbvPz6cr8O8y600NPAvC WUvdY42Np8eiCqzQLOzmS MEgU5afpyhq5zphembPoJ sEMMlDEp7TYk1 FEMzzCigOcTdUKY2HwB9O ST5jJIxyA8iqAofxhuecG 9wOyc+C8B1G6OlEbuubHP +FO82EXNgHW84 wGWurBCvq7ehlQn8ZiRmZ MSzRFG6uHbpHAqmo9YvMH EhD06vsESjm0I5IREgtWo hcHNlOyBlbXB0 gQ0jLPhyvjoao4cgrgadK nokl0odlp85cM52O52mVT dpZHRoPSIzMCUiIHZhbGl lvv6sfS0gYg1+ CKIxjDQ6bPZ7fS5uVeMbR qJ5KJefK843CpHrpLQcQt ooy9zpn5qgrZo4IuJlHKA gdmFsaWduPSJ0 q3SrIz34F47fNFsnERFoN HYgVJRnAWLngOtvxn3piP 9wIi8+GY3fi6srbl65dB0 8dHI+PHRkIHN0 fEoxOLppGQCtdT8dFUfiG vH5XWFpKoHrkS99xPViHE enZo4weVahwSvzYX6qLPJ eethht751OqNl h6srJBJpdXBxCKbcNOY9Q 33jb5R2UDGyGYPcTAL7aJ E7dC5noAmuorhvpIGupDs gdmVydGljYWwt VCdaR724ODIzyNtxXiJte NKzU4bnspHVHN0gDatptC Q+LHXyUYI6gPvjHBrxGSJ rlU2yZTHzR5k3 EfXsCtI3DWrpR7KqruG4F XBnjYRhOKLaoLBJrM7nwu doo5wdgzzbScAtIUDxQYf 3BHm2DBZvyCsl LuKiGFV1GzT1CHM2eZKzm E5weCrmuonedU4pFay+Rk lOOjwvdGQ+GHPjFKS8yLk zTKmtKRNndN3e IWZxB0y4MuAaFfG9FXnoG 8IzflK4ZAUogQRtLGPbfI XUfV6agpavh1oysmhyNbA dDENoMGo5YYw9 BANsyVtcOxAgLTJ6FvR1E ZA8dFKobV9rsGmoscohkK 9wOyc+TVJOOjwvdGQ+PHR rUJF4lTjkGMnw ZMJcpR3mIAUyD0g9PcUhC yD4OWkkV3ZqlpW3WYKfwQ EwBFTlqGXTyV7wnfvsb0h vcjogIzAwMDAw IQw8EHj7DDHftBjlVtOwZ NB7RuY3DYU2fRAufT7ubL brbzdhlP5sOxo+TBM6FBW 6OK35AL42F2Hs PjwvdGFibGU+PHRhYmxlI HdpZHRoPScxMDAlJyBzdH kxCU3qPq3zBDGrKBVncMu xaDZeCkNgf2qd YXB (more content not included)... [facility] Wound Care Noteon 07-09-2023 Wound Care Note [id number]#1. [id number] [facility] Coding Summaryon 07-06-2023 Coding Summary HTMLBase 64 TudtsbiwPCf0pQi+PGhlY WQ+NP8FBRMmP30jnWIjxK 1mX0FNQBqIKmgrVKWNSFv SDyOlblXdRA7vfDJkGBGm IC8+NL7fWAAhRisyaPHpo 4Y7lNP4W67zah1qXQfxxU H6NTNnOlEovnbhv6dqmXk 6IDcuNmluOyBt CHPoeT88YSS1hE95Ex88b JKjdGRny7dabMm8AgUzIV HcILO2uSkiRNfuw4SaOGL zB84jwUNmk5E6 LAMorQispUNsVbZduYW9u P1fJTgkpcrxy1nswqurMz h6rs41cPIph5Y3tXG6A9D mznX0OPLfdXLe EtljiWGKxI1qqefzf5qvc phtOjVoXBLqQGf8EEq4EH TpgTbmQyEtNO23EUF3JSP shyVmJ4BjETFa lPzsSmA8b6Q7Ge1NV6UVN wvjF2MZSDUIRJzqgAY+PC 26et64Y4PmAltiGwn8RIR bZSO7gAI4qD4f ACWoYEuwr3A7fBK2K8Txx pKgxz3hb7dtLEIkLEsoP6 5dlAImn4H7LCYuoKN4SMP nkMikYvCqsU06 Oyc+SGMzyJvda9OkGclcy 0mlu1ztyJl4WhufPJNmht RveTpvRHC9g0ZmNh7nMOC sbCQ6uBR0iV7q NlRlAvC5JXxfU054UzIxl TBtIykgI35xE3ExoIF+PH SjNsw5VZBsoSauZP2zP2T hZGRpbmctbGVm tQspPQ8tGIOayhwqATXaq U9eKTFrD4r9ZhUkOmD4SN qtX8UsIYJaxhlyGl75yS3 cYnZoIhS9QYzg I1NksjO1GKQslOLyOOenO WZ9Y44os8L4MXNySOXqOP A2uML5jW8dkNnnqlpglFB mdDsgdmVydGlj FPavEOlxW430AMDanIhpX kNvZGluZyBEYXRlOiAgMT AvMjQvMjAyMzwvdGQ+PHR qVBT0uEuwLLPo sEGcHGfyXo2pwEjqsVpmW C2yGBDyerioBRBshX1uZT UcfBNjcYwhGJ3hCCXdbef bz950ZgMdOPZ1 VYSluZDcX8BbgI0ePxWwY LMfHNLjS8EhxSWsGQdyR8 59KTvwMdD6OXUxgcYjJ2A sLWFsaWduOiB0 t2N4Nb2Sg5RulzawF2Ipg CPhOmIaXmtsCPm4F1DzXg wvdHI+MJ91ALErBZ18HEn 0TTM8vPxzKCnb NIQzW5KvkS6hRsLlPZLhN GRkOyc+PHRhYmxlIHdpZH RoPScxMDAlJyBzdHlsZT0 oEz9vHSRvYLNs kDgysFCvQpRrr1faTJVsX HbrTA2vbJrqW6IlkZR5AD Qqo1v1Ed27R90fM0ImrVR +PZOmeUU0lVF7 hB3oWsAqUdA4OUdgZ792C aJfcZZsYgxse0uhi6qprT j0ZxT0EWJibeQktCudUGX 6v6BbXt27M75e IHdpZHRoPSIxNSUiIHZhb Ftsne9peO0mDn3+PGNvbC F4dWH8aD4gAyJxHaN2BGy hM656BfCzlILh Omhcc1fzh9inhOc8XtHyM ZQcxbJxwHwqMJL5b0KqGy 41L8YqsXiid5XbGta4fi5 5kOKsb0Z1sXR6 H6MsHVJihvxlkSNrzHivC Z8kFXGjyfbrLJQoqS8kZG RhN4h6SvHlQuQ1TDpnX1T pjpJ2JKJnnNEv GKMtdGQLpS0rrfdcf8nrv ncfUnQfBISfRPc8XCb1XX VnrHrxWvIdTTL3AqK1WJX 5jUKqpU5ldVae mnmdbS6yMgo+XLI9bLKgb FEHAT1zVqvnyAK+PHRkIH L1tMjsSIiqCFHvzT1zRIH mN6g0GhLtIoM9 QTqdE4IpibE5MUZvnGNuB TQqgWNSqV1sehvio6ycgg cuDsItNVFtCHq2FOf6AUC saWduOiBsZWZ0 JcF8IZO0uFPyvQ5jiBrtx hgjkE6nIpb+QmlydGggRG K2SVj0E7VtUdm6PHMddFa bUH9oqOVdGOyd Lj8vjPtmcZbtQC7tUFLco uhaq244ZuQvq0xkUEGqqJ VkGMoqWLJ0W60sl8W5VVL eTPCgHHM2oQY3 nJ0mdRnydvuloBDsgRzjy qWbfOmgQZvcYVsdO352XC HreBpgZoLlMWt2F1ByEiy 6IDGzmNezCQ4x yUYzITucGz2taUeszMfmU T6tNNFwrivmp162EyQkf9 nfLUCnqXWrHKzaSCM3U74 bl0B7XHStIVBr XVD3vQV1gZ7tkWsruyqjh GVmdDsgdmVydGljYWwtYW mgC055GAAubLjcYqMpcMr 1B3OpIrz5OAQh rRbdNO7nsWCmOBnmIo4aq GzzwYmbBL2nOLOmtahfp2 12DqKpx3xlJVFctSShZFp yRHS5H65er0H4 KKLcKWNsLVN7dFI2yV4xn GlnbjogbGVmdDsgdmVydG waYAuzONgcT011WHWueWr nPlBhdGllbnQg XSwjLGt4R7BpVbsdcFZ+P E96MKPaWL68eXYihIBpz8 bhkCn4PgFrOCDxVUN5jUv wVYymy3GrWDJi E66zcCVvi9F7QXMmpFjyk WVcXcDfkVN7mU9xWXbsdx pkb2xpwkyxJrcmk6ptdy0 7uN20G00nWJei ZHRoPSIzMCUiIHZhbGlnb d4pcH3hSf8+DMKfgNJ4pD T6bS3uYZMsElB1PCfhD39 9InRvcCIvPjxj n0ruv9jccGk4JoC6YAIws jRiuGcfESK1o7DoNm99M0 9sIHdpZHRoPSIyMCUiIHZ tgYptee3jdF6s Ii8+WYOmoSC3tUU5xN0hU kCpMeH9PLrxY196WxYulI QhOpxnS42kU4OkiGF+PHR yHer2TKVfeGym TK0vrSCyVGusLh8fEXM9Q fTwPeSuQPdgW8EeULGqzj ytfezpoQO7AUDsBXIinD7 5Og1dxTwzLBVz gXFIzS6vbqoun6ctuumaV wWmJZRdVIu7BHt0QXOslV huExAsMOD8ZdO3ROG4wVH qoQ0ktEvphjxk gN2pW1LpEUYlpkxcFw29c S0tZvSoNmC0PEowXvp+TU 5CWbNqGrQkRXhHLU07Y5X aJve0DLQatYki GL1ohTSqEMisGw3pqFmbb GhzLB3bPVQcwozmPEDtwQ 8lGOBfwEOukPzvEO4yGVO nvzgwr318GwEh XFS2QRTevBYgL3ThnE2sN oKpTQAkNHEeC4EbaPBmON puI848XLdnAmA6RCGtllM cE5QwSYNdwLjd YtG1n3M6Ug3yXM5qAN5eH QC3MV68ZG38wKCdm0N5cI D2E7BvXLWimaudzbchuGD 1CNKhVJIchF26 kIHpEWprEa1op6A7s223X JYaQYAlyS89Ga0lxDrjDP BelCEZcM5sfevod9qvuek gIzAwMDAwMDt0 WKa7MFVgdThwVzAgJZV9A eL9VSN8oARifF4voQrdxh zeoE0dNjq+NjggWWVhcnM 5C9WiJzw3KSZq aUkpRK1xhIPrJCyfGd5qq QcotNbbSJ4mRHDikuekPE JavP9vGBDmrVVecKvgRM4 tPSGroauou811 IuApFAW5RSYheQNgJ3Mlj E4hAhSxNZPgAEIuD8WwlW ZeEAobO893DXmmRaV2EYE zngMcJ7ZiZXFg iUxyCrK5i6P8Dq9BUPbDN Q09WM24eFYpl6Q0sXF5L0 ByQADyeujmfceawQR8ZET oFSJoaQ85fMGd WFrtQu6qg0K2s427KBQzH DDzsF24Ra9alRbgAWXinO LCqM0fxyqni8qdezegTzG oVPBxOCi8EQp4 ZDTwcSdlAyWqAQE9GjI5I FE5nKYccA9slIwfysvwwN 9wOyc+O8A0U9JxMhhjnQN +VR42KMQxXR66 dRHbaCQwt7brpUt3TtBeO YBfAJQ9lAykIJgek8SoXU JtE28xoMPaf6K6JJEdoMh hcHNlOyBlbXB0 cE4eNUjubuqhz6ktzvfuQ mnlq3johc96gD59S90yGT dpZHRoPSIzMCUiIHZhbGl odr3iaT6nFc3+ RRKzyOY7qIS4zE4dQaCfE gJ2OXboZ948GhYbbXVhVd zxq7ypj3myxPr9YtTeNAB gdmFsaWduPSJ0 i7OcTb40F60cIRpzXRBiA NMsBYGiHCCqlVnnbt3rwQ 9wIi8+MV9nf3psut88mH1 8dHI+PHRkIHN0 yGtmYFrbJOHrnB5rLZipV qE6NHLfZeCghE36iHLhBR vhGm0qsHvutCznQD8sSQV dazsym295KrTa u4npJERtkLHfSRyuTIR7J 87bb1H9BLLgVLMpUXH8kC K2oN1ltSodoezcxMPsfOz gdmVydGljYWwt VXqyH397RUIodJmeZmOva ZXhX4aankVFWA1fUokduN Q+YFZgJLI6xSynTHniIXT ljP8wDEIpE8q8 CpWzZyA7OJcwL1TgqmC0F WWkcRKsIVSktMNBrO4ztc wfd5zsggjjDcBnUIZiCPq 1QCt9WZHmpDzc BsVcJKT7MyR6MCT3xJExt E1lhTdoyaxeeM3wUuc+Rk lOOjwvdGQ+BWOiSPC9dMn zWCwtKUUyeD1y JUTnA0n9HxRcBzH0RNtcI 2GhhwN3UKIqfNEaWNCwkH XUzG6wsfezr0ynnildWiZ xQDPrGAm6QNd9 JTZqvOwuQjPvHSB4MbP0F AG4dRPmvH1khBhzndfntQ 9wOyc+TVJOOjwvdGQ+PHR jZPE4aDzxZOrl JIJmrJ1vHZZjM2c1WxGcO xQ8EZbrX8TppbM6NHCjiY ErRTDhcMIMtC8vezqhk3x vcjogIzAwMDAw GUc8SYu3ZHKjnCeyBiUlH QG9WgZ9HST8sTOptF9kxY zejgrvvZ0zEhl+VZP8AJD 5PB62CS20Z0Vv PjwvdGFibGU+PHRhYmxlI HdpZHRoPScxMDAlJyBzdH ipLT7oNr1iJTGzUTJtmBn mxIDxBrTdg9hd YXB (more content not included)... [facility] Coding Summary HTMLBase 64 OxdiyhyoJJm9oAj+PGhlY WQ+GH1SKIImB99eaERtiX 7dA3FJNWgTJvyhQBIKSFr OLfVfrzEdXI0gtXWhTBQz IC8+WH6xNOXkCgfztVRkq 5L7jOW9A72rjm2gTZiypM W1BCDbKuKaeoqqw4bjmPe 6IDcuNmluOyBt WJCwtO52XIF7jS58Mk99i WKfyFPjw3wykKp9SzNtHP AfNTM3uQfrVGybc7QwEBC fM04tfSLoy4I6 ISKtmRlvcAXyJoAfgNC9w E4qVAtuimhrs2qejdvnYo k7sp01eZExm2Q9fAS2D6J tqsR5JZAdwNJd MyxcxYMBwN4xvintr8gbr miiEvVtGXVlRJi9FEa4AY IrdLgzXsPbOP55AWC6PYG umbBrD3EkHETw oAfsHcG5j0G3An2SS0DTG tftM5DXWNEISZodsZX+PC 11sg01D6XxGpamPgs5WCV cMIW9rRE0vF5z FNEiIBgrh1V8aIP9L0Buq uQrzx7fd8chNTDdLDpsR6 5cyDEnr5S9IFLzrDP6MJB lwIijRsEogG52 Oyc+DWDrwMkax6TqGgqna 4mqg4fwoQz9FzisLYGhoc LvrJxhPWG2k2GyDr4nFVA hfJJ4vGT4lI1n PmEyRvA5GIlmY919PxLxl ERkLqmaV15sZ3GdaOP+PH RuGii3FNZvtLeiVQ8fM1R hZGRpbmctbGVm lYdrFY5aTTRnznesKNZox H7pCNWhH8w7HfPpMrQ7RG elJ3GxGIOcvwejHf94nF4 bHdGzJjD6SJdl B8WapoH1KBUruMDhVNskW CS3K66gt9B3LLBvQLRoPX K8oAS5tZ7hxEkwqatmtRA mdDsgdmVydGlj ERvcXGhdG637PHKzdSxzU kNvZGluZyBEYXRlOiAgMT AvMjQvMjAyMzwvdGQ+PHR uGWF9wOxtYRZn vCHmPLrlBk2bsNeuaJxvB L5vIUYtflyrRJDoeY5vZM InaQNqnKgfHK5dXDGmlsh ek220SvQuEEN5 ASAqgBWwT2BjvO4sCtTfR XSyGGVoX0UabOFbVTjcL2 33XTndYgJ5IVMrvhSlP8O sLWFsaWduOiB0 i1E3Bm2Dt4FyfvbtS7Ryz LReIyAjZjfaUEw2Z2IgNd wvdHI+RR47KEMiPI30TNy 2ZJM9cCnaHNes LJZtK4GzqR2nUjVzGNWsW GRkOyc+PHRhYmxlIHdpZH RoPScxMDAlJyBzdHlsZT0 fOr4gYUCzUPKq nCvgjTMdNxBjv1phLTNoW GttAO8fuJkzE9AtjTE1EF Xvy8g3Hu78B16iF8PwkVI +JGLjvKN9pWW9 pK5mTeFoYvI4JSchZ880W iZlvEDtCjiba3qbu1cfqF n9AnF0VZYarnEhtMiwUKK 1c3UpUn49N34l IHdpZHRoPSIxNSUiIHZhb Rkbrn1kyP4dGj8+PGNvbC B6aWO5cM9aIjEbOzR8OOs rX216StLybELq Zncbz5bjw8faoQg1LmUtK EHkzdOxwFnpQYR0h6LyNq 66I8MzhCygf1QwFba3fo0 1dDMcp3W2oHE7 E7MwQEZyihhfwWMjpUbzF W0kSYRilcwuBUElkF9yOQ JaN6z5ZlRjDtE1LNdxS4C xbgM0RLTpdBOa SCRbuFFAiC7uttmtr9bxc nktRpJgCEJbHBw1JXo0SE CjcCzuGfGpRDI1ZiB3XZJ 2aTPodQ2psKlk rvcnxG4sDcc+NQV3rANhl ZWYAX6aImispWI+PHRkIH D8dCwnWCuxXMTmnS1mKIS uD0k1ZrDfVlG4 QEwxD2FqhvL5YDAbxXWaY JTneOOQfR1qgkoua5uhwy ykMiQgHUIyAHe4FMi6JAX saWduOiBsZWZ0 JvA2ZZP6vBIpzO7wiYpoe wgemV3rWpq+QmlydGggRG A6LXn3P1HbDgc7OWBksZu qKP1amTUiUZma Up4mnVgafLymOQ7mJDDeh uyjy139TaEoc3cfEWZbrK JqVVehNKC9U10sk4M1NPG tNCKlNTZ4qQM7 sZ7urVaxqywlzEKvgQeer dYkaCkvAVxeHNfiT017SE KyjBynHnRqRRk5X0EhCqg 4ALDrgFgbUP8d yKOtNJpuAs6nwCzcjOlfK L3cVNPmidnoj611TsYrh9 daZTNywKJwUNnyCPL4S56 wx1E8QDTmQXWj UQF6lIU5lY6lkVyygmfvm GVmdDsgdmVydGljYWwtYW riP139AWCvnNwnRzNknAf 2O4WdKpz5SBOc zJmlJB3tlJVlRZzhPg0hb TjdzQoyVC2eOCSrzleum1 41FyWzy7guYNKrtGMbACa wPBE4U12qm7G2 RMXoQGCkVRP1fQF8tP1xd GlnbjogbGVmdDsgdmVydG exODeiJIuoI173OVIqcLn nPlBhdGllbnQg LNmxQPo4Z7IgLcacoHN+P C58ZVGnZS23bPWlvKKqs2 nioTo3UcZrYABhATD4ePy cMLyko9BdJVTx P06sdKAwp8R5HNTyeOozx LGwEvEftUT2hO0oQFwaoj jtz8wodggdDyjzm5avpr8 7wP07J03aPCpw ZHRoPSIzMCUiIHZhbGlnb l5qqL3mGo4+GGDsyCN8rP P6pC4sPVYxFjO9VXxnL92 9InRvcCIvPjxj b3mdh3frgKp7WsT6DWVjq bAqmRgbCOC5q6DqKe95K9 9sIHdpZHRoPSIyMCUiIHZ dzAuxbc2jyT7l Ii8+TDRkqQA6mFE3pO5uU cMaMgF6FDjiU188FwNxoA VyVvnaY28yD6AhoNF+PHR eMhn1QYYmjTon TU6xyQJoOQtqZu5eXNA3X iRaQjGfIEhzA3QgTZMzpd yiblvxlCL2KYAvPRAnsC3 0Wi7rjSqqQHAa iCGWpC5cvieau0ddhvclM jGbHVZkGEh2XMx5BMCsoN xeYrNcMUE6TkK0GOQ5vBT xxC7ijFejmlrm fL5wO7RmUEVuuytgJy96a D5qQwMsUiU4TJyjClr+TU 5YMrBjFjItAIiLLY52R5E oHel2CDLdlQsz SN0hhLEkSItlVt9ceOdnc OzjBD7qFPGnxsjyWLYirV 3dBEBmfLXyiNiaSJ6hVLV shvecy931MlDu FQN1NJDdtCPpI2NoeA3wR oVoRDVbINYiH3SelEBaCK krQ449COcaPuZ6SFQwtkL jU6ZvAXGofIea NrO5c9N0Oz6xLQ1pNK9dM PB3EN46KG34uWLmx3S0eJ Y3C2DjURGmocfteqgpfMM 9NBRiASHxvA68 dZAwRQzpDb5rd7H9q910Q HIkIGHreX93Oi6wwPjgAD SjfMLEoG8lncghu9ozzzz gIzAwMDAwMDt0 BEo0BBXvzJepDqGdDCG5N uG4KDM4hKKdgZ0wjYymcs dujC3sCmc+NjggWWVhcnM 6B0VgJqw7CZEn eAvcEB2ipYBrFJhmPj8vv IuhkHylSU7zBKHjquuyQF UcuU2sVPLfmMNanMksWB4 kJOUielfrn853 HbTzTTE9FHRdpNEiG9Ueq H1aAyRjEYSeCAUlO6DpcP EaSQalK765NXutBfO5OBG zxfQqE7EvHTIb zCobKmY0v2Z2Oq2HEEvJX Z86HE65bVNac3N4eSK8B9 XmPMMdpzavogvtbBF0HUA lHTLikK73yUTl EJmsOm0is6V0g046OCUrI JDtxI50Sv0bxSfiIMBdqF PQjX5vczjqn4abemepHiB zMCJuUXg0YVt3 HJRhfOxtKuGkAIW3QgC9R ZU0pLMqpK9agXvfhlqncA 9wOyc+W7G4Q7LrFyagoEZ +IP08SIRmNS23 kZOrmPXyq0hvsBb2GmLnP XUlEXA4dInxIGsqs3MrSA LtQ37ilUIgu0Y0ZEUeuHu hcHNlOyBlbXB0 aA8zLQiqsqedo5pjpgmrL pdij4sddr67xQ28M19eDG dpZHRoPSIzMCUiIHZhbGl brg4yaZ1pWk3+ UWBevFU9lBC8fJ6bDmXkK aB9GKpeI519IqLszCWwQt ynp5yes5kixKi3IgAoDLI gdmFsaWduPSJ0 x3McNk89R05mASsdRAChI WQzGRAeYDSleUkkgh6uaY 9wIi8+YC5ii5uukp29vC1 8dHI+PHRkIHN0 kNlnHZgeZKUbgV1gYZjtD cF8AXYjVbTgwT69gKEoOJ lnCo6azDirpOlzSF3mTHS bfuscy126EzCu a4sySRMawVFtGHksGKD2U 28ri9P8GPOcUQQgNPW2dZ M0kH7qcOdnxacyiBPivOa gdmVydGljYWwt ZBnvQ483SLIwcCrrSpVuc ZPaJ0stdqWNAR9oLacvgE Q+OQJgSGH5cFhwONnfQXJ saD6oTDVdE8i2 LmYiMjS9IZfrZ1OjldI3L MOmvSXxEARuuKWLrW7dgw luk3plgffhRpBsSLDgPYo 4ARi8FMTpyDmj ZzOvYRO1RrB0AXC4jOXjp I4yjPtbzfgziS1rHgy+Rk lOOjwvdGQ+JBFzZVQ0zYj xVTgbKNIiyA4z JBLrU9o8BhFdTlH8UVofL 6VtxlJ3SKNqsMPrCODlvZ UTkP0mrolfj2peqwsgPtC wHGMeILl2OJm8 WIQxgCsnMpQdQTN2PeU3T LA8gOEmgQ0efMeadmgncE 9wOyc+TVJOOjwvdGQ+PHR gZJM7pBenNPpb QSLftY0xWVNzK4u2XaWmJ bH8WRifD4LposP3VMVhgO MfUVQhjZYJiL2uhtbzf7o vcjogIzAwMDAw XYn2RPn4RQYwsVkpXlBsU YX3VqA9BJE3oYSncU0ggN xaeiathB4mQkt+EHD7KCF 0PH84YN06L2Ru PjwvdGFibGU+PHRhYmxlI HdpZHRoPScxMDAlJyBzdH lfDQ8uDc4mTQXgSVQniNn kyOGlJeFwm1uw YXB (more content not included)... [facility] Wound Care Noteon 07-05-2023 Wound Care Note [phone] [phone] [id number] [facility] Coding Summaryon 07-01-2023 Coding Summary HTMLBase 64 EurdcbmdLAm2cYl+PGhlY WQ+UN6SLKJsW76xvUYroM 5rS4LMDIpOZgqbXUECYHq QZhDeioEmWF7yjGZjIUVf IC8+KT0qCZBwGheyxZNwc 7K7yCS5Q64iip3lEEryhU M3NYJuObUcnsgyu1dhhMc 6IDcuNmluOyBt RPVfhY71OCG6rK01Uk21g TDtdCDlu1uziBg0MeLgMD WgJKZ8rEdsCVchm8VqJQM uI15zdXWdl3N7 NZAnnQomjPKlQdZoeFQ6y P7hPBkcrdbik9zhvaswWj e8fp35iKNms0Q1oJY9U8Q azuF1MIXisRJg XyzcjRPTgD2dbgwcy9vfg msxJmKwWOWiDFd3UCj7BB DjxApbJdCnDH47NPW0HKE zrxTfX5JfRPDn nWosLfQ0d1Y9Ef7DE9PEX yeqM9DPMAYTLJkqeSH+PC 12xk67R1DsZbmeKwb2BAN dKMR3gMN9cH6c EZHrORslz0U3qYK3M9Hwy sQthl5dt1whDHMpACqcH3 0pvKAso4Y7FONhcZM2SJB ptRbmCzIqyF52 Oyc+FLFntHghb6KqLrjjc 8prs2hbqFv0BbdcFZOygy TgpXlwXCU1i4HkKm9tVGR xeRW4vIY2eD6g CkMcSsK2PNnkZ324XbNir YBpNdjuP06gF0PwxAK+PH XtThw9THMpeMdiDJ7yM5K hZGRpbmctbGVm eHyfMM1rZMMlatdeGXRti Q6jHOJvV1u1WwIaPhE3ME dgF1AbBIPhmavoBd39bW1 lHtDmOyW5ARgq P5GgdnG9ZIZrqCQsCMjgF FP0M15jo9A1MVKoHYHcPA A4mST8tG2xdTknycxkeVV mdDsgdmVydGlj UDcuMTveZ866VJVgdXfjT kNvZGluZyBEYXRlOiAgMT AvMTkvMjAyMzwvdGQ+PHR xLJP9bKgyKDPz jGIsILepNz3apXqsuNkzS E0dVVZkciqbKQXyeT5lQN DwwOHahXseSE1kJEGqgzm ns276QmQjMVL1 CRMetXApM7ZiaF3rFvYfS WVsPFMyB9WxmYBbSXesB4 40PZhsPaZ5SGMkqkNbE0L sLWFsaWduOiB0 e7M4Ni3Ej1LjwdexE1Vrj NRfUbBtHjyoJQd3Y4YsBg wvdHI+ZO82MRFuHX71IQd 0RKL6qXbhZGum CMTxN2MtiO7uQfYvJNKxP GRkOyc+PHRhYmxlIHdpZH RoPScxMDAlJyBzdHlsZT0 oKj1xCZVkXEWs nUbrkNVeUiTwh5kzCZWfX MevPF1sqHiyO9WcrIH7IJ Luv0r8Gb10H05jR4OkiAY +GLXbuQX8jSJ4 bC2eXvToGqE6ZCbgI350H wMxlUThZsvvc9veb6hzsK t2BnY0BZPiytFvmKwhHQO 0p6XcTc15G61k IHdpZHRoPSIxNSUiIHZhb Vdvbd2eaP5uQe8+PGNvbC H1uAG6vT8tUaEhRnD3KLc lQ313YgSxbUFl Emzlu1vyp4fyfRe5HaRjW OIcokOuuIgiBMO4b2DvOy 78R3LhiItvp2DeNcd5bk6 9cGEqj0R0mBB4 E4BsICWjalmmqWLdoHkiO Q4lZQZzvejySKDooL5gTL QzA7v5AdGlXqK1WJtkC0N gpgY7GRAgxJCn NBDzvAWGiX0vmnpes7zad erdDoMiPYAnWMe3AGs5JW BnaRwzQlRcKNF4HhZ2GYO 5iMHktD5kfOrw kdkdrO4vDkg+PET5qIQrl DUXII4gXcgzpZW+PHRkIH W7gOmfYEkuHQDhsZ6nSSY sD8b0VfGoKyH9 MJtpK0WnbpS5ZKSdjAFgZ RSdsYIDgU1rdgbjg8eakp ewQtXaITFlYMz3EAn6PEQ saWduOiBsZWZ0 ZuT4HXP2jXJsbB0phCrqi lbdpH7dLta+QmlydGggRG W7AMo3Y6KdIbg9WBFvtRm eXB1nbATzDVuq Cc6gwKwwiWuiIN0wEQCov wkom475ZfWta0urVIAskZ PhWQzyEWP2Q88kr8D6EQZ yDRKaZFJ7pVD3 pV3mxNdnrasaxNMxiSkar eUpeQgzKCawKTseI146OC VqcQxuPhYbVHm0K8AyRkp 6VZUysYzhHA7q gOHbMErnFp6tqCoadYepS K7nBXEnzupjv826StXnx2 afWWRfzZKnQOobPJN6T76 iz9C9NAYzCXTg EIV3vXN8tH0qeHmdrfnhn GVmdDsgdmVydGljYWwtYW jmO259EBRahYenCtJhxPo 1A8LhCst6OEOj sNtcMV2neKPvCJrxDo4sr SyfhBxeWC1vANSlhncgy2 07KqSkl4tqLDDpfFHxUSn jFJY7E86hg0M3 URViQWPiXQQ8mWP2eX5os GlnbjogbGVmdDsgdmVydG slUEwvWZylV100FLUkaTe nPlBhdGllbnQg MClgOLd7C9RuQzrbbDO+P O07AMVoWL17xXTewCDxc7 ggeVj9RyGrVBEbHEB5zVj yREwjf6DfKOQw R97ftWWsv0B4LSDphTrww FXqUhSywDT1aR0dOPbbli zgx8pazyiyUyiwl5wgyh0 5rW17U00jVAcj ZHRoPSIzMCUiIHZhbGlnb j6wrK1hEs4+OSWipYP7vT J2vM7aQVYoFzT1CPlcF57 9InRvcCIvPjxj k7zkh1ljpIk3BxV9GHJjz sPluNbrLOA4s9RbTc52V5 9sIHdpZHRoPSIyMCUiIHZ pqQdrur3aoC6x Ii8+XYEykOX7uGJ0qF3kX fCmZfN9RDfhY105EhTobL ZeYatzO83aG3BzxKR+PHR zGyg1EAFycQpm IB0dnNLwVEklAk0nQEP9B dJuGySnBZctS3IxKLZrfb dyerhllZD8DLGfWRNthL1 8Tn8leEtrPDTp pIBZoX0oxymxl5zigkddQ aJuCQRxQAt0BRp6AXKymB ycWiVaOGM6GmY8GLL0hFS nzZ1wsMoiwaxf qQ5yQ0AjDKQyucqzEx59r O9mVcMdXnC9HKvvXqw+TU 3LNhDqYdZbNLeAPF92T8S cXbz8KAQsiMvb GO4hiNUtCZsiLj4vbCwby RrgMA5tUTDegrdlIDCzyK 8jGTNemMCmtFgaYD3dGOE qrlbqh969DdYm EIW4GJRrnHVfT6PnuH2rI aEgCVLfVCXjP2EnjSZvBR qfF474CJquZwH0MWUtidU mH2MyVFYylLcx IyT1c6S8Vo8hRV6vAL5xG PG9VH89IS10cGFiw1O6cQ T9U7EpPZBzcvmhmzwucBN 2RBDvOZZvkC78 uJEiIBqzHh1rr9B1e280Y EDwIWWvkH13Hy6wsLaoBC XyxMQEgJ9azjxfi4olrvq gIzAwMDAwMDt0 CRo3JSBgsEovXzYnSZI2B qW0FYC2lYTvvY6wuLubah mncK6lEyo+NjggWWVhcnM 5M9EwJkr1PXVv qSvhSU6zuQWyMFsiCc9aa HdwzKdhCU0nMYYmnzhkUL AfpS9uNSTapLTqbUudLB4 pMMOboliqm264 UaSjVMS5IAZjbEXxJ4Ewm Q3bBqNeIIItYFBcJ5XcyN AlTAixE580UHraEpB0EMD txqRlV2FaGEYf pOnvPxE6v0R9Pv0LUXcTE K71KV14kZWxm6G2gRU3P2 JfSCZpobasnlnuwCQ6DRF oDEWyqS40oRIm DSobRj0oe7O4n427CIPnE BZalH48Cx2zlJnsJEUleT RGbG0sjhvwp8infsmpRuM oMNVxSBg5WUu6 QDHdfMxaLkIoWBB8TeP9B RO5pDJtbU3mnLgzszgqhK 9wOyc+W0L4B1OyBwvekHJ +LQ36IZGwKS58 kJPevICvi3wguRc6ClHvP TNmPYV6jNviUJegq2XoKN VtF61rnNNsn3O1VEMxzAq hcHNlOyBlbXB0 bG9rVTxkalvbd1rtpanwG gxxf7spbj57uQ74D41dQC dpZHRoPSIzMCUiIHZhbGl krd5lxQ0lIm0+ NXZmnAO3vDX4aD9zAoOcP yS7RDqsP010DaBgnZAkFq num7ccc6txjAr9PlVuRMM gdmFsaWduPSJ0 c8QaLa97P72uYOukPRUqB FObWOUzVBLpcEotqa8jeZ 9wIi8+NG4sz0hbqt55kE3 8dHI+PHRkIHN0 rVtwVXrkLRYctH6aDPvuF sW7JRQhQlGarR00rNGwAT pzYa9tbVxlrNezMJ5yRDR jjnkam180DgSv u0ttWLGrkOWcCPloFIL3F 83eq8S2SZUsLIOcLBI0fA K3uN9moDeqsqgxwIZvzJx gdmVydGljYWwt KOklH760GWHmtBbhSiZtc TIpW4posjSRYC7rEvhewB Q+CPIgCTG5lMcjPUbjCHS ppZ1cTGDmZ7c9 CyVhFiN0FYdpI2CigcR5B WBemUVvLJHthZELfP2kip phc1hdrakzWnXoCTPtBRo 4QJx7HSZpdXch WaPeAEB3GuL6BQI8pAEja Q0obBmtwfxxnT3pKfr+Rk lOOjwvdGQ+BQEhZHJ5kKc aAXshNWTzwM9v TZTvE6m0YhUbGiA2VVopT 8CaepR0HQFgaZBvWHOizE VCuS5ojyabt7jsdhjbJvH xTWSsUKn0CTk8 GFDnqQrpBbBoYMU0XbG9E YZ2vCHzcQ5mhEidxoxpfF 9wOyc+TVJOOjwvdGQ+PHR jZGL1jLsdGBpm YJVhqG7tIUNeD0j0SaQeP rJ0AGkiV7ThsgY1BCUamM ZmSDMmdPGHlC0sxlzvd7p vcjogIzAwMDAw FJc2YEf3BUHxbDdqNzDzF MP5DcS4GMZ9kUSprM1vxC wbiztinK7mVel+FSM5WBC 2FU00MB63K2Bb PjwvdGFibGU+PHRhYmxlI HdpZHRoPScxMDAlJyBzdH fjUN7cPi7dZDJwRQDplYj ztHRxNuAac9dg YXB (more content not included)... [facility] Coding Summary HTMLBase 64 JtyqeycpHWw8yFm+PGhlY WQ+LB8EVMWnI27dgUNvxO 0aG8LGPYvRCcuaBTEBTEp XScXgydGfZC8brCNjZUBf IC8+AA0gXSWgCzdvtCOax 4W9sPH8M79mbg7vAOvjiW B5CAIvZcBaiaezs5nyyGn 6IDcuNmluOyBt GZImbK83DHS9qF99Qt52j RMwrUPut3jseSs7LjBmSO FlARU1xCbxQPrsl1WdEIV jA50peIWlx1G4 XFIqrKampBVwMaRajQS2c L9oFBqawcvgc0abfuxqJq u4xk26tSArm1L7qGL5T7I txwH1JXGtiOMn JhevhCGNiS0vqunci5kyq ffoNpXhQNUaDIi2WPt4MS ClnHkmLfAhDI35OPS3WJN sohFzC2HuTINs tMggWkZ0s9Z3Fp4YE3JQY sxfK3BNZWFYSJwfzBJ+PC 14km59N0ByXyvfOri9PYN kHNR5sZN1vE4s QDIgEOkyg0K4tYW1O1Vxz dOhje6zc1rwVMJbRZumA0 1onLHvw0P6BFRwyZM4HBZ ylQrlMlVeoG58 Oyc+HHYeqWqon9HfOorbc 6hnp7ltaPt3GilvCXDoeu NuxExtENM5u2XbGg1gKDS brDT8pRI4eI7e AsTmPhE2XZbaT415LtMtm UZdFdulK63hY0YpuWP+PH QtNim6GYLejOlpDB0tR9N hZGRpbmctbGVm kQopJB6xLQLklmbpPUFxe I9iPOWtU5j0WtQhFoD4TW wiY3PuHTSjmugiLn27xQ3 wSpCrGxU3IIga Q2JvfaK5ZEGacUDqCMqxX SO1H43vn8I4ZUErZVKmSQ H3hDI2pI8pxZkntgkojBS mdDsgdmVydGlj BUnlGInhW721NJMebGqeO kNvZGluZyBEYXRlOiAgMT AvMTkvMjAyMzwvdGQ+PHR jDRC0rIboSKTb yPHgCOybGy5clCncnUkxR S0cFPEpfbhsWMDisG3vQK HfmUQscJslQL4yTNOgqux am089FgSfLRY9 TKJdeQMbO3OgxU7sNzEyH WPmROMdS3IqfUXnGKjvB9 81FHvySnF9ENQgahThB2H sLWFsaWduOiB0 j0S8Ia2Sv7YxqbawD7Wvm USgNqRiPjkdNRs2P2CmJt wvdHI+KK31FFQiJY00QKi 2QLO9gFtiEEyy NYAqO3OlbY3tJlQuOQZfV GRkOyc+PHRhYmxlIHdpZH RoPScxMDAlJyBzdHlsZT0 mVj2nONEtVSNe tFvbqRAkZqAla8xdDEXcN IymCI0gjZeeQ1JcpQA3LQ Gpj0m7Qk64A63aS6WwwCM +VNCfvAK8lQE4 mH1hVcGzThZ3GFhaO218F oOgeBGjVcmua8sde7lyoB r4FiJ7TZRpheJmfFfvOLH 2k8PuDz99Y76g IHdpZHRoPSIxNSUiIHZhb Urmff2yoK3xNn2+PGNvbC P1qZC0dC0aRyUaDoV2SKd gT034AeLkzPCe Isdhl4nqd4qbyQd3AbTmB XNwiwEcdLicXWD1h1FdOw 41G9RnjFmai7NwNui1as4 0jTKnn1S7yKG0 P5DoQLAhzcqfrCHexWwbC P5pUFZibgshQTLivH9lXB NcD4s1RcPjYlC2ADcwH2G luiU6LCJsrLUh MPZubQMIuM6ysqaln1sgd bjwKzOoQTYmFXp0VBg1KS RnxSpnSkHyLXT0FqB4PIM 2qCVflZ2adQvr uprchK3cBax+IXE0jEXzx HGKQK0eKtgwzQF+PHRkIH R6wAvdHUagLKBikR7rEKV iT5k1EeLhZcO5 PXhuP6TzpgD8UVMqiTIpJ GRecWKPlO6qyfdtd0bqgf inViWjUMStEYw0RUo2SHR saWduOiBsZWZ0 JqE1QTH5rVLiiD8zyLqed vlbmD7fAnt+QmlydGggRG X5OQg2T2YeWof9RXQkdDn gNJ4keXOeTRhb Ki2uqIgwcVzlNA6qKZXfn acnr556CeUwx8msQNQdnD GfGPehTKL3U04jk0Y1ZHD zPQGfNJZ6rYW8 jK2gjKinsajdaFMlnRupk mSdiUesWHbqPTopZ422GE LszTxnPsEcPWd2O0SvKom 8JASkaTpgTR2c oWJaCTefUp7mnGvucDxxR Q0zWCThbgfaf307IoIjm7 nwNREuqUPuPRltLQG1V41 uz6S6IOLvBDVl YJX7bJK7nF1igQnvdpoje GVmdDsgdmVydGljYWwtYW etX026QQEauHrbQoLduDo 0G2WlVvj0KEMb fVjmRX5bzUIqSKlcEc2bz RyyaGloZN3zRVRxcqawx6 63HkCsd2zsPPTwlIPdVJz uLIB3K59os6U4 CWWlHMIkUTM1xMS7yU0wk GlnbjogbGVmdDsgdmVydG utPMdaJKimH633AUYaeAs nPlBhdGllbnQg IEvuPJt3K1VdIjbxyWZ+P V86ATBxFI30iSGrzURtx4 yzkYm7JeKtYCDeSDW5kYy sQWazo3GxSMLm I34iyEHiq4U8RFNwaEspl AVrOzFfaYD1nC1oSMffil zyy1dtvtzkGgjwv1ekob3 8pF17I72dHJvz ZHRoPSIzMCUiIHZhbGlnb x8lfG1uBp7+OEQrnEI2bN H2tZ9oDHCsGpT2CRgrP79 9InRvcCIvPjxj z2srw9yxyGf0JyG8MCQhy bWxbUtlELM9p1BpNp26U6 9sIHdpZHRoPSIyMCUiIHZ hgZgcdg6afH8r Ii8+LEDvoWE4kQJ0uB1jR eZpBkW4QBgbA983SxUgqX MlDjavE71wS5RbuBI+PHR bYuy5YXSwcUkp JV4izZAxOLuiBm8hGUO2E pCyRxWwHWjrZ4RjIECwsd uenwlxyUD1XUEcCOAroE4 1Ga0ruQtpGQCm oBTZcS7toaawh2vpaqfmR mZaWMLoJTt8GGh6MECqeB pxJtSdOFF5DuT1ZBQ9eJM vfD3lwMqommci eN3hN7CoHNXlqwwuNx92m R6yNsTgFaE5QUtaFrc+TU 3PLvVaYkAmNVyNQS96J4M nSto4OGGklSfi XJ3nmNIaXVjlVp3kgJmdt CcnEZ1wOYWwcxsiZMRqbZ 0pDRVypAUalJyrKI0hNNA ascozi596RzRx QVI9JNTxkSJoY2KtlP4nG aUtQTIzYVZkQ6HakGNqGW uoB078DEraQhC7ZQTaysC uK7HbUSUekWny LjC1p2R7Ul6oPA2jRO7mF VF2GY93XO87kGAkr9V7oJ P3E0RgKBOodochacwdcNT 2JVUlJVTwsA50 pSVzVMdtDo6ng5X9h944J DNbOIFovY88Jp1nnUowFD GegUDPpE2dwlukw8rlkoo gIzAwMDAwMDt0 RNu3CRFntVgiRmFhCMA9H iB0IZE0lEZmsV7jbDhyey nxpN4nPyl+NjggWWVhcnM 0D6CaNuf4OUGb nJzoKQ7rcFIpLIhoYc7xw YqcuNisIE2dEKCystvsOM GppQ4iODMoqVTldJjpTQ6 oGTKhhyclf720 RbYbMFX8BSWfbFTiJ7Udz B2cYlJuAIVbPIDuV6JfvK NmTUemA536GVsfEaK6RFC fovGyG0FmOTBc lBjjQjS3c8E6Qh4EAFpMQ W48EF29cUTcu1X6cWI4L2 BaRTUobwpwljuwvLM1ITM kZTLrxF53yHYh DQpoCf6hz2A0t122IWEiO GMqjV72Kd3qrVncLAUpzZ YPeD0qwgkdt0hlufjlTiX cRCRcMSn0HBs1 ERQvtVbfJsLtVIT1QmD1O HA2jGWxwY2ypBtzvggifD 9wOyc+K8C8D6AgFbpowHP +FK10KAVqVD49 jTCntZNrl0gjpEs1OuGyU ZBaKWP6bLytAInie3CaLJ LnV83ngHRtb2A2LNFoxMv hcHNlOyBlbXB0 fI7iAUxbdomzy5sajdjkL ousk3milp13nE41G81fZB dpZHRoPSIzMCUiIHZhbGl xgh3tpN3wMp2+ TQCyvIC5iRY6vW8mTqClN dS5YNiyE169IhTccPTcBr mpv2ukj4kuwBn0AaIeVKG gdmFsaWduPSJ0 e7GwWq93C11oWZhlFGJxI VXwFWXvXJIfnKjesf6fyO 9wIi8+JS5wj5oxwm03mD6 8dHI+PHRkIHN0 wMlxQFdgYUPmhO7rALqsU iY4LUAfRpAwnQ28aNXnIV gdAn6jsGclpYfeRM9jSFX jzrpbr513SfBd o2ntHWEsjVTiBCwvGCY1O 50zu9K6NNAxGCPvBCE9zB R3tD2khQbhroujlNJwsDo gdmVydGljYWwt VQloW592JHHyfLbrHqAms QXnG3huhyEOFD7kDyndrI Q+IIBsRRK3iMdkCFixBWZ voU9wYXGgI8i3 CwXfYdW9JKemJ4QssdK5X YKliTNxNQJcfZWJlD5vot ant6qvhhftFbAqOEOfVTj 7YQm1VVBrrXah JcFiHII8ZxI5ADM3gNYdl I5ysTihnxbzqU9yVmv+Rk lOOjwvdGQ+QSIzMEY6zDn vBEboTHUniA3f YRUaB4f1BaDkZdK1UFqmI 2PprzF2LKZkhGFaCJMzfD VHoS5ahgytd8zqsqphYrK iMLOyEVv0RHw9 RVKtjQhsItMhTZB4BeG3C TJ9jZQifU0blNwsamimsR 9wOyc+TVJOOjwvdGQ+PHR pUOM5yYspWRox GIEsfS8cAFXtD3a2IeLzA xX0MIuwE8AjmdQ0YOVttS WkFWNaaZDLgV9gakjez3w vcjogIzAwMDAw HMp3RBo6SQUroOafFwFxW LZ4UuE8AZT2hLScdG5ofG aywoxyhL5dGqt+WVD5ZSP 1AL12BS46Z6Bn PjwvdGFibGU+PHRhYmxlI HdpZHRoPScxMDAlJyBzdH xvCD8aDs7rKHHzPYEffHf syEFcCpDlv0fb YXB (more content not included)... [facility] Coding Summaryon 06-30-2023 Coding Summary HTMLBase 64 HrbkllfmEAt5eTh+PGhlY WQ+QD0IRGPgV22zcRIriJ 6iH8TEYCoONhsgXEFFGKa PYuIwmkMbOX9lsRRmDFUi IC8+YC9iHUGoLhogrSBbe 5Q7kGH1E26kvb2pGNxnmO Q0SLKtOwAfadjon1kzuCq 6IDcuNmluOyBt YDAlqC18EMI7hQ80Et12x WHrfGDzf0alrYw4MeTeGW MkRLK2aGfkVTdqi7AeJBF tM38ysTMbg0G3 FECffGgiwAHnXtFtzSX1v M3tXRsnutgcf5nnpruaDc j8jc15oVBau3Y9eQE0Y9K sxnX8DZZwrTLi RoeqwFKBxZ4ykwfhp6vgb hnzTiBjOQTiTTt5NOb1AQ IrzKmeBvLgAH74RZK3VBX xmwOyJ1EsEUBw wIcdRxB7c6I2Pq2PJ5OOB mxbK7NGKAQEUGxvuNB+PC 43is07D5EwMujiDpd0WUA fOFA2zXO4tD4a VNKoVPgth4Z0kZX4B3Riq jXcke2ll3bwDWCvBRaiG9 9jgUOed3V3YPTjwCF4XUS bwGorYrTovN38 Oyc+WRKhuUlfc8QhFipcl 9cqo7zjuCn7XyfcUUUmwo OtdVrpJIE3m3IkLy5jZXF pzVG0jIT4qF9v ThLxHsL7NIebI596QyVty ZDmZbkbN45hX9XzhDD+PH GfPcc7HNIjzLpbKY0aD9H hZGRpbmctbGVm eWerWV7qEDShawsrQJHlh A6aCFUaL2a9RoDoFoW1LP thQ9LnXLHwxhfaEp61hZ8 eMrCnCwN4MBow S0AryhQ2FFEjgXAfBYceV XE6N20lg6E8VGJoROIqJQ S7oMC2bF8kjQqkxryccDJ mdDsgdmVydGlj HZncFVunG894SRLxgJoeL kNvZGluZyBEYXRlOiAgMT AvMTgvMjAyMzwvdGQ+PHR hMWL2oZybGOPf aODjGPwaSo2pmRhzdFmnK I3xDXEwimfoGMUliQ2xRQ PgyAAtdYpdNR5hHHUhwre fh584JoLrGAV1 ZEGzsWNkT7YlmK5gKfRoY JUzKMCeL4UkcJVyYLuaK3 60PYmeReB1CRHpuiGxP3W sLWFsaWduOiB0 n1Z2Pt5Qg9BfwnlmO2Kkq ATmJaLpRjesDTi9Q6FrHy wvdHI+AB21NLIwYF17LKs 2KXO2uLymAPhz WEDxH9OzdR3cNyPwSTJuE GRkOyc+PHRhYmxlIHdpZH RoPScxMDAlJyBzdHlsZT0 sLh9xNAMxIBUj gNttwGSoXiEkn1luWHVfA InyCR8ccJjaI3NlqYX2VG Sky4y4Hq38J58zS0ExnVQ +QBCvdVO3nOM0 iP9wZxMjDfZ2YZhvU045H xGeoOOuElcye1ubr1wtfH r9IeX0YCNwoxXnkPklUOE 2v3FiLl20A01z IHdpZHRoPSIxNSUiIHZhb Ydpsb2vmT1yTw0+PGNvbC Y3iHJ4hX0mAhYzJfK1IXl pW093HwIpnEQw Serdr1dht6pnlPm5JrXwC OHoamRptWljUBX9s0VoKp 77U6ZewKtvg2VuCsg5ax8 3sORfz5Z8xZI7 A3UvHCIihtzklTFmeWzuO M7rJYXjfivhPQUgwR6yMK IlN1p9RvHgZoU3JRyiV7P eoaU3TMKlxSZn XEIamHQJsI1inlvfc8rpk ypeQgBdPCAxBXb6AEz3LT BcwDpgYkDxOIL6JxR0NVH 4gRQswP2vkIjc xzoujQ3cSyb+UHJ4xXPfc ANCNV2kClclaCI+PHRkIH F2vFasEMysJDXrnR3bGIS oS4w2TdHoWfT1 GQvsI5VvcsV0WRAnzMVcQ RQmbCUQdG2diutbf6vvsl biQwKbMEVkWWa8HXx3CDW saWduOiBsZWZ0 QxA8CIR2oTYgdQ2mmIbud pzfpX5eYph+QmlydGggRG B8YXu7L7ZuDko4NIQqdHc rAH6hrJMfRLol Km6wuDfuwEwoPH9hGBAla qefn202UeXdf1buBSWisM BbUQsjRJN2R57fa2J9ZJJ hNLSaVSW5hGI2 uL3xlSfdcdwgdREcbMnbb iJfkSnmHXcqNDnhW511BG AntUngOfTkYDs2Q4CoXfb 8REVvpOydRL1c gBCwYVraFn2fqNgdaLdtS X5cNGZecrnuc138RdOeg7 oiISZkcJKkZWjzHXF7J49 zt3W0PSCgNSFa UCG1uDN1yD4uzNxlazqlv GVmdDsgdmVydGljYWwtYW bdH727LIIdhTvoVgSsfLm 1V5TtVkp7QIJd nEozBM1ogUGeBOssLb6il EgjnTrnPA7rQRTksshhu6 16PaGio7lmVPBbgFKqGUa aEGE1U09ax0K0 WFAjBBNeVBC3rQD4wR5oo GlnbjogbGVmdDsgdmVydG llCRwaGKssH733WJLobYv nPlBhdGllbnQg QCfqPAp3T7EkJttebJG+P L11UKSjLH14sMFxyXXwv5 mjpOq9VwYnQRTsWPD3jJl iVYhjt7FzGIPk A79dsLHrl0U8PSSurCrzz GErUrRfjBC3dO4hRJetkn iji5odpcrzLblha7dldd7 3wG67M51rGEtx ZHRoPSIzMCUiIHZhbGlnb e1voD3jGk0+CHYrbYO3fK M5gA1hQDUdQsO1FEwfW66 9InRvcCIvPjxj n5ddw6lwyVd3YnS7AKMrp gWxjLapWLQ4i1OoDn66I9 9sIHdpZHRoPSIyMCUiIHZ pxIaghb5mtE9e Ii8+JVGwoDQ5kUY7fQ8pX bLuMiH1VEznD015RaXwiF LyThbgK90kR4ZjlUU+PHR vAis1MVRgqTkg DK8kpXJxUKqaHi3jYXY8A kKfIzOyCOraO4HfHAAknj tlcamipXX6FGUfXXAgyI7 4Vq8bpUteNAGp eYRZgH9ategeq5syjddsY xCuYKNfFYt2PVc1ARHdvP qqTjJxYJF3NrV9PBK8tTM cuU9uwQxzwhbz sT3tI0HyGPFjwrnxXi37s D5fXkZbIuN4VVewJog+TU 1PRgJjCfKbPLuSFB07C3U lOyo2BGDynKgc HF7arWPeTAqqMk6itFznn GxoNX4wGCCfgswlIWAsqJ 0vJSUrkALmiDfrZZ5dJYH qgaogf217YbHm AFK4WYBycEOoN8MhyA1nP aItPMJkFFFaB7BwmDJbRC smJ544MGbpRjG0TLKleiH fH2IqUEGgsXpo CtY9b8I3Sk0iRK2yBC0vF GP8XY82BZ71nIQgi5N5zJ B2Z6EvYVNmuiwawnykzDX 4OAJtJAQwxY80 cDQjXZhaKs4zb7Q2m023W IAoOYVzeV81Dr6onMhdAG TolCAMsY4ewmmix6sgqfz gIzAwMDAwMDt0 LYs9DHZpnTgiHvCwMMG9P bK0NYZ3yBWfzM6pfUzevl kjeF8eYnm+NjggWWVhcnM 0N7WpLvi8AEUy lTmgKT9vcLYoTIsgOr4qg XsmuViiHE2zPGMenfsaII LifG8hCIBawZDmxFqxTA4 rOFCiukjgv306 AzJfPZN5HTGjsBIlN0Zco L5bJlHcRANnLQMoJ1VgnR RkATpyA156KCrwVvA7STP oipQnS4BhQYEr hZytJmS1y1Z2Hn2CFIrOO J12HR42vGReg5Z9xLK1X1 SmVTCbhwktjftbgTD0DXZ lGEYzkS41rLEh HJjsNe3bx6D9e453CSQkB QXqnA78Fe5mfFxoCHJszS THuI8qizvcf1buoawuKcW dTRXfXDf7IVq8 BMKyfKucIyIcZIT1ZaE3X DY2cJMszZ0yuQylmgbcuE 9wOyc+V1D7M1AaJirbjDT +FS59FPMzHZ53 yVMesTPsb5cukJz0MaIzS ZXeBEN6sOzuIToew3NiGC PkP01vdWMmf8D7DOWfgKc hcHNlOyBlbXB0 vG2jONokzxkcx0irrpdqX gtjn0kjfg33fB45O87jNT dpZHRoPSIzMCUiIHZhbGl ocf4ekY9wIx2+ SYGokKA6jYB7qH6qHlXxZ jL4PZjrN030ZlJkqNOcUo syl0kpv1orzNg4XkCkKCE gdmFsaWduPSJ0 v9EdBf66N54cFMlbVAEaZ UEbEHBxLWWneXkmxd4quB 9wIi8+GX5fm5skhb08xX6 8dHI+PHRkIHN0 nRzpDOnhEMPjfV3nWTrnG tM0MXVpSySvgS76tOCvIP avTz4yiIcjbNjuYG0wMXV paupce588ViTq p0okGGWntKHnTLpkFHY0E 02of8L1GQIpLKWwWFL9kQ U4cL3kpWbaqwkfePXvbVk gdmVydGljYWwt DXovK646WERffIafAqCtj YQjB2idkqQFRQ0rHxybnD Q+VXXgPXR7bPcvXNkyTAB zlL1eCLApR4t5 AdJjNxR3LBddU2CyclN5X GKnaPVxJMDwsACElZ5ziy zfz2gzbekvCmTtNVNgTFh 3AVh0FNHmfGuo BlWcIPM7XkJ9KVJ0pEFth E9qjVzqppjbpU0wIwc+Rk lOOjwvdGQ+BVFnWHK5qYz uYBkxVTKioE0c MKBbY4f1FsOpObQ2ZAncZ 4FeocJ3JPGfrCQnXHImqM URcG3zrxnvo5fujsulMcG bWRTzDIb7CXe1 XZUxqOkzMoVdRKF8KeX5S GH3rLYszQ1tsCmlcfurcB 9wOyc+TVJOOjwvdGQ+PHR nIYW0hNlrKSmo QANvuX9wBTUkJ3m6FeLtM lN1DUofV5LyktK4RZVznO XlRYVlpKPVbW1fxsrij6f vcjogIzAwMDAw BWv7RPf9KVCsjHvmRcIyK KD5OqS4QWX3uXAsqB6soG lexgaihC8hTog+FML5OTR 1UT15OU60O0Nw PjwvdGFibGU+PHRhYmxlI HdpZHRoPScxMDAlJyBzdH ozAG4aOc0yJDEqYGTjqWw vbPZgMgZlt7dd YXB (more content not included)... [facility] Outside Recordson 06-28-2023 Outside Records [id number]#1 [facility] Note [id number]#1. [facility]24-2023 Coding Summary HTMLBase 64 RdptysidLHn6xOz+PGhlY WQ+JZ2VYSPdP82ceWYldA 7iH0WYZTnNGltwXIZCZBk NLhDrjkNlCQ7nvQNdBVRd IC8+FY6kLZXsAaaqeRSqi 5T8mHW4U67luc4qNOrynM Q2TIXySbDnfmnzr1rypNn 6IDcuNmluOyBt VDQfgO48HMW5uC36Bh73j AUzfNPzc8nbjBz8DvQkTD VkBKX1aWexFXuml5CiYDG gW58wkNVjk4W8 BEIflTetlACrJzKabGS6t D3kJYignemct3waqdebAm u7np91bJMlm5D0rWH2Q8M ywtO2CQAyuBNx EtdhaUTCsU4dsiebu8xvb fxiXsOcIUYaBZo1OSa4YP FvjDpyXrQrHK04LXH5TID lsvKyW9EyICQz zKqsBzT4w0H1To5YM4FMH ujfN1JOMRLJYAxbdYZ+PC 54es62Q7IjStvrSms5XEG sWCJ8sFG3qY4a COZoKRmjy5F8rUZ2I3Aps xDepg3ue3waQWBsMExtT5 1rbAFns7K5BDRahYC7KAB wjRrfBfMgzW04 Oyc+BWPeeIudy6ZqLqinr 7uon8owfDp5VtgyTXCvdd PgbMbpRGT9e6FoFr0pRCI nzAY7oOG0sR4l MuYoKcL7XUoqO524AoZcv LDgThljQ94lL8ZrkBJ+PH HgAew6HNBukJspTI3cC5I hZGRpbmctbGVm uNnfJF2sOXCgvnefFXUxy I2xICJkI9p8RkEmOjL1ET ekP7JhJFNcytqcAl34nY5 cIoDtSwA7EDpy I0SwenS4KHDnnJXyGFemU CM0P32hf0R9GBCcCPZbOI S7oRQ6kE9jcMqbnestiFU mdDsgdmVydGlj HKqpSHhqH611HICheAvmF kNvZGluZyBEYXRlOiAgMT AvMTIvMjAyMzwvdGQ+PHR wYJS6cAqrLXJr mOBxTUodDm3zbMoztBgiB U7wJZXtinjqGIQfmC6bAE EarMOkbAztVA9hLIXdhhs jt608XmFsKDS9 ZRLupDAvK6DxxZ1zNpEpV FLhLSGyQ6WcfJOxMOnwE0 08AAhbArF2GYZvqlPvE8M sLWFsaWduOiB0 f4B6Zq9Db4YphvsyY7Isr KVrMjYsDureJLt8V8KzAt wvdHI+ID48JAJbUW34VXb 1EHS3iLimPTun QPFjI2EeyV8nUxXwHBEpZ GRkOyc+PHRhYmxlIHdpZH RoPScxMDAlJyBzdHlsZT0 bJl5yAHIaBHOe fBrhdJOdQkVqe3elUOFfH EmwWH6rzUeeF0LiaVB3YR Dje7r6Nv23Y51qH4GikFL +JDLssRQ9wHG5 oG1aAjExWkK9XHdkG161W aIbdCNxYonoe2pri9knpZ r4UaX9JLIyivYmdRdiSGU 2s2JuPz77P69d IHdpZHRoPSIxNSUiIHZhb Uecol0lnK1hIv1+PGNvbC Z5dWI1mL4fQhTsOqE8MPm fS621LuPrxNGz Cfpyv3vhw8cclSh9PsVrC FIflmXcaNozNWV0y6CbZq 85Q8TpbSugk6MxCqh2wr2 0gFVig6M0pMP6 S0ByETJcxggbjHFvjJxkR J8aQHMedfhcNBZeiR7iYR BiZ9e4DaGaVuU8AMhsY7D vidB5ZJDgtUTo JXKvyNBHuI7yzqyro7kfy uhvPeHlZVCvSUt9MYf3QF UlpYnuIfQkSWU3ZsG1MLP 2uPWavO3qlCvg tyypxZ1hFrq+IYQ5vRVvw INAWI8uSlymmAQ+PHRkIH M2pYykETqwEKTplI7wDFC cJ4c7YcXoKgT8 JGvyM5LuqhO7BJExiXTmR HVuoDYLsQ8bczzod7czqx lsMnReINClJMj7ETk3VOQ saWduOiBsZWZ0 BlU7ONR4lWZmsU9jrFrpd phlyZ9qCol+QmlydGggRG B8RGt4O4EsTld7OTWewCq rGK5xsDRrMNwo Av0gxIjhqJbtUA0nKBRhf wjrz156YvChv4obGYBmqE QhRZlzGSS5Y14qk5J2NNV mPJQyCKB9rDM9 fF4dqCmmxmxznTWyhHlss pOgeVckHYmqGXhlH075FL WiwWyiXqZpCIc8Q7BnDum 3UIYejObpEI9g uZMwQSfgQz6mgTrcsRvfO W2zWHPwrmmie244DdLuz0 bdDEKpfIRtEQiwKFC7J51 tn2E3NDBjAVGp ZJB2yCC5gS6bgBloqizgl GVmdDsgdmVydGljYWwtYW snZ047GOSkbMeoNkHsjNr 4K3NzGmv9UWPm xTpkMW3blAJfWWebQr5ph OlkfAzmYJ3fUQAyfqbfw2 57KmUtf5iwIALfvXQfYNf nJKA4N90ou2A5 TIPpYVGgTFC6wFN6wO3gr GlnbjogbGVmdDsgdmVydG nlLCquPYepT266RBMtxWz nPlBhdGllbnQg JMtxWJo8W7QwFxpeyIR+P U13ELRaSM15eAPzoXBvq4 ispIc5KjHpHWFkBXT3gVi aTXxxw1VbJEEk D30avMQpn7O8RZWhlFwhr OOcRlMytWO7tD2nBZlgfi tfp4hfpgtzYqyxf4zgqg0 8jA80L35yMNlc ZHRoPSIzMCUiIHZhbGlnb u0apV7hEs2+LVDysDL6jB O2cF1wLQZtPhF9PXyvT92 9InRvcCIvPjxj g6bge1aemNc5OdP6XXWpt oOebJcwLBU1w3AgUk28P9 9sIHdpZHRoPSIyMCUiIHZ fsHrkpp8cxI4t Ii8+RGHvgUK0bCG1rU6xX lKcWtC3TQaxB694MxBurP RuGamzT23eN2NnvOA+PHR fYlw5YKHyqQlf WY6njCDeVOtwGe8iQQN0G bCiYoJcQZuhH0LtKPQvau jflcmyqYP1IFUaUGMquR7 6Ar8ojCuiRWDa nRYViD0drtbzx7knourcF mWjQZSpWSc2OJo6GMWnqI acFlEqLCI5VkU2QNQ0xCC gkI3tuEhyyuht yC7iT5FsODXnatmwOz78y W0pGzUqDjF4DPqeAak+TU 7DTeVuZeMmXHnPLU53F5Y xQjr4IZRytDrn CE3itARcWXvpLj5ucAjps YdfPA0lITSxdozrTYPcbC 5pXSCglPLivJmdZW5uVFW zpoouu390DvAj JBM9TVZbgQEsH7TayH8pE pExGNStOBQdI3LryXJrRX hgR283BDvqMmO9OMUagvE eC5KaUPJkcGtv ZgQ7l8Z9Hu5cXL7wIJ2lK AD8LD00VL53rWObz1S8pV Q4X8GsQAZavodovwtysTQ 6HZXsVSUmdC14 pMEkTVsyYl9fn0E0d597S ESzZQZkaJ75Gw7voLmeJC SbpKZOiZ0xlonvk6xldqn gIzAwMDAwMDt0 CGa7BEMiqRtcJdWrAGT1P sU3ZNX8tHBiyY9usPrdyu oebP6fHoe+NjggWWVhcnM 0W1BlEgp3FIWq tWelNO1tbJKhXDfhZo2bk QzbvXujMH6bBFDlfhuiPF IkxE2tKXTmrPOihAfoWZ2 pUWAugbzaa722 MsZgEME3KHUlvITqM8Frq K2hMrWgROVeEZXeD1TvaC SmGBkmN896AAjqCaR0TJP dfjNhG4SaXKAm bYtgBxB3f9H6Ua2WBJrYK X80IX62eGVby1Y5gKT7Z3 KhCIKyxakuoadltZW0UHR kPGHfoO72vLTz XRctPr3un1C3p838QDXeQ TUmjA82Qw5ufRegVERmpZ QBrJ0skjsse2qlzmtyIrN uPKChSGz5ZNm0 TTHboOssUaIdYOT8YfA1D RK2qRKqnV6nqCexgwgeaN 9wOyc+K7L4K7PqBiivpXD +OH43JDSdAO49 rDDscZYtx6umwQf1DlMxZ SNuXEU4hCfyEZpau5BxKD HaG00viDKrw9J8OSVdfUq hcHNlOyBlbXB0 jT4aCSabuilcn6kviatnV gecc7wxam04cB91G03pAV dpZHRoPSIzMCUiIHZhbGl pze9huT0cHr5+ QABdfHR8mFN7aE3bDmXkA kD8JQciW358QlLqxJXdUh mqx3ftc5nhqCc8VyFbHVG gdmFsaWduPSJ0 l0QiAt34Q33gANcgHQAgM OSaTHTwIYZfxMgcsm0vsI 9wIi8+EA2lz7gjpv57xR2 8dHI+PHRkIHN0 vFlgPDaoKBGdxM6wGCnoT yO1CHWsEyYpdR11aDNjZA xsEq6faAsdkUouLI6eKBT qiygcl688GfLk u8zlJCDrbLZyQLwvZWC4C 31nd5W9MSNhPFZdCBL0fN T9oB5roJdfnhwpzYIvoYq gdmVydGljYWwt ZMrzY334MJHdxLxxSaSfa HGhJ0hhpsPZCE4pRabkyA Q+GFGuOJT7lKufZBfwYSV csH1zFJYuF9f7 ApFuPpJ9CYhiU4McrlO1W UTclZSiUNGdeMBWmS2bwk iai0wlgdgiUeMlHFAcJZq 1RNd5FIQziLhy LxAaIZY7PjQ4RJL4cBCyc S8pxJkcecubbD8fYkk+Rk lOOjwvdGQ+KVXxWHK0mHy eOYgtRZGmjX8u WDIsD0w2TzHzQxE4GXmhX 7PuhyK9RJLehYYtAZAlxF ECrF8fsatvp1vrvgvsWaE oCOUkRNu7DIn8 DLGjfOjgGiXeMHT1KrJ7N KY1jKKbsM5acWhcivcnuL 9wOyc+TVJOOjwvdGQ+PHR dXNL4uUeaZZxp AWBulR1gMIAyZ7n0DgZbT hX4RYuqA5RdnbJ7VUVtxY DkULNadQGDaV1gozmrp2r vcjogIzAwMDAw NBz9DRk4AVHarPgeXbAqV ZV4AjQ0UMW8vRQbsP4auR prwqemuY1aRgr+NFW9NRV 0HA50RF04D2Vg PjwvdGFibGU+PHRhYmxlI HdpZHRoPScxMDAlJyBzdH mjYW3nQw0pGFAbGBOmlTu geQNgIkKza2sa YXB (more content not included)... [facility] Coding Summary HTMLBase 64 IxuiuzoiQDg2fPy+PGhlY WQ+BZ9AHUJtW21qfXLpxO 8iU1MLTMvTNflbYABMOUc XBdTgplPhFV3cgOIuSSMh IC8+QK7hANPhQzipyJNhk 3L9jPZ0H71zrt6uCIudeC S9QZQjLnHhnqhxz6zqfIs 6IDcuNmluOyBt LGRknJ43OSK1wM88Bh43k KXqnAJcb4wpfJv7PdKxDZ GoGAW6lJnjMAopp2PvWVU fZ91fgNYxs6M9 WFTxaAzqrTKzKrDoyUW0r U0qFWdelxabt1nthuxaTs q3un90xQNak3C4aOF0D7R hsfM5HILlqAUc OvwvkNMQuH0yyqjsf6npz qwwVlXmZAAqISt7UDl0BE PzfBpwFaTlQI88QUA9VNM wfpJdC1AkCFMt yXvzDaK2q1K0Kr0GV9AZL yqeI4MZZPFXWEbeiML+PC 18na91W2AlLkgpLou0YKW lVZF4tAI1rP3v AFOmOIxle7C0tQC8M8Krw wGesd3wk4gzVAGpGBceE2 8iwVLyt7K6JCIimEA4QJV kbAcoNgSrzW41 Oyc+NSQobNfaj9XwLmkkl 7xek0eclJv4ZjhuFHBodg MeuInjVMF2q5VpDt9eCNO uvMZ3gUB3bQ4z EcJvXkM3OIcjU508NmQok ZFjSaoqY15aU8IywUE+PH NaEhd4RTMysCkaUQ6qB3P hZGRpbmctbGVm vOuhXL9eBVEamvuoGHWig Y6hDTRoF0u0NkYsYjB2JL icR5GrEMMeioooQo84wF8 xSiMxYwT3PPnx Y9VcwxV8YNAkoYUxKYwrM VB9S15st1G4LXCrFNXxDN Q6kWF9lR9ntEcaaojniIN mdDsgdmVydGlj PGtgVHcgX421RLInmLkhH kNvZGluZyBEYXRlOiAgMT AvMTIvMjAyMzwvdGQ+PHR kXCY2dEtzRHMv xFZkUQgyOr3ycSqbqJgsM E3dJLVyyehfLCXrtI7yGX QwsGAukZdnAY8fMMXudbw ma502DrGtYOS3 EKZyvHKmQ5KnoQ8sEhMdS TLwWAUlJ9EntUNzSHvsK9 53COnoMxC3BEZejtYrW5V sLWFsaWduOiB0 t0N5Su1Tv6HcvjivS8Ivr XInMtBzOfbhFXm2D7PpRj wvdHI+DN34CCWmQD23FDx 1MLN5mBsbBYgo WRTiS0LoxC8vUhBfIUCiZ GRkOyc+PHRhYmxlIHdpZH RoPScxMDAlJyBzdHlsZT0 hYp7lCYIxYELj jXofoZXoFbNmm6bcNLWlW XlqYS5flDfwT6ErrJH0QW Xhs6n6Fs35F69bN0NrbED +WXUbdLQ5uTH4 xD8sMzKpMgG9FJjlV430M kZcnGQtCdhhh2bsc4kgfG w0ZyM5WQUldhKwiYrmFDD 4f0MzBm63U60s IHdpZHRoPSIxNSUiIHZhb Ehnyk9qmM5sSn7+PGNvbC O4pXB4uS9pCdWnIqJ0VKh jT763NiMfvOIq Bfumc4icr6lyyXd2DyOaX VUkfmMdzYveLCJ6m8KgOb 24C4DljCgba8RnQwi0wm8 2bBQoq3G1lVV3 D1WwGEWbirtcrDAiqYauH M8nJLDrajofTHWmhP7tHE HpV0b2WvGpOhB1NQocE0I ziyZ8UUHleCGx OCPfgEKNcT5vbwzqm6pcp uljWeJcICTeGSp1ZSm3CA IncGnfKeYnNZZ2WfX5BOO 8lMBxlJ0hsGwb etckkC6tCdo+DPM4nHBku KBSSB6sAquhrJG+PHRkIH I0hWmwJJnsGIErmE9eSKP lK6t7CrIbNiC7 SMceJ7GocoB8VDOzcKWqI ZZxoLEXfV8uokfyx6qpee vnCbFkWIOgMPr9RIg3BME saWduOiBsZWZ0 EvY8AKB9pFPrgI0mqRlkk altgR8vDxx+QmlydGggRG E2FAi7Z1IwGwh4JGNemPa yHE0tsGRnRXke Mh9yaOpzrGvbUY7eNUWae hjod684CfCgb6laJDXogA HtOMlhFAL0U70vx7J5ZHK wHZPiOBS7aDA0 rT4uaVzxisaneULxcTiaw kDucHfkWAbqHRxuY177OM YipAobXbAmKFt7A3MdHxr 3JMKkoWejZJ6p lMXcKUkqMw6riPpbzFqhX X9uYDGjmtycj750CiVba6 wuMIRuzLDxSBnwYQQ4M27 zg6O0FCGtACCq OYU8uJM0zU6giLjbjikjf GVmdDsgdmVydGljYWwtYW ezG654HUMheOxmUlFlePf 1A0DwKga6FXTz qZasNG3swCUpZKhfHb4tp FgdwItsHZ7jJAJwezdyj9 91MfJwx7yuIHSnlTXlWIw iBXT1S02ql8V8 ZGIzPAAyZXT1yEM1uA1ev GlnbjogbGVmdDsgdmVydG rzGFhgBIwcH698TZAncVz nPlBhdGllbnQg QJstUNt6C4ZsGjlvyRD+P V11XJFzDN34kIIjgJUby0 afnLr1OfEkOEOfYGL2sHc jXBmoa3GeYWYs W94txEDqk6E8HSUmoGznd GRdWyDbuAL7nI1eFNlhti ugu0vdtvqhCqjsi7dbbl3 5sQ84H42bOBpo ZHRoPSIzMCUiIHZhbGlnb u8xeI9iCp0+HQNljUT9vW E0gB1mAQGiPxY7OMpuS99 9InRvcCIvPjxj m6hyy3dvsIn7OeR9GSHzs qIsuRzhNLB4h9EfFa39J0 9sIHdpZHRoPSIyMCUiIHZ iqPyokc9pnJ8z Ii8+UUVeoCB4mIM3wL5uB sLmXoX3YYfoF852LnOllC OxSapzQ52fU8AysEM+PHR mHck8TZNlmGtw CI0kqEFtBMqdHu1hVTL0B eGrOfYwUQjqM8NpSTUmzq wbrntrbMD9IYMvZUJucX0 8Hh4glWuaNLSi zRTXhH3gaalkp3wxjeroG gWaBPOfDQj1VUr2SHXdzO rlTaYvHOA4YoZ2ROU3uIO hkJ0twOxrflqv xI2yF9NxWZWsboviXz50d M9eFqCwRbH5ELjkOvl+TU 5MFfVoQlFoGIyCYJ87S3R iHyz8VCQuiNop OX2obTRjVFyuMt5arRdwb OgkBM4eNJNuogndZDSnkT 3xTYUhrSHtlGkvUQ1uZDR nzwevb101BaBa AJF0BWKjdSHpF9JvqI5tI cBrNKVsJYGcN4XriZEiQQ deI905JDzjYrT5FLRbpbI gL2YnTWBdzVwi UpN9a2N8Zm3pJY8zYB2oQ QT3ET15QR84uVHrr8I7vM E6C0UfMGUcxcwtmrgkqDN 6MLQxPZUtzT18 cSEgBTxcZa4ge6P9o718Q XDoTERiyP41Ed6ywMggCO NkwLHMlT7bjwwyr0wvbqr gIzAwMDAwMDt0 EZm4ZGIzmJqoZuFzRLE1I xL0QTN6fUOwzT0ruEdhty amoS3nPso+NjggWWVhcnM 2F1AhEei4DDUh wMfzJX3vgLEvWRgdTl1fs RlheZzaSV7uOAAkzkllFU HauT1dLSUodTNqmHcdYF4 fFWZexyula237 LvDnSRA0AMPxuIKyK4Uqa W3zLnOvRMDjVIHqI9VhoV UbLAlaB293CZwxMuI8MGB uvqJlA3TfSIRr hXcyYjQ7x4D4Ha8OWCvHN F84EH94jNYvp8P0iTW2O3 GhJUXculpmcllvnNK1DXD lYTChoW88hTZz UGsiNu8oi8C4o821TVFvY ANpyJ50Ca0wwOkjVHHvsR LYmS4rsxvpi3nhhamxImH oHHOiGHd9XWl4 VIEzoVgqEgGpNRU9LfT4R SI1xSJgiY1oqLbqvnwayU 9wOyc+U8E8D5NlHtbusBS +KK69TVJzKR22 aGKulAVcn6gaeLs2BbLrN YGwURS6kLauQRthk3MbQU KrF35xjOTrc1U2RWQdyIr hcHNlOyBlbXB0 fA4hJFvmcdhsp0rcbiwmY tzoc9npum55mU88N54kQC dpZHRoPSIzMCUiIHZhbGl xot1riF2qVq0+ LIXbmSY0pJO3rM5gSuHmQ eO2MQaoA109JtFlyINpBi wwr6pva1fjnGc0RfRsOCP gdmFsaWduPSJ0 v4GsRd92M93jMJznXYKaV KItAFXoCXCmjFjvfa4tdG 9wIi8+TM9jw6qlwo54fJ9 8dHI+PHRkIHN0 lUcpZRxrLHYvaL0sOMqdC nK1WMAlJdXbfT54lDAkCD syYp7lfZmfmFonMH0oRHR pakvvc821GoXo m1mjZEOseECcNWxpIUX4J 07jd6N4HWReYYHaCHJ7jT S1iQ5plBmiirmvjZEitFo gdmVydGljYWwt LHdeA035QTDmfVnrPrOjt INfJ9yvybBHVB2kUjzanO Q+NJLlGJH7hIrbFSsnLQH daB5aINRuK2r6 PhPjAbL3CJcjW7UxikF0O NLwuWFuGPTkpMAMmW8xdq aln4ryuclpCeQtIOMlZXy 5XJp8DQKahMgt NwQpRAI4VrK8JOK6oURvw J5bxPcftbbqgL0bPao+Rk lOOjwvdGQ+SMOcJHN7vVl kMKykOXShpE9i NDYaN8k6YoVnAxE3YYyqR 8HsbmR8FGGlcUDhGHTikO POpP6dfxovd1ebzpoyKxW oHASzZBl0HPi4 CRGtqRubPbWtIKQ4QfB1P EQ7oLLaiA3ucMfijxbryF 9wOyc+TVJOOjwvdGQ+PHR nYKS7tFncLJus CNSqjU1bFGKoU7y7CcDvU dU2YXccN3RpkgR0UGFdfH PnWROrkXPWjG3avpiov4x vcjogIzAwMDAw TXj0TEx9OZNpfUqnIqWxF CU6XzZ4PQX4mXNgiG9qpX zsgcvcvK4zVny+VXO0MVZ 3FB53HZ94L3Ja PjwvdGFibGU+PHRhYmxlI HdpZHRoPScxMDAlJyBzdH hrCA0jTb3sBNWcJXCtuDb bjFQtGcHrt5so YXB (more content not included)... [facility] Patient Handouton 06-23-2023 Patient Handout Nutrition Fat [...] oil, flaxseeds, walnuts, almonds, and seeds. ? Orange-3 fats. These are found in foods such [...] oatmeal, bulgur, barley, quinoa, or brown rice. [place] or whole wheat flour tortillas. Meats and [...] or reduced-fat mayonnaise and salad dressings. Avocado. [place], canola, sesame, or safflower oils. The items [...] fat and hydrogen (more content not included)... [facility] Coding Summaryon 06-22-2023 Coding Summary HTMLBase 64 IgrynvubXZk7uMl+PGhlY WQ+MK6RPKQbP94czUSjsP 9oA4XMCOyZKrrxDQUBMSb QTcJtlgCfQH8ynEPoWJYs IC8+OB0wTCLvXjrfsZKii 4L5jGN2L18nnf5zCLirgW O1GOCgPpJwakzfb4vliTa 6IDcuNmluOyBt VAEakU31NNJ0xB30Pu70p QPimOUhd9azrRl6NpBlZX KvWLX9fQqjFDjkd6NqNBZ sV81yhVInp9J6 IPCltGayaSIvEdIllLH2l Z3zFOljuxnbs3rwwgqyXm b9bd95iQBjo1K1vDL2Q0D xolJ8RERxmJUe AeatiPLRrJ1wcwnmk0rni wfoZfFdMNTbYSy8YFx8ZR CtmCkzSzNxXC72NIS7QIT urkPtR1CcOUYh oEiiWnY0f4H0Iz2TF3TDG iqlL5FKKHOKMPuvvLE+PC 94dg34X0NbWkfcSbq1QIB xOYI8tBX4lV6c RKPzFBqqs3L4rHP6H0Ntp hHajm8sx2joWRQjJPdzH3 4adXMuw4I1WLXcpXF7EVO mhMomFiKkvI93 Oyc+TLQsvWtlb3DjHmlqm 4tbw6ljvJl1SjfbZOEskw PppRzvLUF8f9GoUp8iRPE dgTL0cJC3iV7z InYjPnK1JHlrY210JkHtc FOuXbmhD41iK9GtmUE+PH FaXoa5MUWimTpsGA6zR3J hZGRpbmctbGVm zUxzED2aMWRdwdzeOEAkf J6oYBSuA7g8ThMeJtP5EQ rrE5NuZJIiygreVg25cW0 sZgAlOlL4JZjv V3ThwsO2UNScwSGmVAyoU QX6M59ax3Y1BFJfUYSgJQ W8bGE5mA3pdKmlwsqlkWT mdDsgdmVydGlj YTpvQDavF767QKHlwIdtI kNvZGluZyBEYXRlOiAgMT AvMTAvMjAyMzwvdGQ+PHR pSXK4aDagVCUe eIFwHXyyEf5cdOzzmCzjE W5pTKDfixefMRWzzE9zLL VvxVUyyUazME1iSXPngzm ir797PxYxHLS6 YGQyhFTdW3EdbE0rNkHzQ JSkJZDvP8MdgWMwYCsvU0 35QGfjShF7OURyzcIuG3Y sLWFsaWduOiB0 o0W9Mm0Iw8UwpmnuO6Idh SJhEgTtFkeyOFh1B1GkGw wvdHI+XX57OTZuPV66IOf 4YND1kLdsZAqu PLNqH5LdpG0aQdVyMUYhC GRkOyc+PHRhYmxlIHdpZH RoPScxMDAlJyBzdHlsZT0 zEe0eZSIxBAUr rAplrIXhBlEey0wzISFgI HsyZL1ojGftT0OynTQ5YI Imb2z0Ew82F21eD3IlsPX +LERjoZG9fXC2 rK3eBlDpJiR0WGvrQ264J pOnnJBiBcalp5cjp8qfsI l6YdW6CXHymoTlvFdbHWW 8a7CaRn60Y22k IHdpZHRoPSIxNSUiIHZhb Bwnhi2bcP9bYf6+PGNvbC D0tYX6aN9dPhMwPeQ4EDx wJ197AtPoyZMo Vcfyt7pmz1qbcCu1IcOkV LGybnQoqHzkJVB3k3RjYp 12U2ZqpUvkz2OlOze8eu7 2rKRqt2H2nTD3 V1VgIKHhbyhdtGNwcHxlX Z1fHBCdrtmrBTKejV5gEX CgT4r8GgJeAgG8GCxiA0M fluT4FARjuEYe YNMrzENLjD6uzecvp6rtw imsMnAdFVDpRWp0GHz9XD NgaLenTdFmBYW1BpG4XCN 6uSRnwY5ngOib fhooiU2kSyg+ARO5xAWzi YDOFF9vVdukiWE+PHRkIH J3eKmnTMdyAMOrgS2yFXA nU8q2ZwUzKgX1 DCqvY6IvyqC8HEHrwFWuZ CAycRCTuS5znvcvk8pvhd dxWtUdIKVbFQs5RMe7LIV saWduOiBsZWZ0 AgV8QQS4hAWvoP7jyWxro zgveG3gWwe+QmlydGggRG N2MBm1F8PnVgn1HSImyZr fCP2tbOLqSJmw Sz3tjGvppMkuHK2fUIChi reof312XqUeh7ekTWCpoL GqEAmwOJL0R19lu6N4BYF uADErTKJ6nEA5 aG3hmUcltjotyMQfkWdra kCytXjuWLfcMZdxY617ZX VozRgaZbLoCHe7F1UmBlm 1SQYxoUsfJG7h lMTsZKveRs5rnYddaXdyB G2aJVYorizdf730BzBxm6 maKXGdxNCcQUphUNG7H74 dj8R5KKQtKHTu IDG3gIL1jG2inSkxkfrff GVmdDsgdmVydGljYWwtYW heV240IODotIlpOrOymVl 4H3TvSep3DNZt oFboIU8ifXCoRNpiUu8ha FhbiNgdRK5rKAUmbwdnx7 91LrIdb2udWHGcaDGrJBj iLKZ2C35zs1C6 QAQiFNKfUON8iNQ1tK4ud GlnbjogbGVmdDsgdmVydG mqCAzlVLuuL198YCMzqDc nPlBhdGllbnQg TCmrZQj3L5AmUkdkfVM+P E85PTWqWS05oAXmeNQex0 ojgYg4JwYaWVNsODU9uHs kVJvip4SjKCRm C80ecCBgq0S0YUMlfTeik QNtDtOfoBW9lJ4zGTvppw nov5vnlgdaGgasg4gyyk3 4fI32G10zAJta ZHRoPSIzMCUiIHZhbGlnb p1ysT2zRw5+TVBekBP4dU X4jC7sLTPxLlU9LRgfU09 9InRvcCIvPjxj l1vvy8oehKf3LlH1DHAab hThbMwhVNZ3m8WoAd87F2 9sIHdpZHRoPSIyMCUiIHZ lqBqyvg3fmB0o Ii8+WUBraOD4jHG3cR7oN oTwGzM1JRptZ202LhUjsA LqOmmlD47hB2ThvCZ+PHR dMsz3GXStfVzg OC5txMGtLHtvYv5zJOG3S aZoOtEyYFpjV5ViTIPodx clvylsiSH3XAUjUOZxlY9 7Ao9fgXaaPFYw qEZImZ7aovzvn2wtjkeqP uZxCLGjLLe3CIk6QPSynP isEwJgZCX8HzK3BLJ5hXA clU7qxJpwgcui hO2uH4NlLBEebxepNf80r W2wEjVbQhZ1VObvCdo+TU 4SBbJcPxRaVMzENR82Z3O gDcy9RJCqxTye PZ2jjQAfKWolDz9lbVhdz JbsWO2iHQSzrsarOZGopZ 4lHBLrlBOvhWkyXJ5tTPF yobvml283VkRo KRZ3RAUsmLUbD8AqzL9tI wPxUFUpVDRzZ7NwkQUvEL lgV411YHldXkS3WVLxzxK zF2IiCXMizWza EiL7n8I9Os3lKP9aAO4wV UU0IR64BR50oQZtt1R9aZ G1E8SbIVIwzorfwwphwYH 6FMMiYTAvcA47 iVHbUXlrGg3dy9A8v076U IYuTAMbjG48Zw9mrVeePV SddZZUbO0yvjajh1pvuse gIzAwMDAwMDt0 OBm6LUHuePwdFsBhEGH4Z nQ1ZTN6pGCrqM1ptYjcnm okxK1gSxe+NjggWWVhcnM 0L8NxWhw4YIVw tDrvXF1bvEQkBOnsHj5af UutzKfrEY7fMVVfllfgCM AasX0rEEOzjGKldBzxBB7 qUABkxzcuw808 QwApZET7MUTjiQXaP5Dur T8yCuEmOCLxPYLoQ2YbyX WxKMcpV424XUgeCxY3TRL dzeVzU0HwCMNz wMffSoQ7u4I4Sf5JQTsOT P76IV82kJIns6A1eQH1F9 FqBAZnvbabjpyxdRW1HJG oITYeiP75zFHb CTlpOi2aj9A5e754INYwR FCmdB98Ot7alPsuIBNggY LEuG7qvzyqx2msexyiUoI cDLStECp0USx5 HOQbxOgpInQaOLE9DjI4Z UG8vMOfaZ3hrVxbudalrR 9wOyc+R5Y7C2LaXewloXM +KG57EDLgEQ93 oZJceADbx4xmiWw7BvHsN EYqTOC1hKqgRXlaj6ScDW CcO00jcAPhp9B3ODRxiIi hcHNlOyBlbXB0 iE4eQDqrpaioq1lpjpikA ricd8zyft75qE11A65wMP dpZHRoPSIzMCUiIHZhbGl rmm4hlM8xDn5+ ZGOglPR4mJW5vC5hItOxV sN8TKvtQ459GbLjzJIkCn hpe9wbx1oyiDh2HhYzWJQ gdmFsaWduPSJ0 c4EtBc53X24hDZioNPYpS LLgPIAcTEOagVyerp7xbD 9wIi8+XC8nt4gquj31rZ2 8dHI+PHRkIHN0 rZgsRVtwYFFoxU6hZIurY gI1WYFuStVbdI00gZZlCT bcBq9ceWjjvGlrFP8nNDZ cwiroh200HqNf g7eeRDPynPWwZGgnHEQ9D 30xf2Z5IETyITDkQCJ4aJ N0jL8zwWogaizwcCCqcKr gdmVydGljYWwt DHxvD752PVFnhWmyAuRsq CBiI6ewnrXHAX8vKzbcbV Q+YEVzGBU4oKnkFBodDVC lpI5uXLMhU8p1 IdRaHzN1HWbpF5MyulB7M AFfuSWwUDJceGWMsW4ozr mwu7syxhuaYcPkLNSaVPb 5CCk3JZOciRxs RmRnQTL6PgL7BDW8tPGon E3osFqhxjjurB7oKdv+Rk lOOjwvdGQ+WXSeAPL1gCi wFRvcIXTqeK0m FRXoX2s1EgZrWaG9PEtmC 4XdtlA7ZJYjgPYaVYJybJ APcC0wdwidi9bunaxiBxY aJXQiNNy1SJn1 QVAqjDfoIlVuNMS5ZbC3J PF1rKBjrU8ffKkrjldqdO 9wOyc+TVJOOjwvdGQ+PHR vKSK6wHlkXXgq BGEwaW7eMMJyZ1c9MzImT nO3IMapO6WsqvT2UHLnrD EgKQPisEUUnU1grzfch6q vcjogIzAwMDAw QZe7GXl6UJMszNzxXtKlN OS9FtX6TQP6zGBuvN0vpL riaibstO8vRnn+DWD2ASV 7HX23ZL58A7Xg PjwvdGFibGU+PHRhYmxlI HdpZHRoPScxMDAlJyBzdH voWK8pSi2gLJSjVCEtpTp mgPUcBrZdj0cu YXB (more content not included)... Normal [facility] .Auto Diff 106-21-2023 Auto [place] % 13 % High 12 [facility] Comment on above: Performed By: #### 1 [id number] ####[facility] (DEFAULT)[address] [place] [address] [id number] Baso Abs# 0.1 x10 Normal 0.0-0.2 [facility] Comment on above: Performed By: #### 1 [id number] ####[facility] (DEFAULT)[address] [place] [address] 51824 Basophils/100 WBC (Bld) 1.5 % Normal 0.2-2.0 [facility] Comment on above: Performed By: #### 1 [id number] ####[facility] (DEFAULT)[address] [place] [address] 45470 Eos Abs# 0.9 x10 High 0.0-0.4 [facility] Comment on above: Performed By: #### 1 [id number] ####[facility] (DEFAULT)[address] [place] [address] 91683 Eosinophils/100 WBC (Bld) 11.2 % High 0.9-4.0 [facility] Comment on above: Performed By: #### 1 [id number], 2255137, [id number], [id number] ####[facility] (DEFAULT)[address] [place] [address] 26547 Lymph Abs# 1.3 x10 Normal 1.3-2.9 [facility] Comment on above: Performed By: #### 1 [id number], 0863344, [id number], [id number] ####[facility] (DEFAULT)[address] [place] [address] 65218 Lymphocytes/100 WBC (Bld) 16 % Normal 14-48 [facility] Comment on above: Performed By: #### 1 [id number], 7466459, [id number], [id number] ####[facility] (DEFAULT)[address] [place] [address] 94371 Breathitt Abs# 1.0 x10 High 0.0-0.8 [facility] Comment on above: Performed By: #### 1 [id number], 4622325, [id number], [id number] ####[facility] (DEFAULT)[address] [place] [address] Neut Abs# 4.6 x10 Normal 1.5-9.2 [facility] Comment on above: Performed By: #### 1 [id number], 1138930, [id number], [id number] ####[facility] (DEFAULT)[address] [place] [address] Neutrophils/100 WBC (Bld) 58 % Normal 44-88 [facility] Comment on above: Performed By: #### 1 6282763, 9193324, [id number], [id number] ####[facility] (DEFAULT)[address] [place] [address] CBC w/ Auto Diffon Erythrocyte distribution width (RBC) [Ratio] 15.9 % High 11.5-15.0 [facility] Comment on above: Performed By: #### 1 4993667, 6979781, [id number], [id number] ####[facility] (DEFAULT)[address] [place] [address] Hematocrit (Bld) [Volume fraction] 48.2 % Normal 34.8-51.9 [facility] Comment on above: Performed By: #### 1 3081432, 1134687, [id number], [id number] ####[facility] (DEFAULT)[address] [place] [address] Hemoglobin (Bld) [Mass/Vol] 15.7 g/dL Normal 11.8-17.7 [facility] Comment on above: Performed By: #### 1 3509154, 4516478, [id number], [id number] ####[facility] (DEFAULT)[address] [place] [address] Man Diff? Auto Invalid Interpretation Code [facility] Comment on above: Performed By: #### 1 [id number], 2434119, [id number], [id number] ####[facility] (DEFAULT)[address] [place] [address] 44537 MCH (RBC) [Entitic mass] 29 pg Normal 24-34 [facility] Comment on above: Performed By: #### 1 [id number], 7188910, [id number], [id number] ####[facility] (DEFAULT)[address] [place] [address] MCHC (RBC) [Mass/Vol] 33 g/dL Normal 26-37 [facility] Comment on above: Performed By: #### 1 5403027, 4699488, [id number], [id number] ####[facility] (DEFAULT)[address] [place] [address] MCV (RBC) [Entitic vol] 89 fL Normal 81-100 [facility] Comment on above: Performed By: #### 1 3527034, 0319081, [id number], [id number] ####[facility] (DEFAULT)[address] [place] [address] Platelet 430 x10 High 138-427 [facility] Comment on above: Performed By: #### 1 [id number], 4204432, [id number], [id number] ####[facility] (DEFAULT)[address] [place] [address] Platelet mean volume (Bld) [Entitic vol] 6.2 fL Low 6.3-10.2 [facility] Comment on above: Performed By: #### 1 5800966, 9691309, [id number], [id number] ####[facility] (DEFAULT)[address] [place] [address] RBC 5.43 x10 High 3.70-5.30 [facility] Comment on above: Performed By: #### 1 4439829, 8108098, [id number], [id number] ####[facility] (DEFAULT)[address] [place] [address] WBC 7.9 x10 Normal 3.5-10.5 [facility] Comment on above: Performed By: #### 1 9253936, 3654092, [id number], [id number] ####[facility] (DEFAULT)[address] [place] [address] CMP Standardon 06-21-2023 eGFR Non AA >60 Invalid Interpretation Code [facility] Comment on above: Performed By: #### 1 7573389, 2263860, [id number], [id number] ####[facility] (DEFAULT)[address] [place] [address] eGFR AA >60 Invalid Interpretation Code [facility] Comment on above: Performed By: #### 1 4141743, 7652154, [id number], [id number] ####[facility] (DEFAULT)[address] [place] [address] Albumin [Mass/Vol] 3.6 g/dL Normal 3.5-5.0 [facility] Comment on above: Performed By: #### 1 0964312, 6616118, [id number], [id number] ####[facility] (DEFAULT)[address] [place] [address] Alk Phos 69 IU/L Normal 32-91 [facility] Comment on above: Performed By: #### 1 9878190, 5770214, [id number], [id number] ####[facility] (DEFAULT)[address] [place] [address] ALT [Catalytic activity/Vol] 14.0 U/L Low 17.0-63.0 [facility] Comment on above: Performed By: #### 1 0145908, 1431990, [id number], [id number] ####[facility] (DEFAULT)[address] [place] [address] AST [Catalytic activity/Vol] 23 U/L Normal 15-41 [facility] Comment on above: Performed By: #### 1 0230624, 5905755, [id number], [id number] ####[facility] (DEFAULT)[address] [place] [address] Bili Total 0.7 mg/dL Normal 0.3-1.2 [facility] Comment on above: Performed By: #### 1 4879559, 1217333, [id number], [id number] ####[facility] (DEFAULT)[address] [place] [address] 63053 Calcium [Mass/Vol] 8.9 mg/dL Normal 8.9-10.3 [facility] Comment on above: Performed By: #### 1 5333046, 6471589, [id number], [id number] ####[facility] (DEFAULT)[address] [place] [address] 55994 Chloride [Moles/Vol] 99 mmol/L Low 101-111 [facility] Comment on above: Performed By: #### 1 2985774, 5872567, [id number], [id number] ####[facility] (DEFAULT)[address] [place] [address] 96127 CO2 [Moles/Vol] 25 mmol/L Normal 21-32 [facility] Comment on above: Performed By: #### 1 9893355, 9932659, [id number], [id number] ####[facility] (DEFAULT)[address] [place] [address] 86463 Creatinine [Mass/Vol] 0.96 mg/dL Normal 0.90-1.30 [facility] Comment on above: Performed By: #### 1 3847195, 7426386, [id number], [id number] ####[facility] (DEFAULT)[address] [place] [address] 65509 Glucose [Mass/Vol] 105.0 mg/dL Normal 74.0-118.0 [facility] Comment on above: Performed By: #### 1 1085526, 1218089, 3089898629, [id number] ####[facility] (DEFAULT)[address] [place] [address] 98155 Potassium [Moles/Vol] 4.6 mmol/L Normal 3.6-5.1 [facility] Comment on above: Performed By: #### 1 1192683, 3139225, [id number], [id number] ####[facility] (DEFAULT)[address] [place] [address] 07697 Protein [Mass/Vol] 7.3 g/dL Normal 6.5-8.1 [facility] Comment on above: Performed By: #### 1 2112819, 5802079, 6756136987, [id number] ####[facility] (DEFAULT)[address] [place] [address] Sodium [Moles/Vol] 133.0 mmol/L Low 136.0-144.0 [facility] Comment on above: Performed By: #### 1 2599445, 2396306, 6379274857, [id number] ####[facility] (DEFAULT)[address] [place] [address] Urea nitrogen [Mass/Vol] 8 mg/dL Normal 8-26 [facility] Comment on above: Performed By: #### 1 9827817, 2638812, [id number], [id number] ####[facility] (DEFAULT)[address] [place] [address] Albumin/Globulin [Mass ratio] 0.9 {ratio} Low 1.4-2.6 [facility] Comment on above: Performed By: #### 1 9533498, 8745426, 6805581847, [id number] ####[facility] (DEFAULT)[address] [place] [address] 09288 Anion gap [Moles/Vol] 13.6 mmol/L Normal 5.0-19.0 [facility] Comment on above: Performed By: #### 1 9069779, 8521793, 7973241251, [id number] ####[facility] (DEFAULT)[address] [place] [address] Globulin (S) [Mass/Vol] 3.7 g/dL Normal 1.5-4.3 [facility] Comment on above: Performed By: #### 1 7497278, 6651842, [id number], [id number] ####[facility] (DEFAULT)[address] [place] [address] Osmolality 265 mOsm/L Invalid Interpretation Code [facility] Comment on above: Performed By: #### 1 3354932, 6142716, [id number], [id number] ####[facility] (DEFAULT)[address] [place] [address] 38353 Urea nitrogen/Creatinin e [Mass ratio] 8.3 mg/mg Normal 4.6-16.2 [facility] Comment on above: Performed By: #### 1 7483268, 0803025, 6696041131, [id number] ####[facility] (DEFAULT)[address] [place] [address] 87645 Lipid Panel Standardon 06-21 Cholesterol [Mass/Vol] 225.0 mg/dL High 66.0-200.0 [facility] Comment on above: Performed By: #### 1 1861206, 2928849, 5992122479, [id number] ####[facility] (DEFAULT)[address] [place] [address] 32078 Cholesterol in HDL [Mass/Vol] 91 mg/dL High 40-71 [facility] Comment on above: Performed By: #### 1 1544780, 3717489, 1532614653, [id number] ####[facility] (DEFAULT)[address] [place] [address] 31228 Triglyceride [Mass/Vol] 104.0 mg/dL Normal 0.0-150.0 [facility] Comment on above: Performed By: #### 1 3437982, 9441221, 8124144526, [id number] ####[facility] (DEFAULT)[address] [place] [address] 69938 Cholesterol in LDL [Mass/Vol] 113 mg/dL High 1-100 [facility] Comment on above: Performed By: #### 1 5996892, 9839781, [id number], [id number] ####[facility] (DEFAULT)[address] [place] [address] 64985 Cholesterol.total/ Cholesterol in HDL [Mass ratio] 2.4 {ratio} Normal 0.0-4.5 [facility] Comment on above: Performed By: #### 1 8520117, 4751650, [id number], [id number] ####[facility] (DEFAULT)[address] [place] [address] 58681 VLDL. 21 mg/dL Normal 5-40 [facility] Comment on above: Performed By: #### 1 4425196, 7020792, [id number], [id number] ####[facility] (DEFAULT)[address] [place] [address] Provider Orderson 06-16-2023 Provider Orders [id number] [facility] Wound Cultureon 06-16-2023 Wound Culture Light growth of Staphylococcus epidermidis Normal skin poonam isolated No pathogens isolated No JUANCHO performed on this organism No organisms seen. [facility] Comment on above: Performed By: #### 6 [id number] ####[facility] (DEFAULT)[address] [place] [address] 74375 Coding Summaryon 05-31-2023 Coding Summary HTMLBase 64 EfbszpylFRz1jKo+PGhlY WQ+GT0QTZKcG19vpTBfjI 6eO2OKPYjMDcarYCCVGWq HMmMicxGrLU6sbYEaODVx IC8+ZF1qMKPdNxzqyBHpr 3Y5fME8Y82htc6rFBqzeX K4SJLnMpKqnoyeh1kumUr 6IDcuNmluOyBt GLEvqB90JHU6cI81Oc18y RNgxGHyy5jaqJf4CtFeLH YoGEY0vDjgLUdgn5EnTEX oT16laCIib0Z0 UTGksWxagMLtQgLlsVM3f Q0sDXglodogn7ugsxtrTi w6ce63iFWcl4Q1oSD1M7W ehzD8IFYylYQj HkpbjEDZiJ4vicbfk4upl gudXpDhQYLuZEe9EJq7IJ PhnZtcPyArYV71TGS0DXR lmgNnW7McKUOp yJpcHyS8p3O5Ov5EV3MMW kyeA5DJXZKQEEbobCY+PC 03om36Q3BtKsjzCwj6ZCD iZPP0eMH6wB4u QQZkMHfst6F3dEB5T2Kus bWesr5ww1vbZRXcIWypQ3 7ekOAsu7D0UDScxAY3RYV hvXoaFjZhcS04 Oyc+WGLjyXwbf8XnNuaal 5los7grjKw0ZlfrZJPhih YffRjhIJW1z7OiXf3qCHS kxPS6wBS5rH5e WuYySxB9EHwtT003AdAmc CSuRgxdR50hH9UsxXO+PH ExEaa1QXPhnSezRQ4tF7G hZGRpbmctbGVm iGdxEF6uGXOsjemtJTKlw T5pGYQpJ0f3TtJkMhH9FY kdP0RwMQGodmgoQz06lA1 mFlGnHeA3JIes W8ClvbD3ETBdlPCqIEvtV NR8P78au7U6SQSwALMcST J3aPB7gU1lmSpklpcnjZV mdDsgdmVydGlj FEwxKSwsI960CULocQrjO kNvZGluZyBEYXRlOiAgMD kvMTgvMjAyMzwvdGQ+PHR zXXC4nFdgCZVd yAHsQOczLv0vrGcvgNwkX A0eNZTxekbgVUPbtO3hVJ InbBBmjRypUT6pMMYlumv tx877YhWxRKC3 SAGjeIUaY9CdaG3lYsNkQ SYeNPXgW7CldAJzZQxlH4 94ALmoIrX2JNNifyRaY5V sLWFsaWduOiB0 c9V1Bc4Ct8CznzmfP9Lai OIuAzHuXiyrRTj7J1SzVd wvdHI+YW47TJWtHC65VKj 2DMS4kZtjBNir ECTgO3TxvY7bRtBaKMYaB GRkOyc+PHRhYmxlIHdpZH RoPScxMDAlJyBzdHlsZT0 uMy8kFBRkFIBu oImkjQCaDtAtg8puNKXqL AjgPS7jbUztC5NxjTJ5CY Tfk3d3Vu54D63zU7PodZZ +YPPikHR7lYX5 bZ2oCgIaWnD1JJwuC675X gOxiLNeElraq5zuy3mboC v3HgN0IJXbogZyjUkkJJH 9n8WgUb23Q81y IHdpZHRoPSIxNSUiIHZhb Mmjsj5slG6jCi5+PGNvbC I3gPF1qZ7cNyLfKfA3BVj vW908RhIksRXo Zcitq9rwk2oowJa3CuNdR YBvmtEtiJlnZPN0f6SyNf 55B5PxoWygb5MmFvj1le4 8gZQsx9C5uVG8 X0UhBGUzpxsefWPnfVddG E8bWJJyrxcbTFXwbD1dNW OkI5a3XjFmReS3TFjnH2Q nbuR4QAGnbSAb RJBqjCAYnJ3jnkdgj1qxy hhcKnRsTIEgOMt6YKx0KR OxyIsnZeAiGPI3QaS5CJB 9oDVebC5nzIyj mrcohK7oCnx+WIH2lIAkz VHAER8dSsckdZP+PHRkIH M8uLsiBGenEWDusM4dVQH mW8n1StHiVcS4 XUfiN1NgevG0SKMnnRTkK IPwnBKQoZ5lbfagh9msmv dhXhDeQBLiLNy2SDs5QFJ saWduOiBsZWZ0 DlN4LWS3jOJeeS0ckKkbr tlejF7gEwg+QmlydGggRG J2PQs2V3PoYmj0BIFfgTz hMN6dnGYqPTot Co4rtPqtzIoqUS9hFGVpx mxtg063JrQkq1gyPOMemK ZbQXmcMXQ4I37kl0T3LJV iESEcAPQ2cFB4 qO7psUvmhgcwiNBnsBuji vGcvEwmEXpkUNyqT453UG XjcDzvFbSyISh0A3CmIoo 4PNDkjPyhNZ4v lLGwHVxyOq8dmBdqzXwuU I5lMIElwqvde966BtUne4 yyZTHlkVJvGCmvPBC6L63 rk4Z9WVJlTQFc SVR4rDQ6cC6csRpsyneor GVmdDsgdmVydGljYWwtYW oxH077XECzaLriTsWhcJx 9A4KkZjm9WOAv fXrcLW7ecJPaQLtiZw7vl FigcHpdBH5eBDFjsukkw3 92OpXav2cySNNnlXPeLTt zRPN2S15us8T8 TMSaGMMxBOG8iWN3oJ4yp GlnbjogbGVmdDsgdmVydG fpREtjRBkwL482FRNotNf nPlBhdGllbnQg LZajCNo1S0MsKydlhTZ+P I15ALIwSI69bXYzmKLcc6 wkwQd0QyShEPRpAJB4xNf aRGgte2RqSXQd X05nvDTxn1X7IEMgjKauk VRdKxJuyKF2hQ4zHYsjxd ddv3rmesiyBzmgr9cvup8 3uE73U18mPXhu ZHRoPSIzMCUiIHZhbGlnb g1kuC9eVb6+HSSojUL9kP N5vI6eWKRwEqR2EAkgH37 9InRvcCIvPjxj m4ipz2lsiDl6NoW4UGOrj rHlhWyfKNW6t2ByYj27O9 9sIHdpZHRoPSIyMCUiIHZ ixHsdpn7ytR2d Ii8+JCWxaSJ4hES5gG3vQ wHlJkQ7BRkjR697YrLoaB GuXfkrN89xO4IuiES+PHR xMcb6SAHmoXnb EY2tuXKwIByhCq0sCZZ3E sWnXyZnMRskV5BpBPDeey lhsyvmpWJ2XLZcWPNnrK1 0Ha0nzCilZJEp gANWrJ8mqvfdt0uvbeoqT gPvFRRpIJm2UDb9LLYclQ doYvPiSWI8AnQ6PPL8sKA vfD7sfDhbyeuu vB0gX0QsHJGitwnaNj08j K3hTuZkAgH2UThaZhq+TU 5LOtWnQoZjJYuIKW27U5K kZtk8UZAmvRtp YZ3egOJdMVxkOd2tdQgoq MgeCC4vKMAtevcrYHWisN 7qFWJnlKAvgTbaWT0mGIX ikpzen492VeFa NIZ3ZLCgsXHmE2HsvG6eQ zFiNTJqQXZzI0NmpJQoBL trH789HKftClP0VEJdtsQ bR1XmDQYakKqc OgU9b4T8Ho8iXF7aYT8eS IL1YP74IE60mSLwl2F5zP A1E4YlWFQwnaremmlfsUE 4ZWGyBDUxuR62 cCCvCIytNq6td8Q3i820O BNbMJGiyE66Ev1unEvnID WftLXYwE1dusosu4fcwex gIzAwMDAwMDt0 HSa5ZCLgtHqjEuUmWSK8K nG0WMU3uUPooM8xfCcwzo ncjO9aYmv+NjggWWVhcnM 3D1UnIxe7ACTl jAvuNQ3ccCFiITadUn5yx PxmgOxlOE9sFHCdiwsbHD ObxP9rOLCygJHgjTasRG9 xXKBuhmdxj940 NsEdBKC7DRYesRFaM0Puc Q0bBfNmYJUuGBXnT4XmmO KgAHcnD756BHqgTzK5PSB tifRkD5SfYOWj oUocAhX4e5Q8Yu8BGJcKO M12CM55tIJez8U5wSE4N3 SzXREewyodjryueIR5WMW iHZEkgL36kSXu MZwkSl8ai9Z4d297DOQxL ANcwN35It6tzVmaPNUpiB CEgT8hrziqg8tiuzsfHhO bUUIpQSx5QIx0 SWUaeIjlCnMeYCG8IjV6E QM3aBZawH2ujRilxmqbeV 9wOyc+A4B4A5RqObokjJF +EC20LVOjAY18 uSKqyDOqn8qupZt6IuTdX UHgSWI6mGviKSbgf5KaJE OyN06hjICec9T0NSSdePm hcHNlOyBlbXB0 fL3bYPcyhjkzf6rerrknX svsa7dsqn13xZ45G03tFR dpZHRoPSIzMCUiIHZhbGl iqo3fhY2kDo9+ KEBnaFO1nZN5jV7yDhAbK gK9BMlaP579KfTloIDvVo ihv1sup0cmfZz8YxZoOHA gdmFsaWduPSJ0 b6GjOu70T54mRSmyHZApS IEcALYqFUBunLnmss9lgY 9wIi8+HP4so2kujp87dU5 8dHI+PHRkIHN0 oFfkVJhcEBYndS1dKGiaM cW3KXCcWnUhwF02dOTrZY zqQc9faFtubDdlDN0nXWW jugcyq696YbDb l2vfJGCezLGbAFvwTVI4O 91gn7M1HWAoAJLlQXR8hI K0zC2blZzwaxgwdNPikEv gdmVydGljYWwt MKeeB568ZYVrnUodWvVzu EQnE0quewIHWT0dAquqwY Q+WQLqQCW1sGkoAQuhPAZ reA5cOHHtR2q8 CiRqLzS0CQijR4GukzX1E XIvlDMdLCTugDXRtH4yzg zgm8vmlhuxEjRzRJGjNWu 9AHc0ESQqkVol KuMcZLE5UyS0PLM8uIUpw G4czArpdbxjlO0qFdn+Rk lOOjwvdGQ+IDTsVPT4tBu aTAnmXNHapS4n UAQhW1y7HgPyGvG9YXmfZ 4XaefZ3GGMcnAPoMPUutP XJdG3gukwwo3zerukhMkZ zAEHrLQy0NWv4 YQHxvXweZqOhGST7ZlU1W QZ9tRElrB0twSdzsmhkzS 9wOyc+TVJOOjwvdGQ+PHR tGDL2lBorWZxi LTAlcY8jBACcT3x9ZmJlT kV1QZlaK0YtgtQ2NUXyfC FyTXXmjMNDeY6dzoakh6m vcjogIzAwMDAw WPa8EKb9MGXgmZcxAzHgS ZH2NvQ2IXQ2eVWgxS5lvL ndrnrgxE2wUtp+JNG0PSR 7GY81NF12Y3Cd PjwvdGFibGU+PHRhYmxlI HdpZHRoPScxMDAlJyBzdH nhLE9qLw7rIQAhCEDwuKx ujYOqQiRoj0oo YXB (more content not included)... Normal [facility] US LE Venous Duplex Righton 05-26-2023 [...] Staples MD 05/26/23 11:14 a Technologist: DIANA [facility] Provider Orderson 05-19-2023 Provider Orders [id number]#1. [id number] [facility] Encounters Encounter Date Encounter Type Care Provider Facility Start: 08-03-2023 End: 08-04-2023 ambulatory SHILOH Park Facility:[facility] Start: 07-26-2023 End: 07-27-2023 ambulatory Brett R [...] 06-23-2023 End: 06-24-2023 ambulatory Charisse A Karen DOPE MA[employer]TE[employer] WORKER[employer]C Facility: [facility] Start: 06-23-2023 End: 06-24-2023 ambulatory Alberto Fall Facility:[facility] Start: 06-21-2023 End: 06-22-2023 ambulatory Brett R Dolce Facility:[facility] Start: 06-21-2023 End: 06-22-2023 ambulatory Charisse A Karen DOPE MAINTENANCE WORKER-C Facility:[facility] Start: 06-16-2023 End: 06-17-2023 ambulatory Charisse A Karen DOPE MAINTENANCE WORKER-C Facility:[facility] Start: 06-16-2023 End: 06-17-2023 ambulatory Charisse A Karen DOPE MAINTENANCE WORKER-C Facility: [facility] Start: 05-26-2023 End: 05-27-2023 ambulatory TERRANCE JONES Facility:[facility] Payers Date Payer Category Payer Medicare [id number] 1955 [facility] [id number] 2.16.8 [id number]. 1955 Unknown [id number] 2.16.8 40.1.599140.3.579.2. 1955 Unknown [id number] 2.16.8 40.1.975537.3.579.2. 1955 Unknown [id number] 2.16.8 40.1.534680.3.579.2. 1955 Unknown [id number] 2.16.8 40.1.218850.3.579.2. 1955 Unknown [id number] 2.16.8 40.1.691916.3.579.2. 1955 Unknown [id number] 2.16.8 40.1.150261.3.579.2. 1955 Unknown [id number] 2.16.8 40.1.700877.3.579.2. 1955 Unknown [id number] 2.16.8 40.1.769471.3.579.2. 1955 Unknown [id number] 2.16.8 40.1.542368.3.579.2. 1955 Unknown [id number] 2.16.8 40.1.962665.3.579.2. 1955 Unknown [id number] 2.16.8 40.1.622387.3.579.2. 1955 Unknown [id number] 2.16.8 40.1.073978.3.579.2. 1955 Unknown [id number] 2.16.8 40.1.531454.3.579.2. 1955 Unknown [id number] 2.16.8 40.1.979692.3.579.2. 1955 Unknown [id number] 2.16.8 40.1.417958.3.579. Medication management note 09-14-2023 Note Date & Type Note Facility 09-14-2023 Note Entered by Ashley Echeverria on September 14, 2023 08:04:05 EST From: Rosalinda Echeverria To: [facility] #[id number] Sent: 09/14/2023 08:04:05 EST Subject: Medication Management Not Approved: Refill not appropriate, proposed to provider amLODIPine (AMLODIPINE BESYLATE 5 MG TAB) take 1 tablet by mouth once daily Qty: 30 tab(s) Days Supply: 30 Refills: 0 Substitutions Allowed Route To Pharmacy - [facility] #[id number] Signed by Rosalinda Ehceverria From: [facility] #[id number] To: Karen PARRA, Charisse Tidwell CNP Sent: September 13, 2023 8:55:00 AM [employer] Subject: Medication Management Due: September 14, 2023 12:30:25 AM [employer] On Hold Pending Signature Drug: amLODIPine (amLODIPine 5 mg oral tablet), 1 tab(s) PO Daily Quantity: 30 tab(s) Days Supply: 30 Refills: 1 Substitutions Allowed Notes from Pharmacy: Dispensed Drug: amLODIPine (amLODIPine 5 mg oral tablet), take 1 tablet by mouth once daily Quantity: 30 tab(s) Days Supply: 30 Refills: 0 Substitutions Allowed Notes from Pharmacy: [facility] Summary Purpose Family History No Family History Records Found Advance Directives No Advanced Directives Records Found Additional Source Comments (unrecognized sect ion and content) No Status Records Found INFORMATION SOURCE (unrecogn ized section and content) DATE CREATED AUTHOR 09/14/2023 [facility] FOR RECORDS PERTAINING TO PATIENTS WHO ARE [...] BE BASED ON THE PRIMARY CLINICAL RECORDS. [facility]. provides no warranty or guarantee of the accuracy or completeness of information in this document.
== END 2023-09-29 08:59 | disposition home or self-care (01) ==
LOC: VC 08:58
PROVIDERS: PCP Radiology Diagnostic Radiology; Visit Provider Radiology Diagnostic Radiology
DX: I80.01 Phlebitis and thrombophlebitis of superficial vessels of right lower extremity (principal)
CPT/HCPCS: 93971; G0463

== ENCOUNTER 2023-10-19 08:59 | Outpatient (OUT) | payer MEDICARE, SELFPAY ==
--- NOTE | 2023-10-19 09:00 | VEIN_ITS ---
[address] [address] Patient Name: GLENROY MOORE MRN: [id number] date: 1955 Sex: M Assigned Patient Location: Current Patient Location: Accession/Order Number: [id number] Exam Date: 10/19/2023 09:01 Report Date: 10/19/2023 11:51 At the request of: MARYANN HENLEY Procedure: VC INJ Foam Sclerosant WUS RAW STOCK DRIER TENDER PROCEDURE: VC INJ Foam Sclerosant WUS RAW STOCK DRIER TENDER HISTORY: I83.813 Bilateral painful varicose veins Pre-operative Diagnosis: CEAP class C5 venous insufficiency with pain, tenderness, edema and incompetent branch saphenous vein(s), chronic venous insufficiency left leg secondary to venous incompetence Post-operative Diagnosis: CEAP class C5 venous insufficiency with pain, tenderness, edema and incompetent branch saphenous vein(s), chronic venous insufficiency left leg secondary to venous incompetence Procedure Performed: 1. Ultrasound-guided microfoam chemical ablation with Varithenaregistered 2. Intraoperative ultrasound guidance Physician: Adrian Rothman M.D. Anesthesia: None Indications for Procedure: 68 year old male. Symptoms including [lower extremity pain, swelling, dilated bulging veins, skin changes for many years despite conservative medical therapy including medical compression stockings, exercise and analgesics. Prior procedures include [endovenous laser ablation. 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 Duplex scan showed reflux and enlarged diameters up to 4 mm. The patient underwent informed consent including management options where the complications of infection, bleeding, pain, and skin injury were discussed. Particular attention was spent discussing thrombus extension and deep vein thrombosis as well as the possibility of pulmonary embolus and treatment with oral or injectable blood thinners. Procedure: The patient walked to the procedure room. All applicable staff donned appropriate apparel. A procedure timeout was performed to confirm correct patient, correct extremity, correct procedure, and correct room set-up including presence of all applicable supplies, devices, and drugs. A duplex ultrasound, performed by myself confirmed the location and incompetence of branch saphenous varicosities and their course was marked on the skin together with the dilated tributaries. The extent of treatment of the vein and the associated varicosities was determined through ultrasound mapping. The skin was prepped and then punctured with a butterfly needle and advanced under ultrasound guidance. The Varithenaregistered canister was activated and the canister was primed and purged as required in the instructions for use. Varithenaregistered was drawn into a sterile syringe. Varithenaregistered was slowly administered at 0.5-1.0 cc/second with close observation by ultrasound of its course in the vessels. Total volume utilized was: 5 mL internal a 4 mm incompetent varicosity within the mid lateral lower leg. Following administration of Varithenaregistered the leg was elevated and the patient was asked to repeatedly dorsiflex the ankle to limit flow of Varithenaregistered into perforating veins. Once appropriate spasm had been confirmed in the treated veins, the vascular catheter was removed from the leg and light pressure was applied over the puncture site for hemostasis. The common femoral and deep superficial veins were then evaluated for flow and compressibility prior to dressing placement. The lower extremity was kept elevated at 45 degrees above the horizontal and cording material was applied over the saphenous segments and tributaries to allow for eccentric compression over the target vessels including the targeted saphenous vein(s). A multilayer dressing was applied consisting of foam pads, coban and thigh-high 20-30 mm Hg compression elastic support hose were placed on the patient. The leg was lowered only after compression had been applied and the patient was immediately ambulatory. The patient ambulated 10 minutes under supervision and was without apparent concerns at time of release. Post-care instructions include advising patient to keep post-treatment bandages in place and dry for 48 hours, avoid extended periods of inactivity, avoid heavy exercise for one week, wear compression stockings on the treated leg continuously for two weeks, to walk daily for 10 minutes over the next month. The patient was instructed to take an anti-inflammatory medicine as needed and to follow up for color duplex scan of the Saphenous veins, the treated branch saphenous varicosities, the adjacent deep veins, and additional treatment within 7 days. PERSONNEL: Heriberto George RN Electronically authenticated by: ADRIAN ROTHMAN Date: 10/19/2023 11:51
--- OUTSIDE RECORDS SUMMARY | 2023-10-19 09:02 | XMS_ITS | CCD ---
Author Name Unknown Address [address] [place] [address] Organization [facility] Care Team Providers Care Gore Stitcher Name Role Phone Karen HAND UPPER [employer] BOTTOM LACER-C, Charisse A Primary Care Unavailable Dolce, Brett R Admitting Unavailable Dolce, Brett R Attending Unavailable Karen [employer] LACER-C, Charisse A Primary Care Unavailable Dolce, Brett R Admitting Unavailable Dolce, Brett R Attending Unavailable Karen [employer] LACER-C, Charisse A Primary Care Unavailable Karen [employer]OTT[employer] LACER-C, Charisse A Attending Unavailable Karen [employer] BOTT[employer] LACER-C, Charisse A Primary Care Unavailable Dolce, Brett R Admitting Unavailable Dolce, Brett R Attending Unavailable Karen [employer] BOTT[employer] LACER-C, Hcarisse A Primary Care Unavailable Juan David, Alberto Admitting Unavailable Alberto Fall Attending Unavailable Karen [employer]ACER-C, Charisse A Primary Care Unavailable Dolce, Brett R Admitting Unavailable Dolce, Brett R Attending Unavailable Karen [employer]OTT[employer] LACER-C, Charisse A Primary Care Unavailable Juan David, Alberto Attending Unavailable Fall, Alberto Admitting Unavailable Karen [employer]OTT[employer] LACER-C, Charisse A Primary Care Unavailable Dolce, Brett R Admitting Unavailable Dolce, Brett R Attending Unavailable Karen [employer]OTT[employer] LACER-C, Charisse A Primary Care Unavailable Karen [employer]OTT[employer] LACER-C, Charisse A Attending Unavailable Karen [employer] LACER-C, Charisse A Primary Care Unavailable Dolce, Brett R Attending Unavailable Dolce, Brett R Admitting Unavailable Karen [employer]OTT[employer] LACER-C, Charisse A Primary Care Unavailable Juan David Alberto Attending Unavailable Fall, Alberto Admitting Unavailable Karen [employer] LACER-C, Charisse A Primary Care Unavailable SHILOH Park Attending Unavailable SHILOH Park Admitting Unavailable Karen [employer] LACER-C, Charisse A Primary Care Unavailable Karen [employer] LACER-C, Charisse A Attending Unavailable Karen [employer] BOTT[employer] LACER-C, Charisse A Admitting Unavailable Karen [employer] BOTT[employer] LACER-C, Charisse A Primary Care Unavailable Karen [employer] LACER-C, Charisse A Admitting Unavailable Karen [employer]OTT[employer] LACER-C, Charisse A Attending Unavailable Karen [employer] LACER-C, Charisse A Primary Care Unavailable Alberto Fall Attending Unavailable Alberto Fall Admitting Unavailable Karen [employer] BOTT[employer] LACER-C, Charisse A Primary Care Unavailable TERRANCE JONES Attending Unavailable TERRANCE JONES Admitting Unavailable Results Test Name Value Interpretation Reference Range Facility Consent Formson 09-29-2023 Consent Forms [id number][facility]. [facility]-04-2023 Coding Summary HTMLBase 64 DxoutttxXZi5jDd+PGhlY WQ+MF4BWOZvM51ksHOgtQ 3mS5QDMGwXSklmLLYQCMc WHvPmskKxMZ4xcODkUFAe IC8+IV5tEEInZltvlBNbc 2Y3tIV2F94vek7nZOoebU R6ZBQuAkBzldevj8xqqYq 6IDcuNmluOyBt IPJyjL22AWE1pP12Bt18x HQbaFZyb3sbbZh0MyPxZU YwHGD3xBhwHUeaw9UhULJ iZ65hxXGbh3O3 AFNyzWojaZSzXqXvzAO3y G0pGOpjxdmzm4hslkofLm h1uo05jGRod6E5eMP3F2W yepS5QIAzjBZq WnkwfOEVjH6hnwmuu7uwm kgtZlUyXNZqQYy9RAe6AY XznFtjVrCfCW17AHA8JHW hlpSwL8EcGPBa fRwwErK2x1K2Ak5AO3XLX ecqG6RPLERSWWiatUE+PC 15oe96J6ImSgogPco1EHV sINA3uYJ5wM4o UMGbHOupx3L3wXI1R2Vdx rNros2ql9ixZMSiLHveT9 7tgFKvy6P1WHCwwKF5RGF dqUwlMtHdoS47 Oyc+JPCoyHdcf3PrBqndh 6bce1qpnRj3XauzXWXmqk MnuMxgGBF4x8EwNp6cMBE lnYV0iMV5aI8g WiGcUpA8YEetE689UkLoy NPtAakdG56nV7DgiRR+PH BtWot6HWBfxUwuKO4cY7H hZGRpbmctbGVm kBgsHF7hORPrkhalGIQhi D1kKZFyE3g6JxOsRvD9PS psH9UaULKrqslpVt95lM9 fPbUnCiW4QOhp H2JpwxS1FYTehVNrTVvgJ CC5I75gd8S4KYVyNRPaDE V7nXV8vA7zzSisaerbiCU mdDsgdmVydGlj MObwOSfeT445EJApbYzfZ kNvZGluZyBEYXRlOiAgMT EvMjIvMjAyMzwvdGQ+PHR jSKS8eVzjDLKf aPGhKKyoQd5vcMmbkJjoJ C3nKKMnmuzwJYUysH6zRS CrbMTeuAlhNL7pBEZfthg cg734XcEaZVM7 LQWkzOFbG9XvbH9aJdQbX QPuMRFfJ8RttZCwUFvpR3 75TRdfGvY4GJUpywRaR7R sLWFsaWduOiB0 e8J7Aw7Nl9SdeipfC1Lat UPcHoSzJxzeNXf0X8UuWc wvdHI+AN63TBOkHH12DBh 8NBZ3vRfnRBzn ROXhN8DyqE2gCfGsLVFyV GRkOyc+PHRhYmxlIHdpZH RoPScxMDAlJyBzdHlsZT0 gDj9vISSwSIRo nGrbtAFmUuMgp8eaPPZpR GgbXM1vsTfaH0LgmXY0LL Bfr5h5Pl33I93uA6XlbAY +QMZroUB6yHO3 uS9zVjMnSgM9IXwfI699I oNnhQMiEkdfd6cfu0auoQ x4TyG2LVGdlgVjsInkGBY 1l3WlHi15Z25n IHdpZHRoPSIxNSUiIHZhb Zxfdx0myY6gIk5+PGNvbC V5pFN5qZ1uMsUkTjM9UGz aA001CxVlyKIx Qatrj2dzq1rfzVi2BrNhL OMzorCfkAuvUYQ0m2YmYb 10M4QpuJzug2WuQaa1kb5 9lGExb7P5uXI9 P1MiQEBrvpxaaVVghSohN B0zSQAmgwqiELJmuF3lGD VkI1j4DmCgLxA8TGgrK3C ntrH4MRBrqHWz LKTwoBUJsQ4imyrbr3jsn ipxMuGxPTZdBFb6RFy2WY MroCgaHjJtQFR2OeU3SHC 2bSRkxW5iqOex wnghvC4eZml+ILI3dGKed JAOMJ9aRkgbtKU+PHRkIH Q1jInjRZenUYEbrW9hBBO bY0j5DlAmViI9 SKdqD6UtohX8XKWpkOSeM YUpbQEFlB7iqosct9xgbo ejPgYeFVRdYZj9CXp8VWH saWduOiBsZWZ0 EeL4NBQ2vHFxeS1soLwqx pznzS4eVry+QmlydGggRG F9JCa1W6ZuBmj9UKVqkJx iRJ6fcGXuHPnf Ap7wgEyhsOlvKS0rNSUuo oeyx107BjVeh9sdKQUswT ThWQztIWE8H20yt6O8NHC lZAUmFPE4aHH0 eT3onVwuplxbhHQjqUsnb yWlnRrhFQriRAgrI467XY BkkKmmQeAiEBd9O7AsQcu 5KKMlgLmuJT4e bWXwWUpuSx8ufOndqAfdM L8yFLVafawqk137PgKgs7 hwSXTctOVcLJdoNHH9S09 xl2Y6UPFrEOYx TXP3nGH8wY3mlNvhufaer GVmdDsgdmVydGljYWwtYW ukO922XDWoiVjlCfPuqHp 9R1PfSuj0VDAj lUrdOJ4uzGPcPFmxFj5pt OcckVjlDO3pPHCmhiwvn9 47LkZfq2rpOJVbcSPwAHb zTGU1F59lr9R8 VYWzUAShHVU8oOZ2hL7xl GlnbjogbGVmdDsgdmVydG ewEFqeVPylS698IAQbxSg nPlBhdGllbnQg QIkoQKh4D2XgLiqoyAU+P C38IWCdDB40cTDilRCoj8 ptpJa7KwCeYDVkNNX9aIk gSMvcn8FfHRHr T42okNGij4T3IDGvnXght JNsYfPprXA2oV0yRCpccn aea5kuslpcMqmyh5pakg8 6kH23O55dOWtv ZHRoPSIzMCUiIHZhbGlnb f5fnC3kYc0+DAQtxEZ6mZ J9hR2rLABoYgY2REwaT63 9InRvcCIvPjxj z6xzr8wqzNf5NvV7DHVnt jXsiWjeIAG2x8EyMt89W4 9sIHdpZHRoPSIyMCUiIHZ zuUrqmh4qcZ6h Ii8+ELXalYK8xVH8nW0dR mCgZeJ7NSyeG595WcSibU XmKjjgM42wJ9PhhQN+PHR sIgq3HKOmyFnj YK5uzEIyCLpxGy3aPYR6M bAgVxDqKLraQ6IjGJFqpp retxcntPK3JQPhORWwvO0 7Qo5onVvmNVFo vUZMeN7dplvnq3cguvhwX uLbLNUcXRf1IJg4OHByvO xbSkAvCTU1JoJ5YPI6bZU efW9sgQsvqkkw lE9xD9TyGRSmamnoYp77z U2gYvMpLsX2FZctDde+TU 0LQvPeUdPjBInAOY04I2D uZax8JYWomZnh IF0tuZQyLHjoPn2ohVjif FqiAV8mMUMkznfjVNQphY 5nZWYbkEXlwPmtDI7pPKR fpejfx214SlMk QEA9LBIlgDTkZ9GyxO4yK uOfTCYbOHOzV0RknAGjOB vaZ405MQruZqM1SVGyzaS fF4LwWRQtsTin SkF6a4P3Aj9wKA8oUA0eL AW9BO37KA91mJRzt1C1qV T6A8LsSQJytaeajtbakIN 4JAMjHSHzfH49 bISrNAgnYr5wc7X6o950J RSuGOZojX90Eo6dvUhjBZ RgtZQUwH3swjajg6qntam gIzAwMDAwMDt0 YSd7GSTkmTjlBqEsPEB5R mV4ZXF5bQHkaP2wjYdkup ifyA9vKak+NjggWWVhcnM 4H1MdIip4BVOp yTvpMG3mcFRoHMzsGk9rb WvqzMynWH3cRCPxsbweLM GksD2mHJEglXCnpHobUU3 oBSAuzmfoy875 CnSzGAM2QJUphLIvT6Gzs Y0gOsKuZLPtMWHgE6MjyV VwVTnoS998OXeiWnX8NHH hxrDtN1OyPMDf dLezFxA4m9U1Tx0TYDvIA A51ZV37sVIez3K9zLR7W7 IoNOTmuumldokvuKO1GFT oKEVrgL42wVCb VZrmXm2tz6P5l246DMQkH JRljF52Cd7hcTtiBHJunB NZwZ6zddpes5qmptynSjS vGWCpZOo2HUa0 MFIldRniFnNiQSR0MfQ7E OF5hULjtB1guShbexmfhH 9wOyc+L1N5T0UiGkazjHY +SQ89OXCcGY13 cEFdjBDtt2lqdUh8DsNrR LSkOXI9bNltWUmkf6NtEO UpN76dtSCwe0U3YJHnrOg hcHNlOyBlbXB0 sO0eJAupnwnum3afmqtgW qjzt3tdjg18rF02V34kHL dpZHRoPSIzMCUiIHZhbGl kfp5ilT9oOi4+ HPZnjVH3tTB1mC4eKoTcA iB5OUpvP113LuUudSReMf fmc6xkn9ckdJz9XiMoRUO gdmFsaWduPSJ0 k8KxBf62Q90tYScbADPfK VPqHFNdHLRbsYbomi0apC 9wIi8+SK3dg6djpo36nQ3 8dHI+PHRkIHN0 jKsoFEslKDQqnJ9vLZvjY eT2AGHnIhDteS76gHPwQS ioOx4syBqauMtzJT1mOIN jimgim490DiVe g7moFYNlcPXqDDbdGNL6Q 46kw9Q3FUCuHGPsMOG1hY R8wD4ruBxlgyuycLTdyRi gdmVydGljYWwt DKgrJ481QLYizWmmFnDsy XSlA4qawgQMNQ0eFbwzeT Q+PWIiCWA5hGamDVkvWZD umK1hTHBkE4g1 HgVtSaS6AUabR2ZlxjJ8Q XHgoNEdPZLznDDDqZ7idg ozz4yjnpntWaIpOYItKLz 4ZAw4JSTeiJfm GiUoRAX3LgX1PMZ2lECnr A5tpDtcfjrizM6qPvr+Rk lOOjwvdGQ+YPDlYAE8tLw rDCiuEIQrvL8t JHUrS3x0JgXsDuP1DDerK 5MwrhH1BWVzyHRqQZKlwB UYvL3zqgzzq7sipsigVpE mARLaZWx6GZc8 JDGxzXywIcSfTYO2MsB5M IW0mHWjkY0ctNjwiadfpT 9wOyc+TVJOOjwvdGQ+PHR xZRF8zXduXAvv TXVmpT1hHAFpJ8g6MiIpN iX2HIqtW8FnicZ5LPQidO KcNPAtdCCGiI5xstoql3b vcjogIzAwMDAw NAk2KCp4RTSbqDqkRgEaU IF6AyH7SBS2lXIrtW6czW ecmtvdeH2zUmr+HGN0GMP 7KS36ZD45W0Hd PjwvdGFibGU+PHRhYmxlI HdpZHRoPScxMDAlJyBzdH zdUJ1sMk8mONIpKRLnwNa gwQWvMzJys6ki YXB (more content not included)... [facility] Wound Care Noteon 08-02-2023 Wound Care Note [id number]#1.0 [facility] W[facility] Note [id number]#1.0 [facility] C[facility] Summaryon 07-29-2023 Coding Summary HTMLBase 64 NkfpzxhqYIh6wHf+PGhlY WQ+DP1DGVYjL68aqNKseW 2yL8RIROnPHdrcSOARHKs KErMfxvWyGL5buWUgLJTb IC8+OO7sBNEwJemvyCZlf 2S7wLU1W37dfh5eOXmfvE E7UJOjJrZgvvjjj2iueRi 6IDcuNmluOyBt HADprV43GQE4nV81Xr66p HBwrZVwz1uwfLd8XzWfYU IqGAR7zEshTRbcn9YtCWD mF77jbSAaj8Y8 FPFkrLumkUIfAsEqfNK7m Y0zTHdvkjxra8bfnokbTd n9db48zYFxd5F9ySR7N8Z vpsQ6XZDhfMFf VtzeyKUJaC8wasgib1ggj sbuWsUmFDAtZKu4KBg5TA TuiWcnUiYnIK20QXI7ACS tgxXyK7RbEHNe eYkcJoU2v1G5Vk6IQ2XQV vsgC4OVOZAFQZiwgOI+PC 47cg25H2WsVsoyWti3LUN tEWQ6jQM2pX7d XCAtJDngp7N7vGK2M4Nmb eWwlm8jy6caEECrFZrbJ5 4dyELbn4S4MPZcdTF6IUJ zfGghKvVmjI00 Oyc+EIRimWjoi5ZzZuqpp 1jza7leeLd1OddbZINkga SakGscREZ5a7LyVg3fWCD ivUV5dIX3bG7o OeRjJhD1UNdpD616HcIho CLyOqxtP95wF2IrsPF+PH QmDvj9XZObcSegDR7kE5E hZGRpbmctbGVm aFbaCF9oVTRnhejoNLJtp A9jLYLqK7f0RgWwSlR3EP wyW9ReZQCjrtqiBi98dG9 wIbTdBgE3SZfb B2AdbiV0OAWcjMAxEKhfQ MC0I66nl3S1HWIpJDCtPY V4uZG9fT1yxPubxmwiqMP mdDsgdmVydGlj GSqvOAlrT612GBDfgMwuI kNvZGluZyBEYXRlOiAgMT EvMTYvMjAyMzwvdGQ+PHR pAYJ6aXuhWPGi vOMuARdiHa2drAomrAgzX I0qPWKjujbzMVFndU0tBR DtxMMchOceXC3vJBFuecx zg909NnJeWHC6 XAAxdGZdD1CqoV4aTxXfD KJiBLBsJ1EseCNvYXsaV8 41SYisSsU3ZLGiutOpD2V sLWFsaWduOiB0 b1Y8Uq1Ye5YnmwoqH1Xwq AKuAySvTjznLRf2A8JuNj wvdHI+KE99HPJzJL73YZn 7DLE2mVvxGXfl WPXiH4MzzJ7qObFsUZEoE GRkOyc+PHRhYmxlIHdpZH RoPScxMDAlJyBzdHlsZT0 sKn3eIYCdOZGl aDqsjZDcIzSwn1xbTORzE DvsGH6ifYbuW5LpjWP4FN Faa8y0Jm38I72yO6GakNC +QSLoaUJ9xAS3 pY1cGsGeAuB4YNovD436T aKveFPiMtarg1mts7kqvT s2EjZ2WUThguDnmRbjYMT 9j1CvIy55H02v IHdpZHRoPSIxNSUiIHZhb Kuytt6vmJ6hQy1+PGNvbC G7mUN7wB5pLkSeQjN8RKr uW014KiHytBNh Onrbg9mvz4leiBd8EuIbF XJcigHudTpmHDC8i8LdEq 97D8OleBfot8CrViw7vv3 3sLDnq4K5eOD0 O9HvLVSocwaorPGlbLveC G4aUWSbpxezCLVxtM4eDP EiQ8g0UaRpEeM8QTjlS5D quuG2UKOvdKNz OEVfhWGTjD2tpecwi7ino flhYiEbRZUiPCr3SUy4AD GbsSdaPwBzTFG4AlM4NPX 5bNIwnF7ivOoh kbprhX6iIot+LBI0pPYwm HAMGM0kHrcxgXM+PHRkIH Y0iFcsLQyqWXQmkJ9aNXG aC1z3XaQeVrV8 OAbdY3IxewI7HZTlhBUcY MIjkXKKeN6vmhsib9afug zjMdBdGKYxAQp2UTz6BNU saWduOiBsZWZ0 BjP9FTB5fVLrrM8fnMxqv phbaB0rFkl+QmlydGggRG U6YIt7R9EmCwp2TNJzpEw sDQ0ywJRcGQkc Zm2wjMqnbXhpUJ8vWZLth nufp797LuLmt6fvPLWmvG FbUQbmISL7Z49qi1I3NUJ nTTRrLPS1pZC3 mP1vjAadgbcvkZIuiXzla lRuzPmbDNtiGJgbS886LD MevFqxVwQoACu5C6KzSag 0VBFolOcpNU4f pDYnTGccKb7mcLcykRbfA A4zARCtjsawr918DiMme2 ubFPTjsLOcCSgtZVP4Y50 lc3M7XYTnNOQy UBR7nGF3mF5pwBrfdikke GVmdDsgdmVydGljYWwtYW ykO602BCZzkGlbFxHxkBx 8Q0KjVed4RPDf xOczMA3giHPoVKuhQq0ro AmpmVcgLU7oQCXifnlcc6 83PxNkr5sbGQRafHPvTWx vXCM7C95sn0S0 XOZzSFZrXZV3iRY2uV6zi GlnbjogbGVmdDsgdmVydG fdEWnfFUlhW319SYDmtKz nPlBhdGllbnQg GXyxQBz5K7TlKcvqoOK+P G58USQtZN70lYFvsWBqv8 bfdEa6YlIsGBBoZCN6tVe cVEzfn9ZuVGUv O59sbEQjr5Z7XUCksTiog POhOaFfsAV9xZ0mVLjwga azm3pmeuvpYbnrj8cuji5 0sB74L62cAPdy ZHRoPSIzMCUiIHZhbGlnb h1ruV3ySg3+PIZrmNU7uO P4vQ3xQUOqDaJ1TJohN90 9InRvcCIvPjxj k9oav3ptgBm0MkW7MELxw yKpzRvmCER0q6WgZj29Z0 9sIHdpZHRoPSIyMCUiIHZ gfZipxi1lqQ8z Ii8+UOIogGM7qED1oP2kC rQwIfW2PIdrX757BqHskE JvSsumH35bW6GafTB+PHR tAsa4RIEbvVlj XT6roGTbDHxdFw7jJAQ1U oGqHtSgAYxqH8ZqPWOztr bibtgttPO5LGTpXOBlhM8 1Rq0aoWtxUVZa jRYLaN9ozhptg6lsrfqdZ rCrSXVsKYn5BGx5AWMltM vrFaNxWKI3JiQ0HDW1zIB jdG8paDiiswps uV6jN6QeTKSuhgjhVk70i N8qWzAjEmV5KHjxVmc+TU 0PEvZaMmSeRYlTCK97R3V rCik2LEUhoDkl VM3qfRCxTMlsPi4tcJihw ImvED7yRCQjgcguVPZlfA 5hJPXwdONhhTweRD2gABS dlqysy513GuUg VQU9KWJzqBXfH1JamJ0kK fWqOBZiZHSvE4JdqUOuQY cuS889CXuaZmW4ARClkwT fS0PkXOWwgLev VaO1z6J1Ya2yZV2eLR3zK FT4SH15OQ90fUZje3W0rO C5T1YnYOApkqwrlbfwkFV 8GCSlBZZjwM20 oAQzQEapVj6vy1M4n526L SNeFZMegI46As9shKwoUR NhmZVGyT9igubno6rgkke gIzAwMDAwMDt0 BRk0NTVhrOdzRgRiKYH9Q kD3HNC0zDXpdY2twArsee eyxV5hXzz+NjggWWVhcnM 5J4WlYwg1QBRh uGlmPT2jdAWzDClvDg4vv CgagTmcEL2mNXTmdgbuJK ZhgE0fSGIcwHIrkMbsAD0 sUIVcisuir984 GpDcMEN8LFJkbXCzI1Jsd G6uNdOeKWKwGWBwM0HitV BzKUscQ821VWhoKpJ9MTH ndpJaD7ZzHKEb yDpbHwY6s7A8Nx2WLAiWB I96HS04vMTsb4R3xVT1O8 QsIRUucaohefnksRS3ERK bBBPrjF87qOYu DCylPt5ze6Q0b291TGMvU HQexS61Gi7aiGtoQNBwgA DUvN9pmpugu1spghrzLxO uFRIzORb3ZKy2 PJDvhBtuBaUgZHV7JnS6Q KR7cVRiiM8zdCqdlyflfX 9wOyc+J2Y5W1FfTfvtdNQ +OE11APXuTJ38 eQQopIPbb5wfsCk1XsHyM DUlXIY0iImvMEdoi4WnQE PdV87jyXFna1I6ECQbzZn hcHNlOyBlbXB0 mD5aYEunprpwy2ymmpxxA ulcp6iiti98aD58S89oJJ dpZHRoPSIzMCUiIHZhbGl mmj5kdS2wUk2+ IBAttZL7eIC5uX0oJjThL zH4EAwkC847ApPweXYoQv wug1chs0aecOz5VjSdFQW gdmFsaWduPSJ0 d4FkAf68C27rYRrnHUSmB MAzGOGlRIKhkIbxco8rjG 9wIi8+BB9pc4muuc65qI9 8dHI+PHRkIHN0 vEpkKOspJJVhhV0rXSnoS bC8XGDfNkSpqF09pEZdSM woTg4fyGotzCxrAX7dGTI zxcswq017DwDj c2lyYHQflYTeQNjsZUS7A 26pu8Z5XQTcDIWwYUJ2xH Z8bR9gfMphqcpphHTgqSp gdmVydGljYWwt VEidM953RVPjjSrrLeImg MKlA7xzptSRSI7tPhaquW Q+EGBrTUH1aCnuBLxsBRU fhN2sNNYaC2u4 ZvYxPrV8ISxkW8ZrfvE2A OImhUFlNJYlrABUxI1uho nkl2ssdtjrRoCwIZZaZCa 9YJg7TXRhiNsj RpDqALG0LyZ1VVI9uANbq D2ncXhenkrzrE0mYkm+Rk lOOjwvdGQ+SDIpRDQ9mWc oLAqvPFHieN8s RDEpK6a3LpPhWgJ2IAmvV 9BoqkQ8IQLbdAFnSUKipF WErV2dxbcgz9bcggxvMbY dBUGmRBh4IVv9 XVCyeUzoRsDjHON5FqQ8Z ZM3yTUoyJ5haVemefrcaJ 9wOyc+TVJOOjwvdGQ+PHR bMEU2qSumWHhx ZUKvyC0uFLYeN1p6LnOzL tT9PBvtQ1KlazI5UNFecU WkZWVctTQLiD7dphrri7m vcjogIzAwMDAw DTu2BZu4CQDjvDylAmCkC BL0OhI9FBA3rCBspL9hpV yoaleqwX8bPvs+EOH3MDK 9TX14DJ63V1Ru PjwvdGFibGU+PHRhYmxlI HdpZHRoPScxMDAlJyBzdH xhNX3fVu9tBLRrRXPrcGm xmLDoKuPrv4ja YXB (more content not included)... [facility] Coding Summary HTMLBase 64 QhnklzbmDEv8mPa+PGhlY WQ+OO5NQLKsL27htFPthF 5zR0XXFXfBXstwCNOOQUy EXtNisvCxUZ8hxZXuSUYq IC8+JH7nRLRnTkltwPIcs 8Y6jZU8I39wob5vEQbloJ H1MAQnMzLokejwj5yzwAc 6IDcuNmluOyBt JPWfsC24SEI5gW25Ur74x OEfzYGid2adePb6TkNqXN HfRSB8zEueQSnwe2ZkKVQ oD39tqGTjp0G3 CXSmgRtriBZxEkXnrMN9k Y4wNJamfczob2gvxwnoHd u8qo84uSSkc1P3rRL5V5E hijG4OKDauDFc CngggOIKbH8ipjlbb1cnc bweCsShUTJtEOe4SYn1LP JcrSmcIyZcWB65IPT9NMA syqOvS0RqAHQd nWrpVpO2y5I9Ms3ES7TRC tcnB2BBBLPWSNtyjTX+PC 89hq93I4OpCpvkWpd2EVH nIIJ5aQH2wX1t LOXjODbog2U6fVO4L7Wwj zVeok9qe0tqIEHtNMzeH4 7twCVya0U8FLLsyEQ3IJD oaQckYePvfW73 Oyc+DPVneQind5XmPzklt 5jwy5wkcOd9CieaAJQnga JycMhhQCO7n7AdEu2kRYO meJD8nOX5hC2q JfSlRnB9TDhhI155YeXbg AUnJottU56sO0YfbVW+PH DjNhh4QQKgcZmmOS9cO6D hZGRpbmctbGVm fMkeUL4tSOUhzojqAKFfp A8nBLHhV8d2CgRsQrZ6YG asD7BcFGLgvmlwPr31gY7 oTpAjViX2HLbk A5LzqrJ3MWGvtTDtIXxiQ ZY2Y94me9I9GDCaGDPvTV K2fIG7vK2ctJqlydseeJY mdDsgdmVydGlj LNjoOHafG792AGGpeEidN kNvZGluZyBEYXRlOiAgMT EvMTYvMjAyMzwvdGQ+PHR hTJQ8sYqrOCJm mCZyUYpeCe2fcQknmAlhN M2nQGKugtlxBILovY8wWF AzwTVvnRvcJB5lSRRfzgd vo112IlBlTAX2 UYLrkOPsF3VauV3qIgCzP XSwNPOuU5ImaCPmRPhdC2 95UDckUcJ4OAVuuoXgE0Q sLWFsaWduOiB0 d0N6Lm3Kq8NniyvsR7Zvk RVeGpAfSxtaYIt4E1GlJu wvdHI+DT90TQFsRP16KZk 2RVB5yDrfPCpg JBXzT2TjvE8mDgWbPVUnA GRkOyc+PHRhYmxlIHdpZH RoPScxMDAlJyBzdHlsZT0 cBg0jGXKtCFEa jUvpuYQmCzOvs7fuNRQiO NejNX2rxQdyT8OcmFG5NF Zwk1v3Dd52A44aK1UbnRT +NSZoiHR2jZI2 xE0yTqAxGfN8PHfrQ470G iVofKZlVsoxa5alq4yvqD a3JeY7ADQzosEmuSgwYKF 7w9LnOu22J47l IHdpZHRoPSIxNSUiIHZhb Feouu0uhC3pTm9+PGNvbC E4gWP0hG4vPyBxNgX5FWj qT560LjHpiZSl Lywww0ngv6osyDk9PoSzH QLqngTdhMvbCLP1m2ErKk 13L1TcfPvbt6UjIkd4kw4 4jFMkd6S3uJB7 L4KkFKEenghjjTBjyMguT R8wMOJvppsaCLIluY5aZO UqU7i8JmHcVjK6YNnoN4M hqxT0NYPloRMy XBYkzCUPjR3bcmjsz3czd jygDpXiAGDaYGp0YEx0IW UqbZkyBwMjTJR0ViU8PBR 5aHWfvY3aiGxh pyhjzZ3bZvg+TAA9fYQpf RGSWK6yQdwuvMH+PHRkIH N9aFjkZXabEDVmwB8bQPU tC4e0MkIcJfT3 LXgiJ2TcvgZ0WWGayOAsU OBktSOLvR8siuzgx9opxf piLoYoBREoTVv4VUt6PAG saWduOiBsZWZ0 PaL3RCC8ySDbgX2dlWtfk dypyR4zRoc+QmlydGggRG G6MPt2W5ArMjz0PVFniJa iQT3hdKPcODkw Kn3suPygoUhvNH9gYXPme otuu384HpRpq2xqMZMfeS TrMInoKDY8D08br2L3QJW cFEDsTFE6nEN3 eX7ceLbfsanoaZXtmDxfh tWhmPjrTVvmEGxfZ163HG WtrVibPkBlIIa8L0ZsQln 5BNOppKcgGX9h tFKoNNrrZw2gvOsmtWzpQ E3bITLcqvgft741FcIue1 ztSJAzkILcAFgbEWZ0T88 ui0H9VFAzAPUm QVG2zZP7cS8yoJhjycstg GVmdDsgdmVydGljYWwtYW vtQ069HUVbaJzcTxWqeTz 5L2ZrBbl4LFZf jDnhNB6foCCpKGozOq8od MyojNniGE5oTOArzhcdh3 68AvCxo0ciMYPxxBKyHMk pRPS6Q44rh1O8 KNIbFWPzXWT2lCQ5wH0iu GlnbjogbGVmdDsgdmVydG otZCzvIOkzT237ODAunXu nPlBhdGllbnQg XAbqPKi9F3BoCyrxdXM+P K56PXFcSL42wNPhsWJup2 doeGs8DuArZAQkHQQ4fRj qLUdqr0QeITKm Z50jeZMmg6O2RLJnjHohi JXdFcLphMC4hR9kKOsiep reg2uevpzfSrklf1wsip9 7tE08F03sXCrw ZHRoPSIzMCUiIHZhbGlnb s3bxB5gOm2+PBVdlAB7rP J1uV4tIZNjAzE0UDbnS05 9InRvcCIvPjxj h1ton5utrJm7IyJ0AAMfe qVskQlbKBE7q3DwRp47T1 9sIHdpZHRoPSIyMCUiIHZ rgAlddj4epC6u Ii8+UCCpiON2sSD6aP4jH hTeBdI3CHplN166TyZcuX PyJyayR36wS7YunQR+PHR pDrc1JEWemHaz RJ4amVPmMZauZe7rFUZ2N wRxYzXfAJvfQ9MhHERsub aowarsnNC5GFReCMXnlM5 9Iz2beHgaDDCp cZWVsX0wcnzrk1byazdnS uYrSRKsVEs4JYw3HRSilO xvCdSpTLL0AnU8XIX6uEK bzI3feZzsvryp wG9bT4UhAQBjgtxkUv16m O7vWiOqTjO7TBbqCda+TU 9UVhRoLxOdFBjOSI62O4Y eBrv9WJWpgOzz VF5fcMVnJHcxDg8uvLtkh MycON9xCVEexaiiPZFkpE 0jBWMaaCHdcIhcRN0jJSK jrgwfu727GfOt DPZ5PXItuKPqQ8VwlX0tA mNbYGCsIFZtB6DtqXBwTI yaV159UYidYdO0RUEiarP mB4XnTBVizCum IpQ3m7B0Oe0rUD9oAA9rP JE7IY77YM28sLQuc2X9aB J8Q0XpVNSwufzzkfdihIA 2MHHmTQTcfQ12 sUOfERhnEc3ry3D8h372K IIgUGKumB52By7vqIrqYJ BcyQOJiM5obqhhs1piakr gIzAwMDAwMDt0 DEv7CARjfPluSuXqUDM3Z zK2CTV9kVUvlI6loVfcno ficX8gEvy+NjggWWVhcnM 6V3CtTse3EUKm nBdxUJ9avJHuRFvkAw4sl HetuRspLY4qMBGxlxpgDP UosZ0kSZAzlGHepJqeGI5 rZMJqpvmjh375 FdRoPRF0PRNpgNMiC1Hwc J6cUtQbWJUcFIMtH6ZweU NsZSzyD688QHrdRcI7MDG witJiB9XaYFEg jDctVtS5u4M2Jv9VQZtDD J96ZQ37oSNql4A1fCZ0O6 VhCUYhgwbzesdijKG5RKG iOOAxjN77qCJm NPsxRo6lq8V5x863HQEwL QZhvP25Da1jxIzxLGPrsD ROaQ1eycvca3xufhmgLvG rHNBgHSi4WVe5 NAYvfVtrSwKmMJT7ZhW4X OZ4zIQeyV1fgHhebxgacR 9wOyc+Y5U4C0MwPwbosKH +FD18URDdPF29 yNZgwVCrn4tvnAx3TdGpK HHfGPY8uKqjREpbl0WnJB AdK77amXHmm8C7QSCnzPc hcHNlOyBlbXB0 jK8wMDbkpvtic7oihbbzM hhji8iikc02wC00H94iNR dpZHRoPSIzMCUiIHZhbGl gmu5ebX1cTg1+ EYUdyPF5dHD0kO7mZuKqB cH1DMzaT474AbLalZUfXb csp6pgz8kkuEy0CwAaPTT gdmFsaWduPSJ0 c6OkTe99H97lXQyzVOHoI YSdIXYuCHHcmEfgha8gpZ 9wIi8+CS3ph9wlbn31xZ6 8dHI+PHRkIHN0 iWvnYTpjWACmbH9iTMbaP eZ4BWMaTfFgjV15sKAaSH hvUm4wjWekeWjiCY0aGIT zysgnl508AvGl m3nqUVEfpLBsZTjcDXB2Z 01iz2Y0MENhRZLoYOC6yZ B2jL6oaNmbqhxwpZIhuIr gdmVydGljYWwt RKdfR497XFBlsWnnXwFny DRvK3eebnXDVQ3lTynxlC Q+ESOaNMJ3kFlxMHfnKAH uwB5zYFWtQ4m0 EyMhPpL2HLutC3PxeqL2O CAsdGUaGTVwaHDLbA6oxj bag1ewdmnxWnRnBNFbKUh 7YBs8HRBylNlg MbSjDSA6UdE7OER9cUUru O6gqWvmzokagB6mXyv+Rk lOOjwvdGQ+HWAmXPL5qPy sIGslAMDxgW1c SLMcF1w3ZpNwHeM3HQxnA 6SjsnJ1CVTghXSvDAGblR CHeM4slhwky3vxvfloRgF aLJEzMNw4ZXe6 ALSwgRhgUwYrAXZ4GeE2V SB7bMGalM1laHbkdpjvlS 9wOyc+TVJOOjwvdGQ+PHR iXTF6yDwpFYwl SVQgkW9kHNPlV5m9CoQlK lN9BTamC7IippB1JEGkoK BwUEDuoWGQlP8nsmrpe5w vcjogIzAwMDAw SBj6BSm6YCZywJfnCqZrJ JV8UsB3GTG6cAWkqN9ivL zvqrnbvR5lAyc+KMR1ELP 0PK86WZ99N9Ie PjwvdGFibGU+PHRhYmxlI HdpZHRoPScxMDAlJyBzdH paID2oBg2uJKTuUXSatUq sgNNaBmZwd0kw YXB (more content not included)... [facility] Coding Summary HTMLBase 64 CmvnnknlUTc8qSl+PGhlY WQ+RL6HOGWtC54wuFUekY 7sS6ZYYDzZMyafWOKNJDi LYsZjzjLcNB5uxLAuQHUq IC8+PI9tCLXuScdhrFQvg 8Z4qCQ2R24fsp5uSFxrxM G3WQXkCvHmlafuh9gkjMs 6IDcuNmluOyBt YHUanP46LHL9hU09Ph24h MUjuVWdx0cldHx2LzRxQU XaSAA6dZtkGZbdl3GkKAQ uG27xsSGwv6O7 IYHwmPynoSNeYfGnkXP0b K6mATypvqets1agoazeAt p3yp63fRIvr3Q3xHF3K6Z ydiU3VHUhlHOv UuypiLCIvF2efgkiw5ouf gbbIkYbPJGbYFy0EAt3VO QcyNkiPyWvLI95XYD4UDJ pfjHgL7ScBZIx yWipCwK4a5U3Ww8DI0HTP irzO2DGHNRJCRqcbYC+PC 20yz32U4LdWbbsPml4VYL hNQK4eZR8eW6o COHnJSfit7P1wLH8N3Dyo dJcpe9zi5xqTEPqGWswL2 0muRFqs3Y7QQFqvUY4GJK ezVppRvNjaM16 Oyc+KKFvpJpuq6CeGnvhh 8ttm1yylTu8IoynQPOwtf EnyIfwTKA2k4KzEz1cMIO rdEJ0wVQ5vY5h IkMaXxQ9YOcnW833MnDuo UOhToybA64tW0HexSB+PH JjLmf7RRYxfCjaEU4nT5T hZGRpbmctbGVm hZhpMH8uAZHfdzfzGXXdb E1hOWRuW7l2EkYqQaI0XJ beI7RkLRSebclrTv55cD5 qQeXwUnG8KWzq Z8GkuiV2KAPxiUJmCAqqJ EX4C69xf8F4BVNoIMPgRD E0lQI3sF0scGkzotdmtLC mdDsgdmVydGlj BQxcVVizT491GYYbbOjfM kNvZGluZyBEYXRlOiAgMT EvMTYvMjAyMzwvdGQ+PHR fLVZ7cGgwLADp oBPnBFcwGi1geEgjfQikS H1bMNStiqpzHFWztJ5tKQ DlfDHueZdiDT4mBVWsyfo oi016OsVrNFC5 RTQdnZGbS9PjuN2kNaDhC BAcVHPeY6TxcVIgCXzuA6 05OIkmVvF9SGJoxaTgF2J sLWFsaWduOiB0 q7U9Ep5St1OcxqliS9Sfl VZwNmIqSbrtIUi4G7HwBs wvdHI+SW26LUMhSZ77ZBn 5TPR3mPlcWWgz HUFtA9ZruK4mDwWlXHKnB GRkOyc+PHRhYmxlIHdpZH RoPScxMDAlJyBzdHlsZT0 wLq1vYUAnZGKw qQlbvXDdGkNbr3mlVBPiS LjkIU3mtTpkP7AgcLQ6GX Rpg9v6Pn64K24bI0PspXB +SIVrpWG5xWB6 jL2yQpKqNbE5FCvyX736D gBysUDyJpkwp3cxy4ellS t1NbM7UKZcrsYkpQugOEP 4y2WrWd77S25s IHdpZHRoPSIxNSUiIHZhb Gnvtn5iwB8pGz7+PGNvbC F5sAA4qT2qShUgYeZ6NXf oJ114QuDzeRTh Nrdco7epz9mzdZy3VgPvI GSsolEglIacHVR9n0DsIn 39D1BurXrkb8ZpEif6eg8 8cSUum5V2fGS4 R6HpQGJwazxweTYlhKkhJ P7eMVPnhfpkNTEwqZ3dAA FaR5a4NkXnCdY3FRpgV1E jasL3IIMacUSf VSWiyJDOgV7islidg7sbh dbbUrNaAMYpXCi2YSz6AJ GljHndMsPlJDZ6NeM9GIW 2dIUfgW1diZoq owwjlT3bIkf+EXA1mNHsj WDKGY3dJkcojVC+PHRkIH Y8dRubJHbaYXXqiY9gHLI aJ2v6OcKqHlK2 JXkxG2PjmyF6FGFwkYIvD CTxwNMPdC8azmbjm0hlem cgDgHpAHBvTAi3SFg1LHY saWduOiBsZWZ0 JwM2KVT2mBHriF9qvFajs zinsZ1bPsq+QmlydGggRG B7FYo9M5OjXdr4GKJblDd kBR8fqMOhLLjz Xg9lcNynrXaqDD0qVGLml nmbu681RrDtt4qcNZFinV ChQPgyKLS0B69qp8F8AQZ wAKUuEEI9cHF7 uA6cvMmxiryezBScuLjnw tCmhPclARkwWEdvE546UV XavUxbWrJrKQh9T3QxLfh 8YLPvuGqjLT9w pKZqHPfjZi7ndGvkmUakV U2xRPYoorvpr652SnByw5 zrYHQlsQTnQJgiMFQ3J91 ju3O5KWOpGHRk FEJ2mHE4cK8kiDfconqzj GVmdDsgdmVydGljYWwtYW bdQ653ASVidFwbJcZhxVm 2G0RkPer1SAQj gZfpZL1wzCKiLKjuQd3rx MohwRngJR0vQCOfqyklo5 47OmMwr2isKBTnyJLfPMw lECW9V85za3M9 XEGyCNTgRSR7pLE5rM2du GlnbjogbGVmdDsgdmVydG nlLPbnIQvgJ660XYHxaKj nPlBhdGllbnQg VMnbCYj7R9GdGalckER+P W88HFNtVJ13mIWkaNBwe7 xwvPp4SvMuTCKmXZT8jBj uMJxoe1EfBOYs V88gdDFzo1U9CYAqcTjbo WOvYjUmyNF6vZ7gYYbgfw zaa9ccdhwjSfvqi8hftj9 4aH57X25vFKxd ZHRoPSIzMCUiIHZhbGlnb z1qkC1dYv4+NTJcgBI0vP A4uI3kVRKuIpW2TNjgT48 9InRvcCIvPjxj h4wdi2cmbRo0KoH3FROtu yPxrFbrHQJ5q1LlHw97J1 9sIHdpZHRoPSIyMCUiIHZ nbLlcxo3caT6k Ii8+ZSLjdXG6lAT8aX3kR qSyRkW7XBbsL366RpLuzF BhPhugT52eU7GwnFE+PHR eKul2GVFxiKet OC4lnDFuKQczXq4sMRH1T tDyJySmRWygN2NxUANntt orepsxfER4RWKeJCMqnH1 7Jy6usLjbYGBq rQFNyE9rqxwog4mzbnvuS iNzNNNyVFc3UVp7VQYpxZ xoEtAqIYS8JpD8HMG5gVI xpN7rvPfimsss wV1qF5UlVNHersfgJc69a J5rMsEoReX0SCedPve+TU 9VDuDvBtWeKSpOZL29J1J aUgo1GLYqmEpg OA5yoTQcYMakUo5dsWlmt HypHC7iYXPwllxrMPZccW 3oFPIypDYymIxhFK5zZWN adcycn851SsUp LDZ4VIMorOXwP1PapZ1wI uMoAOYpYMWzF9FtwXPhNB ufR696YPxtXcU0IKGkugI lB4CzSGMxtZeh LiH8v2I9Oo1jLM5gJX3uZ QY7JH38YX04vXNsk0Y6gY G1S0EkDIFmukoykguvjSZ 3QEBpVCCtnQ76 nJAxPPglPw1ow4X3j938T MReMROhiX59We7blNkwUD CwqISDmA0dgscuw9onpob gIzAwMDAwMDt0 DJy4PFOkdAeoFdCrLOI5H cL2XIV3pOGsrL4dvNbeey tbtG2hYht+NjggWWVhcnM 6X8PdEjb7WCEr hYfzZI7hpRQlPFwqXt2tb SuhoJgvFG1fANSlncyxYY PivY4hEMSkwTSirGbsYO7 hTZLqovyxb654 XeVkVTU3RJVgmOQjT5Wwt Q4jKqUbELDiRZYaB5UhrV FmZTvfZ756BOkzMcG8VWN uyrZcD9QsMCAm nQecRdE4z2Y0Nq8OAGeSL X61KI01lDVvq9A8jTY3E3 DuEZIweydqvqnhjUP4ZCV yILWqxS06bQYt KIosEs0nx6U5v017LCVuD IUrxH05Ue6suMkjRLLefT LVfE5wypvrp1dsnhhrBmC mBOCpGTv3WDx3 LGGbyFdpXrHiPLH3HrR0Z NO0lRHzqH3luGtxxgwinN 9wOyc+A2Y8J9NaBnttuOM +OP75OZUsOP16 xYVkwBOyq8yxfCv4QkUqS LOoRPW7eTddLNgxb5ImMF CdH92ksEQzr2P5XGHvhBu hcHNlOyBlbXB0 rF6aAKirzreqj5zyegxoY eobn3mqwc10wN78B46rIL dpZHRoPSIzMCUiIHZhbGl fho7gmF9aLn2+ AVZjyGY2sXM7nY7cSaYiS sT4NZuyD144DfMqjKBgAk jwd4tbx9rdvNr4ZjXhBXJ gdmFsaWduPSJ0 v1YoUz69J06cBWhvSFCzU VFiTVVeGCLjaViujp1hrF 9wIi8+KN0qj1vfee07iB8 8dHI+PHRkIHN0 sMjwWXunLMPqnO8jZDqzK xS3VHEeYwHioX13wVCtEW qgHe2zpBpcmCkkNR0gKEW pmqaps364ZcDw h2yhINDbvJSgWSxmAKS3V 45kl3D3OARyJZYbSYQ5rF Z3tL7snFyrpjdbqZGehWq gdmVydGljYWwt ICebC205UKThaVbiOfTnv YDxR0kqnbEMED1tAoeaqS Q+CPKnLLE0qPkwHOrfMCE coM5gQBElW7e8 UlMuTrG3XExdF2NphhR6L HIntKCpVNDqnVHRoS1qrc tln9vviblnRvWxEYDfYXq 8GEx3JALcfYal ImWcZBQ6IuL5LRC0hEPjp J4tpOpudfoeiI2hPoi+Rk lOOjwvdGQ+QJSiTEP6kPq rNVmyVMLfmK2k DMCrI6q8WhHzLjE2OEfgV 8AmryU6KRStvYHbASGbqN ZBaP5paqhrj5nhpmmxWpU fOBVdIIi8VMw6 QEMdqAkpZuLxDLK4XrD7S HY4tZMmpB3hxGypzjqyfQ 9wOyc+TVJOOjwvdGQ+PHR iCST6aHnpAKgx APPypG7lQVPsP6j0PvUrE aP2OZtqY1YvymW1RBJciC CgAQVqbJOPhS4ckuwjs1j vcjogIzAwMDAw WYb6UPp7WODigMljIpKsH UH5VoR7MNG3fSGkvE6ldB wavefzbX3vHem+OBH4FEV 0SS01AI53V2Ri PjwvdGFibGU+PHRhYmxlI HdpZHRoPScxMDAlJyBzdH lpCV6nFq7oTCGrJWFbaHo viTDwBwRkb0sd YXB (more content not included)... [facility] Wound Care Noteon 07-16-2023 Wound Care Note [phone] 1 [id number] [facility] Coding Summaryon 07-15-2023 Coding Summary HTMLBase 64 WwvfmxeiBUw0jIf+PGhlY WQ+JH8AEYUfY05toCPbpP 9rQ3FDYOnESwxlVLUXESc MXwYqbsVvJU0hxKOtGUZb IC8+RZ4fYRDsIjftcVEml 0Y2wXK9M70pph4lTVlqfB F5JLSvUbNglordg6uzpBy 6IDcuNmluOyBt WMHjlS67ABH4cB17Wp88h CAxtOJwa3xulBg8RqCdUI UeHUK4qMpcUDxpe8SzUAH aD96bjKVyt8W2 XTClvNdijCBoOpYgzHU6x F7gWRedqoikw7qzsxdlCc w7fj90sHKfi2T7uSS3L4Y cmbW7AHZwsKXx WhtkgLKAjM6kryshp2hgt zvoTxGvDQCfRNd5ODw9BG ZfeAffEbXrIQ36BAJ2FLI ubeRyP2HwCTJh qTsvYuA2p5H5Na3RT4IYR xozM0HKSUAJZEzxwLS+PC 07bj97V4QeWtcdWsj9FBP vTYX2aLQ7vN9z CDFaXOamp8F2tTQ0D4Vpj cYqlk4xk4ojKLZhXRjsO1 9slWFut3F3LZAejHD3EVF prNtlMpDpaU06 Oyc+XJQnwLcev7BrRlokh 9rrt7gjxRv8RbvnULOyyo UzcDhaXAA2t6WlYr5nETG heSY2xZH5aM7y HsZzHsX5EDtiA507WqUco JEpQyfgW25uU0QccUZ+PH SnXtt2PVNibWliPF7dR4H hZGRpbmctbGVm jQtxSQ1vRHIljmrnWBZdw Y0fLFMqZ0c9DqRsCdF6BS xeJ3WxQEJialrzZv22hS2 gYvKiFeG5RHqr X6HcrcV2WLTuoPPlNZtwI ME1N87yh1L7TXEnBUOgHA M5bGM6lM0ikPhgjxgmtUU mdDsgdmVydGlj PZkdZYvmK223WQZpnZpkM kNvZGluZyBEYXRlOiAgMT EvMDIvMjAyMzwvdGQ+PHR hTMV8sYgrZDRf tVXxOBkdVx2lxWtmyYnkD C2oOGUxtthcCNXwdG3wIS VjnQVapNwuLS8mTAYlrep cd274AbIfVAD8 AEVpeIWqY1NckS7kRxYtF BBtUVDlF5WliEHzEKcrG0 70RUpqJsC8RLPxmtPdX0K sLWFsaWduOiB0 k4M2Bx6Rp7KhugaaA6Zuw FTvOlApZhnhIUg2Z2TlPq wvdHI+EZ22LETlCB39XDs 2OQB3uZhnBCkq AKVeK1IbdH1hJoOpWNBcV GRkOyc+PHRhYmxlIHdpZH RoPScxMDAlJyBzdHlsZT0 kKe9bNXIwDFCf sFgnfMWrKaKkn4srNADyG FboXC1vaSoqB2RztPQ9SO Xvd3z2Ch18J53nG1JhqGM +ACBnbQO6tHC9 nQ6mJdPxTaB7YCsgT642I lYylBKdZwzyd1gyc8uceP l3KkL6ABYuemKxxKwlEVY 5h2SxLz17Z11l IHdpZHRoPSIxNSUiIHZhb Faqrg7rbX7mGs8+PGNvbC U8sPY5zV0yBsRgUnT7ECk rT968ImXuyXDs Lgryy7vgq1hagXs5WcGzH WAsbvFgfZrpRXD3c0IoFx 25N7UeiZtgd5RaWfx1ko5 7mFQjo3R5xOK6 M5FlLWGjjbugwEYilPmoI B6pCMIgzmcvTLUxlW6pDC EcM1t9RhXdKeK4LFiaU6W vmfK1NRSdjZSy AJMbpGVDxI1cbzofw5nov adgHkIhZLNwFDd5CFw7LW EoxJaiMbVpUQC7QdR2FUH 0qTHraM2acXfk syuscR7gKwy+HAY4sUTth WNCYR1vTpsiwAL+PHRkIH P4qOadUCuzESIxzU8qKIM eI2z7ZdIeRvA4 GNfuG7ZlioR0UJMflGTaB EUnyWEYiQ6aqkyww2zxfb liVtJoLJCkENm0GLf6OAQ saWduOiBsZWZ0 LmN8HWN0sRFplH4wnOilk yofyB8ePra+QmlydGggRG R8TXy4L9FbQvu0RMEbsLb fZJ6obZIgWMeg Kc9mlZhhzUxiDD3hSLQnz tosh871BwDzv9hsRSRunP BxHCcsWZY5U82vm5D7KJL nJHAzBHX9aTK1 cV5rbOwfbaxpuMNhrYdfl aOrbTmrBOrsJZifJ152YJ MwhKmvDkVrHCt9H7OnJqk 1GPNaiNswSR5s ePPpKVzhHq3liLwmtLxlF F8jEFFenaanz464TwBop6 obWVQejCFlERvmZUO0A44 ne0B2JMLqWOPn TFD8mFJ4tC5noCsqpqxfo GVmdDsgdmVydGljYWwtYW gwR653TOQyxGsyBqJwfTq 5P6TgBvd3CZKx bGzzIW5dnTWbVHcsYn3xd DdfhXzaPC9jJYGnicbwp6 01MyGtw4cqQNPhlOEqYSn hOXM6T48fb3J8 UZZuGLKrYKG4dNK3jS6nv GlnbjogbGVmdDsgdmVydG oyDUbxUCeyN369RUSldPx nPlBhdGllbnQg GXqxOUw2H6CfEcakyMO+P W63QKBqTU51eGEehAOya7 qopWl9XbMvRGOqPGG7eUg zBGbnv5ZfYZMr U57kyNRvv0G2EYDjgClzs KMiMhYqhRP9aY6yIHuzew fpx2cprkzkLwrtb1auep2 9iQ38U96iILty ZHRoPSIzMCUiIHZhbGlnb g8aeM6zJq0+VPHzyFX0hU C7wY6sFDChBfJ7REaqF05 9InRvcCIvPjxj u4cxo2yjaNm8OsJ5SGJki nJgzPlsAYO9t1DzMi75A9 9sIHdpZHRoPSIyMCUiIHZ gmIlixk4tgF3w Ii8+XDLzzSZ0fGG7cN4fO aQrDwP7NGuhP885QuXrcH ZmWfeyQ10lP9JjtAC+PHR wSgw0GVJmsEee SY9isJOcGBleMm0fCHC8E oVaZqIoJWmvJ4LaAICygg yqqetocDZ6HSGqANNtoQ4 7Wl9xcQlwJESy nZDBjB3qllcik5zcmwryL xYkINIsILl8MWk9PPLglS pqVzAuWHW9FuU7AJR1fYQ orP8tnRpfjvyb zV3mK6WfRLFnjvojUy73i S3eRjWyGeE6UQziUsf+TU 2ZNcKiXrGxVLkKMI76J1L zQqv0TEAeeWvs UZ5wjVNkZSkkWw4wfGekf TvkHD5fCMIbdwkqAGUxhN 7sMUHosYQzlHyeBQ0tQYI qgwiih456VdFg HBR7GJLqnBRwQ1DloF7gF rUfJOWxRHOwP7NleJXlJH diI617KClqUzH3VNOssoC cJ5OaFAAryYkq LdM5s6J2Aj9eIW1wTK6kA HD4OM76TH74oBUlm0R3bH X9B3HsYKXyutykbtizzSI 2WISqYNFkpA53 yFLxPHwiIa3gs3F6u050F MOmAUSraY34Wu1ldQubNO QfrDFZoB5misqfy9sozqn gIzAwMDAwMDt0 ZMi6RWAwpLiyOgSnSAN7X mO7QTP4aNSidZ8ddQuqqq sbvI5vPxp+NjggWWVhcnM 1M4JsKyf1QBKy iKqoOM8qzHExZAljMd7av ItucDcpBC5tBCMsvmpyAT OjhI9rAJDzoVNllLnwIF5 wQNEmkstrp961 FsYnTAE5AUFldFZdB7Mqi P0fOuDeTCZnDXBcO7BxfT RzTEpiH465MHxuCaK4XUF rxyCwP9QdYBLt zKqnSoX5i7X0Mn6BHAgSI Y80HC29bUEdn2M7aHD4V3 EbSMRxutjktgbkyOC8ZXK rMNKyzK62qORg WXsyLp3bv2C7e804VGMhL BTlaT46Vg0rvPtxCFCptG NCfN0jethme8sadldnMwM qPHVvJRf7HDv2 AHElxVjvWeLjMZC8NxP3L VC6eGWlbP0nfTofrinmoE 9wOyc+Z7T7G5AkLsgkhPU +VG18ZPCwBF76 xWJjuBTyl3eiyVl7XfAjU KBnWUD1lDmkKOhmd3GfPI GxD49ojRNdf0C9IIMhoVg hcHNlOyBlbXB0 aO5eZCbzkwzza8ervjptA daax3iaua30iM15N14cMW dpZHRoPSIzMCUiIHZhbGl lgq8ypK4tDf8+ BZXeeLP7aTC7uO4dEfBuI vV9CTobP047HgIrwTLoBe vue6xkg1sxyQk3IiAiMPG gdmFsaWduPSJ0 k7FaFl41F93xQChoLFFaN MTxUAPfEXDjzGnwbe3aaI 9wIi8+LG5ap7honx88iR5 8dHI+PHRkIHN0 oMmgQTgtIIDebQ3aFKvpD fR1XNWxScIvqZ96kQPlOO qrDi6rzDishYhxDL6kUYS aaxbwy373MdQc b3fbOEFxuYUuIOviSKD0L 84id6H9FBAxTFFwWYO8wR G0gB3bdLnpyuqkgJKfqUg gdmVydGljYWwt SHioQ124WNEzeRquUrSas MZtF4wsbpGLDA3rYmiegC Q+RVRxGDG4yFhyYKnrORH nkJ2bXRKvV8l8 OdPmSnQ1KZxnZ1MgncO7F JQqnAWmUIVmeAYDsY2xru fqj0hcvidoXgIwAPFpIQq 4HAk3ZHQhqXqr KlRiZUJ2EbB7AIU6aBVem G5kxRgfknezvB0cUuq+Rk lOOjwvdGQ+TBVaCDJ4rUb yWYhkVOZqeV4p GAPbY0r5CvYqJkH2EHycC 2QpneF4CGZucIJyHNYjnC QPmO3xcrymx8lzfdqpDgP xFSFrPCa5TQi3 EMLvuBgrDmOzKHR9ScU2D UW2mDZrcA8jzQnwkqhxaA 9wOyc+TVJOOjwvdGQ+PHR mRAO8zUciJRya LZMnnU0qWEXkZ3n1JiEkO cQ2HUuqQ8CkcxS7VADdyV RfHYOvoVARrM1vguorr6i vcjogIzAwMDAw RVs8NLs9TRKpfAarWbAeF XO8ZgD6SQP1pALdnA6jcW pzbjgicZ5iMhw+CGC4FKL 4FK91RV97N3Yj PjwvdGFibGU+PHRhYmxlI HdpZHRoPScxMDAlJyBzdH wuHM4uNr2aCMJcQAMujSa eiZQfZhFyf2sr YXB (more content not included)... [facility] Wound Care Noteon 07-09-2023 Wound Care Note [id number]#1. 00OT[address]IFF [facility] Coding Summaryon 07-06-2023 Coding Summary HTMLBase 64 BqhvzfuuGLg1bSu+PGhlY WQ+SC8DFIHjX03qwRLjeO 0vW7UATGnPBohtXTSVTPt UPpAgloOjKM5bgVDkQHMr IC8+LG5wLXTlHoigqOEzx 6X1xOS3J95ihh1fZGenfX J6XHYfYlXxumhit1rlcJi 6IDcuNmluOyBt ATSeyP64JRL9cQ44Fd89d ZCbdWYkj5kgrDd9ZpHlSQ MfPYJ6rRlsBMbee8CgHNI jS10deGPyn2I8 KLUqgEhrdRJoIrYugIZ9r I8aGLqyrysyr9jdbogiXr k7vu70oEEjg1B4gNY4K2L cfnZ9KFQjnQOc RzcxeZOPeU1jcdbep6qwq mbsAkQfGLPmRRx7ZZz0SW DajKtoXwAtPS09GST4QTP iptZuH6ZuUWWx gQurPwT0e4J2Pc3QU9RCY romJ0EGFEWTHMvsyYE+PC 87ba15G1GoYhjzEzh4RQX hBHK0jRP7vD9v LITtUYraa4S8oSW8K3Rir jDngh4ox8lmYOWlVBvdB4 0idMDcs8D7BIClbCC0ZPZ vmGduSgVtnE24 Oyc+LXAoxUygr2GvCzuzd 2jcr1dtzGx5SfswWDEhgl RosHkpYDD6l4MbZf5tNEN tvGH2kWM6wY4m QbNtBmR6AJixQ034XoTfl NYtXqcpO77xH6CxyPU+PH BpFkh1ZUXrdQurMP9gC0P hZGRpbmctbGVm tCejGC4cOBMvgjbxLKHmt B9cAQUcB3d9LiDcIlC7MH nhA1AuCQIysoigEp55bJ7 gOqUzXdH8UHfl W3GstxZ5IUKloBXrVXjwO UY5Z46af4N2EGLyMXLiLF B9hLH0yN5tvGvpbxwxhTB mdDsgdmVydGlj OWotSEcmT018XLKiiUukC kNvZGluZyBEYXRlOiAgMT AvMjQvMjAyMzwvdGQ+PHR fSFF2vYolLBKg oBOkGItjZn4tyWoyoDszE O4bWSIiztabZBAeiQ9sTZ TbzEHxtDfbHE1cWSFsony pf705EuWnESG6 IPQzfOUjP3DwgH7rSbQbX ERnGUJnZ5NwhPZmYLobK9 32TXcqXiA1MUCfygNvI6J sLWFsaWduOiB0 b9O3Sv3Ge9TltaloI3Fxf OTsYyMsStifMIe5E7CtQv wvdHI+DE67KRJxQA19DLc 5IPG8kCrhDJqx BSHoN1BlrE3fKpXtGLMkX GRkOyc+PHRhYmxlIHdpZH RoPScxMDAlJyBzdHlsZT0 hQc8jQPDlPDPe iGqdvFZlKmYty1jaDGJsG RsuRR1lcKcsO0UabFA3TJ Ggf9a0Ck06L98lG5ClhPL +RHJfkAB1bCZ9 gQ0sOcAzOmG8YWrsD268O eTfdOXyCzzgi7vlz7vjdG k5NgG5SKJxboStlHjmRLP 9s1SuVo78W17q IHdpZHRoPSIxNSUiIHZhb Waalo7cjN5hVt2+PGNvbC I1jNI4qZ3rYaYjSiM8PTf nT228WlCntCFa Wsbwt9woo7xgzQu8ZhPbT TOvncWreIdiRCE0w4TxIw 81Y7ZvvXrnw2EeQpo1kq9 5cVAhn1G8kZS7 T8XzNFAwuilpwFSuuYxkM F7rPUDievndYGOexK8hAE KpT9b5NfAcUiN4PGerB9M xmtT0IFChdDOg QLQjiBYPtE5oujvgc2tpw csyDiEmROTfZXh1MVb9SW LanAwnLtXxYYI9OhU6KSZ 6sOYntR1uaPbw nuphqO6eVzw+NVB0wTZgc EZIIN7eScarjLB+PHRkIH P5qNloCEewWKHesZ4gHOI cQ6o2PhZvIvM0 EChwO7GbbuD8HSXjjGHsZ ZJrpDINyQ1ssmklq2zdvr zhGtZlDXCnVIk7XRb5WLS saWduOiBsZWZ0 IsM8JXH7bVSttE8hhUsoj acjrZ8cGli+QmlydGggRG D0ZMk2L5AfIxe9WKItbHl uUA0wvTMmLRob Wl3bgNqjkHxrII5wBHAtm gzqd201IaJzo7kwECXudG HsGBznYSO1R31lg2M0YDG oXHFzVIN7zTN2 uC1gfZyzsovubHGztOyno sZyfEosJWrmUNthR213PG OctLmwBxArNRl5P3NaCbu 6JCCinGlaIJ2a iNUpNOimAu3bmAyobUyhU T1hPFQbehyzw598HpKmn5 yvMHGmoPHpRZggRIP8N94 rd8F6RZXaUHOo FOP8mJK0mP4ghPcbaanvx GVmdDsgdmVydGljYWwtYW wiQ559FGIxpKujYcTklQx 3Q4GsDqo1EWUu oLpiYW7jyVMhKVgbIj8ln LdrpRqpOJ1pMMGqkuzwb9 35XdZjy9nxWHZxvQZqXVi qZNC7P39fq3A6 OANuGLEmPEN5iIJ9dZ9yf GlnbjogbGVmdDsgdmVydG wfJOzeZXliN630MFLfhOi nPlBhdGllbnQg HJbuNBx5R2IdIalecBG+P S58BNXeTD57wTAyzTPsr6 qavFo3JuGzPDWkISU5fQy vHAgfh0RlHZXy Q14huDMzv8H7UHTicEwus VMmHrMpfGB5fO9jWGotun rom9dsmrdpTfqfj5eyrm1 3oI23R70pJGbs ZHRoPSIzMCUiIHZhbGlnb r2ukK9nFv2+RTJhaOE5kO W7yS4kRYEhGvY0SNrnQ71 9InRvcCIvPjxj v7xxp5lwuBh6MsR9QZQec dVqiYaeYCR5l6CbKl26E0 9sIHdpZHRoPSIyMCUiIHZ aySppgy1cyW7x Ii8+KZZuyKB2yJM9fR5iH nSeIpL3RBrsG326FbHbiF YoAnqzE34dA5QpwXA+PHR rTah0LSOttDie WM5ueBKuENokEl3dPPK1V nGtThKaYValP7XkSJUwrr yewddzfJX8OOOgDTBmhD1 2Jc2ieYozZNNj bJBHkT5xjnqru1chjcrqL zJwWJTxSYz6NWe6FLTlqG gmWhJtPDP9XbE0RKK8sXA nrE7yxCumuimx zC2pJ4GvGVTnrrhhPk35h T1eKyJsSrV4NBsqXir+TU 6HMeZjTlWcQQnKXX95G8H pExi2PEGrgTxu LE5asVYmNBqkVu1rkAzcu QuaBO2gOBPsfvqyWSIeuO 4iHDHpuVOqyYhhNE7dWHZ pcwzaq463AnHs FJL7WYIctUWsG5HcdM1iE dAdPPIxHEKkL4FeaJEnQQ hqR624BXehPyS9VJEexlC uR4OrEMEccIuk YsD0o2Z5Xq4oBI4hNH4sU KN2QS80WP71yHZni7V7lS A1Y4JkDLFplugclrfgmPH 9JJCeGRGouP41 dCYxNCbrQm9rv6J9i902U YQaRKWfnK21Je4oiOhwFL HgaCABzR3bkdjgc0pewrl gIzAwMDAwMDt0 HRc5FEBycLjmLoMeNKP4D cF2AKX7kVUgeX0usKfurr occA1rKhk+NjggWWVhcnM 4W8MgEty1UAWj jFrkMT8jaOIxGRhkXl9xm ZujaPfaZQ4aXNBpcenqQT WikA4eMFLqsKOnxPhtNO9 zBFYzvamhu159 KwSnYQE7RNYqvJLxR4Grt X8yWoMaXJVmINZaT6PbqG DtKZilL307DPrgDwQ1JBC unaDdM5ZpYQLe xUptChQ1a2M8Wo9YOQnOC W83SZ97uIVqt7N8xUZ3L0 UeTNHcfstvxsjtmVO2TKE mPRRarQ08tXFq RDsrQt7vi6K8y030NSLeJ SWmjQ19Hh7pbKbqQITzkJ OGeR0zegzkh6zxprplJsJ rPQQxFYy2AMu6 MKPnhJxySvZlMVF8VeL6I MK5eLAiwX0loOasncbevQ 9wOyc+N6Z3Y8UzPajpdHX +DZ13LMVaZY57 oOWdwOLpw5gkfUw0TiDfM ZAlDBD9lTqtNFops7HvFB HkP12nqSRqq4G9LONwfTl hcHNlOyBlbXB0 tB1uMLyftpvfq7iffbbtJ ffqk6stqj64zE70Q37nWL dpZHRoPSIzMCUiIHZhbGl bkq6qfO8fEs0+ GCSefXO9hKP7uT8nOqAeS tD2WAcoH714KaWcmYToXq ewc0wba4saiSf7FuLnGJT gdmFsaWduPSJ0 c6OtRz81Q32uWZcwCPNyZ MRnAJLuLCCkhPpmdt2afE 9wIi8+KD0au7rndj39iT6 8dHI+PHRkIHN0 sSlwMExrPREioE2qRLhmV vZ7UGJtQgTngV78fYZcBD erTq9xmTlgfPupNJ0rUUV rypcty803HeFr t2ksUCQlkVCoFSgiVUE4G 79ia8I0TDToAXZzGPY6yY C5cM2zxTpdbherbXGgrRr gdmVydGljYWwt JWubK578AXZbvVveRzLaj FCsZ1hqudTTHF0oVlpefD Q+ASMxCZQ4pHjzCJouKPR xzO4gQJBbE2c6 VcXeMgG2MSybW2YvvfL4V FDpkZCiVNNgnYBLnT6uox qbv2uqkdbqQzLrSGQwCBh 5TTq4NFKpnTwg PqVcIQO9WiA6QQY2zBTwc Y6zeVojrpfhvQ3cNnw+Rk lOOjwvdGQ+WLJjJUP1jXb vWIbtBNGceV6f YZBwV4x9NyJzLcG2NNmoR 8DdroD5FQJuyFQxJXCabR IRbP0ymckno8wrgbzoHoJ pWLUqUDy5UWg5 RBGauCrzNnKyLSO1EgZ6C YY5qCMpoI8iiXlkwhegkA 9wOyc+TVJOOjwvdGQ+PHR xLOE9rVmrXZvg BUGjqH2oBRGrA1e0DsCyH aO4KIfcF7AryzX7FUDoyW SqVGXqkTWWvD5unfrbv7m vcjogIzAwMDAw IWa5SWn9RTSqvNpmVwGpP NV6TkY9TFQ3iQWqoV8ezF jovqfniJ9iLda+MRN2ZAX 6II14VC54O2Vm PjwvdGFibGU+PHRhYmxlI HdpZHRoPScxMDAlJyBzdH yqDL6dPk2jYJKxXWPvaCl phUKlGsUdb2zd YXB (more content not included)... [facility] Coding Summary HTMLBase 64 MkfxdbhvHGi4qPr+PGhlY WQ+CD0NYWWeF39ixQOclS 3hV1ICUElIGaioZFYRROc RNhUikhPqDG0ccHHaPVAa IC8+VO5wUXGqPjapcMKur 8P9nTF1V48hmy8nWDfwvC R6ZICsChMgavicy1tnrSk 6IDcuNmluOyBt LVLqcS13BGM4cB14Uy99i NIwkRMav2oazKv2DsSkEE HjMFO2fShtEEtig9IaKKU yT63baYKwg9O3 RCRxiMrqdQVzMmFgrNR2i U2dBGqsvinvf6midfyiBj g7qz01kKXbf7F9mIN5C7Z eoyB8PBIpbLDo GqxsgEVPmX0ytodqg1ffd otnHpDjASJcLFz9DLu1QP QklSwxPkTbEO38XNF0TVI wiuVoM4JcGZRx xMarXiO1k0D5Rb3BS9AZO cbnO1ZFKROEJSwktVF+PC 91tq80B3VdQsxeVse7URN zAZW6nZZ6pK6f CZMaQZugr3D1lLS5Q5Enr pRqmo0ko5gcMXKtPBrwT4 2daAAue3J2RZMkeLH9FIO vdWghJqQizS44 Oyc+EYFfnFsso5IzReofd 4pwb5skbBc4WtapOEZreh VktGxePBJ0o9MeSu2cMLT nfJC7tVU7sK9s YyZlWhI3RChkZ766FsHcr NMlYxhrO48pG3CvvGU+PH QkDzy9FNXmdBvcBR0tZ8S hZGRpbmctbGVm eWwuGG0oOUGzemazLMPce J1sECUoT8i6GoTjTgR5HL cqK5CbYIEsmeqeFt96tL6 gMiGtByH5RZjx M2YwirN3CDGejIRhONrjY KP6F75cy8M1GCXmEGYhNG T6xRC7jB0deKnawbrjdQR mdDsgdmVydGlj GQhcLIzsE404DEQkhXrzS kNvZGluZyBEYXRlOiAgMT AvMjQvMjAyMzwvdGQ+PHR hEJU3tZogWDUo mWXhXBtgOd1hkBmtlAtoC O3sEZMvlhrbJTKwiD7nUN AdyRWcsSfpHD8nIRItjtb db775MaGkQSY8 VNWnlHWxI2PbqE1pXgVcQ AIcLAXeG2VbpPRvJRmaX2 90BLkoOuX8LGGztuIcK9N sLWFsaWduOiB0 l2A3Au4Uu5SgfvzxM9Mzb PTpPjWpVdtgMRg5E7GgZr wvdHI+CT04AXRqHX66REp 4JFY3oRmkOItg QMEkH3QgpI0cVuCbZZDbD GRkOyc+PHRhYmxlIHdpZH RoPScxMDAlJyBzdHlsZT0 aIa4yCCHuCLQj kMwitOKbGvXkv6jsNVHyG OcwKD6urYluZ1BnzJJ5XH Kdn4x6Au58B39fW3IfcGR +DBImrIU0qNI8 lN0zReOvCcO7ZPrfT304V iGzrCEuTrptv7pxt1xwnL e5JvU5IZOfmjTkwSaeOWB 5s8HnQg64M57c IHdpZHRoPSIxNSUiIHZhb Jndkf2fkT4vTo8+PGNvbC W4yQN9jJ3cEuDpWjK5QHv dN959DnBdtJPm Rlumo0jbv1rdeDk6BdMqW SPqtiSsxZeaGAE3k0KoLa 01I2RxgGyrn0MnVxh1aa0 5gMSxa4W7qIP7 F5VqOTTlookpnTInyIdgW G9gDCSuduunMOZusE3rAZ HtF0c7ToMzFrU3XTkwX4B mjiY7CXKueVMm ITMyqYDEcJ6fcjhel6cwg cwaZyMeCUWlYOo0KHh1DU XfaSsbIoBaCTB1PcP7GVG 2zHZvoN9ncDlr cxtilF1oNpz+SGF7rIDyj VKZDP5mZoyyqAP+PHRkIH N9kYvsQWjtFRUyfZ0xAMY nH0i1ImVvHoO6 QDgfI6MsdsP8KPIgqXAzQ OVekXOWiP5xsikpe9bnpg inChEwDZRfORo6MIu1MZE saWduOiBsZWZ0 BqC4QUC0kRHbpY1trYyag cqfiV8pFpd+QmlydGggRG S0YFl3Y9StCvy9QCFvrJt xJN3ksEZaXSsv Cx3sdNjaqCvdWB4tXXThb laxm576SbCfj9awXQBpkF HgKVgmBUV2Y33ul8N4KQQ vROCcLEA5gWU4 yK2phHxdqjtouILwnMxum qKqjKfdZJtaGFxoM369ED ZltWopBsNyJDp9C8HmMgr 5WIWgqOqmKW0b hNHyEXgaWt3ntLxfoWukX G2vCJJfijkye937LcCkr2 fjYFLxyEYeEJonYEF1F35 sd8L7GBNsKIPd WIA8hQQ0yL9wcKfaznisa GVmdDsgdmVydGljYWwtYW xuI124XGRhuDwdYhAwvGb 0W5AnGko0CAZh jJzoHQ4htSSxKKdjXg8dv WbxaCnhZA3gTXWthargd2 86NoKdc1noPZVyyNYoEWb zIPQ4I82ui5J9 DKOjGBSpPFU7vEB1iW4mv GlnbjogbGVmdDsgdmVydG bvPYnmFFvoD141WYGlsBy nPlBhdGllbnQg DTqqBUv5I0ZfHjhrcAH+P G64ISIaJX70xSQkrIYcr7 jrpVr7QwClSVCmWRW8gMt rYWbsq9ThNFQy Q39rsNAbf2I9AEIgyJeoc JEnDxBomXW7iG2xAEuitk xzx1ydwgcvLbipf6sarj2 3nS61Z08aSEpg ZHRoPSIzMCUiIHZhbGlnb f2llY8fXi1+DYUkmNK5jD D8cJ0dTLGmPhH8LKxkD67 9InRvcCIvPjxj h5axm6xvgXx1EkD5DPVov wMwgWpfWZE6p0QaQr84C8 9sIHdpZHRoPSIyMCUiIHZ lvDohoe6pdV2x Ii8+MBNeyWS2hTJ0tT9hL wSuJmO6LLdfG349HcWxvU ZiJnnqP47mE9AezYY+PHR aPld7DIGmzTkd QW6ynRIqOJlmFc1uYMS4D uMfVgMkBWdpP1KvMBEeny newzajzQF0XREqLUOccC4 9Ta0zsTtaVQHa uYUCfB6tmtqis9gwyruzR fPuVNQhXMd4ZVf5HGIavG pvPpOiGSK8SrY7LEW6xNX ucE2fnUjvwbly wV4pW6TiQYRcschfBj98f X2sTnIyPqY7FTuvOzh+TU 4JKhSbRnSfCNgZIK64W1W mUnn0QFJdhRjt CM0upUEgZAxyXp1jaOdzb RsrVP1gPEUhqooeOFNlmX 2cYVOxpBRasDruBW7cRTG phagfs100TuPz RTE6ROWcgXCdR8ZxiU4oE kJyFYIcIXDcU6NyqXZsPR zlY035MSxgLyH1BDUcpfM gI3UwAHJgrAic OhL9o5S4Il5rHW7gVC0oD JJ8CD09PC00xHFjt1J3kP Q5Y7HxIDHipqermszeiRB 5NNTaIWLbnN71 aRMqNWklRc6qw0P3u874S CDtDGNgvB88Be0ybFswMP OixVDQmF8rclhvz3jdrap gIzAwMDAwMDt0 UWd9WIQsdMadGnYjHXW4A iV3XYA5rYFdlF5ylPewut rygB8hMnf+NjggWWVhcnM 9F3HlYsa6KQIp pSccJI2jzBAhIZwfMm3ul HwpjAguCO5oGMVrtehvWY NafP3yLHXtmNOepNkaEG4 fFFWhqfzyl332 RpToXMA3VQUqaWGnZ7Mlg H4bKfTxINZtMTIuM3NztU QpBQndH531NOrwXtE7UQF xgnTkF3IqKUAi aRldRtC7x3T0Jy9YTFdER I56PH95aMUxv1S5aGC6I1 RfYGKrgrdsvbuqtCX7VVY yMODliM74jBQs QBjsWu4pz4S8i801VWPeP NXhlE75Eg8ajFpvPKLfvE FEvQ7lcuekn9zeaeohFgZ mSXOqSNs4MAk7 WECgcDctWuLrPAL0PmH6F NI4nYYljC2irErltgpdbX 9wOyc+X3U0F4ZnTqvccHN +OL37YVBeBN15 rUPnpZWon0gziGp2UtHvO BXbXTQ3bMqsWGhup1UdGH VtF96qoZRfk5B5RPWcjJd hcHNlOyBlbXB0 jM6fAYkqmezqt1gjjskiE rnuu5dcad71rI76B07tGW dpZHRoPSIzMCUiIHZhbGl yac6rxU1wHe4+ NSXcqJT4uOM3eT1jQwFjX lD6HHbiF670AwEchVVyGu njs2gum7dfsYo1UcMdCYT gdmFsaWduPSJ0 d8CmEh77G25pKDtmDHZmS QOaZOBiRHQokSbynp4wuT 9wIi8+HN4zb7jwer17yQ0 8dHI+PHRkIHN0 pCpaQOwpJLLjxF6aQJxdQ dH9CJEbQaRvlN62zVMcQW vyMl2nzHygqBfvRB6gWYE dprlsh596DgJj d6ytTEHwwBHxJIthMFF6B 76zf0O3BTNyQIWkCDY4xS D8bT0mkMvnqhdrwGKfiQe gdmVydGljYWwt ZVkwW328JOMibNbgSoBqy RBwJ3gdzsDWVQ4qJjczxF Q+FKBqOFV3qPmpIJowDRF toZ3vOYCaW0h2 LjJxUqF1IRdkD3GfpnD2Z YZglCOlUQObgALTjT6wcx oce4eznbriHoXzDEYhJFr 5PVw3QKVcwQee ZpNhAVW8PdI0JBA4jEWrj Y3voVacidebzV0ePpq+Rk lOOjwvdGQ+FUIcFWI4bAo qSMyuIZAwqD4z DKZfA2d9NfUlTkI8WFupL 9KwvcW7LCXebNGwAUXfuC AIyX5wxbhqu7lddlwzGmB pONHeCXt8VYm1 YFDqqTjkOlNyGDP7CoM0I FO5cSGxqW5nfOlldrlpbS 9wOyc+TVJOOjwvdGQ+PHR aPXV6pBhtRBee BPSqaC2pNZJrN4u4NyTmH wL2LLfjA7QpkiO0ZAZheQ ToQMTpdTDKtZ2vwjkwz2d vcjogIzAwMDAw QPi9MGp9AAMdwGiiSsHnL ZP8ImX6IHJ4dNStmG1veN rpjogufC8sVtq+UAB0ZWV 7JD41CK94K8Pt PjwvdGFibGU+PHRhYmxlI HdpZHRoPScxMDAlJyBzdH jyRA5wTm1qSHViKNNurAt tcEKpKiNah3vn YXB (more content not included)... [facility] Wound Care Noteon 07-05-2023 Wound Care Note [id number] [id number]#[id number] [facility] Coding Summaryon 07-01-2023 Coding Summary HTMLBase 64 WgotxhthJXu8dTq+PGhlY WQ+KF2WQZYsI66whLXceF 6iH8GEXIlSDkvwHPPRDDp NGuMhlxEtMM4nuPGsKZPs IC8+VP4cBKYeGfpxzEBht 6X4jMA1M47agx5yHEwarY V9IYVgSoRiqfqiu8hooCp 6IDcuNmluOyBt DLYzaN28AQH9hF06Vr57d XMbzTKzu3ebjNn8UfJlNQ EcMGI5tRdjIMwtv9GmUWY bV50jwWFmh6Q7 VDIfxMphkGAtAaQizKS2h G4zDJilvzcqj4zzddouZt f2ui56uMHit8R6tYD2Y5M mnkX3VUVlsNGc HjhvtNIWoP5qstmee0dmb qljXkQpMUMuLOx2OPi0HC WufAqzHhVpWD49JLW4CWA sejBrB2FzQJIo sOgtNdP4q9W6Mv7TI3LMO myoJ5ADXEZEUXrggLF+PC 06yw12N1ZwIemnKwc3BJK dGYO2fAR7hH6w CWToQRjsn1L2oAM4L1Yem yNuui7tx4tdEEFrRZqvS0 8qoNFbt0Q3TROclOE9CLF ljJxyGzMyfX95 Oyc+GMYnuHfls2WqYwxmt 2oae4evjYc9CgcsLXRgwl RcpEadHQS7x6CdJe2nWHN iqCV9vEP7qZ5t EvPvQkX5NVcnD626AhWze NOuZediR87qB3XreML+PH UbCif3AULneDtxLE3lB0V hZGRpbmctbGVm lNmlMZ4xAWWhqlhlNIYll R8sAYNlZ4l4DgIuWfG2JI qqY3TfKCYmcgipOm17aR8 vNeIeYvW0UPes W2QlxoC7EMJlvKVfLXqjN DU8B90dt1D9HLRmOVUwRV D5gID2lN8ubExhgdzeqEJ mdDsgdmVydGlj ZJosCEkqN683JDFmjEdsG kNvZGluZyBEYXRlOiAgMT AvMTkvMjAyMzwvdGQ+PHR eYDG8wFnzTTEs tMPbHRplDd3xbJersIdfI N5uUJKgyygoAXBfmL0eDN YmdFQxpRxgSL7lKVFzcqu cv370YfVyEOX9 HREpgYZuA7IlqB5xKwInG WSmMTYmK5PcoDZfNZgbD9 68MYmlCpD2FMUiuhYxX9I sLWFsaWduOiB0 o4X8Jf8Yi9IvnwdmG9Pcb OJaLtDaTjbyUVc8O1YrEw wvdHI+PY46VDRyCI00MPi 0BDM2rYwaCGkl BBFkJ2HxkC9jSaZrCOIkH GRkOyc+PHRhYmxlIHdpZH RoPScxMDAlJyBzdHlsZT0 jUk8xZSCvFPSq uAuumXEzTbHwm3qxFRYiE HspOC9jtZaxF9HkkFQ9GE Zso0v6Sr33S49rG2EqiFI +DVMoyGB5mMR7 oR7iYyMjRsZ1KRmaL049F uNotKTuAkjtr3dsq2jasT a8SmC5ZDKvzfAgyLtoUBA 9h4OvMu61P22d IHdpZHRoPSIxNSUiIHZhb Pwmlp1tjQ9dNz5+PGNvbC C3zKR3zU7nPmAeGyR6LHp vV489FfIorAAv Kjuxa6yvl5gsdLy2MoOhU BImyxBurVpjSWW7l4AcBc 13S6LuzDhau7TzPsw3sj0 4dYXom3K4bMT4 J0WvMNYkaukrvHOyqDbhK A3vHAOujitaKPSesK2lDP FgZ7f4WkFxJpR4CNpyJ6L umtA2IJMjaAPk YFOkzQZBkK3hzkoqy4udr oniPhDrCARbRAh0XOk8RJ TyfTegRnFkIPL9DmV1PET 0nKDegR7rvYgr fbbchV8oPuh+EWB5nAWbc BLUSJ4qWdwjpVD+PHRkIH Z0uBcwUMkuNBPrgK2bALO tW5g0HlDhJrN3 SCsyD2CmwqM0ODVjdSCqY DIdgCPCeE0fluyzd5xoew djIpKeGFAaNIe4MLa8OQL saWduOiBsZWZ0 PsJ3VOZ5rDIyqS5erRapt fswhH2lMpu+QmlydGggRG K3TLl9D4GrLgb6BUGkfBc tYT4xiXUiALzk Qs5zaCcjuEtrSL2qVOGnl oxiw797DuKok5qhZCGplZ RyNLzsPIJ2E16bs1P1LJH rMNGmXZO2kEP8 pJ6tcMzsqlgkoTLsiZduy xHokLgkECikVOnkG426QJ IfqRxsPsIfQKz2F9EbPcw 5YMIdhXwjXL3a pZVxUUvxAg3qxSwyfSrzX L1xTOWqwvwui053UjWgg3 upPVGgfKUcBUljAGO4P22 zd5D5QPApSKEi MMM3xOX1kK5ehMzazktmr GVmdDsgdmVydGljYWwtYW ceJ307RXZbqMkjPcDboXr 5F1EmSkm4DVOy oHphHE8giFYfKXcrBb3bd NsrkIrsZI4gHMAinvvcz9 54GyDry2bgYRYnaBHcSGh aECY5X99xh3T7 UWYbVOHwMQW7hRH9aS3vo GlnbjogbGVmdDsgdmVydG qnBDbfXTaxJ748QFBspWt nPlBhdGllbnQg LCawKQb9O8HtLwimxHB+P R75UABeVN47wLBwgOSgk6 vrvAo1HlMlRXZmGKW9xUq fUWfgq0XhBFMu Z84thYRcs5U7RBZnhOxir VNcEcHbiWG9sH3yOGyska rys2zeewctUekow3tqup9 3bI74H63cEVvv ZHRoPSIzMCUiIHZhbGlnb a5ezD3lAp3+YBRbkJM9pD Z8yH6zRJLmAuY1LOdlW65 9InRvcCIvPjxj g2lfh9jekZx2JqS7LTIhq xMaaNpxUUV3c9XiRq05K9 9sIHdpZHRoPSIyMCUiIHZ zvRejdt4khE3r Ii8+EKOpzQR7kFT5nO3wY eXdJjY6IZdlS855CjJrlK IiPlqdY23nJ5SpiWQ+PHR zDux1LNHhnBcp BL0jkTUgEQitNn2jDSA0X oIoBuNsVOclL1UuYXUemm caoesprAB9ZGNxLPXqhL4 3Fe0eyCwiKZNb uVALuH8blzfdj6ktguhnG zHfDXJsJEo3FGi2NYPyeA ciKfJtYPC3FnH7DNT3iRG bnS8dnHbmybte wR2tU1FlVKIlykclXj90k I8sDiLeAsX6FUlrGpp+TU 0PKwUkMrTnALkBRM44P2Q cAfy4GYHjzKgp LV6bkRNpHLbgMs7niQphh PfxLY6jHCHswyczLSQpqW 9kZUKsfWXmsYqzGE8eUTQ bydfse956UnBz YJW5POOhnFRpC6ZohH2mH bWuBWGjUQIuY1RfcAXnGY ulK083ADodGtO8CLQosjC zO7ExTZEksBkd NlF3p0O1Wq0kNZ8lHT7nY GO9NG64DU80tXGaq3L1cO E4B8NxXWYmqiicjidpkJS 9KEGgWCItvL09 oZKqOPurKm5rp2J9v956G YEkUVSkcT07Py5okRtiYQ QxvUGBdK7vgzrec8rrzmx gIzAwMDAwMDt0 PEf2HBDacFdtNvOdCZQ2Q bJ6OUA9fULlyQ0avBuqqm lifB7fLec+NjggWWVhcnM 1D5ZuZey3IQVr eCopKW9obXFjSEhoTf7zz QjpfVviIN1lLMPsqhenTX NatL5hKHZzrMStnPsoWI2 pRHZmnkeqq626 ZeKpCYE5BXQolSWiH5Anv H3uXsHqWYOfRYWyD7HttW LoVNpeU115IMjwUqX0IZN szoRdQ8CoRAYk yFnlWzL6v7A9Cr4TWJjFQ E76DE29bKNjk5Y7rBX9A5 IxCLHszhoarlcznZK2YRF nIMPqmO65zNLa WKbuSf8zr8O3e173TODvB WSnhV26Sh3gxDwmAESbuL OPjG1ddvgnp2mmexsgIfV cVJJmZKa1VVt1 GWTcnKgjIbBjIJJ1OvM2I YQ8aKKjzE1bqUwbihzzbB 9wOyc+V9Z0R5MbIkywlVD +GV13FLIpPE58 fHEcxRSnr1ojlHk3ReOqC HWnKVR6oNuoROaig6ZbHW NgX43xhBEri8R8BSJqtDz hcHNlOyBlbXB0 eJ0dZBvigrvem2pglaaoW uaje6fmuh80rV43M95iQC dpZHRoPSIzMCUiIHZhbGl fgj8jwG2uEf9+ AXQpzPS3iII6hK3xVkOyP bR8SVanM412JuXcgBDaKy hnj5pdw7wegQt6GdVlELU gdmFsaWduPSJ0 z8UoHr45A86cSCffVIGxO YWqYXWfCPLcyMmolc8dzH 9wIi8+VT7gr1sgaw51yI4 8dHI+PHRkIHN0 bFwkDTejHLRwjZ6fSYlaR fI6UXJjUxOnwH59xYGkRT gaYq9huUguyDnsYE0qSVW hxligb112YkHy s5iiOMJihYHoMPmmHQL2O 81pe2H9BXBkJTXjDEG3vE L7oD7qsIxfyjerrQVntBl gdmVydGljYWwt OBwyJ090BRRjgVhvDxSlj PTyX8iwwoMKFO7uTjpfcH Q+ACUgPYZ2zPoePKwsHVB mjU5vEKEtZ4c3 OrGeVxV5IJpsV7WxryV9W AGzeAOfQZYidOFDeR0ytt qei4kkiwmaJvBpTUAwXXy 2RYn8VPOgrCez ZyInSKB7OdX0SHN2oGFjz A4ayRviwdelgF4oStq+Rk lOOjwvdGQ+LIWsTZU9xQd nQLmpQCPbxL0v YUGmV1b5GsWmFkG0OUriC 8PjoiK5CSWcyMJmYIXfrC HCfS2qdteon4isgdmsPnO oRXNzYNi0TMu5 VPJmcTjxEwOzNHP3PvE9B PA9cGNmsG1rbVvcjfohhP 9wOyc+TVJOOjwvdGQ+PHR eCDF5oQxhHDjr UYEghS0kNOVfO3z2JxCqP kT8ZHjqW2MecyS5ARRxxP GdSZOzoSQIuX6myfxin5j vcjogIzAwMDAw SAq4ZBh8RWXoeDbmXtCfE WJ6BkA6NAS3wAQyrD6tnR hpncsuoM5pDvr+IOF1QQM 1GU30TM42T4Eu PjwvdGFibGU+PHRhYmxlI HdpZHRoPScxMDAlJyBzdH egXE3zGu3zIGIzIZPrhVx bjEEmAvVcp4od YXB (more content not included)... [facility] Coding Summary HTMLBase 64 CbrunkldUJh6dCf+PGhlY WQ+HE8FMENaE11fpWCztU 7cE7SASKaRNkerNZFWMZh TSePhciZjFE8chTPqGMRr IC8+IB2xFIUlRlqokLWks 4M8qUS5D65sub7rMBzwbX P6GVWbXrXjdxheg8kypWo 6IDcuNmluOyBt GIUqtA99FGL0dN82Qf66g IZnzSPde7dgpUi7PxOtSZ EcJHC1gEwzFCzbs2ElTMU bA15xiNQlq2Z4 YNHuxRudhLDzRhPlsWT6o P7jBJegsyvwd5zndnbvOs q9lb76dSVes0Z9tXI0S0N nveP6TWKwbORv KzpyhZPKdW5ztsbmz8mtl kujYmBfMUBiUGe8SDi8LU QcdLqfOqPaJX93YKI5ZXV keoWoE5QoQTMd pOyeSbP8m7R0Rj4EF2GIO vazB1NKZGXWGIjyaIV+PC 20qa59Q3RzMrocOwe3RMD fRFD3pZS6dF7v UIUlPGzjh3P6qGH5A5Jky fYphe7hf6xoXFVqFYufF3 9iiARnk5L1UXYtlND9WUB yzNphHeLwqS04 Oyc+LLKqpMbua3YxPuplh 2isk1khkSw2CwhzYDIdla UdyHbyFYG7r7ElVh3xFQM nnRG5tEL4kG6m OiTvLbC1TVazF082LnNzj LLeNigxO11rJ0NgsDM+PH KtQyw8LJZjtDagOJ3qY7J hZGRpbmctbGVm dXqoIF2sUOOqsdxjOWNas Y9nELLtI9j2TwYrLeE0OH kjV0NfMTZsirnmHl96yC0 cIbFdWlY2NNrn Y4FwuzS4AODduSMoSTflU VC3C71ae5X6VTRoZYQvPC Y7eIE5vZ8vtBiqgskmkXB mdDsgdmVydGlj QOnhGGudW109XOFubLmjY kNvZGluZyBEYXRlOiAgMT AvMTkvMjAyMzwvdGQ+PHR kLST1gOrvLPHi cVUdMYmlQk4tbMpwfItfB L8yKXOkqzajWNFnyO9zCI MjmUQcmSwxGJ2cJRFdaac er674GeSuVTS6 XJKjkOTdZ5AruQ6eSpKtS WIsLPQyS9PqiCBgATfdS2 82BJcwTqF6BMEsybXiW8D sLWFsaWduOiB0 i4E5Xz3Yf2HtccxcE4Vrk DLeJxSlWltiPTz7Z7HgZc wvdHI+HB72NYZuIY50BJw 2JNF6hRcgDAik EWSyW0VeiJ7uKkKjAXTpF GRkOyc+PHRhYmxlIHdpZH RoPScxMDAlJyBzdHlsZT0 lJf4qNIXuRSBg hUcriVElMiMkp0nuMFWyX RxiGN7mdAmcE3MnjYF9AX Nmf1k6We17J52nH1ZgfRV +LPYatCJ6sGS0 sA7bOkBlJfV8QRrlZ586I hXvaBYsVjvfo2nkb5cslJ z7IxM2DXKeunHkyCwhYLG 5u3MoWs27I79h IHdpZHRoPSIxNSUiIHZhb Pzrmt4ibL6zCh5+PGNvbC Q2eIH3rM8pVbWiZsQ2PDo bK969NdPkbKEh Jyarh9vfh9jnfUj1VrJvA XXxbxSdbLjiPBK0m9RiQp 50K9XocVpqh8VgFsi6hq4 9nABkg0K9uFQ3 Z2CtYCTadmuqrQIrxOqjH X2oNMWfymmnVOGtnO6ePJ PuE4i9ZiPzBpR1VOelG5M kpnS5JZVilOLt BEJzrBBPsI9fpsffh5flv zmbSnKbPXXjNRg1QYy9VF CgdYbrNlTbSGB9WnY7GPA 8pTBmiF1ieCbe esndbJ6dGdr+ZLM1tAPyr CJPPO3nFimocGY+PHRkIH J6vYpxPGimIANhvC0wTOY iV4x3NmFxTkZ9 XJnfS7OtkrN6FWFdlAPrZ EWopMLRxI1jbqmtm7owpo kvJjUzVDUwVVb7ZCy8ROS saWduOiBsZWZ0 EmG4KOQ7fTBjpS6tgYkrf zgdaK5hZks+QmlydGggRG F0FYs0Y1GnBzd1TZTxiGb nFF0erOKvKYxx Mx3unGgwtCxeTV1xJSTyy kjpj557KgGni4txCOIkcE YaIJrkACG3V25vq4D0VSP cNYUgMBO6iIX6 fX9cvIkuacgkuTYydUyov lXkoBfmDOqdEXiaZ298BG StgHnuHkObIKv6P7RzYfa 3OHDxcUryTM2l kOOtWIgbMj6ljBymbQjqS J0fXNDmexotg266FhXzj5 elEDYgzMOkTMhrQWA9M92 dl5G5IVVjIXDb RNK3eGL8jH1bkBgfosvfq GVmdDsgdmVydGljYWwtYW prS847FBQuvBioBkJbrVo 6S1XtPbs7HIOz lCwbRE3vbWVeXCgfRz4ub TtknModUJ4iXEVdkjxnv4 53DsAup8gqVJXvnUAiJRm xKYZ1B79un4K4 ESBjDXWlYPZ9rQH1jU9dv GlnbjogbGVmdDsgdmVydG kxFSieCWjuE474AVMjwGb nPlBhdGllbnQg BDexSNf3L1NiRczxiDQ+P A39WMCbNC59fBBcuSFdi5 vypEu3BvKzXSPsGGC1ySh dZKael0PxUUIt H39hsHKbw6F6VRJqyRvyx KDhPjMvzYF3vI7nBNlmow nuz7fspbqrSfboe4wmzv3 7lZ91Y18lUGqy ZHRoPSIzMCUiIHZhbGlnb n1lyK9vVg3+SSEayRW0uD R0hC6dQGLbVfV5IYcvC42 9InRvcCIvPjxj i6zyh3kriVa4EcI7UFOig lDrvJrhJPB6o2DhHw95A9 9sIHdpZHRoPSIyMCUiIHZ ixHkmho9cxW4m Ii8+LZMuhJH5dMA6oA9jG qVsDdQ5JJifZ257TtYlnC WlJueqE95hV7QxiIO+PHR sVfm5OIVbgEcy BW9fkDCdBRmiDz8kCSV7L uYiOlFiIEfyG8UjWFBroh jietyubOC2CQVeCRBybC7 3Zr3zdRevVBNg tCQWrH2xadwur9fsivmrZ dOkEAWjCMz6JNg5SYWfcQ wkXwRyQBQ8TuC7OWE1wYH fmL7giQqbapke zO9cX1RcTJJakzpzWl69y S0wEgWfVbS4OIxcUcd+TU 5DHcXkYsTtLRiQXW53S3S vBcs8ZLTgnLev QS6yhSNeVMuoBt0fdInxb PexVK4mYOKdlyldOIVfuP 2cGISabNCliYcqQU9cRDY aveqpv564LlJy WHN7PSHnkKKpJ0XzxI8uE iEaUXKcJQSjD2IzzLEqMT ceC951KEkiZaP3SJGgncB uP6OpREZrgKph EpN2a7Y4Ap9tCU6aPW2pX CN5IW07RL50jDXct9H8pS Y2S0GdEYBvuknjqpukdND 2BFHcQVPeqM51 cEHjPFnyPg2hi5P8e022A RGgUXTtaK12Bg9huHabGZ WlaXZLrX1pncseh9pwwch gIzAwMDAwMDt0 FHe8DLJveEvhIoTyZCD2G qT3JNH1nFGytS6tmVsznn nppX2cHwu+NjggWWVhcnM 1Y8MmKjh7EAQn aPiyFS5puHBbQWauAg3cz QtdwZsmFJ0uDCYdgwrmLC YmcL3tIACevJFeuKqlGI0 lGAEyuppkf810 HwGjNED6ZCKlwKJrB1Tyu F0bUeFwODCfTFLyA5GwgM VlOYvxN666EUitEeE9VWV lnkAwX1NyUMGn fMfpPmB8x3R2Wy5KLZnYR W63VH02kLCaw6H1wYK8L7 KxIYJphkedmgbnvBY1ZAO dUXOviQ21oZZs XGacNx5gr3S6v276BLEeJ VLfwY11Wn9meNxdEAOmcN NRrH1kdalpl9rqrzokAcL hGAYvVBu2DGq3 JRIcjGmuOoIlEFM4JxE3B GE9iYCmlO0rmZqofecqiA 9wOyc+V2H0M7TcOltxuOE +VF14VQQbDK83 qWZqqJRua6qktAq8WyOeG AQkQXJ0dBcyZBdoc2JnYR DfM14ynOTmj7W4NEOdxWo hcHNlOyBlbXB0 lL4rWGogadxiw0xhvjudY biov0ojox46dV60X27yRY dpZHRoPSIzMCUiIHZhbGl jts2ujC5mDn3+ QFMlxYS0qSF2qW7xEhFlR cV6UDmwL998RnQcmFNyCb pgc6ivj3tihEa1RsFtRRK gdmFsaWduPSJ0 k1FxSq90G25oSMbvQCNtR ZHtGKFlHMVjyDsliv9mkE 9wIi8+QJ5ag1xizj53vM6 8dHI+PHRkIHN0 lCfcKQhdNNFpxG9kZLzvJ tD9VBNmXrPqnE77zPBeMD bmMw7ltJgscZsqHE8sPHE tuozgl055DuFz h1vnIGInsUUxCWalZZJ6B 36oz1K8XYUiKQUmNSM2uQ V9uW1uiDqkwghlpLFvjMv gdmVydGljYWwt XGlqM512URAzdXgzZuYqp CUeI9hjfyXXVR3cOnrseZ Q+IBNhBHO6kKbpLBwrIRQ nlB0cQLUaF7e2 QjFxDyF6VEwuH0MgoqX9G IDkiQXzNNCzaEKOwZ6lgj hti5jvfofsCzWjRJPuEJn 3LNs5UJIjlNhe PgPcCTO0YbO6KXE5xRTmd D7qhBgvmhfkrW9yQyb+Rk lOOjwvdGQ+DPDlROK4vZr fJPpxBMYyxL2m IOAjB2h0KmRrMnS1GLtfX 9UegkK2KSKtjHYhJOTurS UBbA9sqtpfa1fvbqabGfG rUMQdKPn5IHt9 LHQouXxgWaZxKIY2JmQ0V YT8hUEngR2ckPbgccbqmE 9wOyc+TVJOOjwvdGQ+PHR sOAS5cMhpHIqt XVUkxC0mEIYuJ2p3NnMrL vP2ONazL8FfgqX5VKLabU KrIYSflBECuS3hbfvbt5t vcjogIzAwMDAw FOf0EYr6LFLjzIohCiUfZ CR1HfX8IPP2hOThoT6byX qicihihN4sBix+GQT0LYU 8ZO78NR25N1Mj PjwvdGFibGU+PHRhYmxlI HdpZHRoPScxMDAlJyBzdH ozTE9gEb1oNKPjCWUxlCc wiDWwNtRna6km YXB (more content not included)... [facility] Coding Summaryon 06-30-2023 Coding Summary HTMLBase 64 SstwkndlSVu8zNh+PGhlY WQ+PW2TQHUmN12axAYlbS 0vV4PHPNmJAzqxNZLLWEh ZYkConrIhID3gfHCxWDTf IC8+FN7lELNiVywwzEBge 6H3vYU8A05skj9bKKyheB X3XSKoExYvhipnq8abtJk 6IDcuNmluOyBt SLUjuJ86EZH0tS14Lt74m YNzcKSuy8nufLt5VfTlUC DzWMM2vRunISllt1MxYKM eQ14wjJCjw5E2 EWDokLmazYXhJtDpqLF9i B9iXMqhndowd5clepkyTa n1og24mBElb7G0aIM3U9Q oidA3HGUrbVGg VphdyGQQaK6huowzy7fqu wbbUcHlHLQxYOd7UFo6GK VlmRplOcAwTJ89JDC1JSM hroToH4PvHNNy sStcVkF1g3S5Id6MV7EHJ nklP3UXMFEPEBuirVW+PC 82gk66W2VpKoghNka8PWO eGAB9pHJ0fC1e KEFaVDhva8S6dIZ5W8Ilq cEova4pv1rkYWMdBJwlJ3 2ruMDku7U8JFIlrSL0GQT ahXfbWiWwkV76 Oyc+JIMuiGqou8NpRgnds 9aua5llpZu3BewyFMZcwi QqmNndTFY1j5IgAw4wCVJ doXD0vAR9sU4x YiCbFiA4QShnH907YvVlw XRvEvzuF34gN1FwhJB+PH CjZbv4DEZenGgkJP8dH8P hZGRpbmctbGVm fCujMM7dKMJvstdkQAVkk I2vLILcJ2r3FlGlVyC6PU iwR5WhFLXlbdtsMu57vC0 sMjHtDyK3AOia O5RxuyL0QGSipYWgUZuxY ZQ8D37zz1L5CACoNBEaJA T3uEF7mW9wqYpxgqkniLA mdDsgdmVydGlj OZnvUAogC331KQZjcSutS kNvZGluZyBEYXRlOiAgMT AvMTgvMjAyMzwvdGQ+PHR pAGS9oMpvRLYo zMRcRMkpRi4vkCpmuWatZ F7tNQSazyaeAEVuqJ5zGM AjuEEchIydQJ4iQFBgtrr kk191KtDeVXO0 EXHbrKJtB4NpzF8aAfFfK IMdVBVfA5PpsALnZRzhR5 95POltOlK3KFWzbqWcQ1U sLWFsaWduOiB0 k0Z2Sl7Kh5RzxhucL8Vax OJmGmHuTutkATa0G1SgGc wvdHI+ZV61TFJsIK65TMl 2FRM7xZivILpw RPFkQ6YunY9tHnPeBXInV GRkOyc+PHRhYmxlIHdpZH RoPScxMDAlJyBzdHlsZT0 gXt8bVRDwBKHl hBjwbCViVbGyu8jgRRXmF GcrWI9oiQymN7PerKC4DV Ewx8b6Yf62H67bI5CewJE +RBIodGN0oTH1 hB6dSnUnZsJ9GBluP880P vWzbNNoYvhqg6ooq4qngN e0BhI0BDNgreUoqIakNWW 7k5TcOk44I60e IHdpZHRoPSIxNSUiIHZhb Bvuyj7wmG3uIx2+PGNvbC G1pCE4gT1uAfNxSrH4DBv cU315ZwOlgEZi Nbeoj9dab5kwbVs4WcHaS NJwcaCkcBkyGEY0x4SeUs 88G6ZmoAskm6RxZli4nw3 3lKMgy6O7rPA0 H0YvNSZboseffTEnsTdlA T9zHKPqbymsKBRgoN8tEJ XdF6c7JfSpSuG4TFpyP2D zmmW6JTGiaCWf PCQtbDLJdO5kzgvye0zbh vkdYwVjFZMbRFd4WCv4AU IfxJazJqDfSVW4HjS3JAV 2uJXdpC0snEqf yhzljF2jMyf+HFS9lHJhi VIXNK7aLszruMH+PHRkIH Q2bResDKrwJQTpnY8oGHV iJ6c1RmBhNsW4 IKcxL8BipgR3VVZxbUBkM XYpeLVBeW7judqbu5bzov zlPoKbOJZhQOb7ISu6UBY saWduOiBsZWZ0 ZvP3EOG6dVLsrV8mfEgyu jfxhM3cMzl+QmlydGggRG D2SZv1T3VnMaq6LHUedBi tOZ0czSJdXNaa Ja5cgIwazGpaCT1yFKDrt ngyt446YkDrg6ddTXAknJ RpQGutGYZ0F32dk8V4WBR aZSNhYWI4fJG7 fY9egYinuqpnjHXkkHrwi zJmoWmgPSaeIOzdU625KY JkhJezEmQfEWo6E7QfCsa 6GPHpqNqeTX2a hGPuQWxsVb0xcJperFvjZ O8kVCLnxkphz336NaJps0 svKHHxeLRgFGmuURL9T16 zk6U4FLLzSOWd CRX1lPL1pL5xsQoxizwqq GVmdDsgdmVydGljYWwtYW ojN327NNKzpObpFrLaxKl 1L4LzJxx1CFYa kVcpBL6hqLMqWKcrXc6qn JouzGtvXV2vOVBolrlpb5 22GfRdg2aqQSBkpYFdUZt qEKB6T93fg7U3 LHMtPJVsRYZ1mWX0xC6un GlnbjogbGVmdDsgdmVydG bvRQdhSOviT187HDSltMa nPlBhdGllbnQg GZdzUUb4I8OhCuemhWG+P Z72KXCiXP53nLJqgDPik6 kzlWv9JhNwQYMoTON9hVl zVPxic4IoLOGm H42xuICch4S6PDEpxGcyp CGeBcUpnSV6vU3bHWtxdb yee1ofeqofMmtfr7ilzf1 0lQ68F51nECno ZHRoPSIzMCUiIHZhbGlnb y9wnO6sDp3+TFPgjPH3pR U0sV7yNWYsXvO4EWktN30 9InRvcCIvPjxj r7yjw8wslUf0YuL5ZBGvs nHxyGogNUG7l6SpCl34C8 9sIHdpZHRoPSIyMCUiIHZ imTvswl7oeG6q Ii8+LSCxdUG8cSH7vT4hS zXkTqV8LJmxQ212UrEesC CtUwlaY26vA2EotQM+PHR nRel9QDBmhWrt FH5ejMGwXYnyOr0vADY3A fPaMrHnWHwkE0WeVSYdks wthtyaqOM3NPKwMEDulJ8 7Bw7ezUyjFIHq tOYJmT7gjmhzy8nxasuuG fNmSCNyWBq6QXo9BKYbeU nfFxIoANX6QkK5WYE2mYP bwP6khZfubjhd qM5aQ2HpISMadqsmBw96t A3cUsNaJzO6RXcsPpx+TU 5AVgByKeZqDRyMFQ60E0X wNkn8QIZpqJjp BH6dpBKdFUuiQs1svDgiu WpwRE1uSWRdxnlmOPQtdZ 9cTHNwiTUsdEumOK0fZNY cesvoh467XoEz MJS1KTOnyALkP1NllM3hA kEgLQQiMTMeZ6ZamKVcTJ dkM728NSphGfQ5BMMbehN cR3DzOSLvrBnd MbQ5f8H4Rw9qJV4mZC5qE LW1EM00QB76vWExg8S9pJ W8F2VxJFKbsknygrzapJU 6PIEaEHDisI52 sMZdAGszIv6ec6T9a101U FWnZXKlyR26Nn3ksZgfVO OqqICKuG8ifkcgj7fqapf gIzAwMDAwMDt0 PQi4TVQprZhzUqQyALC4I rB4EOU8gKNzmS6pvDayeo mhgG6nSmx+NjggWWVhcnM 7P2DySig7CNHx dPsmYG2uiEKhWPfrFx7kp MhyvQjpBS8kRHTkiqjsOM QaeX4oSRWjxOVzqBcnYZ8 qVPKugyukc326 UrEqTLI9QRUtuAGeM8Lyp L4qEbGmHNIfYPSiW3MphP SpIOkzK211HRvkLlZ3ULY uqlEdQ0SxSFKu fVqbGuX9o4F9Ii7KNQnYW B50GK80vWNxw4T9sGI2V3 BrVWAxtyztruqqtXT9RAJ hEFZhdL09xBAh KCbkEo8lm1H9n611PHOtP FUuxM94Sa2zvOrvCWUkpU GBiF6anusre7iwyqzmLdK rTQZcMZi1MHm7 BULggAbsYvUuUVE8FaH3N UW3lVLqqA9rhVjphmmciZ 9wOyc+A6E0E2MqWexzrGJ +TB48YYCoLP22 pTPboOSim4ldqBf8EaXqA IUhNXA2uVzeDCdhc5RrIN SiJ52hySIfq3W2TQJfxKc hcHNlOyBlbXB0 gX3nIRiemyhvq3pyrapnE kggq9vlcm29bS63F39dPN dpZHRoPSIzMCUiIHZhbGl bna5hxR4bIf3+ LMGjvDH4nKH7iG3zHtLeS wB4MMrlF612EfQqbAOlHc lyp5ebc3uyfZf0QfEvEHA gdmFsaWduPSJ0 b8YnQc36Z02lMRglQSXiR VCnWNYzDAGxjLgrkw9uuB 9wIi8+RJ6wi0ckxk22pI3 8dHI+PHRkIHN0 wIbzDKabRZTanM2cLOceX cC4MAOeBgCjdE53bUOrRY fvSc7nmItujCpuST2rCAY anzdnz228VjIa a8swXYQzpGPjFLvrXPJ1K 13py3A7IOByLSIrFLH5kJ J7xC7qoSjrpkqwdNHymMy gdmVydGljYWwt JLmaP486UUDbwLabQhHaa QGoC8flkuDOVT3fZxoawG Q+AHQfDRF0vCuuLAfbVQV vxS4qLUGqL5y3 TaLxPjT0JMwcJ9FweoV4E IBdvQOxWGPobNEPyO5gms lri2aogmhhLjMpPUZjNYu 0SJv5SZFesNba VfZuXIP0BcB6DGT0qJRxv W9mkUmeqkkhbY2fUha+Rk lOOjwvdGQ+LVIxSIE2qWq iTSsaSARaaQ8z NINwL2t3UeWsTiO7PJsiV 3XzjyL6EHFcgYTwTTQglG HPdY8tbyppp4tdlbfvHwW yWLSpWRm5FGm5 GUYucBgzMhVjWOZ7UwR4U UY0oBHbeG6zgYnoubmxmJ 9wOyc+TVJOOjwvdGQ+PHR dTBZ0sCkuOEzv CDOrqF3cTQJlP4n4PqNvC kP6IMiwE5PqhnV6MIKcuQ BdIYLwyOWFdN5xkjhmd6w vcjogIzAwMDAw MJl1BQg4STCupOvhKoHzB SX6TwG1NVK2zTKdjM7deD eomzvcfA7rVvn+AET0QFC 2DJ58JW13Y1Hv PjwvdGFibGU+PHRhYmxlI HdpZHRoPScxMDAlJyBzdH eaCF6hXr3oYQTaYGRxiVi swPQgRlKhq8ey YXB (more content not included)... [facility] Outside Recordson 06-28-2023 Outside Records [id number]#1 [facility] [id number]#[facility]. [facility]-24-[facility]23 Coding Summary HTMLBase 64 OlwcsqmmENk9jGs+PGhlY WQ+KE7SQUBaX62nlNOqyC 4yH5GVKNpXNkdyYOERECy YIjEijnNsOE1qpSDfFROp IC8+BP1gKHWdLvskuKIss 1N7gZA2Q76glb6tFNwnfV L9VYQoGeEikhrcc5yejBa 6IDcuNmluOyBt KKEcwU95ACI8uT53Ye58g NMjdHLoj3dizZf4TwQiFL NpHLT2jVvrNNdmf6BrPBA yW75kaIZio9S3 UTDgjTspeWCmXdWixJR0w I1kWYbzyejyt8ixkcntJy p3uf64aSIdr5B3vXO9N8V xwsC8SEEzkXCm QmpogCDWnI5huuruq2zkz psvXoBlSJQlJTu8UOd8MU HwvRvfCiBaCD32ZAZ8OBP zcuQbY4GsZBOx aTcmJeM1d1E2Xq9ND6RMQ serV2BHYCYXMXiirIH+PC 35zg52V3HeUlujQmi5QXF gHIM0lMY1pU1x AOUuHDfgi3U7uRP1A5Rjy dZvsq8yl1vnTXBxBAdiR3 5yxVUoy6J6UVVpgBC9GPM ocRorGzHcfW77 Oyc+RJLpwZhyc3XnEpwkl 6qkx1yhqOp1QkqvVFNlbc WizYewRSR1j3XyIy6ySUF jrSV8gIU2bS0x GqUbYyG4AHoyK702HmYdj IXrJaziW62jV1IshAU+PH TpVma4ZLMynTzqXN2uH0L hZGRpbmctbGVm dGfaKP7mQQDvgumlMWNdg Z8sBOCgM2y1EmEeNxQ0JO jxC5PbEXLzuekrYe27mA9 qPlDwCeH9TSke K2IhgnH1TPYjeJSlAIkaI XH8K89rt7O1QRWyDPAnCV I1nWN1aL2qxXlnupxutFB mdDsgdmVydGlj HSsmZWauF402KXMexDmiK kNvZGluZyBEYXRlOiAgMT AvMTIvMjAyMzwvdGQ+PHR vTPU1cKrvTOWt aODvPRktAj4tjVbphHleF S4gSULtwgwxDJEddN6qXZ JdqHQpaSguUL3hUSYfhkd zz045HwJjQQO7 ENCvwUEkS7RooH2sDlQeH NAyXGVpA4OeeWJqFNvnB0 29QVpyVzO4OSXfxuBgW6G sLWFsaWduOiB0 j7W0Xw9Rc1FmpggnJ4Kyq GDgHdQbDzsfMPr6J5FkCm wvdHI+LG35CPPtUO98LIu 6VBX5bMuuWVul CGJwV1HbjR0nXkEzSDOiM GRkOyc+PHRhYmxlIHdpZH RoPScxMDAlJyBzdHlsZT0 lNo5rXKVwUXAo nUurtCMyTqPei6kdYPYzZ JvtAD7qqCcxA3VnjNN7LS Mra4e0Ya09N66lF6WywWG +MZRvaWU0oJJ8 lO9pFqQrCxQ3UEbiE469Q qSclMXcStgih1qsw7sqrH a4VrX6FWOrvzUvnQuuZME 3i3ZrNr43S90b IHdpZHRoPSIxNSUiIHZhb Chewg6xkC6wQk4+PGNvbC G5oRX1iP2fVjStZeY4MVk uE680XpFugRNo Owspo1bif7corAn6MnMkB YEstaWksZblMXN3e0PkIk 30Y6PjlZasi1TlTvi2sr2 1gSAaj5T9qFJ2 Q0ZsOMMncaglcGIyuGqbL R1oKCEffqglHHAhqO4vVA DvS3s5DpJgTtD1CLdqS3H cofS3JRSlvPKb ELZmaVKMeC3koedpe0rxc hlaDiByRLEhPTv7KIa4JQ LdrEjiRnBiOOE3BrB0CMC 6xSIatK8xrTzd ttgvdS0dBjt+ICF1bHSrl CXOWU3uSqrusTX+PHRkIH J4rFhvAMctVTXyfG0cGME mQ1e8MkNpWgL0 WGdmW0VvrhW6NQXgkGOkB JJujPQUpB7shgpnf9ehoh pcKdSvGXIcAZr7MUu5MEX saWduOiBsZWZ0 PyY7UJB4fAXyiI8rxJyay fsfgI4vIjc+QmlydGggRG Y1IVp1Q1QdNgy7PVXjvSc nUQ1olKTzMRfr Ul7olNhdtHhrCW0dNXYdl pgod835DgGrg8dzBULdbX QwPBkyAVH0J93wb9W6JWK sBFKdWTS7pTH4 uC2ulGsktyfjrSNvjRiar sSpeHurSXuhXUoyF629OJ IwsIjpCgPeIBi1E0WlQpq 8CNIspIsvNS7v rSEkYSwhXh6vwVrceXqkK W7fAADihwqyu306DsKfp5 bbYFRynGUrNOevOSF1E01 ua8E9SBUeTSIo RUZ2fKQ1vO3vuNjlyqlrp GVmdDsgdmVydGljYWwtYW paK636OXNqiKypQlVerIs 8Y5DvJgo9HXBd rVajMD8jwHAeRQnlJg4aw GtipCbnVG0zXCFvxpbon0 75VpUru1xfBDDdnVZvUEg uEJP9G59xk2J2 NKFmXYVeXXO0cZF9wB0gf GlnbjogbGVmdDsgdmVydG tbYCkmBWbmD991INUyaNz nPlBhdGllbnQg ZDrgETl1Q4NfRpbdmDZ+P Y51HSTuBU20sELqbCNvc9 jaoBe8PzCgLEWfILB3oFa uUVtac2OxVRAt I41twBYwh0I6DHNoiRdrb KFcMqXpkLH8fY0aMTerhq mkv6ignkisHbagb9loik2 3jS07Q25iKWld ZHRoPSIzMCUiIHZhbGlnb z3wzD2iGf5+KSJyhRN7jE R2aA2nBZXxNiR3EDpiE72 9InRvcCIvPjxj g7hxn1qfwTm9WyD7KRPoa zNvoNxuODP4h3CqWx03Q0 9sIHdpZHRoPSIyMCUiIHZ jvYtits3qwY9i Ii8+AUSipZJ2tOR4lZ5yO ePuAzY6VNrdA933MjEyrL DrCpcgI02fJ9PaqMF+PHR hRob9IVLrsRaj ZA0sgDTnEGdrKk1eHGB0B xWkEmWfVLdsR9WyPBRiat eqcgvdnDL4KTZsGOQylF0 7Xa2uyMmjOGZo kXXQhF7lwmali8ouhrzzI zMzXXLcLTc8WNj6CBLyyW fwZyInTSW1QdA8GIY7yLQ uaJ1ltQwxepee oK2fF9JnIMMktwpaHw98h C2hUrXrLdY1DIxyOfh+TU 3VUuTqVhJaBVdGGF89M9C oNqp7DZTqfGzr XC3crHMzORwwVl4fzPkvo DwzPN3sDNKayzkzOYUalD 3yEQXfoLDypIcvXH5kLXU fspvoa074VlJa BQI4WXLvhLGdC8RisX1oO cFyLLVoOLTiN1XlbZHrTY hzB830YPfoHcV9QKAmfhM dE5OcNVIqsQrk OgR2w1H6Eq0iKY4wWN7wB YK3LI29WW77jXCfp4R0wD V6C0GbLSWgxjwmkuxtvWP 3MYLpPKOvkE22 fCYxUYvzPf1ri1E0d535Q GNaUKLczJ83Vn7aiDuyIH YucMAVjD8afxcjm3abrxw gIzAwMDAwMDt0 WUz8JWNjfAdlYfEoAQO3W zF2IVW4qLQnqN7ybWdglt kmxO6pMzo+NjggWWVhcnM 0F4IcDfx4YFVp sPygQR2eiWSsQBkoUi0ym HhgwRarKO6hMROirxrlNV SjvV4vYYTotJLxiKjzQU5 nIYQkwsamt934 BbEoNPO4BCCtqKBpX4Kcb M4cYuXbFFDyAEYlF0TpxO EsDQgsC841JDzhMmN7DMS xwqIhD3ZyHJDg fQxiUmQ0a1O1Ut4TFQvOZ T64QV14uGUcq6C0rQM8G9 LdPTCwwdaacciixSX5ONE aWHRwkC79kEPt TSjkHo6fu9C6j731YJUvP HHakF85Is9eaAfrAXUsoY RIgS0kuqgxe5rvxgohPdN bSQLnFJz3TWf4 EEProAucKxFnGYP0PnC5M PL3jPCotH7gtWmqufzcmJ 9wOyc+Y5T7K5NuYhhosUX +ZW30VFLuOS12 xWFmrEAxg0vewGg0KzUbP HFbRNO9iYvhPWciq6EbIX OdN58ypAHlu4K3YGUfoUv hcHNlOyBlbXB0 xM3aDUbxkhfvw7htzjmlL lpkx7ctpj35sO13S86fKA dpZHRoPSIzMCUiIHZhbGl rog6etU5gNs7+ XLMmgAW0cSF7bX9yFaSrO kN5NOzbI286ZbShhSHwVb fja8hqp4uboLr9PsApQRF gdmFsaWduPSJ0 t6UdIs23D15bBDziNHWxL EYbOYPvHDNsxImsue6vpX 9wIi8+KP5pa0cwxz19pR0 8dHI+PHRkIHN0 zWvxQAzrIJBcmM9jUWudW yS6ATEwCuBjnT49bXOzFJ dpWt0rsCemeExvRO9uRRT xoyapw944XtPx y3buNFPvlHOoKJzvBPX9S 28zh3C0CXBxTWLoEDD0mT K2sA0yyDmmacrooTZixCh gdmVydGljYWwt DZtnH082VNHbhVvqLrUaa QFlZ3nsfjPDQF2tLjukyK Q+AHVhETA7fSmqFAgwSOK tpK1dKYFeZ5m5 MnXkZtW6UHjaO0KuolO4D ONvlVNyCXMqjHCWdA1nqd ody9crtztnSsIfZUGnUBd 4FBr3ZUCjhYtw EaKgUUB7PqM4ZSU5dARjw B5meYajsbufnY6uLjm+Rk lOOjwvdGQ+AMRaWYG8pRv uGWvdWLIscG3v OHCzY0r9EvVuPmJ1TWdyO 5VkciT9JHZsbKYpWMJjlI UVuM6icczqe7ibusklBcV kOMUjXJk9CSn1 KOIfjJhcVmRaGSE9QoN0T NB4uEUfdZ8fuBlcsdgqhQ 9wOyc+TVJOOjwvdGQ+PHR dOJL8nAcxSAgg RUOugO7pUAGoA8x5JrGxM bI5CEvxZ4DruuI2YYJtuM LbKWIbbRAJdL8xeqhww4h vcjogIzAwMDAw WVn3ULc3PKZbgCixPtCdY PR8PyY6FDQ7rVUwfZ7goQ dkkspvpB1tOha+FLS3TKZ 6YO28KO46G3Oq PjwvdGFibGU+PHRhYmxlI HdpZHRoPScxMDAlJyBzdH koQV5kKe6jAAGfEDPggOi fkHWaCoOni1bm YXB (more content not included)... [facility] Coding Summary HTMLBase 64 LjgptelwPCc7wCt+PGhlY WQ+SU3CWWHvM30qsHIbgL 1kV9XQYVjMNjyvPMGCCKb CZzHpesKhHH4ruPKfAKRp IC8+VF9kBIMlNotkpPXur 6N1oCA7W79pjh1aHFqiiZ T8VGIeTfThasvmq5ofnBm 6IDcuNmluOyBt RHEdtT45DWH3hY19Yn82a JXdzEXpv9orrUv3GmCoIA IhTRV5pJtlRSsob9NzJMO eA76bjQVfi8S9 MLNldHndjVPaUkEtjNC7p T6dTYfbjpvdx0udvhwdAd h4sf63gSDai8H2vVQ2C1F rriU0EGJsqYEr AuynqGBUcC7daaljx4apm derSlJiVWPcOIw1POq3WI TmaAffSrEoYN64CRY6ZNV zytDlV3BsAAWd fKpyXxV1h0C3Bi4TO9CCO cxnM4JOFZUFCGeyuOF+PC 19gk05Z2YpLfsnOfq0RQQ uIPV2oKI1tC7l NGBhXNcnx3G3eJG9O0Kno hQrwv8ai7ctIGMvTJiaG2 1msXFwc3S8EYUzgZF6BYH ugPjeAbEnjD95 Oyc+MXLxiDjds4YjCwlex 7yli9ydkUo9FyjwVJOhsr VwfIjjUVH8q6MqZa6uAZH zdJB6eWZ2qY1p OhGbIkJ2LXxvU916PhEso KGfNxsaN89fF8TauZL+PH WnNkt8GIJieFpqPN8hX6E hZGRpbmctbGVm rLoyQW8pGLBaebdoJKIqw B8mVKZwK5c2WqStZxD7UK deD7NcOZQbvmqiMw47hM4 vOdWcFsZ7NSfj L5SbnzS2XUItoHRuBKtcI TG1R08pm9D4ZTPtEWQwYR K2nWL8bI5mkDhawlelyCS mdDsgdmVydGlj FCobGSsfF452QCJrpFybD kNvZGluZyBEYXRlOiAgMT AvMTIvMjAyMzwvdGQ+PHR hVGY5iVuoJCBn hSEyYRvlJn7igQolyUefH Q2kXCAwzglbQATjeN0sRR IsdTBsaFmrFE9xXDPkayp ax461GtZbLRJ0 SQMamTNpR0YlnW0pXiMwM GQwSEShT6AwdVFfVModI2 33YKopHtX7YPKwptGlG7N sLWFsaWduOiB0 i9S4Fe0Ge9QaplcqB7Ozt EPtCpVxXujxUBd6N3KwHh wvdHI+QI62PNDsAP69PPu 9WAW6tDyfSUwj JVZbO5WvkK6aCrOdRHNoV GRkOyc+PHRhYmxlIHdpZH RoPScxMDAlJyBzdHlsZT0 mYo7qPHBbRAKc kUmrsSDnVtWgw7xvBRRvY HiaNY3pgHsoO2IuhMN3NI Oyy2w1Hn02D77aU3DjqKC +KWUgyJP4xAW8 eX5qOrHhPnY9GYrpF401C bDbaHGwPjeuu2gzf4kemQ m1TsX8NRPgwkOtxFcsNVB 1z0FgXh99T46s IHdpZHRoPSIxNSUiIHZhb Sltsl2rrH9sZa0+PGNvbC C7uFU9sL2aLvCmKqN5JWg mD268TrWooVRe Udyjd2tdc1msjSx0PfDuS FRiynEsrIwaFLO5f6LpUr 75M7OyuAawm7BcAyx1ka8 6xHOpf5E2tBF6 S0JrIACyvrpzgXHfmSgnV C0sKRMavjuqAQBgaB1pPU DnQ0u0JaJyOcC2LZoiH5C mbrF4RFCkaEZu KPSueKOOlP1ayzlum1gyi pegZsLdVWCsRGk7HRb1YS GkfHneBnHfWUY0MxH1DSA 1bFEjrU3fbWiw oqgshH8nSbf+TXG2tEIvy DEKKH7oSklnxWK+PHRkIH I8iLvzWYomEZQqxK8vWOO fE7t1QrKrIeU9 GLvqZ5VqyfQ9PVDvlSVoJ QDyxCKQtT2hhdnew9pxbs wcFzVzDHObTXw1MRp2OVS saWduOiBsZWZ0 HzI5HEV7jYYmaS6pdCsxs ioddI2dOnq+QmlydGggRG K3DJp9X0SkZxp5KXDscYn zBY1ptACcBNks Yc2ywGtuiTvmYN9kKGGwv vplh879MwDpa8jeOXBtoA IiLFheXCG4Y70nl3N5GYJ yFBDnZOM7wLN4 hW2qyFoglstnnPXfyKqjj pQptCnfVViqXOnfZ228ZQ NmyYqxJwSgPWq7Z1TfHyc 5MJKsfHnzXC1p tTVrRDseVv3vcYfvqWyxI X2hAJQgnakxg847ByEwg5 bpWNSteTMnNAkaIDD3B69 uc2V8CZDuEURc NTW8kTO3eN3ccFbcgesyq GVmdDsgdmVydGljYWwtYW poW452HTZpiDjlMsDckBs 2H1IqGfw8JGPk rSoeYN2fzWLkIDitEi6mg UajoOruVO6wRXSycjqrb3 30BlRlh4szVFNukENbTSf uCVI9C02rr8Q7 DCNsIBTwNAL0aTX0zP0py GlnbjogbGVmdDsgdmVydG qiDNoaHRlrD444ICFssYz nPlBhdGllbnQg YTbtGRl5Q4QaVaxpwLY+P P82RSHlIW34aOKehYXwd4 ujkSv2RoYbITTiMHB3bRn pKFdvp9PyNPIb J63ttEYnt8F5RRGquIlvl HNmFgPiqRN4fJ7hACczgu lqr0slhgweXxpkc2enxr2 2hU97B66yGMfp ZHRoPSIzMCUiIHZhbGlnb e6bkH6qWa4+XJZqmLQ2lN J6bA8uMQDuZlT7NVjaC52 9InRvcCIvPjxj h1zhr1ydiUh5YuI7KPSfz aRhzFnwXMI0c8EsNl61W9 9sIHdpZHRoPSIyMCUiIHZ zvAfpvd8hnG7s Ii8+FCUckNX7dBX0qJ3vR qDjKgR6DUhnF666JpWauF LtDbkkA45rT0FprKQ+PHR rSnq1ZVAvzAdb TC9kvNFaOFbyCp5rQBR6X jZnUkHaMEgsM4KvNZSawm wxxkwyhPC1VMDuMABwtR5 1Ft4vmGecCWOs sAXNnM8xrhnqw9hnmiptA oCwBKCfEXv3KMk1ETIhxB onOcSvMPY3SpZ2FSR6oFU fbS0luBtfwtil wN7oQ8UvCCSckebyVf00x S5kIeZqRzX5UTiwOni+TU 6NXyYmPbXvGIyQEI24I5Y fCmh4IZZqcFrv XL4mcBBfMYydQs4weGmqu BuaSG6gYSLmrscoFYUltH 2lUWIyvPQbxVvbMP0oEZS szzowl834YcCm RJZ1ENQkgSFrD1BnkY9pL fVuRFGxZZZkE5MjaEMrJJ sbP273ZNwmDfY9DMNilgI aC7TsJDArjTxc KvL0l6Z7Iq7eAT9tJQ3nZ QV6LK24JQ20nSDjr6V5mY A6X9XqBEOkeugfjttkqQB 2FITaLLMufO55 mTIzSDlePg5sb9Z1t932F MGoLKFbfG35Gg7cmKovEI ClsNJCrY9jkblop8cbwjv gIzAwMDAwMDt0 AMx1OMUbaHhoSaClYSP9C oW2NSL0yOZhhA0aaPgima vitU0zTnu+NjggWWVhcnM 2E1TgFaj7JISt yIvuDH9kiYXbOJgbPi3rv ZmqlWzlTY3pPFTcrafiHN ScfJ7uHEAecJZevKruBG6 yRUIrsfdhi214 AuDlVXK8LSUgsQOwI6Eph O0pKaEyHCBoNWFkY0LdeH ViBMsvP134OZomEwA0JYN dgeBmV0YuYOOz jPybYgK9f0V3Oa8XLCvYP N95WH29iWVkt1F8uLY3P1 PwHOIvungffzdgoWK8JML oDUBcwI12kGPk PDlmDq3px0Y1j459JNQsI KGhzF06Sw6brAntDAMmtY ORqU3vwllrg4gqwexgIhM yVNFsUDd7ZGb0 NPXbwGclUkCeBJA6ElI4F KN7hVPohG8okIeplghejW 9wOyc+P8Q6A6MnNodkpNT +MO08GEUfGB71 mFAhpTXjb0kwxYu0NvJsZ YEfHGS5hDwfLMfct1UvJV MbE72scODws9A5MEFayJv hcHNlOyBlbXB0 xE2dTCstxkhsj7owhtqoU hleh4lynl84yR85K99qRT dpZHRoPSIzMCUiIHZhbGl xwd7xeT8fQn6+ XOZzpBH3lPY6dK8fLxIpJ mZ5WQudX317JpExqBQtMk mld3rsr7tdxRe9DaQdIUP gdmFsaWduPSJ0 j1LfDe36R70tGZexSZWaZ PVmCXRwYRWpoVaaty7pwL 9wIi8+ZU7pq7sfgr35sB3 8dHI+PHRkIHN0 yGtwFIlgDLSgpZ6fYTrvM zP0GHVlUaQidI96mSHcPD npVb6yoSehbMjcLR9lRSO katbqf257GeSh m8mySAXyvABsMKcsHAH3N 14ai8Y6SSIbLSHzTYV0bC T2kP6xaAvwxilsaWAszGr gdmVydGljYWwt YUzjT261OJPxkQrsWqAyn OWvB8ogrfWPAQ6gRswerM Q+BFFkOYP4vBjrKEiwGFN neO3gVZCtX6e0 MnVePcS9CBtdN2UyomG3D ZFxgIPqWCHxaYMEvS8ikb mnr3wckjwlApToIRRgKId 8PVr1SBBptNfg DoHcBJW1QgN4LSA6bRAhj J6xtIxxwncgtD9fYqw+Rk lOOjwvdGQ+AOTfQVO6nDl sXOozEVDdbO8s MXIbD3f0YsLhRzF0APbeB 8VfwxY6IVZslMOsJCApfR PFwU7etpjaz1eczpwgTsF qRFGbNXv9MJi5 MXSomIhuWoGvFHB7BrX4A FR4gVOmyC1kjBdcmlxjfT 9wOyc+TVJOOjwvdGQ+PHR xEIM5rTefPNhu ESTvxU3oKLZlF9u2XkFjB lX7EUadC0CrfjG9PVAqyV NqKGSkbTBMmY9lzeotx5u vcjogIzAwMDAw UWn4BCy4IHBxrFqpZyCvR XS5QaV1PZK1bDVrcS0brA tkmpfoeF9vHoz+OSV3WRS 1FX74QD55P9Nv PjwvdGFibGU+PHRhYmxlI HdpZHRoPScxMDAlJyBzdH elST9pUk5zFGHlDRFcxRa viGEfAiIgs7zd YXB (more content not included)... [facility] Patient Handouton 06-23-2023 Patient Handout [...] oil, flaxseeds, walnuts, almonds, and seeds. ? [place]-3 fats. These are found in foods such [...] oatmeal, bulgur, barley, quinoa, or brown rice. [place] or whole wheat flour tortillas. Meats and [...] or reduced-fat mayonnaise and salad dressings. Avocado. [place], canola, sesame, or safflower oils. The items [...] fat and hydrogen (more content not included)... [facility] Coding Summary[facility] 06-22-2023 [facility] QqtfckqnWNh3gBs+PGhlY WQ+IF6KZLRvY93ytFDktY 2cD0CNFWvKCjdcOHIACCd ZTqHwlnZiHF7rrQCzIVAx IC8+AA9lQJPtAhbfxOMjx 4A9sXA1M66eny6eAYxoiT G2UNZaVnNxllmtd7fxvFs 6IDcuNmluOyBt ONMbpP65LEC4mK15Tq33c LZiwQSlb5jwsKe4TwCkXS BoSOM0cEdtBCzhg3NlAWB tI25sdQQny0Z9 RGXjtZuiqCVqBpHtmGM7j G5rECmhnyhsq0hrpzwzFz u5oc10yEGna4X1vJU4E8M fjyQ0YBXivBTm NlspeYFTpJ6ridval0gmj isrVzPeTXUlBSh3UIz3SR SzmDsnHpUkYO15ZCZ3OGR zahAgD6HbBBWx lIflIsI6e9M8Cv5PV9KTM kljS6AOLYVLMOajwBZ+PC 66yn26F6OxUxoyWdv9QVW hYBH9xGG7jW4e ZKNxGUbdr0H4mIK6K4Nxa cMqnf4ja2spRROoNCdbB5 8gdMNbi3Z6OLUypWL0VHA ujKwyUnWppN15 Oyc+SKObzPfbm0SaWnmfn 3uyr2ibmMj5PzclHWCiyc NctEdzFZK8s7EkMa6xMHP itYF5wAJ6jH5w UyIeMjX5PKkgS726BkLvi JIqEbskT28gP0HssAD+PH VeEyw0TWZctZwtIH3cV7N hZGRpbmctbGVm kOjtHW4oGIHpwagmVXIdv K7jZHCfV3c2MaPzEeZ3DS kgY6CcGQJxkoicOx93fC0 hKfCyEaM6IVqe Q4ZshfG8ZBEtcIGgUHgaD UO2A32iy3M1FMOaXHSfQM X8tZQ8aX1koUvyutbjwKM mdDsgdmVydGlj WTodJJsyA836XLObjZnqA kNvZGluZyBEYXRlOiAgMT AvMTAvMjAyMzwvdGQ+PHR iEJM1sSooZVUh pESjWHimLc9lbLpmhUjcV D7lEZYvohelUGAnsD7cNE CsuXSyhVwpNI8vFJFebmv lw982OtBqFXF4 ORJouGSxO7DgmI6ePxXnH WPvDXThW4XhaDGgOEkrV3 22NOdhUzF2CMPmhoRjC8K sLWFsaWduOiB0 s1J4Sw6Kr9EapyviK0Ijr JEqQiLmFgtxJLj7U9LbLh wvdHI+MQ64WWDdTF96KNa 8KVA1hTvsMIhj OXQaU3JcuO2nXqYgDCVeK GRkOyc+PHRhYmxlIHdpZH RoPScxMDAlJyBzdHlsZT0 lLe7yAJStABMf aHdcbXRqLnYpr8fiIYKpE DcuOL4naLejB8ZqoHO3VV Wtj8l2Fx77K65jK5GriKQ +CTFlaWO3eHA2 vZ6uHmHbPpN1YQanV489H uLtyNKrZgwrf8kof7oivN l0MtH1CSKsntFglJqiMPD 5v3CaCt05L78t IHdpZHRoPSIxNSUiIHZhb Wuzex0iuZ1rXj5+PGNvbC H0uBZ3hW2jNjBcYtO4ZOf nQ206WrQsmGVa Oixcg5lsq4tneQy3AmHiB FJiuwOlrRsnZNV1q9LkAk 89Q4HpyRozs1CzSoj4dz0 0rWFcd9X7cZN4 G6KiFXCwolhoyFAxmDckB E4aMKWritpsLCZjdI4aNS FoB8v2HjAlXaK3ZJjgM7J otxV0GMFinFEz UURvyDCMvJ6pwxphb0wex kojAbJhUMTxKGo0CDi9KC RfbZpqNlQyTSZ9GpC7UQA 9aSGemE2kvPay eximwW1uYhy+UTZ6qEIyy JYNHK5eWhtyiSV+PHRkIH Z0wNyrWEquLLGnaD8eBCI rN2q9UiOrDdE5 DCzaU1GegwC5NUJuzXYlW BQmxCAQhK2rqlcyh2tyob kgKqAjZNKmPAa4IHw2UUT saWduOiBsZWZ0 CbE7IYI7iZRhbL0zlXkds twkoJ0qZvl+QmlydGggRG B7NNu6R3UeYes2UUDjiCf iYY5ouBGrEUen Xj6nmBnweNlkGD9oLGJdd xsll109LmPea3leMSAslS ZdGRncHUP8L84xm3V9HCQ zMKHpMKY1rTA3 yK1aqOwirgbmqFWerQtwi sXrfUmpLFgzEFlfE881PW OqzJshYyItGYz9W2VdQeo 5RXWwkEvgFB1f tCUyDMqvGd5ttTuzkDdxW G2dVGGcygdnl594BhNho4 qcQQUeoVYqMKmnLZT9T68 jr8K7NLYbLBCq NFG0zCO2pV3buZsmmgeyl GVmdDsgdmVydGljYWwtYW imE835AHPrtSolQuHbwSg 5S3NwHwc6PAYp hSehOK8aaPDlYMehIb9um XdgnItbON7tHWWqtuwtu0 83AgUuo1etAFZzsWVxTTq jWOT9E78qp6D6 QZUnNBQlLCO7aNK1kU0mc GlnbjogbGVmdDsgdmVydG nmFZysYVdeM172XIYtyDg nPlBhdGllbnQg ISynNFz0J1BgAvsbhCL+P W22NAAaZD87yBAcoACff1 eksVq7HpPpNHZjOVG6fDx iTEraj7QaHXPi B30zxQEmp4B0ZIOlfKdwj IIrOuBtjTO1kR4bNDjfix jow5ryajayMfntt2tkkg1 9yA73W82pNBtv ZHRoPSIzMCUiIHZhbGlnb h5hiW1vWi4+IPAplZS4vS N9rK7aEGIbRwW3QFjzK83 9InRvcCIvPjxj b7sxv9ozhNs4CyM4APPoh qThzWmsTUU6s6OsRv94Q5 9sIHdpZHRoPSIyMCUiIHZ adInith1ayB6n Ii8+BONvxFI7nVV1fU7jG wZdEaS7BVceO809NdYalY HgUifkN59dZ9DhjGM+PHR qQmb3MDErwPzc VT4nrKOxQRssZn9eCSK9C ySoBwCxIGueF6YcNHPlrs veezqtyGG3AXBxJTLnzM5 0Fg9mqKlqNDVk qEXFkB2dxpxou6rtadwuM xTxOYZhHWu2IAa5YFTknL ojQcNuWAO8GxI2OCN6kYP axW3ipWwhttbx nO4bL8YnFNJdkzuaLe97j E4yEsYoArR5IElvRkb+TU 4UItJjQnPvWZaWRG97J8K bRcr2PKRdkNnl VU9yoRDcMYsmIk9uaPcdu GyyRE2eUBMoclvjHXGmpZ 8jGVYloIRreOgxDM4eJHG deywge214VrFc HNV1FLUikWXzH2NahA3fD nBkUPRbPYToZ7ZllISyXF loD135EDmoJiB4IETddqG qL7PcEBXadGxa LtN1c0G5Vp2mEI4wMQ8lJ FV6FJ55KB76dDMcg0M2kB C7P4VrCOKinsdfaxibnOA 9JSIlQFNbkS08 xAQcJNfgDx1ee4T4z491O AEoQKEhlZ38Yh4waKptDY JrvAYYpT0satejp8expus gIzAwMDAwMDt0 KRd4MPAdjXsfAsLyKOF8P qV0SZZ5ySNctT9tmFvzmg rurZ1hSrq+NjggWWVhcnM 2Y2DwTgu9PLHc jPwuRX1zrVVgNFmvRg4ds AyjhGjgMF4yTBByaiglOO VedP7nVTHimYBnkAtpRP3 bBTHzifxke017 JsInWZX8IFNezBLiO9Mma L4jWqIxNPLgHCTmV9HsfN XfZDhyX679EPrqMqY6NJF tucToB7ItKOQw gNfyLlI9b2M2Zu2ZXFvFH Q55JD10kHSps8Z1yUO1Q6 CjQEYmnwixigattQX1DUV rWLYtiH49zZWs ANcrBh9iz6Q4j393HZKzD GNxxQ82Xx9ruUtsJEUtbH RDlV0kijmld1fgwzkqWiG nVOEjIWq5RIy0 ZBKvaIotZbJdXJU8ZgK9K OA4rXMgxJ1reEkgddbfsY 9wOyc+X4Q5U7MnXzlsaUN +ZR36QFGsXM02 gABywSEux5jlgRg4WzEsG VWtBAK1eTrmCTubq7WlAC MmT23rwITti5O8GWWifLo hcHNlOyBlbXB0 mQ7wJWnspolcy8ygbmimS eunl7txss16iB23S96aUB dpZHRoPSIzMCUiIHZhbGl avx6qxA2yEe7+ AMYbtCF0kVD5tR1yMcZvT jW2UZpsW716ZnYmsSSnWj scv4ihg1crhRr9HdSoJCC gdmFsaWduPSJ0 g5EkBa59T99nKCxzWBJzK HDtLSZdUVMebKkwfb8vkQ 9wIi8+YO1ne3gyfz52nX2 8dHI+PHRkIHN0 mWasHMzxJCUsxV8kLCoeR wP0PXTwLsVqhC94zCFjXL ebVt7utRvhrCgxUH8wZXE ffjstg394EuRq n0fjJEIdoJIvIEfnFEW4W 42rb6C7WYEkRTRbELI3xN B6qV5tqBcnkbkgnCHfnZn gdmVydGljYWwt BTrkJ429FOKfiOzcIaMlq AOsB3ywaiQYFJ2cWckspA Q+HLJtPUS0oDmpYGqoWRC tpO3yVIKcE0w6 OdSjSoJ8OTazO9WyulM6F COknEJwCIMnuHVPnT8kzw pbp1afomnjXwIgWCSnRSv 5EJj5RFAruHdg CyEyKRW9UqH2ETE8mFHkn U8thJcdbowqbY8uIta+Rk lOOjwvdGQ+PTKhYZS2tTe nZZzfMRBlkA9t UBOfE1z6JvRcMsM1JSpsA 0PnooC7AHUqcAJnRMEbsA AUyW1shlrlz5mgdlysHnZ zKXZoQCm7CWy2 XHOjaSubSyIqBJZ7EwJ3Y NQ0nZLpjW1zxCtoheivkJ 9wOyc+TVJOOjwvdGQ+PHR dSKH0fBbdZVpa KEYhwQ1fBWHyD6p3PbCxV qO6RIofX1XdpmD6SHRhaX CgAZUueWKEmM8lpzhoj6j vcjogIzAwMDAw MYz3UZs8NRNeoHazUlOdC LD0RtT0AHT4wKOuuJ3aqC zcwwzjoV5iSul+HAI7TKV 3DX38TD94B5Ay PjwvdGFibGU+PHRhYmxlI HdpZHRoPScxMDAlJyBzdH zkVM3jHb6nKIAuDLNwcSe qkEKjEiOez3oq YXB (more content not included)... [facility] .Auto Diff 1on 06-21-2023 Auto Lewis % 13 % High 1-12 [facility] Comment on above: Performed By: #### 1 [id number] ####[facility] (DEFAULT)[address] [place] [address] 10032 Baso Abs# 0.1 x10 Normal 0.0-0.2 [facility] Comment on above: Performed By: #### 1 [id number] ####[facility] (DEFAULT)[address] [place] [address] Basophils/100 WBC (Bld) 1.5 % Normal 0.2-2.0 [facility] Comment on above: Performed By: #### 1 [id number] ####[facility] (DEFAULT)[address] [place] [address] Eos Abs# 0.9 x10 High 0.0-0.4 [facility] Comment on above: Performed By: #### 1 [id number], [id number] ####[facility] (DEFAULT)[address] [place] [address] 53151 Eosinophils/100 WBC (Bld) 11.2 % High 0.9-4.0 [facility] Comment on above: Performed By: #### 1 [id number], 0693221, [id number], [id number] ####[facility] (DEFAULT)[address] [place] [address] 80648 Lymph Abs# 1.3 x10 Normal 1.3-2.9 [facility] Comment on above: Performed By: #### 1 9342278, 0602377, [id number], [id number] ####[facility] (DEFAULT)[address] [place] [address] 45479 Lymphocytes/100 WBC (Bld) 16 % Normal 14-48 [facility] Comment on above: Performed By: #### 1 [id number], 1556059, [id number], [id number] ####[facility] (DEFAULT)[address] [place] [address] Lewis Abs# 1.0 x10 High 0.0-0.8 [facility] Comment on above: Performed By: #### 1 1609852, 2548824, [id number], [id number] ####[facility] (DEFAULT)[address] [place] [address] Neut Abs# 4.6 x10 Normal 1.5-9.2 [facility] Comment on above: Performed By: #### 1 8784656, 5519120, [id number], [id number] ####[facility] (DEFAULT)[address] [place] [address] Neutrophils/100 WBC (Bld) 58 % Normal 44-88 [facility] Comment on above: Performed By: #### 1 7869980, 4489485, [id number], [id number] ####[facility] (DEFAULT)[address] [place] [address] CBC w/ Auto Diffon 3 Erythrocyte distribution width (RBC) [Ratio] 15.9 % High 11.5-15.0 [facility] Comment on above: Performed By: #### 1 [id number], 2138361, [id number], [id number] ####[facility] (DEFAULT)[address] [place] [address] Hematocrit (Bld) [Volume fraction] 48.2 % Normal 34.8-51.9 [facility] Comment on above: Performed By: #### 1 7227544, 0972208, [id number], [id number] ####[facility] (DEFAULT)[address] [place] [address] Hemoglobin (Bld) [Mass/Vol] 15.7 g/dL Normal 11.8-17.7 [facility] Comment on above: Performed By: #### 1 2370234, 7124986, 2557481516, [id number] ####[facility] (DEFAULT)[address] [place] [address] Man Diff? Auto Invalid Interpretation Code [facility] Comment on above: Performed By: #### 1 3057634, 3849963, [id number], [id number] ####[facility] (DEFAULT)[address] [place] [address] MCH (RBC) [Entitic mass] 29 pg Normal 24-34 [facility] Comment on above: Performed By: #### 1 0317666, 0888736, [id number], [id number] ####[facility] (DEFAULT)[address] [place] [address] MCHC (RBC) [Mass/Vol] 33 g/dL Normal 26-37 [facility] Comment on above: Performed By: #### 1 0331347, 1284201, [id number], [id number] ####[facility] (DEFAULT)[address] [place] [address] MCV (RBC) [Entitic vol] 89 fL Normal 81-100 [facility] Comment on above: Performed By: #### 1 4949416, 2567641, [id number], [id number] ####[facility] (DEFAULT)[address] [place] [address] Platelet 430 x10 High 138-427 [facility] Comment on above: Performed By: #### 1 5082175, 2672806, 3305034607, [id number] ####[facility] (DEFAULT)[address] [place] [address] 31929 Platelet mean volume (Bld) [Entitic vol] 6.2 fL Low 6.3-10.2 [facility] Comment on above: Performed By: #### 1 2809015, 9422571, [id number], [id number] ####[facility] (DEFAULT)[address] [place] [address] RBC 5.43 x10 High 3.70-5.30 [facility] Comment on above: Performed By: #### 1 4380921, 4136993, 8421209778, [id number] ####[facility] (DEFAULT)[address] [place] [address] WBC 7.9 x10 Normal 3.5-10.5 [facility] Comment on above: Performed By: #### 1 9967444, 7145697, [id number], [id number] ####[facility] (DEFAULT)[address] [place] [address] CMP Standardon 06-21-2023 eGFR Non AA >60 Invalid Interpretation Code [facility] Comment on above: Performed By: #### 1 6948232, 1176127, [id number], [id number] ####[facility] (DEFAULT)[address] [place] [address] eGFR AA >60 Invalid Interpretation Code [facility] Comment on above: Performed By: #### 1 6167722, 9146858, [id number], [id number] ####[facility] (DEFAULT)[address] [place] [address] Albumin [Mass/Vol] 3.6 g/dL Normal 3.5-5.0 [facility] Comment on above: Performed By: #### 1 1828974, 7225756, 0307887924, [id number] ####[facility] (DEFAULT)[address] [place] [address] 46329 Alk Phos 69 IU/L Normal 32-91 [facility] Comment on above: Performed By: #### 1 5780564, 1446675, [id number], [id number] ####[facility] (DEFAULT)[address] [place] [address] 84759 ALT [Catalytic activity/Vol] 14.0 U/L Low 17.0-63.0 [facility] Comment on above: Performed By: #### 1 1860161, 6656920, [id number], [id number] ####[facility] (DEFAULT)[address] [place] [address] 89560 AST [Catalytic activity/Vol] 23 U/L Normal 15-41 [facility] Comment on above: Performed By: #### 1 8085233, 7076201, 2325445447, [id number] ####[facility] (DEFAULT)[address] [place] [address] Bili Total 0.7 mg/dL Normal 0.3-1.2 [facility] Comment on above: Performed By: #### 1 5142082, 9133059, 2815682606, [id number] ####[facility] (DEFAULT)[address] [place] [address] 52377 Calcium [Mass/Vol] 8.9 mg/dL Normal 8.9-10.3 [facility] Comment on above: Performed By: #### 1 2594337, 8379459, 7951874604, [id number] ####[facility] (DEFAULT)[address] [place] [address] 94867 Chloride [Moles/Vol] 99 mmol/L Low 101-111 [facility] Comment on above: Performed By: #### 1 4574145, 2969745, 7945473715, [id number] ####[facility] (DEFAULT)[address] [place] [address] 94139 CO2 [Moles/Vol] 25 mmol/L Normal 21-32 [facility] Comment on above: Performed By: #### 1 4521592, 5103570, [id number], [id number] ####[facility] (DEFAULT)[address] [place] [address] 24651 Creatinine [Mass/Vol] 0.96 mg/dL Normal 0.90-1.30 [facility] Comment on above: Performed By: #### 1 7258666, 8370276, 4949421049, [id number] ####[facility] (DEFAULT)[address] [place] [address] 48884 Glucose [Mass/Vol] 105.0 mg/dL Normal 74.0-118.0 [facility] Comment on above: Performed By: #### 1 5967032, 7008448, 7902229675, [id number] ####[facility] (DEFAULT)[address] [place] [address] 07792 Potassium [Moles/Vol] 4.6 mmol/L Normal 3.6-5.1 [facility] Comment on above: Performed By: #### 1 6887243, 5936476, [id number], 2484351586 ####[facility] (DEFAULT)[address] [place] [address] 28437 Protein [Mass/Vol] 7.3 g/dL Normal 6.5-8.1 [facility] Comment on above: Performed By: #### 1 6913860, 1888756, 1533163743, [id number] ####[facility] (DEFAULT)[address] [place] [address] 29698 Sodium [Moles/Vol] 133.0 mmol/L Low 136.0-144.0 [facility] Comment on above: Performed By: #### 1 9693835, 1540728, [id number], [id number] ####[facility] (DEFAULT)[address] [place] [address] 80373 Urea nitrogen [Mass/Vol] 8 mg/dL Normal 8-26 [facility] Comment on above: Performed By: #### 1 7237767, 7453595, 5861036512, [id number] ####[facility] (DEFAULT)[address] [place] [address] 19900 Albumin/Globulin [Mass ratio] 0.9 {ratio} Low 1.4-2.6 [facility] Comment on above: Performed By: #### 1 7538632, 1536463, 8673810909, [id number] ####[facility] (DEFAULT)[address] [place] [address] 81722 Anion gap [Moles/Vol] 13.6 mmol/L Normal 5.0-19.0 [facility] Comment on above: Performed By: #### 1 6737304, 7234562, 7728928855, [id number] ####[facility] (DEFAULT)[address] [place] [address] 36617 Globulin (S) [Mass/Vol] 3.7 g/dL Normal 1.5-4.3 [facility] Comment on above: Performed By: #### 1 1589081, 9397356, 1089948039, [id number] ####[facility] (DEFAULT)[address] [place] [address] 51316 Osmolality 265 mOsm/L Invalid Interpretation Code [facility] Comment on above: Performed By: #### 1 1574529, 9852782, [id number], [id number] ####[facility] (DEFAULT)[address] [place] [address] 06810 Urea nitrogen/Creatinin e [Mass ratio] 8.3 mg/mg Normal 4.6-16.2 [facility] Comment on above: Performed By: #### 1 8334848, 8530884, 1387997565, [id number] ####[facility] (DEFAULT)[address] [place] [address] 73037 Lipid Panel Standardon 06-21 Cholesterol [Mass/Vol] 225.0 mg/dL High 66.0-200.0 [facility] Comment on above: Performed By: #### 1 0399486, 6865527, 8248133733, [id number] ####[facility] (DEFAULT)[address] [place] [address] 63744 Cholesterol in HDL [Mass/Vol] 91 mg/dL High 40-71 [facility] Comment on above: Performed By: #### 1 0097849, 7957288, 9953377345, [id number] ####[facility] (DEFAULT)[address] [place] [address] 44616 Triglyceride [Mass/Vol] 104.0 mg/dL Normal 0.0-150.0 [facility] Comment on above: Performed By: #### 1 6874566, 7351589, 5023067730, 3638458843 ####[facility] (DEFAULT)[address] [place] [address] 23100 Cholesterol in LDL [Mass/Vol] 113 mg/dL High 1-100 [facility] Comment on above: Performed By: #### 1 7560702, 4623350, 0507015650, [id number] ####[facility] (DEFAULT)[address] [place] [address] 05747 Cholesterol.total/ Cholesterol in HDL [Mass ratio] 2.4 {ratio} Normal 0.0-4.5 [facility] Comment on above: Performed By: #### 1 2158759, 6906206, [id number], [id number] ####[facility] (DEFAULT)[address] [place] [address] VLDL. 21 mg/dL Normal 5-40 [facility] Comment on above: Performed By: #### 1 7446811, 1516981, [id number], [id number] ####[facility] (DEFAULT)[address] [place] [address] Provider Orderson 06-16-2023 Provider Orders [id number] .[id number] Normal [facility] Wound Cultureon 06-16-2023 Wound Culture Light growth of Staphylococcus epidermidis Normal skin poonam isolated No pathogens isolated No JUANCHO performed on this organism No organisms seen. [facility] Comment on above: Performed By: #### 6 [id number] ####[facility] (DEFAULT)[address] [place] [address] Coding Summaryon 05-31-2023 Coding Summary HTMLBase 64 RyjlquqtMVb4tAk+PGhlY WQ+OH5DSWOgC18tcSSmgC 2iR5VMWFrIZgadWCLTGDe GKeUnimUvJO1pbFHjWABg IC8+BR1mKXCbEzfbbSTez 6R5hFC7E86nkx2xSNypkT W8ZUQbGfWrylygj7ljvNd 6IDcuNmluOyBt ZQKimO37YNC0vE04Fh15o AZyfNUuc2sjgHr7IdUcXN EaHCG7xUkqGUcyg8PrGFR vT20olSYte8M8 QBItgYffwWJeEgYrkIN5j A8qWObfzanou2vkgvceDa c1wb23oQEja0V1lJU2D2A kamA0BHMngRCp PgawcSQZbE4elujqd1ptq xwoMuDsEUEbLOg3UNa5MI QghCtjDoXrRA94SGK0XOH jinDnV2OaZZFg lIdaWdW9t2J6Rk2OU2PZB qcwP9KTQNGHHLypbAI+PC 24rl00J4OeEfohWuf9IAL vVZP6iYH5hB6m MLLvJKiyz0J6zNI9G7Ddc dGkgj3ac4sbXSRcCVzsJ3 7bmGVef3J4VUKciMQ2HAE dfTdwLqJclT17 Oyc+CPBweEvbh3EzYhypx 8tqn2cnpZq8OjtaVOGylj DgdWvhSKV0w0GaMy1tHKY tlXI1mTA9jO7d FvQhNbR1ZTlwY296SpPob QLpNpqoG39uU9KseEO+PH OwTsw4UYFiwDzuKW2oI0T hZGRpbmctbGVm xPexOY5tXIOjtuodMFWzk G6vCHUhP0w9LoHjKqB6AS lpL3DnZYCwjarpEh26uG6 gNfGaWjL8IAol A8KllfC3CYGjgJQcRAdlA PW5C94cq8Q9EFJyXLJkTP J6nZD7vV8boEezaokjySG mdDsgdmVydGlj DDaoLPzkP526XVQwiIxfA kNvZGluZyBEYXRlOiAgMD kvMTgvMjAyMzwvdGQ+PHR yIJZ8sRzeUTGr wIQaCIxtRg2hrHjqpGgjT A6mNKGaroxbXIPwiS2gNN JwaJJwcIxqWC3vQOOybxe pq598ZtFdHWJ7 CMAmlUYbX9DcqK0fIjLwV LFrZANuJ3RtpBFcXHnpM9 32VOptIdM1XJJjztTiK1B sLWFsaWduOiB0 f8Y9Op0Hr4MtgfcuA4Cqe EMiBzBbLjjdMPf1V3YuNd wvdHI+JO91JURkWD54LBd 7WLO3eWxvOWvm SWVuA3PkjJ1hHuNlHZWcP GRkOyc+PHRhYmxlIHdpZH RoPScxMDAlJyBzdHlsZT0 qZc2oFAJfXLEr yRetdBFxZeFam3ftDCLfO FxxIU6phNaqZ9QudRK2II Nqw5i7Tz92C31nU6SefOS +RLAhsDS5kWA8 gZ4nBjCxCyK7IMnpV754Y oWqzCQtZpbfq3ffq5tnvH p1ZnL9HQDwwtOvoXmxIKS 9c0ApZq82B50l IHdpZHRoPSIxNSUiIHZhb Frepv3oqY8yVt0+PGNvbC C7vJC0hO0yLnGuVhA5FAu uF360WoArxXQl Waexi6pyr2iwqLx1YoOjQ YLollWlrQqoFLL2f1VqZr 76E5KryYaax9LhHxg4ij0 1tAGcr5Q4zQR3 W1QmGJRczqnhsDYihHlzI H7fEMUkilqnWDSrqZ2kMK JfW3l1YbLxCwL4BLwvJ5T bnsV7BPHhxFFn QKOjlSVMsL5thorfi9usn kcqBbXvMTRdPVm2TVl3OO FhiYmsVbJgPFF2PkH8OLH 4oYGmrW0xiEcs rstnnG0vBke+RVX9eSAdl DAKOE7dRwzglIC+PHRkIH D2kPbjIAllBTNhtS4tOCL pG6e6MqKkUuG9 EPqfA5ZhviW9DYGlkJHcV JMbgJIDmJ9gpigeg7ptsa ioSyIbSKNxJGl8VMv3XJI saWduOiBsZWZ0 BaS9ZOC8aZRnwQ0bvZhxl yyiuA5eNit+QmlydGggRG C8YOk5W3IrAux3MSWyqTr dFZ6leSFxBZzr Ar9mfLndcDnbFI1jGWHcc emho806HmBmh4dlGDYcjQ IyMKssEJM4I69cz1M4IAI fPTStHJF3pEP7 hI0eoTgarvsppZZlyNbcb xCcwPtuKXxvYHhfW259PU CgvBskCcIvLWz2Y6WyOsn 1SFLvxJpvHC8x uLOdMUyrJs8rwGbluHgaQ A8fKQRjgivuh141ZaWdz7 vbNIXccOHdYNttIDP4O23 ge7C8GZYbQOBq UFF0dXP4jT5woBhapdnve GVmdDsgdmVydGljYWwtYW zoD795BRQsdOivLhRukHp 4P1DgOww3ZOGo jMmsSZ5eeOHhKPxeJi6df QmfpFvmLL7wZGJhlytpj7 17OvQnq8wjRAGtsWVoMVe dRXK9I93ft6I7 VHPsQLHbHUU6hIY3xJ9yj GlnbjogbGVmdDsgdmVydG paHAqkDVpmT526BOAaqPx nPlBhdGllbnQg CVswLNp2N8HkRunpqEK+P D25UMDxAX80hZUkgQPfe4 ijiOu6FkMrMZSqMIE5sQm lYZnpr9HkKVQy O79ucQXmo1U8ECMkiPiod ALzVaAwnUY8fZ2xMNyopn lsf7rhlinaFyqfs0zarc9 0kA93L88jYDre ZHRoPSIzMCUiIHZhbGlnb g6yaF6rGu6+XLNmtCN1wS L6oR4jDKAaIyI3UJfhH13 9InRvcCIvPjxj m8tts3euiKu7JlM8DUDvm rGluVooZBJ5p2XlUa11L0 9sIHdpZHRoPSIyMCUiIHZ ktYeedo5ocC0s Ii8+YXOdsXT7sYG3vL0yH zNyFpD5IRmsF136GzLvuG PiJobwV78rM7UhcQK+PHR iEjt9LNNxzFak UO4neVJzUKmtKy0wARE4K mQgPxMnTOgpP8PaFIHjid irorychOD1GPAsGHQssO7 7Lh3joIxsIDNy fRESlJ9hnnbvp8asspawZ vEsTJRlAEb6HYr2YCKfqE bjIeKjJJY3BvQ7DQM9lET lrI7ahZglwvsu mX0zJ8KoSQPddifrLd91u A3xCqAsHtH5AOtyYza+TU 1VTqFzXeZiOJrFUA41Y9X kTwb9DNAbcJsg WX1sxHCdJJdeBf5ozKffk OwaSK7rSPKcsclnSXDahD 0iGNKcgMUksOsmSG6hLYT tpweiv557RxSq KHC7VGXleKZyE5NcyR4gK mGjBDHnINMjW5TwfHJhUZ mlL814UCptEtA4HOCqbrF rR2BfSAVbdZem RgM9n1L0Uq9tNE4bUU8tI RP2IM26YH99aQIff5R7rR T6J7BbBFHxthhytvqblXE 6AAJxVCJjmW25 uQRkBYzcOs0ae0N7c735S JWuFVMtcF80Ev8kbOajHQ SiiUQDwQ2qthujx4belal gIzAwMDAwMDt0 KVr6SBSrnPlcKbAhOIV8F dQ1EEB2jGVjoX7pxMcszm laeV9fSit+NjggWWVhcnM 0H1ThGgq5TBDq bQrbJP7lxMMgQUdaRd4le VtnkTfxZA1cPDUbohjiPZ OysB2rKTZbuSXivSrfIQ4 nHVFmrhzxh417 RqTqVBF8SUBjjIEyB7Ylx A0gMyJxAOIiGXEpB7PosV CeHKbeI900OAelAnN9KJW wrvWtQ5DqUBPq cXddSiW6p8T4Ja7ZZMeSU R17SB75pGIcq4Q7kNV9V4 BfAPWzrldavsnawFQ4FIM zLOIutU33eXIu ARyxEg9re8P0l719EWWwR ISfdT27Pv3umYjkBTNqeK QZbX8ecgzut1fbnnqwGzX bJNUyCUp5JVv1 BJPodTpdDqQaTHK5VkY6F WD7rWYmyG0ibQhzksjpkO 9wOyc+M6K7Q3DzFsqpiKK +OF74CJBaLK99 iEZvsWLcc9nsxQt1XmXeL FTlFKJ0pXirDUnjo3BgYB ZyG18afYPor1S6BOExdVr hcHNlOyBlbXB0 pS6iTFdnxhtpy6nlrlxeI jgus2qbye53yM57R95lCH dpZHRoPSIzMCUiIHZhbGl ult3vgS3oPj3+ JUSscHT4dKA2dF2bCvOjV pE6VWwaM769KjOrxLPeJm zdo0sru8yqeHc7IfStOFX gdmFsaWduPSJ0 g3SqMz34G48lHOgbSQCaH UGnZWAwOEEfuXfiok6ukT 9wIi8+DR3ja8lmwg03vM4 8dHI+PHRkIHN0 bFrpLOjsDVGjqL1aLRdyD gE6NLEmGsZmaK97jRMaYT zdEw4kgUexuLbaLG9yKSB zipvke107IdUr p8rxEEJhrRQfQXmzERH3I 04kr9K7SQOxIZTvOOP0sI W2iT1qaTvkehsbrOWzjZb gdmVydGljYWwt OOdwT981DIWekPqcLmAoj FPqG8odhqAIHY0oEgnesZ Q+AQMaBOI0pWxdTQkcNVP yfR6cBATxD7a3 FhXcBlY1DLklK9XtxuW4X KMedRUlQRJujENKsM5egm qtd2gbdzyeHaSmXMPcGOp 9IIj4HFNalAdw UyIbDWF7LkH4PWH9jBRgp E3anQwhrtvipV8nEyx+Rk lOOjwvdGQ+BIUsKYO0kSb tLUwhFGRjcX8y JDUlQ8w2KmOdChF9BPcxH 8NfjrK1MGUnsZPqRWLiyL CCyQ7jirplq7xtvwldQgG gFAFbTHd6BZl1 YEIkiWmuGoIjZAC7NpR9Q QN7mJLcxT6zyMugpxdruA 9wOyc+TVJOOjwvdGQ+PHR eIPQ4iLsqZZbz WVWklQ1eKBZgD2v6BcDsD hP4NBdkW4LoeoY5CIGhtH ZoVWQsqYWUnW7jjajpf1n vcjogIzAwMDAw YPh2YFx9ESYvjSqzKxVmY PV0LhD1ITK0oIGkbW5ptM cxuuihlL1vGve+THL3IPV 1TY58XI36T0Vs PjwvdGFibGU+PHRhYmxlI HdpZHRoPScxMDAlJyBzdH mpXI2tXu2eRUFhTYNhdBa gbKCnAqOgi2do YXB (more content not included)... [facility] US LE Venous Duplex Righton 05-26-2023 US [...] Adrian Staples MD 05/26/23 11:14 a Technologist: [facility] Provider Orderson 05-19-2023 Provider Orders [id number]. [id number] [facility] Encounters Encounter Date Encounter Type Care Provider Facility Start: 08-03-2023 End: 08-04-2023 ambulatory Charisse A Karen [employer] [facility] Start: 07-26-2023 End: 07-27-2023 ambulatory Charisse A Karen [employer] [facility] Start: 07-22-2023 End: 07-23-2023 ambulatory Charisse A Karen [employer] [facility] Start: 07-19-2023 End: 07-20-2023 ambulatory Charisse A Karen [employer] [facility] Start: 07-12-2023 End: 07-13-2023 ambulatory Charisse A Karen [employer] [facility] Start: 07-05-2023 End: 07-06-2023 ambulatory Charisse A Karen [employer] [facility] Start: 07-02-2023 End: 07-03-2023 ambulatory Charisse A Karen [employer] [facility] Start: 06-30-2023 End: 07-01-2023 ambulatory Charisse A Karen [employer] [facility] Start: 06-28-2023 End: 06-29-2023 ambulatory Charisse A Karen [employer] [facility] Start: 06-23-2023 End: 06-24-2023 ambulatory Charisse A Karen [employer] Facility:[facility] Start: 06-23-2023 End: 06-24-2023 ambulatory Charisse A Karen [employer] [facility] Start: 06-21-2023 End: 06-22-2023 ambulatory Charisse A Karen [employer] [facility] Start: 06-21-2023 End: 06-22-2023 ambulatory Charisse A Karen [employer] [facility] Start: 06-16-2023 End: 06-17-2023 ambulatory Charisse A Karen [employer] [facility] Start: 06-16-2023 End: 06-17-2023 ambulatory Charisse A Karen [employer] Facility:[facility] Start: 05-26-2023 End: 05-27-2023 ambulatory Charisse Jones [employer] Facility:[facility] Payers Date Payer Category Payer Medicare [id number] 1955 Unknown [id number] 2.16.8 40.1.791518.3.579.2.8 1955 Unknown [id number] 2.16.8 40.1.463416.3.579.2. 1955 Unknown [id number] 2.16.8 40.1.292448.3.579.2. 1955 Unknown [id number] 2.16.8 40.1.018961.3.579.2. 1955 Unknown [id number] 2.16.8 40.1.178110.3.579.2. 1955 Unknown [id number] 2.16.8 40.1.589691.3.579.2. 1955 Unknown [id number] 2.16.8 40.1.887620.3.579.2. 1955 Unknown [id number] 2.16.8 40.1.982192.3.579.2. 1955 Unknown [id number] 2.16.8 40.1.154586.3.579.2. 1955 Unknown [id number] 2.16.8 40.1.051693.3.579.2. 1955 Unknown [id number] 2.16.8 40.1.185482.3.579.2. 1955 Unknown [id number] 2.16.8 40.1.273093.3.579.2. 1955 Unknown [id number] 2.16.8 40.1.033752.3.579.2. 1955 Unknown [id number] 2.16.8 40.1.025599.3.579.2.718 1955 Unknown [id number] 2.16.8 40.1.744754.3.579.2.718 1955 Unknown [id number] 2.16.8 40.1.566561.3.579.2.718 Medication management note 09-14-2023 Note Date & Type Note Facility 09-14-2023 Note Entered by Ashley Echeverria on September 14, 2023 08:04:05 EST From: Rosalinda Echeverria To: [id number] Sent: 09/14/2023 08:04:05 EST Subject: Medication Management Not Approved: Refill not appropriate, proposed to provider amLODIPine (AMLODIPINE BESYLATE 5 MG TAB) take 1 tablet by mouth once daily Qty: 30 tab(s) Days Supply: 30 Refills: 0 Substitutions Allowed Route To Pharmacy - [facility] #[id number] Signed by Rosalinda Echeverria From: [id number] To: Karen PARRA, Charisse Tidwell CNP Sent: September 13, 2023 8:55:00 AM [employer] Subject: Medication Management Due: September 14, 2023 12:30:25 AM [employer] On Hold Pending Signature Drug: amLODIPine (amLODIPine 5 mg oral tablet), 1 tab(s) PO Daily Quantity: 30 tab(s) Days Supply: 30 Refills: 1 Substitutions Allowed Notes from Pharmacy: Dispensed Drug: amLODIPine (amLODIPine 5 mg oral tablet), take 1 tablet by mouth once daily Quantity: 30 tab(s) Days Supply: 30 Refills: 0 Substitutions Allowed Notes from Pharmacy: [facility] Summary Purpose Family History No Family History Records Found Advance Directives No Advanced Directives Records Found Additional Source Comments (unrecognized sect ion and content) No Status Records Found INFORMATION SOURCE (unrecogn ized section and content) DATE CREATED AUTHOR 09/30/2023 [facility] FOR RECORDS PERTAINING TO PATIENTS WHO [...] BE BASED ON THE PRIMARY CLINICAL RECORDS. [facility] [employer] [facility]. provides no warranty or guarantee of the accuracy or completeness of information in this document.
== END 2023-10-19 09:00 | disposition home or self-care (01) ==
PROVIDERS: PCP Radiology Diagnostic Radiology; Visit Provider Radiology Diagnostic Radiology
DX: I83.813 Varicose veins of bilateral lower extremities with pain (principal)
CPT/HCPCS: 36466

== ENCOUNTER 2023-10-26 09:19 | Outpatient (OUT) | payer MEDICARE, SELFPAY ==
--- NOTE | 2023-10-26 09:21 | VEIN_ITS ---
Patient Name: GLENROY MOORE MR#: [id number] : 1955 Exam Date: 10/26/2023 Ordering Doctor: DR ELLIS BRITTON M.D. RADIOLOGY REPORT PROCEDURE: VC EXT VENOUS RT LMTD COMPARISON: VC EXT VENOUS RT LMTD, 09/29/2023. VC EXT VENOUS RT LMTD, 08/24/2023. INDICATIONS: Phlebitis of superficial vein of rt lower extremity I80.01 TECHNIQUE: Lower extremity corona scale and Duplex Doppler evaluation of the deep venous system from the inguinal ligament through the calf veins. FINDINGS: REGION: Right lower extremity. THROMBI: Negative for DVT. Varithena induced thrombus visualized at mid/lat calf. COMPRESSIBILITY: Non-compressible segments corresponding to thrombus FLOW: Areas of no flow corresponding to thrombus OTHER: No patent varicose veins remain. 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 No residual varicose veins remain Dictated by: Ellis Britton MD on 10/26/2023 at 09:54 Approved by: Ellis Britton MD on 10/26/2023 at 09:57
--- NOTE | 2023-10-26 09:22 | VEIN_ITS ---
Patient Name: GLENROY MOORE MR#: [id number] : 1955 Exam Date: 10/26/2023 Ordering Doctor: DR ELLIS BRITTON M.D. RADIOLOGY REPORT PROCEDURE: FACILITY EST LMTD [facility] - OFFICE VISIT FOLLOW UP COMPARISON: [facility] EST LMTD, 09/29/2023. FACILITY EST LMTD, 08/24/2023. PROGRESS NOTES: The patient reports no significant problems following micro foam chemical ablation of the right leg incompetent varicose veins. The patient does report persistent flanking of his skin. The patient has worn his compression stocking. The patient did not require oral analgesics Physical exam demonstrates scattered thrombosed varicose veins. No residual incompetent varicose veins are observed. No erythema or warmth to suggest cellulitis or thrombophlebitis. Marked improvement/resolution of skin thickening and subcutaneous edema. There is flaking of his skin, I suggested that he use moisturizer. This likely will resolve over the course time and is markedly improved. Review of the ultrasound performed the same day demonstrates occlusive thrombus extending throughout the treated right leg varicose veins. No deep vein thrombus. No residual varicose veins are identified. Patient's treatments are now complete. He was asked to return in 12-24 months, sooner if he develops any new problems. The patient was encouraged to continue to wear his compression stockings and exercise. VEIN/ Facility EST LMTD IMPRESSION: 1. Successful ablation of treated incompetent right leg varicose veins 2. Treatment plan is complete PLAN: Treatment plan complete. No follow-up required Nurse notes, history and physical were reviewed and confirmed, see attached forms. The nurse was present throughout the physical exam and consultation Dictated by: Ellis Britton MD on 10/26/2023 at 10:21 Approved by: Ellis Britton MD on 10/26/2023 at 10:44
--- OUTSIDE RECORDS SUMMARY | 2023-10-26 09:36 | XMS_ITS | CCD ---
Author Name Unknown Address [address] [place] [address] Organization [facility] Care Team Providers Care Quail Farmer Name Role Phone Karen ACCOUNTANT PROPERTY-C, Charisse A Primary Care Unavailable Dolce, Brett R Admitting Unavailable Dolce, Brett R Attending Unavailable Karen ACCOUNTANT PROPERTY-C, Charisse A Primary Care Unavailable Dolce, Brett R Admitting Unavailable Dolce, Brett R Attending Unavailable Karen ACCOUNTANT PROPERTY-C, Charisse A Primary Care Unavailable Karen ACCOUNTANT PROPERTY-C, Charisse A Attending Unavailable Karen ACCOUNTANT PROPERTY-C, Charisse A Primary Care Unavailable Dolce, Brett R Admitting Unavailable Dolce, Brett R Attending Unavailable Karen ACCOUNTANT PROPERTY-C, Charisse A Primary Care Unavailable Juan David, Alberto Admitting Unavailable Alberto Fall Attending Unavailable Karen ACCOUNTANT PROPERTY-C, Charisse A Primary Care Unavailable Dolce, Brett R Admitting Unavailable Dolce, Brett R Attending Unavailable Karen ACCOUNTANT PROPERTY-C, Charisse A Primary Care Unavailable Juan David, Alberto Attending Unavailable Fall, Alberto Admitting Unavailable Karen ACCOUNTANT PROPERTY-C, Charisse A Primary Care Unavailable Dolce, Brett R Admitting Unavailable Dolce, Brett R Attending Unavailable Karen ACCOUNTANT PROPERTY-C, Charisse A Primary Care Unavailable Karen ACCOUNTANT PROPERTY-C, Charisse A Attending Unavailable Karen ACCOUNTANT PROPERTY-C, Charisse A Primary Care Unavailable Dolce, Brett R Attending Unavailable Dolce, Brett R Admitting Unavailable Karen ACCOUNTANT PROPERTY-C, Charisse A Primary Care Unavailable Juan David Alberto Attending Unavailable Fall, Alberto Admitting Unavailable Karen ACCOUNTANT PROPERTY-C, Charisse A Primary Care Unavailable SHILOH Park Attending Unavailable SHILOH Park Admitting Unavailable Karen ACCOUNTANT PROPERTY-C, Charisse A Primary Care Unavailable Karen ACCOUNTANT PROPERTY-C, Charisse A Attending Unavailable Karen ACCOUNTANT PROPERTY-C, Charisse A Admitting Unavailable Karen ACCOUNTANT PROPERTY-C, Charisse A Primary Care Unavailable Karen ACCOUNTANT PROPERTY-C, Charisse A Admitting Unavailable Karen ACCOUNTANT PROPERTY-C, Charisse A Attending Unavailable Karen ACCOUNTANT PROPERTY-C, Charisse A Primary Care Unavailable Alberto Fall Attending Unavailable Alberto Fall Admitting Unavailable Karen ACCOUNTANT PROPERTY-C, Charisse A Primary Care Unavailable TERRANCE JONES Attending Unavailable TERRANCE JONES Admitting Unavailable Results Test Name Value Interpretation Reference Range Facility Consent Formson 09-29-2023 Consent Forms [id number]#[facility]. [facility]-04-[facility]23 Coding Summary HTMLBase 64 CewxadaqZAs7gWi+PGhlY WQ+FG8LZMYxM04ctHXxbN 5aN3PCGFuBKnfzQYYVZRw PBtIjlsLqUH6sdTNuJNSa IC8+LT9jZZHaWgsmdXHwc 6K4bWA5Z66vpx1fXCdqrP Q9BHIsVnJioqrkr2lhvVd 6IDcuNmluOyBt TBXlbX83PCR6cX48Xw95t POrhIWjp2fpuDl4SrHjLO IdCKV8dKwnTNbno0XvITV eT83xjXMhq9U2 GQCciUibiQLhEjDgdAG6w Q4yRMqmiodhd2prwbquNi g7lf64pLOtn7E9nCR6D3G yzhP1XNHpgCRv EpkfdQKHmS0fvsieq9fuy cfdNkRmASXyIFj7HXg5UY WzgAwtVnVvVQ69CWT5KBI xqjKzM2HfJHFl rModRmJ6v3H1Qe5PG2SJG lagY5MPYPRNJKyynGF+PC 84ny96Q2PyEqyjIen8WWL lEKZ5mUF4wW7c MEOpLApjy2U4nZE2M2Jjg yFtjs7hd4kdXWYfIHzpU6 6wgAUys6B3WHGgeUS1NBD orBxlRpIlmS17 Oyc+TGNbmYprx8GwOjzgc 1ybd8ijpJx0BuknCQImxk KnsFggOHK8d4KdWz8aBHG jzST4oVJ6lG1k YfVfUgO7ECwwN287VwHvh OWiLymlW01eR3RraHE+PH GfBiv5VFSnfUekRV5sW0X hZGRpbmctbGVm cEtdMT3tUSGwnvdlZUWnb S6aRQPvD3g9OlQnWrI2YW omG1WyTVGfukvqAp12fT0 bLfDtTpI5HMxc B2JjstC2HRSsvVDqQXdtZ JC4Y73ty6P3ROKkASBcWK D8cYZ2sZ8ujQcxuoftlHV mdDsgdmVydGlj ALybHRmzB333CPKhzTwqI kNvZGluZyBEYXRlOiAgMT EvMjIvMjAyMzwvdGQ+PHR pWQA3qNzzEDCz uMLzTObrDf8iyReodAwqK M6oQXTlmzhqNOMpnE2qZA ExqWYulLnmNF9xCIFrulg jb486RiHsCGE9 LOTktEWxU4FflD9gFvVlC CCzLBKuW3BcgMGdJEmsW3 65BWkzIkN2ZCEwsoSnK5E sLWFsaWduOiB0 w1M5Mp3Oh7MhbyjnV3Scj EMmOxVmTuyiPBs7R3KsRm wvdHI+PW68CUDbTI64YQx 4CXD7nEcfGLpy TXToP9ScpU1aEaKsEPXdK GRkOyc+PHRhYmxlIHdpZH RoPScxMDAlJyBzdHlsZT0 dXr1wWTIyIQFh bYlvhIYmQwSce8ayMJOwV RjgWS4rjDuvA4FqdIY8WE Tgb4s4Nq51Q26pE9IehIZ +VQFwnDA8dHK8 iS3oLkMdLoH0SNlrR962M mVmwPDhSxlna5gao8bzdH j6MxP5KPUkqbHxpUwmBNL 9a5ZiLj33P36z IHdpZHRoPSIxNSUiIHZhb Oyzbh7xtQ0kHx1+PGNvbC A8jHL1tU7oKwQxKuH6CPm gZ582TkGohSIe Zljlv5mrn9aosWb1VnCoX FZqdeDutQzySSX5q3AuBl 44I5XhxVdmn0MaWra0tj4 5wRNpv4B1tXK6 H6MbEFLpqdggpFXyjNclV W3bCKZkaloiFFKyfA1lLN FuB7q8PgTwZnE9DFpyE3X ixzR3GQKbhJMc AZRbeFXRsS8soyzgx1emb piuNsKxLKZhUKa4INx0JL VjiKuhGvPpIFL4QcD2AIA 1lKOcjA9dtLww aodinV6qNab+PVX6rSWxo CAIJY7jLlnlwSX+PHRkIH P4dVspKCqaFLQvfX3gOJH sA4m1AvBdDqK9 SUxhL9YksoY9UXQbfMYrS WHkbCCVjQ8qctyza6qqga qyJiHzRCXdEGy8TCr1RMT saWduOiBsZWZ0 HeO4BOW3uQNkzE2luQayq nztjF4xIun+QmlydGggRG W0FIp4T2KmPcw2PUEnuLb aSB9nwJJsTOdp Vi3xvNgggItjWR4aSARzq nxyu198QnWdp6xtNUQtqY KvSJztJBQ9M03zr6O5FMP jODHjHXC2wQS9 sG2wfEhioarmcMAzrHjcr uTfxEzkIIfuNVaoB570GM ZltMcqCyVlHSu1Y9XtTlh 4SBRfiRdaJZ7w rURnPTbpYz0uaJufgOnwW A2gCLMpupbcm232VsTxl3 wrEXVehVEyQAhkCVX4Y80 aq3B8GAEwWBZz GDT4sIH3cR0baFngtrocy GVmdDsgdmVydGljYWwtYW zqN163RAEsfYlnOvYgnYg 9R4XrJro8PFTt pMwjEU3cvTDzFExkRd2mn QblfOgjLQ4zFAAylqgjk3 17QlPbk5kcKGDlyWCtUJv pOBL7Z07dw9W5 XMHwOXUfIZU7zXW3bJ0jx GlnbjogbGVmdDsgdmVydG vjQWstNTsjC005JAPjnQj nPlBhdGllbnQg PShlXCb8E2MvDdmtzFC+P G89EVTyVJ51yXImvUFbg6 trhJx0QdKgPGXjMTO0uEm jPQsdz5WuVAOs S76fnZZqs3A2OAImrAvuz UVjShWhuCK4cA2dHFriox prt6wdpuidWcqbo8zdug0 9zD01T73jGGmq ZHRoPSIzMCUiIHZhbGlnb f8weQ2vPl3+LLIbfSR9aC L8rV4tKVQgJwI9TMmvN75 9InRvcCIvPjxj c2vxc7kshGb8SuB2UTFcf eMtgHswPWF9b0TvCo87Z9 9sIHdpZHRoPSIyMCUiIHZ qwYijpk1bmS7u Ii8+XHRsgNL0zSR9tF4vH cHjHjI5ZNkqA729WzMrzO PfXgpiR63dT5FduZM+PHR bMoa0WXMyuBpn KH2aoVYjXNvrCo1zRCI7X tOfQjXrGDibD7PtAOUdjf dtqcydmPA5WJIqSUYdvF8 2Ja1swVlwUNHh lNEFtC3ocnohj2rndsxwS rMaATWfDSk5MGf0YYLkeE wiNvTmQWP6QvD7POR3cLB ipB7ydIdyetpq vW7mS6GmXDKvxngfOf03u S0pJkVgTvK9TTejBln+TU 6ILtRwLxCzYEbJPS96G7M jXxq4VPWxtSjx CA7oqTXmEJgkQp1zaKxyl IvxMW7nGFTcolusQSZbrB 5kXKPmvGYrmRysNL5wGNW rlmqim433YkXv GDH4ZLZaiZRwE9ZhsJ2tB vGvZRDeOQJxG1IonHDyHT ptT786HXcnDpK3HTXlsaU xD8MjDKDreNup YvM4v4Q0Ac7qEB3sDX5kA ZM5BB69OR40cZAed6N8sS W9X4GqCOJnysyxyevchHC 4MEAyPTTyvH26 tVCdWXwuEr4mp8O7p524C OQaIXFhxP73Tb9rqVrqGJ RbzAQCwF7mkscki3olnfo gIzAwMDAwMDt0 SYx6EEEgdHkwXqOhIVF3E eH1OZP8pBKozU0cqPycvc aabS1qLsq+NjggWWVhcnM 0E2McVph3NHGq cAnbIU9vpAKxAAbaFk2yd QvorEaaPS6jEFJmvccaTH YygQ1gNFNkpEAvsSwbEN5 uFBGmggkzv293 GuWxLJR9RCLppNXaI1Qpy L3vTkLmIJGrMQLlT7SvwI HhCIupH237MGsmYzG0JKW pvjXtG7IvFHXx zBkgRlC1f8E5Lj4OHJjPJ S17YR25fFFyv5A5yAH0B0 HlWHHtyivnxewnbDN9XCM dDDQbzL98tQJw WKxlUc4yd8S5h099GWNdD VFkpC48Bp3eqRbtAQTldY KTpG0rzkkwk0auenbqBuU hKOEqBTk9DDr3 DEUutZesZxZhIVY5TkE4P LW7cDHqoQ4caPkfogblpB 9wOyc+U1E2S9BcOvtxjLU +CQ92XCGzRZ34 eCOilFUuc6dsiYn0MfCsW ZWkHQS2cAjcUMcor4XjIA IoV06uhUEnh7K0DUSceKi hcHNlOyBlbXB0 gI1iLAdpmzhzc6ygybstD sqyf8sbvh16oU09F53uFP dpZHRoPSIzMCUiIHZhbGl fmt7xhA7aIz1+ AOAvuOC5pUQ4tD3gRxSaI fI5OPrdN645JgOhgHGkOe ggr3sty4ogzGb8OiSxUDR gdmFsaWduPSJ0 s5MmIt81L41lJAdrVUBtC HFaGEYmOPIggZnkwt8xvE 9wIi8+CS1sn0mnzk73hH7 8dHI+PHRkIHN0 lKkhJBlrXTRftE1yYLtaC tM6HTUlEsZdzB68vRCqMI wmKo5mcKwutScmUQ8dHSX wlmugr304UbIo j9wiPMQkmWAaHZsqIIG0M 49vj6H7DPAnYKDxSUP1aK R3hK9goHtiwbwqwGQusCi gdmVydGljYWwt XUplM769NBFirMzyAyCxn NDzO0haqsYPGV1rKenbiV Q+QPWpVRN1cNbvVEioRLR crF4bXVQpL2x1 JlHdKkW7PDfoR9ZywmO8D PFtvAMkNPRraNVXtY4nyu nhl8drvzgbAlPhMTSaOYz 2OMb3DLXjtRng TpEwKUD9SdZ0XQM8eLYua Z2ljGxiggucsJ2vHtu+Rk lOOjwvdGQ+FZCaNDL4dRz oFPvoBZAneC9u BEKkJ6q0IsQpTwF8NLpqW 6AsnpT4HGDlrITtPRCrmI JNiA2ozhubo6wmhjlmQuT gPEPvXPw0KXv8 OVXbdTsyLuEpSYN1SeA2L IV7tHAzlP6mbAzuysajdU 9wOyc+TVJOOjwvdGQ+PHR sHJG4fRqhYLci PCUayN1nPTBuW9c2DyUhE mV3NDdaR6ZipaX8SXUyzW FrPQUazVTGuO6xemfxc5k vcjogIzAwMDAw FJg0KTv9MXFyfTkqHeDdY AU3OsL1FAN5yREqjA5btM ktvibgaI9nJin+JKZ6QQW 1YT88LX27F9Kt PjwvdGFibGU+PHRhYmxlI HdpZHRoPScxMDAlJyBzdH peKY7xEp9aBMDdGJAzqBg wjBXoXeTze1jg YXB (more content not included)... [facility] Wound Care Noteon 08-02-2023 Wound Care Note [id number]#[facility] [id number]#1.[facility] C[facility] 07-29-2023 Coding Summary HTMLBase 64 BwoqimpvUDn6uMa+PGhlY WQ+TS5FQLPfC84kjBAxlY 8tB7XXNRhMIedoPLZFTTe AJrXiflBxPU6trEImOQEr IC8+RK6bORFaTbdtzCAat 0S1zPD9E40biq9jYShtpS F2RHUxSiFkncyke0pthSc 6IDcuNmluOyBt DDDneV94GMB4dB67Nx12d GSwnHQsr6cqjEr8WvKqKZ AyHGV3lCmlVVogn4ZrSVS iP94vaSDll5Q6 YYOvrDznoIMjNeErdUF5c L2eRYoaudcsw6gbcgfyMt e8ta49dYEsj6N2eWB8D5V iivF8JERdzZCi SbewyJBRrU2qcmzew1uag xefNbAfVGSvZPm9NSv9HE BkcJjnVfTgAV65CRH4LDE qakQfC1QuTIQv kUwwCgZ2a1U0Da8LR6MJD ffsL4BNJZYXEWvxbAK+PC 66by07X8VuVjgwDrj1JES eUHU7jRB7nK1v XQBvRLykk6L8bXT9T3Fsd pLrpo9ro8qbGNIwJCnvA8 7rxWEjx7W4MAXkzXN2WFF joJqtPiHliW54 Oyc+JOKkfShuf7FrRguxg 4dxo4yujKk7JwyeSWTead FooTkrKSV1y8BbGt9nJBP tlMY0tKK0eI7e MjStNxF3LGfqY182EqDpg TAkAdcmL10sJ9MxcNX+PH CzQml3JAHgsWmiEP0mW5H hZGRpbmctbGVm yBouUD1zTNNdakfwQDSvy F0mXBEwI6d1DmDvTbV9PE thU6SnOJGpbewvAr68yB8 iOqPpTzJ8QXec A3ToegO6RIJxhAIfTMqrM EU6W59pt6T1WTQhKECqDY M2uEK2jE8plBfjhmiolCF mdDsgdmVydGlj SSpxSTbgM652WBUesWajO kNvZGluZyBEYXRlOiAgMT EvMTYvMjAyMzwvdGQ+PHR pQHP1bSmuLCXe kMBrIPvhWv5wjMwdnGrqG L1sYLMdrtqrTHMouX2mKD GmpGSbnZigOQ9bSDRwccr kf005NjRaZUF0 HAPnmUFhZ2QgqM2cJqPmM LZjAQMnP3HrkPTyLKjyP8 80GNfmAmN5MUVlzwYgA6D sLWFsaWduOiB0 k3T7Qo5Nh6RnlcjnD1Wji GSfKgFhMbrmBGg9A1NcTt wvdHI+EL80QKXwKH23PQq 2JXL7cZelBHio VAHjJ7DbvN6zMeBwJMMlY GRkOyc+PHRhYmxlIHdpZH RoPScxMDAlJyBzdHlsZT0 iJm7qJALhWGAv hMbjlIXbCnNkv2cmAAKpY DdlOO2niSnlR7LxnTZ0CG Hds3g5Yb59A56nQ8CjgWU +MPTkfMT1bOK5 oC1nUrCpKeM8XDeuV156N rFxnWLxBryag6inl6cwsY a6UzE2BPZbcuEvkQeoICI 9k5AwZg03W50n IHdpZHRoPSIxNSUiIHZhb Kanyg2hqN9uPs4+PGNvbC S8lGO2xW7oHqBsWoU4FLh iM131XjOeuWVa Sktho1ekc8yxbCz3VkThY QMekeVilRgbENG1a6GiSp 00N3WqqHpsw3XgFqx1cu3 2dOBpu4H7sKG8 T7LiLNKympdpsNFifFjzP K8uWNAgdbaiJQSjdK4lYT SuT1a9GcToQyV9FGzeQ3G yhyH8NOBkpWLo CQVqqZKXoA0tlffgy1bql bkbNbSvZGRrRNo1CZm2XA YbuAktNdTpMWV6CzD7XXZ 7zDWseT3ruDzr hdmlzS5pGpl+JXN0uJJdv FBBOP4aIljglVE+PHRkIH C5hYmbDUatZENxgL1pINV rK8o4KfCtPgO8 YOwoF7EklaF1HLJjiSPsV GVioKAChM0fxunzw6llnu jwRbRxJALfHPj4XDv4FSN saWduOiBsZWZ0 CiR8VAD1lFFavS4ygMmpu sbskF8vPix+QmlydGggRG X1BDf0V0PxMux2TUFprEp lUN3mhJUfBCnu Aj2drLxnhIubCD2yWFOai kxym587DkPnu6hcHRUcrV JcSRogHKR8A79ll8G9NCV fHPVlUAI9oXL2 zC1acPxkovmbqEMhdBidx xNgvVhhSKyaFSzcS338YZ RdmCegDsXyVRc1H3CeMnt 4QUObqJviGK7p cNRrHGfgCd2ixFsveBbgE I3yIWQrwzuil153SxYiy1 zzFTTtsLUvUQahFIJ4V85 uf3F7EFJkABGt QTQ3lXU6eW3hhCqptanaw GVmdDsgdmVydGljYWwtYW hqP531NLTimFelXdGecKe 8G7NfZhh8THMz kOgwZL1gfWOjZShiIj6sv OmftCkkMY5sELZmhpsvp1 65NwMkw3otAUSmdCXpKBz bSCG0A60ha1T9 DGNnVAXyKSQ2mEV2pF0up GlnbjogbGVmdDsgdmVydG zzHHtrQAayP162KXPfsRj nPlBhdGllbnQg NRaaXNp2L5FcUsyssXE+P G71PYVrKZ65uBCqrDDrb8 lfgFs4QwPeYIMdLPL7bHl xHTeiq4LvCOTd N33xsWVzd9V7OJIwcRpcc TWmEmZkuNF6yB6gITbnso afo4ferbarWsndh9xmvj5 9rH02S07cMFaw ZHRoPSIzMCUiIHZhbGlnb t6ekF8vPe1+ZRInnVA4xM X9xX3aTJXxGwX6YTupS26 9InRvcCIvPjxj t1hsb3qqcXo3TfO0SAAdj qOivFzuOGL7r5QyUc63S9 9sIHdpZHRoPSIyMCUiIHZ hrCtfic6xnP5k Ii8+DDMqeRY4gBT6fW3nA pKfWtW9KMcxI496PtRktC EcZhpgF88kS3FfmMW+PHR lOdy3TCXokTrz DB3hgUYkUCisJy5tGHF9K jWiYrDaGCrpK0JbXRRhgd etnatvoUK4TWUrOFXrtG4 0Ic1bnVcuSKNk nSXSvM0lkpqxo5lczcljB rKbINDxLHz9ZNd3TSAklA czWePsASB9TaE3BYJ5fXN tnZ8wiMrnoudo wF7xD5VsYWUptncvHw41u A9hFbPjQtW6LSrpCtq+TU 2ZMpYtImVeBEkTUK74J0C vAkz3JFVneWvv OM8okXGsLCorIc2eqZrsb DmhCH4bKTWavfntLHKztC 3lYTZeoLJwkJreVJ1pLVV jaqgsu269XnZg TQX4NOMnmDXoY4FzeV0kW mUgIVKnCEOhM6WgiMNpTU yjM221SGrnYdD6CLDwikO nY0HnLMFnqGma GqW5t8O8Lz1lJA1gDT0lB IT3YC79EQ47vDSdx4E5gE J5H0ZpUTAzayubrpomaSL 6HVDbQNPylK47 oUPkKYolHk7hs1Z9j430D VFyLJAswO53Vt7pqCegXN OldIKRdZ5ixsjzt5jhlzv gIzAwMDAwMDt0 ENa9ULAnyVuzGmNjEDS4K eG9JCJ0zJTnyD1noPbbge zibQ0oAgu+NjggWWVhcnM 5S5QiLki4DMXk lMhmDH8wcIPxKWrvYz4yl MavnQuvTW0dXUUipoftXO EzgS9sSUAdtHWhqLnrAS5 kCGBxznwls880 VrOwGZH5WDTzmLEyP6Ajf V2xBrPwWLEbWJBnS3QjrP OwHJbyV700USciKzY2LHP uepMcS0DeWDGz vDikZbR3w6A9Qp4IAHoPC J99NM29mMCqn5O0rZL2V7 ChUFSjejrhiidoiPP5MYI bEXLziK06lNVx MSiuHr0dz1N4d478XKJbR PXhnX01Em6zuUzmFXUdfA QTuL6lmivtx7sikaajBvH yDMQzHEc2IQo5 OPThfAbkLbTyEQB2MiJ9J UR4kNXwdA5pdVjrqvmamF 9wOyc+X0Z7J5EkMxhseVN +CP32WDWsTZ73 oZPriXHtg5utpFl9DhBjI CNkALB0mZqlCVbnf8MfTZ BuN00plITcm8J2XDYmgJc hcHNlOyBlbXB0 lK2oUCyemqtld8vrtxadH cpdl1pttr97dY72G26vGH dpZHRoPSIzMCUiIHZhbGl oph1fjF8aMe6+ FXUytDO9sEZ9rO4lKhEfI bW7ZMibT390EpSsxHWxOv zeh9zag2kioTe4EpAsZXR gdmFsaWduPSJ0 z4GvDc29F21rYZuiDNIhY XEgWSCuFNUrrQdbzl0cmV 9wIi8+QH7mv6avsd38uE6 8dHI+PHRkIHN0 oLzkXVzyTHWdfN9vJCnxY oF6HZEzCaLmmA68zNNcAO eqTp9xkUpvvIbbPR8cDTN tawtgr023CsMk s1hnMKVtpNRsPOxoFNK0J 11do3I5QFPdSQDxFDG8uO G7mG2qaLskaugskYUrjMc gdmVydGljYWwt DMoxA357DEEcfReqDvRmt KGkM7yopsHKSS8kNnwthR Q+MHSpNCT8eYsgJJkgESV txU0yROKbK5x6 DbQgZlS0JFwiZ1LzbsJ9V SUooJRgMBNapAWDiX8pwb nii4eeuhqjWaKfQDHjRKv 0HNq4QARmwFxy ErYzQFR4KsW1MKR1cHAcn Z8ndQicyrgssG4oLol+Rk lOOjwvdGQ+PAOpIHK0iTp kRWzoUHKfuV8i MLYfG0a3MwQgVlA1DKqfB 9CgilC3WSBkiBYeUOJiqV VRtL4dvnbbq0ryawydRpQ iFQYqCQl3TEr1 DRVobXrgLxGqQME4PwP1B QT4nFXikP9mtVjsfwzvaM 9wOyc+TVJOOjwvdGQ+PHR dQAI8rHacFAai MSQshH4wENZtF9p2SdOcG iQ6AQchQ4PrdtG1WARubV CnKXTtuSEHsN7xujoyl0k vcjogIzAwMDAw PGr0JDh6TOWgrJssHxPpW AC4OxW2PYL6vLYvwJ7dsF allgwnuW1rHmy+BLP8EVL 7QL03NC00R6Ho PjwvdGFibGU+PHRhYmxlI HdpZHRoPScxMDAlJyBzdH ncTM1zSi6qQIDtMESxdXa iuWXwDjBel3hi YXB (more content not included)... [facility] Coding Summary HTMLBase 64 KdpoqkoyRPb5pNk+PGhlY WQ+AB5UQKSoF29goHOkqI 8mH3COEOwZIygoNZUZXDp HYsQjdoIhWO2cqFXtKVIq IC8+IS0pLARoUixudUYpb 0D5pQW8X45oqc0aZPzpkN Z0PPHjHjCyapecq8akyTd 6IDcuNmluOyBt GCPoxQ21FFA6rW79Rw52h AFelXPqe3kapHt8SaWwGW JlOYP3yNmvADglu7EdIBJ xT84evXIqc2H7 DPEonCclhNIcBmRngTY2o V6iTXbdygkmj6dskutdWk o8bm35bBRym3U0pHP4T5F znvS3LIKnoHNm IcjxqTLDuO5yhvxym3gtv cqsVrIhKPMtVMi4TIh4HE PprKjkDjGpGS76AWZ2TRH ilzTlO1JqETYq sNgmPeY9t1P0Il8JG2ISK ewxO1VLXWQCYIjziJS+PC 62kw51C2ZkCwhbPro1PZQ vTKX0hRF2xQ0f NTPrNMbby5F4bKW1O4Hlk rPdgs6ro1ndRYEuGRqcK1 6icCMmk7X6AOAxrLC8DJS oxYrzOgQukK41 Oyc+JBHztOngi6FtBvbcx 5tma1usoAg5JqubEZJdvv QkeAsrJOX4r2FrDg0rUSD lbYL7fWM8kB1f ZvPtVjX1CTcgZ578LgKpy CVuZwuiC32hN5QhzTN+PH OmPyq9ZBPleUwmQL2kZ2T hZGRpbmctbGVm fChjZP0jMZCjxzfmVOMon G4cRJVvM9i3ZzDsMmF9JF laD9PeYREzplnsTa00aV2 sJfCvPbX1HSik X6LohdW9ACGmoHTtHNsuI EQ4J02cu6L2DNFlIBJwDM H0tBH7fC9qwJaffmlfqBL mdDsgdmVydGlj PEleSGzcV735STXqiTjpW kNvZGluZyBEYXRlOiAgMT EvMTYvMjAyMzwvdGQ+PHR wMEA9lNhrMBEm qAEvCXlxIv7aoQofqXrqP Z5cDYRyozitIBOlcM4vPL PfhXCohJbnVH3pHLQsdie ej173HpHdLGU0 CGBbsNJzY7LwsM8aUvAxJ LTeIRYtM3BwfRMzWEwxS5 28TEjlOiJ6OPEtkzDdU5A sLWFsaWduOiB0 j2B2Zr6Wb1GjykujO9Lsw PUzZeGrJrvqIGu9H4CgTw wvdHI+JG78VIEyMP38TVd 6MRP7sRciYDpu KKRgG8XpuA0sSaLvVPRdE GRkOyc+PHRhYmxlIHdpZH RoPScxMDAlJyBzdHlsZT0 dTk5aPTBkYOMv xEjgzFQsCeQxd6veSMEnB NyzCR8wrVjgE3CcgEE7FH Eki4h6Zd97L16hX0HkxHE +VIIbvCX1vXR9 aF0vMbScXdR8VKbaN262R nUkyYWxEktxb5hfu0eukM r3XfK7QKRgpqHppFwfEFV 5e1LgBy21R58g IHdpZHRoPSIxNSUiIHZhb Boamf5uvR3cMo8+PGNvbC M8kKT5xB3xPiSgKoR0MNp yC619WgSmiNBc Dvlep0gcz8nkmNk7DiTyJ UZgivRrkEcpXKI0n4WtSh 74N0PxtJxyb6ZgLnk2po8 6oVArw9O5tTO3 C0FeLDHajifmoQLgjCgwO D4mTFAhhtczXTIzhE3kJN EwH4o9UzUeFyP6XAouG0G fotJ6BFZzsKZv LXHkuRGRmQ3taymga8ozm zzlIrKlHYZcBPj3VVm7JF MjhNyjCoWaAIU1LnB3AUP 1oQVwwU7uaVot iobvfU8lKxy+QQI0zWGkp VRUPP7xAkmpbPH+PHRkIH J1gZvqGMjkQTVqwC9mTPV pS0s1JiYyNbE2 RAzoW8RscyM3XDJbgERnG ZEzcNHJlA1ibmjhg4hpor tgTqGeEGFvWZr4XKe9RQX saWduOiBsZWZ0 TmN0HFS5rOUleB8nnJdgm rjdbK9xBhi+QmlydGggRG A4CIh1W3MkExv3GZDxsLa rHO8dpYDePTwm Fr5ydCvfiVdrYE4mFZGhm drkv626HiJqp8kgTVIemM MhVEvfISS0F99mq1J8OOC qMQHqFCN4fBS4 eY0jrXmfgqvaeYFdnHovs vYcaOyhEAdpNWeyE390MH ZoaNmeBpKbMCa2V4PgVmi 3ZFOyzWoiNH9k fSZcOFvuSp4wwYxrcBnxL F8oDYZsqjzms550OvUxt2 jsGNKvrBXeEQvhGGO4S98 kb9O4BKFoMOAy PCB9pXX0wN4bkPtwzidax GVmdDsgdmVydGljYWwtYW opR305UPVavNcvLwDpoSt 5W3QkKni5OBPn rVldXM9xuSRvMUzpWd8qv LmjrDbpRO6sBJPczndej2 36ZiYom0dlKDAxeXPbPFp vOVF7H91gb1B5 KVVfNARbXGW5oGV1dQ2mb GlnbjogbGVmdDsgdmVydG tdVSzyTYcqO543UXZqsZa nPlBhdGllbnQg NRtmNRz8H5VrIabdxYN+P L34KIWxVQ63zWBxgJKnd8 fuhGj9ZqJwNTHaGSZ7gLk fWJhtj8GjKWPj E93vgUNvz1B0GYZenYvjp ODfQgWggBH1hI6hBKgnud pjc6qvojxqAojse8cdsb8 7qQ08C54uVQlh ZHRoPSIzMCUiIHZhbGlnb q8ybL4gAy5+DKDcsKE1iE O0rH4jFTUkYaD4GXdtW79 9InRvcCIvPjxj h5fps5itiSg9JcX7UZKkx fRlfSkmVUS4i7QbEj78G2 9sIHdpZHRoPSIyMCUiIHZ omIpybs6fsE8f Ii8+SPOxbNE6iNY6eW1wK mRkSlS2IMenS588AnFtdD JgYdumE76uQ8OunRY+PHR zFkq1GEWgfYjs AS9puEYaPGnzTn7yIOK9D bKuNfYzZEtwS8UcJMYmtb dxoqqayND7DZKyPOCflJ5 3Za9vcYpsMBEf hPVDsR6mtbqcs5lsiqhiA oMfZFBeXTu4KTv9WQDjuH stKwAuZKH0PjR0SQL9hBA ssG3urQnylqsd nF6nQ0KbSATbeyjgCv72i G1nZgUgKhY8LWqpDfj+TU 3BPkBqQfEzQUdMEU81H4I hVzi9CWHaqPwb CM3mbSRuUMrfFo1spBmgq VsrTY2iHCTdiknuOPMlfP 9wBKFlfJMaoFegUF7hDHL vmhiud875TnVb GRU5UEFndIGxQ9ZcaX1dG rOuSKQkPQJoW0RbfDNcDQ slU955ITooHrO4LOQhtsK nY4UiZHMklXxz JvL4y5Y9Ff6hPE6rAB7hD VN0LL14LM35oJHur4S6zK I4X1FjBITfxnealzfvbCX 4NEPbWIPurS98 eZXcXQcqYx6ja4E1g238X LPgKLEirS99Ov6pyRzoRI KsuRQPoX3comatu4cbicf gIzAwMDAwMDt0 OIj0ZAMzcRqqByWsAGD4X kN4UFY1qPZfvX0kpSbywv qrrW2bDen+NjggWWVhcnM 0D8UcBpu8MLYl iLpgBK1feXWxVFknPe9de RmhrMqhHI4yJNXtxwdrRA GxpB9aHEDmgSOnpConBO3 xLYVeextkv762 VvVbGBL0KZEteHDcE5Hft L3sVaZaGQVrHRXxN2XzhY XoPIyoT070YOzuGfP7YIX uflHhV7MrQFCu sVycWmM5r1U9Qp7LJWeGC T20FJ69jIMdb7H1dPX1F1 YwVJAbinqrcpxkzIT5YDI rITOgoF25nYOb LDiqDn7sn5M8i148LXXuC FIqzZ98Ik7nbRfpURZhjS JGvY4andipc0zukfwaKoT gGOKrOBh8ZIg0 BTHfoWgoEjFkSVG2GcH4H II9fSVetK8sqKfstzentN 9wOyc+D8N1E2YgGosppXT +PH04WQEtXK47 aHCdfQSws4lueGy7BwIbO MHuOLW7kNpyYXcxw2EhFI BdR04toRHsf6L4LWEpiTs hcHNlOyBlbXB0 eX3uACrrcxcin6rmzdbmU oljz7zyvs97zZ83V52vJD dpZHRoPSIzMCUiIHZhbGl gjx7mvQ7yRo2+ TZCiiOH4wOF1iP7qQhEtF kL4CExuX569NbAxsCFsTs yoz8bzj4odhIt3GzAzGDP gdmFsaWduPSJ0 s9JxWk14D57aAGeqDEYvW CIhDIRxAYRaxGjoub7bhP 9wIi8+RZ2rb7yxrk77vX8 8dHI+PHRkIHN0 fGluCWaaJKQpdM5gIHybK nG5EOMjXeMpiT18sQWcJD glIm4fcVxnsNvzRX3rMKV nbsneq117MaNb i4rtTHEzhXYvTQgrKNN5I 50dc3A4BXOsSTTkWMQ7mP I8sU5kbYajyabgsDYnoQy gdmVydGljYWwt WHdeV525MRXsaIanKmHag LSeS3rzdkXPGI4fTbgkvM Q+BURpOAV2jLpaZJpqBFA eoW6aRGIyW0h0 UdLgXuG0TXviI6FunqC9H DBzbYVfTQDstLXFmX0rid nzt2bbqeztKlHzEZCcVGy 2GBo2FSFdbLxf SvUvKBP7CiI2YEO0mAGtr D9emBdojknrqP3fEnp+Rk lOOjwvdGQ+LSFfFWV3iVv lWMuwVBNugF6t BTDsH1k1DlViRgN4ANdeK 5NmvkS0XARtrNIqDGKnhI AMxI8bbfmaa9msunwkDsV xJRCfFYj7DVb5 GKWzrPtxNdJuCPQ6XpQ0A RS6pWAovZ7mtMyaszhcpB 9wOyc+TVJOOjwvdGQ+PHR vNHC3zZvbXOmx ARFuvS9hQHLjY2f5FzPrY zY9YGadC0VlmoS2EVNcdT MpXCIonBVEoS1btbque9g vcjogIzAwMDAw KTn5YJv2VNIziQosCzOlZ CP7NmP6KNE8mMVgoC0yiN chtsigzZ8qCxo+VXD8ONE 8LJ45QP31K6Me PjwvdGFibGU+PHRhYmxlI HdpZHRoPScxMDAlJyBzdH ojWU6rRq0tBBHmPZSrhPd bsEOjFhAni5fc YXB (more content not included)... [facility] Coding Summary HTMLBase 64 GgnndpoaQUw9iHm+PGhlY WQ+IM0WIXOeB24oyNKivE 9eF1NJXYbMApifNBFQNAk QDbEjqiQwVP6wdXFgTGUe IC8+HR7jBQFxQjgmmWWab 1P0sGY9Y06ufy4zULyvoP K1ZRBwEaFicdkfg4rilCt 6IDcuNmluOyBt XWJhcG10XXT6eQ70Rm24x CYsqQRkd4dwxPa4HkVgHV EtDTW5gLehMXnlm8EwKIC jZ71ocLBgp5S2 GEEgiUyfnDAwZoJaxWO6x N2sFQaahoukg2smvvgwBw l9uy69vAFrh3S4vXW7A6Q xgdK9IMGprIBg WwcfrSURiB8ufzyov7eyu yibNiWyRBQpHOr3FNk1CI NccSmgWpUsQP21EBS5YRU frqTfR5NkYMDc nRhxIqO4b7H4Le6RV5GOG iihJ8ULXVOLRSpmqGJ+PC 97jv63K2ItIsdaCdg9BZU jGBS5kJD8bT7d MMKrLKngq1N2iEK7A5Ntz vFlqw5ds1hbBNQgQBvtH4 2rdSJlk6I1ICElqIB8KGM sjKsgMbCobW85 Oyc+KDEzmAjns9KjFcumh 5ekt9nsbPt8VzsvUXJtlh HiyGqfHBF1z6UfTp4dKDT tgXJ4xZP9uZ2b UnCnZsE3BLelS764MqNgu HBuZsrkC30lS8MqcTJ+PH DsEyv4HYWzcFviCW7dD5T hZGRpbmctbGVm qNitWR2nFKFmztlhNMZxp T5rJDVuF2d7NnCxLqC1EZ hdX5TnJCAfwdalCi70oK6 jXrZfYtL5ADei V1KapxK0URAbgVJpZAkrZ YB0I74co1M7NPLiFYHhQK S2sLC5cL6oiSuxqrtweRE mdDsgdmVydGlj KCpkZWqfS303SOMnaQlxF kNvZGluZyBEYXRlOiAgMT EvMTYvMjAyMzwvdGQ+PHR tNXI3dTdjOSJx fJGmJHxwOc7qjIbdfFqdW J3gIXAvsozyKHPfsL7lLP XfuVZczTxuRC9wEESdqwk nt073EvYgQHA2 BERubHIrF8HbgS6nCjGvC UZsDXQzC1MklVTdXIutG8 59JQpvZdX3FLCgaoZnO6V sLWFsaWduOiB0 f6D8Iq1Ub5JyrmffQ1Ykn GOrMzPjMmedFXl9I7QyMr wvdHI+XI95YTNoMK20QQo 2LBI2nZluLRla VPEiM0EimA4oYjKvEJVtU GRkOyc+PHRhYmxlIHdpZH RoPScxMDAlJyBzdHlsZT0 pRt0eIHIsERRw aNqbgNRgQsZay8kmRSKdM IvaJE6rqAsuR4CmqZM1EO Bsj7q9Vq89D50aX8XlxOJ +GQDhfWP7lSK8 rU4xLjQkRlT9YQsnA251S oVsoRGpIrfxn7oel7gxbR b9NbZ2JSVsaoGopQuzNXF 1a1LcAw64G34f IHdpZHRoPSIxNSUiIHZhb Xrobx9erF9fXp6+PGNvbC G7dAF9oT0oZkDoPwF9FFa jL873ZxAuhGOq Ctydj3vga8swyKr8JlLaW YHomyNorVtsJJL0n1BfJc 51I0FyjQtsk2SfVqs0zx8 2fVQln0U9cSV5 J0BmIEFyovckyGNhnLceY U7qOFVbtuxcQLLevN1fOO EwX7h0HsVzVlD1ICeuQ0P tprS9UNWpkUCa PXDrxNVXtA4pisxur0usg ogbLdCtSKNbZCu0ZPn9PU SchMsoJuCxFQY3JiW3IIV 8hTKahQ0ztZlz xxrkcP4hZig+YTJ1tGWwn UEKAV2hNeutxRE+PHRkIH A8sEqaGSsvJZRfqM5hDNF jR0u2TgJcAwU2 HFyjF1JaizC1GPPiwMQmH GDlmGLMkD7pbquki4kzzq pyHnGwZTEiOFr1JSl2FSL saWduOiBsZWZ0 DoI4GKC6lOGxaK4ncVkfo sliuE4eEtr+QmlydGggRG M9AUk7R7HvCiu8RTVsaVf vVK4xdGBnVOde Qq7rtNlbjMybWC5kABDqf ahpa934KfRht4poCLYswE JnMJkxKEX3G81ea5I4KWP vEGKfAYH1mBH1 qQ4xxPleetqehVZlfYyys hKnaCvrGRgxLVipR960AC TvjDviLgHvHJa8C5JsPgc 4SSRguLdyEN9n dMJbMElbSc2mcLsldEfsH R4cZLGcjamvh563PgCdm2 hwWQSekONvNGzeHGN8W33 lq4W9GMVeWGXq AKU0vFO9lJ9feLakjjkhl GVmdDsgdmVydGljYWwtYW xoY454ORKcvOcsRpHcuUq 7Z6WrDdw6EXDn gJksPX6zfQYwVQngBb6sn UszbGrwRN9sGSFoemhsv1 55CeFwn2imDKHqlLNsIWy dANH9Q74uo5I9 PHIsYTDuOKM2dZC3xO7nj GlnbjogbGVmdDsgdmVydG jpIVrnMMmaT309CEKmiRh nPlBhdGllbnQg HMxlYEf9L8UlXimkcUF+P E24HYSfPC75jPQjoDJvv7 sphRi5IlPgKNJjPCI2iOu vGJcyy0SfGHSp H56wqXElp0V4AFVvoAtfs ZSkIvBahZM7jX0gHQbmia qur6yyubnpPyiyq2pjto4 6xD08K80jHHei ZHRoPSIzMCUiIHZhbGlnb h2mlF2jKn2+DXXcsCC8fK J3iT5pFMIiFiD3YLksD97 9InRvcCIvPjxj p9swy8ygoEn4LxZ1BSYiy jSbvBtmECV8r0MzIv27O5 9sIHdpZHRoPSIyMCUiIHZ laYmthr4ygY0c Ii8+ZYMizGX0sBB2eA9cR oThTeW0ZGxeX201YaYokJ OdRtqsH23cW1AlgEX+PHR aDrm0UZPpuTui JK3mrJEnJOqcRz9kEYJ3J oJyNeIsOJmvB2MoYVRfse uyjucapOI4UKVbUICfoL6 5It4kwOdoIGCf uHFKnX5bsxgot5mvqxjbJ qBxIOIjXVh3ZGb4CTPwqE fyOlYlGMI6IaN8TOH1bEZ dcM4fsBryzoyb fU5xF5BxGCTtajjpOa25f E8mFeSrWtB8FIfrUql+TU 4PZqEdJoEbBFcCUW72V3G qHzi6XIGbkQnx VZ2bxWHqPTtgEr2paHvhk NobVL6hGHSuinrbCMMltW 3sCBLgmKQkuZaoEX5wKHD mvmeez170DdLm GJR6OPXkbBHgI4MapN4eC vHkBGOiFBYfO7RnzVSuZE mfG888NFuiZrG2BLIfvgR tF1MlLNAgvSoh OtQ2j2I3Ib5gPP4vRF6zK LW9YZ05EP65oNAus2G7kD O2M7SdBBDurgzufedgvAH 4GABhHSSutI40 jVPfLYxbQn7tq8I9u212H UNiPKGajG98Bz4kkLmbMP NtzKXDwR3bbntyi6gawnp gIzAwMDAwMDt0 VYv6KNUtsNmvZuXfRZV6D xG6QLR7hMCzsA3frKuwaq izlX4uWyu+NjggWWVhcnM 9A3JqHve7SLDc tPmrUE5jjIUhBHolIm1sc PjfqYkkIL7jSIJxvdpjBD GagT9cCCNbpEQiaCwfQN5 vVTGzosrme504 AkPiMCI0JXTgzSBzA7Kpi K7gPzUrNOHiQHByW6NtyK HvNIigF709FYsuIhN0XMM jhcTeB5EsSXTu bKrxWyK7f1X0Ma4DKXfLC E04QS15fCSom2X1mAH4J5 FzXZXxabgjyvnztGJ5ZSJ oCCUrbJ99pDZe EAvwEx9aq6H4i508VMHdL WRbyU92Jt9ivLwiOWKjjQ ZFsX5uwszwl3vqqbwdXuO tXLOnVZw5SXc3 MUTjxBxgHxAaXAJ4JdF3M AT2eFOsuF7ieFifgmephA 9wOyc+C2G2D5UgHogbaZA +EJ35DATeJL97 wVVqpRAtk5gzfLm3OwNtR DQpUVY3zEduHPhvp9LfWD CrT56xmOTds9V9SXUgbXj hcHNlOyBlbXB0 oQ8eTCarqulta3dyebozY dlev2yyrx96bW74L11cGL dpZHRoPSIzMCUiIHZhbGl ndy7vqQ4qOj1+ JCWcuLS1fUP8nX8zFoXpH rW5ACreX735YqLzdAJxMe zkn5tje8newBf4SnHkGJE gdmFsaWduPSJ0 n0KxVh29O78xHZlgICSuR TXxCRDhPOPjuHabvb3wwU 9wIi8+AT8zt3ylhe55pM4 8dHI+PHRkIHN0 bEsrYCwcGYZhmR4eAQimC uR8IUZpEyLxsF32yFLsZI hyTf8xaBftxOjdTW7nYVS bunnhm977UjKm h1xvBWXouIIhOYkkBUP0A 19ss8D3SJZfETOmWNO6eO U0xQ2ywWwzramsqZNdsZb gdmVydGljYWwt PNzsG981BLScnHjjGjRxy BWrK5yrhlSHWB0wMztxxG Q+NEHaLSX1bWgsYYkyMPE prL6oIFWyP6r9 EyMeTvK1GRwvQ2LultF2Z YIupNAeKFKnrKAKsN8bia sve0rajnxrAwSbPLQiIOq 2DUz8KUUzzOgm JiDpYPI7PoR3LFV2iXKpn S2jcZziijuudA4zYqu+Rk lOOjwvdGQ+EJQlJMR9qFy nHQhcTPEdgL2v LKBbA3f1CgJhPuF3XYlzW 1KuaxI9XTGvxDVvNKNnfN CYrS6tvcbzm6fwyvjlQgE cKRPmWIo3XNz6 OIYijRsaEhJkWZI9GgL7R MH8uBQzhD0mmLsmajjfdA 9wOyc+TVJOOjwvdGQ+PHR aIQO3gDwaBQpj BUIisD0oAFXgO6d7RmDcI iA6YGhhO5DwsuH4HAFmvP IpWBVnkITMwD2klulqw3d vcjogIzAwMDAw PZa8ACr0GPTrlBttZeCdF AR9CyB0BOY2wDCarT4roH jgldhrtY4wDae+UZA8DWY 9MP34FD82V3Fq PjwvdGFibGU+PHRhYmxlI HdpZHRoPScxMDAlJyBzdH dbNW7fUo0iUTLbPCIurPb ysWRuIjIiz8ha YXB (more content not included)... [facility] Wound Care Noteon 07-16-2023 Wound Care Note [phone] 1 [id number] [facility] Coding Summaryon 07-15-2023 Coding Summary HTMLBase 64 UkwqykkfARv3qRr+PGhlY WQ+BL5VQRWtK96ryCOxdV 9lO2NQYWwZObtpPLTEMQl LBeWgejOoRQ7vpPErXKQp IC8+TD9yGAEkGfclbUDqw 1N4lKJ4C21yfv5yXGhltP N7UOZnFcFhrzwim3deeFs 6IDcuNmluOyBt SCBptF76JRU8tD06Cx30w XQrzEEwk7skkKg8KiGaKM SwCMM6iRdfEMief6BhLVF pC78psMTvs5J1 EMPzfZptbXUzPqIcsNT4u W3sXEztsxcck6sfoujnHs z3rk59fWIgb8Z7eBF1N6O somB5AOZabUUz AtoytRLRhF6vaecdh5zmb jwbZuUnLDIuREt9UUg2IM UsdQelFlAeDK09ZIU2DTB yrqUeV1ZbEZPp jWmtRcI9v3I4Qg1BS8YGL dgyD0FTKBMAIWwzrEX+PC 86eb57S1JjRfthAqe0XAJ mQIH7bRW0rS5r GAIdEKkxt5K2mMX3O2Jrd vTajo4qb1hbBGXrDYgvC6 8wkGGnz7W5LELgfAX6ZGG kgTklFvRcoK35 Oyc+UCIlbJdji4ByHdjfn 5yvr2jdbLy8BxghXZBdhw MqhKvrRIH2f1OxPl5fKZE rkQO4tUV2zB7m KqDdNuO8RXvaW769YtUcw THbLwerO10gG6QwcVG+PH ZmOwa7BDQrmBoiLX5oR3T hZGRpbmctbGVm pTffMQ3zLVCdaymyNWYqh H2hAEFpZ5o8LgEtKzT9WO tnT8EyNNCqwotjJj50fA5 hGgKuRgJ2DKqp W1TsvnW1KGMijXZlUUgrN PI6N02rg2I8ICKtNDUkBS A6hUQ0eC0uyGjrfrwcoBH mdDsgdmVydGlj WFjtOHlzN173RJDxpSlzC kNvZGluZyBEYXRlOiAgMT EvMDIvMjAyMzwvdGQ+PHR tJVC7qQlnDJSc kIAvYJwhMd8yxWftbTztX T6nSOWgeufmMEZreP3tQO IvaYLpaZskCQ0kHFOkhjb hs657XtNdZNU3 HOHuhTGxH2MrzF6yQkEsC EXuTWAoO1HqdDUrFDmgS0 24CGptToC3DEUymjMdK8Y sLWFsaWduOiB0 v1Z4Qo6Tb3LtuhlkT9Shv HIhGcSbTmeeZRg3J5JuKs wvdHI+TI54PAJiRL82WEz 9SFD4aEyjRNcb EPSjG1AeeC9hFxSdWVWtI GRkOyc+PHRhYmxlIHdpZH RoPScxMDAlJyBzdHlsZT0 bJm5uVWQwOVZp lUprpEFvCyQxa3tdZEXyP RfhPY7bhQviB2DobEM9OY Qtw6e3Ip20W58rW8FqqEZ +PKKucUU0gNX8 wX3uTwZeLoV5GSfoE923P iLxdHOoDodez2ivd5iorX b1UuK2NSGhieNpaOctGOH 0i5XwWg22S96a IHdpZHRoPSIxNSUiIHZhb Uvzuz1lxH3bYp0+PGNvbC R6qBU3sW7vPuEiFdI7LAr jH479SgSnpESd Xmcez7cgr6ynzZz2SjDpA NNohmYduUhmATY2d4XsNc 57D2YkwVcoy8JyFwe5tg3 9xBMky3Y3cQP6 R2TtPOSkbwaldJDioOxiM B8jGZWqkesnYWJsqQ5hTL QsR4k4ZwMrReE4XBsoO9K xipG6VGJscVHg OLGrtBJBgJ5nlublz3iut kjfVtPoRZOnGMv9MWt8CN SxmNvpXeZpWVJ4QjU3NBW 8xTAifA2pyTzp qhuazT8dCin+ESR7pFTxz JBRSN3wWvfmkXM+PHRkIH H3eTzfOSkiLKJlcJ7bIJV uK7z2YcAhKuC3 QOqaG7GjgzB8IGZwaCXfP VElqTOUjM3fdutcg0unns gqToIrHFTrUTn0RXy4KBI saWduOiBsZWZ0 HeP4UWV1cGThdF6wkQzgh trnhL3mMmk+QmlydGggRG M7XSz6T2MuOav9FLRziOo cHI0djEBjQOia Xe3ktSzniHfdTA7zYLTht bwct846AcRza3hgDXHkoS VhBOeyBBD6A12qe2Z9ROL gELTcZXP9pXO9 dR5kqQbuolkafSSfqBepa xGduCwjBJonWPskL285SG TziJbgZeZgSZi7V9MaRab 0HPUagOqmPV1c oNMxNIlnQl2wtCdrdWznX D1uPYLlvypvf302RlAnm3 xmSGBufXJbHUojGVJ0Z04 qn6A6KUHsMJMa XMP8eAZ5nF6jvPydwsnmc GVmdDsgdmVydGljYWwtYW caY206MZHrwWweAhLdnAo 6A7TpFty5BCUm dHmcJD8ibYKoQHrfKh7fb AtcbXmnUY3wKACmydbcy3 26NuEta0apXTPfyPErDWf hNYN2E01wz1F4 AMDoUJJiGVM4uBP7hE2kc GlnbjogbGVmdDsgdmVydG pvUNquBBetF003QROtcWe nPlBhdGllbnQg NFsfHOu8E6KgIdkiaOW+P K72QQChUL36lFNspKDcb6 gwoIp4OcFwRETnRCA7nUz pTSori2ObDXEd K98ygSAhd6I4UTCllUnwv GVbTwTccVK4gN7aHRfqmk igm2itolawCakqu5rqrp5 1cH58M16iAPlr ZHRoPSIzMCUiIHZhbGlnb j4ksZ9iFq6+NEOfrDV3sM H4pV8zGVKlOgQ8DYugX88 9InRvcCIvPjxj s2acm2okiBc5BgI4PZQgg dHmmEgsKJG0a4JsRm69A8 9sIHdpZHRoPSIyMCUiIHZ psHqpkf3ppZ2m Ii8+XQXqoEV4oGB1jG5hU tKdXzX1PKeuH203UkVekG VfTxneU05fB6BgbRF+PHR sJhw6LPGbsEgz EI5pfAPrSBjzAu3jDUQ7N fRzNzEfVKzxD9CfABXwmc uxqdtrcVM7PLJfCOEzcU4 8De0klSxmTPGv nDZNlE4crjiga2boxtxbH zViTEEcGGm2FHj8QTOqnO enZxQnAHF9AyO7AFG0wNS btB2mqSzbolik uK1kQ3GwXDNspetqPh37w D1aMuUnTtB1QYshKip+TU 4XVhGpHpNqIWuZZK54M9E vDhi7VYMyaZfk LU0mlRUfJYhcUd4rwVwap TaoYL1wVHTopsaoOZTvpD 4sHYFisNYwgCqoRA3zMII dzcgdw120CeKv CCM8XTXwqKGbN5VlrD0wZ lPeFAAeUNSuI7BnyKZbMD hbQ198GVgaFhI2KKWvzmY rF3CeMTNjeLsz JzV2w8R3Vp6fSQ9hVX2yR DQ2RZ97NA20cXFfg7O3wO E1L3OaRIVdasioafuwjFL 1FNRzLJTzyV12 sCLaFOhvOu5pr0Q7a903G IBnTFYkqF14Vj3ofZygRS YxlFMMyK8qdhbew7oitjb gIzAwMDAwMDt0 HBk3ATJfzXdvIcIzSFB4F uI2WZN2aDEwdN7ktOloyw ageR9cPxi+NjggWWVhcnM 6X1QlOce1BHNw jJidVM5ctQAeUStxYl5wq HezzBryPW8vAKPfubhhCO OzzL9mSCEnnZSxxZifLQ5 kQVNjvxtup273 JqDiZCE8ZLCvoCUxU1Zvd S8iCnWjCHAgBOJbA4PibZ MrCOmlZ864XUpoZxQ2EEP bwnTuP4SsGEXs hQxoApM8i3Z8Vk0FBFiEF E52HT98dKNid2H6lWA3Q7 KvSYMpmcxlmtyfsBK2URK zXIOoiS20mGWl XWlyAf4he3V9p463KKHfX HZqwK72Ty3fmWwiMSDddW MTuC9frkxew7kofdtpHqX hZVCuFIh6UVw6 TZJnoErcPtQkDTM6WeE8H DL6sJRioC8esClsxipmdZ 9wOyc+T0G9L6EnXhvdnMY +FP54FBAuVG17 cXWioWQht7olhCo4GzCqD UTiEUE5kLaqBOdyw3FnWC PvZ32mjFQmw0G6FASxnQi hcHNlOyBlbXB0 xM8pHUaywusuv2kefrtnE jgzl7dvfs07aE25J72aPM dpZHRoPSIzMCUiIHZhbGl poh9xoB0zRv4+ DVQtePW1tJY1eG3qCeMgK zY8RZfjT601SoWxdUIdIk yuz8pcd3nkzJj2YlMfYFC gdmFsaWduPSJ0 a4NdWq00K31fSFrySFAsG FQwFRUbRYZbvIzprr7hrT 9wIi8+PC4sg9lnqn20zE0 8dHI+PHRkIHN0 vKlvJHbeLIFswD6sHQhmU cD0RGPcOxUgzZ84xNBfHD qjSq9dlQkgnDneGQ1vSVP sjtmog276DmVr x0jzCXKbfDAqYXndFID2I 21ec8D3DFHfWBIsVNL1lI A9jY3hbIipeprsmAKluEn gdmVydGljYWwt YJhmR772CUHspZrfEeBir PDmD8iopwFLMK0aFwgwfN Q+QYVrMRE4rVqoYOrhGKJ ffR1pJKVbJ4g1 NnGhWuN2LGtnF6JpvxE3D LAxaIWeZOQaaXOSxA3yqa pbb1ehshwvHjLdPQKgHJw 9MVm2AYZpsHsd NmRyUVE2TpD8XHS5hJDsi P9ycXqjuiiudF6aYmw+Rk lOOjwvdGQ+TWQvXSQ6kWs jKNcaMNTrrS4m WBDkK1w5MvNaCbG4GOglZ 3AveaJ5KMDgmYFyQURcxH YIdD2cliren9ltmiqbEdM aQMDlXSn7DGx7 VHVidHblQiVrBTT9IxB8M PA1bCBbgO3dxKyqxtltiW 9wOyc+TVJOOjwvdGQ+PHR qAUM1fUkpUEiz PTCbnC8hNZDlS6z9PdHlP mJ6WDpcA4EiwmL1AICuwS FcDPQbuTNKsK5ezbupy6m vcjogIzAwMDAw IVj5OWt9RZOkuTpvMrPuF TC8WxO7HHK1yTLcyB6xaX qoeqkzgR7sSey+UXT3OEC 9SH25FL08V5Ly PjwvdGFibGU+PHRhYmxlI HdpZHRoPScxMDAlJyBzdH ioZD0xFc8yBDEkOIIutVm ejEQdJiBsf6bp YXB (more content not included)... [facility] Wound Care Noteon 07-09-2023 Wound Care Note [id number] [facility] Coding Summaryon 07-06-2023 Coding Summary HTMLBase 64 CzackvcrYDx1eNg+PGhlY WQ+LL4VMXYxK95saEFqqQ 2bI6XQQScJYvykIWTVMDx BQgVvqlMwFJ2biSHmLKRc IC8+NR2eEMGkNddnuTYlk 7X3bKU3M26qqf7hWFxtuX S3NGLxXjYpuxwxb8kjnJt 6IDcuNmluOyBt APVceO42WJY6gV79Ru58o GDawUCwb3ubiRl8LhYhBS GgYGE2qHhxELpjs4JgBHQ bT99xeAThl3D9 OLNpwWrxyPUpQrKtzBG4i I9iTEymwpugb1yemtsjNu z3fj14nEMyd7B5iWY6K5W gtiD9RBHmoFZc FqskdTSSxA6hyxiwt5hus cnsKkJcPPOpEDc3ZEu5JW NmeRmdKiGsLN07PJN8MVJ eijBjL1PdCCTu kLkjCuY6q8Y2Ec2NT1SJC tksO2QFSPPCLXqtoHV+PC 31gc05R4NeFjadTfo8SCC uXAW9jVC6yM9f WBLnZMjdx6L3yOQ5F8Vlu xOwcd1hd8sjDOPyHDreV2 7vqNFxd6L0TIDsgZF4RAQ quJvtFwUztD74 Oyc+VWSqyIhjk4GpMuzfq 3xbg4xcjRp4HsinYPVzll DzaBhrREA8s6LpEw5hEAR kbHG9hSA0pG5d LzMsLlK7RCiyT001WwOor UPfMuwvQ20sP7DhvZA+PH HdGsw0MSEbuUfzXX3yD7E hZGRpbmctbGVm nFnnML8qSZKyyfimJLZwi K6dHMSsV4j3CsXsGmM1YP yaB6OoQHGmwscrNt01aL9 dFwZiKcD2FBlk A2DbmhW1ZQVskQJmBDtfV SS6G95bi1L3XSBgJOViAH F2uTA8rQ8frApmmqfavXD mdDsgdmVydGlj VRjvWFbyG918VFUwsCliF kNvZGluZyBEYXRlOiAgMT AvMjQvMjAyMzwvdGQ+PHR fUHT4gOayXBTn pAQsUVnfLe5zmNfxeOvqM W2zSIJijegiITHueM6hUS MugNSayEvmOJ3cVOKtuxk lt261DmHkXEZ5 BLQwjWUrF6ZflM7sFbShB VJxDOCqO1TsgJHdYMcuU6 40RQuiFuI2OZNrvpTiS5M sLWFsaWduOiB0 l3V4Pf4Cq1FibnfoA9Xvr KRzBdZiPishGYn4C8VhIh wvdHI+HH74KNDoVJ51AUk 6OVZ8iRabJNbu AIEvD7KzaD1hGpGxOSAkE GRkOyc+PHRhYmxlIHdpZH RoPScxMDAlJyBzdHlsZT0 aRt6uCPAeWXPv kEninGBcEtCaz5heVMTmS AamTT4rtYyfJ1EonMN3PN Yrt1f4Bk10P96wP4JjtEC +KYRyyZQ5gDV0 yF7xYvNvScD4QIejY612X pOaiRYuNcsxy9mol5czpU o7IvW0XXEcdyVzxKohZJP 5p4CtIi81I10e IHdpZHRoPSIxNSUiIHZhb Xhujc0mlH9cFl5+PGNvbC C4yZO8vF2hHpSfJsD5ZHu tJ871KnHffPYl Pzyip5wbm6ccgSu3QrVeS KYtfcJusKifTBM4y6KiQh 00X6WcfJkzo4QcPhu9on6 5pVWrz7B5sEC6 H3TtONBmuapiiCCxwYjfL K0tBVCepvgoVGOmfY7gWH CsP1y4NzIxIzJ4YObhH4I ttfG6NUXdlDUq BASrpSQCnU8dssxce6csa dtxWmRmKFBvGXo2FLb9AR HxsLygCxLoSPI1PpE2ZLQ 5fIZejK7biHbo rovbcS0xYth+LNQ9yEUwq XLIVI8jCqooyOX+PHRkIH P2mUafJBisTKJltF7xDOL yR2i4NpYuEmL0 IBnkR1GvhgR3WESiyZXaR ADkrGBFiD1nmrzhp5fjke czFmTiGJQtBYb3JYj9NHN saWduOiBsZWZ0 YdC3HSB4bKFsxG7pwUdcf ojjoY6tJfk+QmlydGggRG U5EPt1W0ZrMxg1VAOwiIt rDA2bnZWtPEqa Xh9ttXbmwPojHP8bWDOtu zorb193OgRof4ubOPSrrM SxEQagCIM4Z16pt4S7XDI fXAKkLRA8mPD9 kW2vvCokuljwmVHdnCvmo aMupIknLYyfLBefV276KV YjyWigTcCmOPe1G3YdZwi 8EXVaeIwtDP6l iOFvLVzcNs9lpZkqxWvcZ N3eUCMzakwtp283YcKlz9 qfPDTynQIbJGgoBRZ6W06 zq0E4UMTvJLWi XMP9hWS8zG5liFzhogvfs GVmdDsgdmVydGljYWwtYW hcD463NYPanLgkQsCxySs 4A3SkHkr8CDDp hVmnYC4zvUZqNVphPa4il JuupDmiQU8uPJKemwpar6 78ViQaa4fvAEHgmHAsNUt sPRW6T65jj5N2 EYJkTCUsQQI5dVL5gS2os GlnbjogbGVmdDsgdmVydG wtPDbfBZlmV447NMIiaNi nPlBhdGllbnQg TBfeLKj8L7PgGnvhiHD+P Y61UHMbQK74cIPssLFji0 bkoIi8SrIlAZNcTLY8rUp qYImoc0JuLAQd W98gjNZyv7D2RADfmHpyi CAgNjGkxBI5sT4mJDlivb dgn4znxwokIllxg7pavf4 5tW92S63nAQbz ZHRoPSIzMCUiIHZhbGlnb k4uvY9vIc5+THVevCE3fG Z6fI4gMFNmGfC9NApsY91 9InRvcCIvPjxj h1aau3lcgDe2QcV9JDDzy xGvmHuaXMQ7l7QpPb55P7 9sIHdpZHRoPSIyMCUiIHZ wqYjqta4haM9v Ii8+SRRxaER1kRL0pN3cX iOoRrY2SWilT825QhLgiV XcXfpiI19tS0RalRF+PHR lBju0BCXwqMok MK2dlROhEXuoJh0wAHM8J iTcSbDeMYmcG4ZtSXWyyb tsuqdwiYQ9UZOdMTRfqX5 1Aq7ymAxuDUKo gJHZmY9iqojjk6ihuyrqA uGzENZpYOi2AAp3WEMvfC zqLmHnEVJ4AtX4SDH8hZT lbU0dgNxmbhmw lJ0lO6CpBRTfgmmmSf32x S1vSbIvBaR7RNmqNfb+TU 3CFtHaFoElYCrXCC38W8N sSre7WTGspMrp OR7rpOIkBWqeVz9ciVndt QoeFX9vAAFsclqdQAJwvK 5jMGVeuHIlpMihAS2mBBC bxiwlq085ShZy QCK3RQKdbQPmZ5DweG8jC qItJDXjTWSgS4MxkAKsKL pnI667HXltOxM0FZFeewZ mN5SwCPEioQyf OhT5m5Q7Gu0cBH9xOT9hV FH0UQ31SC44zFCeg1Z7fT B5V2WcTNOnyoaibixfkSG 8PRLmFVHfqQ99 oUAmGFflFf3ra3G3k332F OMdPBOpdC52Zt6rsKbjKZ EheMJEsH6lotbve1kobky gIzAwMDAwMDt0 KLa9RQKujXwpKuXvFBW7G iD1SPJ7lDCwhS2swCmbzc mokW0oUzl+NjggWWVhcnM 4P9BwHfw7TNGa kXmaGH4gvVQpIIhgUn7tm JeqxYckBB5aEZPncsqfXQ MdmZ1uZAPecTGiyFetYN4 bIJPmqbecf713 NtQvLMU5MLOgxDWhA6Hxv W9tTdLpWKItWOSqQ5XkzD KsFPljK590CJoaBnU7BXO fuhAtW5DxRXRf dLyuFlO1v0M1Fi0SYMfLF H43AY46wEJdz8P8xJW7B2 RxHZWquqjxlqxvsKS2KTU zFKVthR71iNYe JXwyIa5yn7J0o179WGZdH VMofV37Cy1gmPbkLPTooM MUtI3uitjbx5dplgwdTuU hPMArGZw2ERq6 AHFpcVvtKkMzTCL6UvX8W ZT0fFCkmX5awAbhukljaC 9wOyc+T9V3J9MoJhludMX +MD52MVWgDJ58 gUJaxVOwo3oppUk7DtUbK ACrSFQ7pHovXRauj3ZgFA LsM77tbKZqh8Y0SXFmvYx hcHNlOyBlbXB0 xW4nHTrszpylo0tzoinaV lazy3hbsv95gS66P14uRT dpZHRoPSIzMCUiIHZhbGl cvt6afU6xUz8+ TXXceSR0yIM6fD2bUuWsG kR5FGuxA504ZcHomXFoNg uly5swb8fuiFi0LwDtXFU gdmFsaWduPSJ0 o0CaLz22O70gGPwjXKYxS SWbPUExEQHrwXlznb7ovC 9wIi8+VP7pb4urqs00bI7 8dHI+PHRkIHN0 bHrlGPuiVCTmsV2nXKdwA nE5MEJgEfBmgJ66wFZyBX ifDs8fqNzmbNnoRZ8gKWL dnakaw075TxJx s0ziGDEbxPKsCTtzRFT8R 38ak8U4RNCvBNMqCFH3nM B6lN8aoTbymtzymAXbcDp gdmVydGljYWwt OUncZ929OIBdxEhjUnRlz QWoC5dbtdWANC6vJmjocE Q+ZDTnPGF6lZmoJSbyJQV ehE5bXEOiU5v0 JyAyDjV2PXczA1WccrV1V DXgoPLpMCVbqOQNcK3hfq tus2nmclewQjTfCKTtITv 1EHj2XLNbiKsm SaAxPHF4YzQ0CGD6jCZjt R3mmKvcgcpmyL8xOed+Rk lOOjwvdGQ+RERkCBG2qCg yYTciRZGgmC7t IOCoB6s4ZxKaSbQ9MUluP 8AfgcH1USLcrGNmQOQwbY BIiJ3fjdngs1pmokthXiD fETMsLGc5VTs2 RGBifYftOrHpELU1KgI8Q SA7wYYkpH7xtOdxolynoV 9wOyc+TVJOOjwvdGQ+PHR rTPI4uZnhIHal CMSobZ7eHAGaS2k8PjExV uI6TJwbE0EnmjS3LUHulC QyMWDakKIFwG0ssoiwp1g vcjogIzAwMDAw XNj1MIr2BQTxiUhrXfCxJ XJ6CsK0EQA2kVRudH8tkE ugekotrL2yRxh+SHW2PIG 4RR51JA73W9Fo PjwvdGFibGU+PHRhYmxlI HdpZHRoPScxMDAlJyBzdH ssOP0lGy1zAUBjSDPshXf zrCJfEiBnq7ph YXB (more content not included)... [facility] Coding Summary HTMLBase 64 LhazyznqUGe0iEu+PGhlY WQ+CH6ZKQWhC23aaWTipF 5iD3QGRGjEZrfmPBSCNNj ZVbXesmDdAM9xoIYgZTIy IC8+SS4dOCEkPhvigETvp 9S7mFY9R98geb0cUHzooQ F2WQDqLtRekgnbg0xnvCi 6IDcuNmluOyBt PYEyyT33UDR1bV22Bz15c DKahHIzj0blhNn6PnMcVR PxKVI1mAlfSMvmu5WcQOW tV83lvNXsg5W0 QTJfjXgmxIXgAnRlwUH0v S0ePQdytbpus0udfwqyId r6kc40iCZjl2W3zMO6Y1P peqG1JPIscOCg JjcugZRRcM6uudhtj7rma wyzOfSjHIVhJIs7JVk2TS IeiKaxMuMxJO05RBG6TXH xsbExK5IkBRYw oCarRwL7u5L2Dq0NU7TFP lmzQ3IKNPWMPQghvPL+PC 64ko16V1ErEpeyYxr5SGT hIVB1qMK0eZ8b XYBqCJxxa6W5tNK5M7Wuw wFslw1dl9guPJNqXBloW9 5rfAOpf3B9MDOepZL0AGD ayLctFnAyvN48 Oyc+QNTesEhwa3TnWucnm 9ubq2zasGf6KteeOAYwjh LypJyqKCH1w7JeEq3fQFT rtGI3uVX7iS8v VgRnXvL8KSrcS548IyIoa YIoZgpnX76eW4FlgYY+PH FqJes1AJRbcEoeUO5pA3L hZGRpbmctbGVm dOamFA4hXVNmwcgcSWBtb E2kIMPxF5k6HfAkPgP6MG ufR1JoBEJvssjkSo81mZ3 iIoHrApO1KKts R3EnjeL7TDPuzYBhSIqmS RF0L33qj4G3UIJhRRJvMS K1oXZ7gI9veXcxqxwskOJ mdDsgdmVydGlj SIxrULleN437NTQtqLfrN kNvZGluZyBEYXRlOiAgMT AvMjQvMjAyMzwvdGQ+PHR cFTW3uZnyGZCf tQOpHQatPq6pgVqnzCxwN T2yNUVrvohzTOKtwO8gSC DdtQMdvPheBL2jSUNuffc xd362YpImRKG0 VREjyNQiY1BbyX0tUsHpS UOeXBFcW7AqbURrFXxtL2 92ZQzjNtQ8GGCjlzRyW5V sLWFsaWduOiB0 n2T3He7Oj3CfmfnqO6Cqw ZLlVqSgCqbgQCd7R6DbBm wvdHI+VC75QRUpPW52XSt 8DVB3uIiaXKqd SJHoS1ZbbX6zMhKbNJIeI GRkOyc+PHRhYmxlIHdpZH RoPScxMDAlJyBzdHlsZT0 lSg9vXNPgRFVa eBcnqDRmZmJgd7aaRNFwD MqpSJ8kxFxhY6DjhKK2CL Oxh7q8Il30E44kP4NomAA +TVMhiYG5oWL6 lP3yIcIcByC6NBkkO619F iGuqOYaKutgg4eqh3yzpF q6WaB4GHDihwAcjXkzCRE 7t4ZeOy76Z30a IHdpZHRoPSIxNSUiIHZhb Azsey3uoT2jUo9+PGNvbC Q1kOD3lQ1dCgFfXcC6IQm lA378SyIclYOl Yjtyo7fxe4bfsZj2NgLuJ LFzdhQqxOuiGVJ5p1WwLd 77X7BibOwpl3UvZbz5oz8 7zTYqu8O1wFO8 A3HqQEZyrpfgtYDyhTdjS W5vDGLjdcgpDCZkfD1zZL WwR0j4KxLtFoT8XOsgZ8F xsuL6OMOixPDi OXLjpNOXrB4imstta2ujd nekWpMaQUZbCEs7VCw2MG EmdYujVgOlNJF7LxM8GJH 9sXTniI2omSyo qpmnjU6eHkb+IMK3nRYfi RLVWY0xNaclbRA+PHRkIH Y7yTscMOxvHBJgyI6xINW sU3k0LqCrQwR5 RHucC3PaykT2FPXfmCWhD UEwxSCZdG7mtdvuv9xhnt ieGsRoUTZvUKh9IUj2NOU saWduOiBsZWZ0 AiZ6DIL2eICuvE5tvAdfy dxvgI4oGxd+QmlydGggRG O6ZFl3E9EiVmm5WVQvmUn oJA1bqQBlDAbj Ov6ysAeliXggHU0wPXOlg ydzg634KcPrl0iuLVDexF RnQXmfQVD4E68ax9R4TGC dLFEnCDW5jGM2 dI2aiDzpxwbdmYMojTocd qRndRzbRPqfQIxoR123ME FmcGfrIpWhTWn0E3NgMtt 4ZGPzkXsuIJ9y fUVhLTrwZv5poQmjvSpzZ P0pERYwtsxyx256PrUzj0 pmUTKixCKiMZfnGSG5J40 dp4W7XFFtQZLg BTB5eJT7mP8muGmioofzy GVmdDsgdmVydGljYWwtYW qfW794NULqjBpvIxLxdOd 0I9DjWpj8QFYs oQvxJO6lxHDpFNccTz4zs DehmFjyLY4hMTRandqgc7 21OhBya0fdSFUnkKUfVDa yKDE4H92wk2X7 VVDrSJMrYXE7mWV6pO9xv GlnbjogbGVmdDsgdmVydG vnLPenTJcoM246NBAqwCn nPlBhdGllbnQg GWbhRHa0Z4QiAqoydTR+P V82DLWePC25fUErmRVqi5 utbSf3BzXaDQFjBQR1tTs lMWyvq2UeECYo M72okFZxm1D0DIHfpSktg ADeGpFhiQK2cH3rCEntyv hhe7kciqbxGvmsi8mbzj3 1sL79M54nLQbt ZHRoPSIzMCUiIHZhbGlnb y2anW7xLp8+IERmsFD2fJ O9fX1cAXNqZcG4OLosG17 9InRvcCIvPjxj o1hxj0ipaKc7BlC7IPYdj gXtvQfeRZC3t7TpCv99M8 9sIHdpZHRoPSIyMCUiIHZ ycVjgbl2teI0e Ii8+WSWucZF0rCI4qS6pW nLoOwD2ZHruM442UcQwsL EcZxwhV90qW7ZpxJI+PHR qQnu3GVFaxWur XP5cfFRjDCynOn8cMTO4D lGeJzJwNYdaY8OyDSCult zayjtbpBE2TOAvDGAhyG2 8Zg3mlKejEMOl gPBFtT2jgrybg1hqntizP dRqIBSaJJp0SUk4RJEjkO rpPiZtNVR7QwZ9YNW3eRY uyX5ilKqkqdwt dF4bB6ZgMJKdxosmLl70b L1sNaDoZqQ7URbgOnd+TU 8ZElIuMqZuFFdBMY49R8J pXiw7UDMgcGqv NQ6baFAjMHdxVt1hzNyxa BsuQM2gBNYnpyclHAVcoF 6kLOWsxPBjyCniMS2rEBF mzemax955DuTo VTS9IKWnxURyR1VlpQ7pP dUqZZCcHQWzJ7ElqRMkQK eiI645ICcrIvI6QRYmboR mZ3RbGFHkkZnx FiU3k9V4Ns1bNZ3cHR6uI NC4UN18DG96tTZms5D4lX L1S8ZvSXXxgnguqqqphLR 9XADeNNYcuM13 hSDeIIgoRd6av9G3n079C TMlPURnuS54Da8niNnrFN WghFXWgL3nreedf4keuur gIzAwMDAwMDt0 WCp6IBUwbZusZiCiFDU1G cG7CGD9aKJhbW6ltBrttw lrwZ3iRwe+NjggWWVhcnM 2S4JbDyr1HLPp oWceLL6ocLPdJHxxTo8hv EveuUqoTL1jAZXburvpBW OupI6lQLOeiCOplPsrMW3 dTZOgoihhi540 RhPiIGL8HOIdvHUuC6Hee W5zBtTbDBDvFWMrY0HnwA YsHNleB922NYnlKbB0THS lbvFyM1TqXNVk nRrdXqL8x9X8Nn1OANuUY G63GN82mKHhd1U5tEM6V6 UhRXMsfalumfexiNG3XYB tDBObpS75dCAw WKdhJt4aj3J4j533QKRlY OPorN00Ln0blJawYNTvoS STyM0jxtedj1bbwsrnVuV sZCCkKRh2NCa6 LDEtqOzmIlNgTHW4XkR1A RQ0iSNxyQ8elKgqhgqvpQ 9wOyc+E1A0P7GtHhvgzRE +NH76AUTjOY43 iPAwcFJpr1ffdGs6FeZuI JIiHJC6uWtpWDyow7ArLH EjB40zjHEwh4P1PUGtqOs hcHNlOyBlbXB0 cU7iWVaxrghzc6mtvltdJ otnp2efgf84hF37N74zJT dpZHRoPSIzMCUiIHZhbGl fly4jsF7yBw7+ NGLupIU9yPE6rQ1iMnKcK oN0GSshJ661PhMrmOOlPj vqr5rhi2pvpDa7VkBeYFX gdmFsaWduPSJ0 g7GyVd86M87xKXhfHCTpE HPdPIMyPCPaaNbenk7bzT 9wIi8+FD7jo3nrzr71rB9 8dHI+PHRkIHN0 qLpyBJerJVXcdZ6pSSqqA cW8MONpBvEjbS78aBBsYF noDb5tcNltpNoxCN2nYWV qmtbxs127YaRf f9kyQMEweUFrQGfxTMF4D 96da2S8UZAdSYPaGZG8vQ B5gU0lzSwwyeyrpBUjdYx gdmVydGljYWwt UBhaW713QXPbaPyrEeKgi XXyJ4maouIIUA7fGztbtO Q+VDTcRIZ1hRwlPFedVZJ mkL7xKZYoB1o4 KhYyFnG3IMxeN1SdeeW7A NLcgDYjEMAzxIONyA1kuu ang7efwcfxXvMuFZBzRNw 5FJa9WISfoXht OuAmJLM1VjB4CYP5oKJvl X8hvZkykawgeS2xSnz+Rk lOOjwvdGQ+AFDhJUR4dSw hHPlpXNFknO8p WEIdU7h6PnQxKqX6QFusK 9QyszS2EMEdvTGiCIDzpZ EQoN7buzvqt6nvgkstDqD pDRElFSh6WFt4 GRTakLzzZiPsCCK3TxH6V UM0hWHfiI1vrOoxyzdtnS 9wOyc+TVJOOjwvdGQ+PHR aXLM1mZjrITck VHRfsV6hEJKsH7v0TlCkI uG5ETimN0FbpdM1YDHflD RtKZIgpLFDbL1xmcrph2t vcjogIzAwMDAw QSo0KUz3CZJzzBhwYaHlZ QG5JcC2EFJ9cZJviA1hfD wtwjpnwO3oRpu+CDY9SEW 2UN60IE17O3Nt PjwvdGFibGU+PHRhYmxlI HdpZHRoPScxMDAlJyBzdH mmLY2vYn3fECSmBQPfjSf eeDFvJnLvl2zk YXB (more content not included)... [facility] Wound Care Noteon 07-05-2023 Wound Care Note [phone] [id number] [id number] [facility] Coding Summaryon 07-01-2023 Coding Summary HTMLBase 64 JukhelbvKPx3jGg+PGhlY WQ+DD7QATHuP73wpJTxtS 2aY9DVLGnYFthsOUQDVIv CMnQgikQxEG9bpRMuEQWz IC8+AA8rQWDsAvpsaKIpw 7D6uGD9P36blj2gFNfdyG Y5FUAfBuNzlvitx5hxeYv 6IDcuNmluOyBt MKBfpV50GMA9cK75Ge12j SHxiGLec4mbsPu3CvVbIK ZqENW6fFkqGLegl9DtHMO rD06efEThj7Y8 RTRneMshnNNuLbNkzHU0u J0hINvjvlxud2ifauemBa e3ln15tHUow2L0kNO4V9X ssoS4TSGwoXVy JhdpuJKBgW5wzjggy8aoi rffIoXuQNUrAFu5UMp8WT OzdMyoNpZcIP11VBR1LZY mcwRyZ9TcXTSe bMdjFyI2r9O0Jf2WH3UHX rqqS7CTKSELHArfaRC+PC 76hn43O8JdIrugGax1RCQ yBCD6gFC3oP0o ENIwIKpvm2Q4ySS9H4Tpl eZnbq7uv7xaNOQiGEeoD5 9wcUSop8O1DQKhkGB5OCX unDjoLjPxfA32 Oyc+HQUfgGkla3YbKdjuf 0rvh3rgiVt7SewyXSDivj AeuJtbNEF5n3KuBe9bVYA ptQX7vMB2cX5a GnIaJuY4ZBhjZ692EsHqk KQqYbfaD00zI8JnwSP+PH QhFek9FHOyvFpuAC7tO9B hZGRpbmctbGVm qVsnZC2yPJMqdsamAAFwm Q0nREBvD0x5EgLuUiW4MV loO7RdSZDfjwrvMn19hS7 cEoRkQoJ0YUse L5CziuT4HKBfkDReTZquI AD5D81cv0O2PMGbYHWtWU T3dIP9hJ5ufVcsjnzjqVG mdDsgdmVydGlj WVuaSNtvC299CVXlpWyxV kNvZGluZyBEYXRlOiAgMT AvMTkvMjAyMzwvdGQ+PHR nRVO1xJqmGOZu vPVjYQtnAr5lwXeqxZrfT E0oZCSxjrfnLATelY5aEP SheJRidDkzIQ8lDCGnegn hs393IiMxSQF1 NEWdxKLuH7YvmN4pHoTcO YJsHNTfJ0NcyTBzTPccU6 04UElfSgZ4AZIskjPcY5Z sLWFsaWduOiB0 o2H9En7Us5RxzmeuQ6Lax BEnHzUbSvuxTFl6M3IyTd wvdHI+BQ46HZLrNH68BJv 1WRG8qRnzYYzl CWAuZ9SasX6rHtMpFWQxD GRkOyc+PHRhYmxlIHdpZH RoPScxMDAlJyBzdHlsZT0 wEo2zMWArLEWx wDhyxRQjIdKhz6zsGOTwV LieAO1wgZmxN8FvpDI7BQ Kgg6w5Ze76D92cK4CeoBN +UBSbqWG1qFM7 vH3uBmPrIpH0GQbqW364L mIoeUPzYxsdq4uiy9ohyL i8IaQ6MVZlqsQmwSeeTQU 8o0TfLo32E39w IHdpZHRoPSIxNSUiIHZhb Jyxjh5cmJ1mUq7+PGNvbC Q9dCQ5mC8eClIuEdD1EMm vD821MnVtiAGw Lzwmy0hwj7pooAc8FlKeD QYgnoBwtYipJXV6v8HoCd 26W5MfwSyxw8JpUly4ed8 8pQZrn5I4gEX6 I6RrIQWnapycmYJxqQlbJ M2sISUdliwmMPGvhN2bRV GrL9h6TxFcQfF7KLtiN3Z bvrH1OIJxnKMz CRQnsPTDzP9bckwzr0czu cicPdDvQIZqMXs6IPj9AC CzhFuzEqBeBMJ1ZvM7SMH 2yRTehG9ejUzw pzwncG6yNmb+GHQ8dJLbh BCTPF7jOuzzfCC+PHRkIH D6wSzmOOqmIVGfnJ9pXMI dG0a6JyWaNjV7 KMlxU2EpiiQ3KIRokXAfX LVwiABYlE5mhcmio2mybw ibSbCkOWWdRIe1PCk8EES saWduOiBsZWZ0 GtH4MOD8bNDifS8foQhma kcqwL6nPlp+QmlydGggRG T5FJk5K9RcFtw4CTJzbCr yCB5vyWFuNZjx Tg3lhQxuhAizEG8hXWOvl tyaf421ZlFyo7seVXSbuN JwMHqlSML8I30la6D4TAA hOQIkHUF7yEA0 yH3woQynrvbmjAPpxAvwv mXowIgfBVwtLWygA779UG PcvNosSbYwLJl8K3MsToa 7SLGorHxoUF7w jLXnGRzeVb2nbBihaLzgQ D6gELKhyhdkd995TuRpn3 gaNBQlpDOdZHtxIGI3Z17 eo0O9PGEfXGQu ZWE6sZB5uM1iqXrzplgit GVmdDsgdmVydGljYWwtYW yiQ300MKBwoGuoJiVjzOr 2G9WsKiz8SIUj xJatNK3mpXHnBYboOp3zl OvxgMkdEA6cUHQdjemim6 16PxIut0fwEHVnjVAvHOc tBLW0X99hn8U7 MKVxGSEhJBR1qRN9qY1mz GlnbjogbGVmdDsgdmVydG fbZTwwBKvxY295OIBdmEl nPlBhdGllbnQg EIsgUHq9D4RiGbjvcDM+P S35SFFuDF77uRNuaRRiy7 hkkPe6UaUgQWJqFUX9mOp fOBxld7DnWGPg U32hfGUnb9R0YYFdeJobq GPdQrFzhRL9xA7bLOiibv vaw0lmpvylKngis0xuij1 3tE58M62kCCti ZHRoPSIzMCUiIHZhbGlnb b0bqN6tDe3+QVAhbJZ9jU C7xW9xJUUmXxG7QTheH25 9InRvcCIvPjxj u4sfm2regQu8OdE6MXFwn jHhaTjpQOT0v7JkJs19S7 9sIHdpZHRoPSIyMCUiIHZ gtFuaef7rdU5j Ii8+GVDzwLN8tYQ0gU7qB iSaIjG8OVzrH588DcVtsK TvXecsS86lA5AibHE+PHR rLco0OOAsxQht YK2pkUMyRYrgQz2eVEM9T nSmWwBdRBiyQ0CxSMIbgv rhkwzctJC6BTPxTDWgoJ4 4Cr2owJzvHALn fQYZxN1iouwlv0tpshoqE lQoUJXbDYg5IKk0YYYwhK pjKnOlRYX6FmF3GDM3mNN vjR5wgZzjqtuu dP1fN3OaRYIhbzzbGe48z X9tGyUvOxH8FJhoIzd+TU 9PTwXgYkDcLNtUOU60O3J aQgg7BBTjcJqv BV7tkSWmUNfkDo4gqJmef UfkCI6kUMHxqeswBECfmN 0dQWBbfZBqhMuqFP5kZUZ ikvejb614KqQx SPW5FMJorVBsM0TwiN2uT jJgOXPiAIPoT6VyqTGvTA idX545BYwpNwX9NTTticY tQ3VjQWOjdOeu VmU9p6K6Xp5hNI1aWD1aZ BM9HC81ZE92aHVkt6W4kX J3Z1KaUHIafhhtaddwtRB 4MFAoBIVbeI08 wYVuPYmdKm9yx2O0y172K RIpNKZqxR68Ft0hbPpnKP FkiESTvR7nagtpk0glyvx gIzAwMDAwMDt0 VTd0VLBjuTmpKbGxUXK3P cA8YMV2gNNsqI3obQwadm dmuN8tWju+NjggWWVhcnM 2N7BgJfs8WGUc lQfsZA6msFScVKjxFc4ft SdqnIfoES9oCKRmhpaiDZ XxwM3kTXPlpTNdhSvxLV5 hYZEgfsoee761 FtGaOAL2XWXndAYfH9Mof Q8cZoOnZMWaUQIkZ8TjbJ UoGSrcB245IHagUcD3LDF liiJmC4XaPHVp xJapYgY6i1V4Fy8TABiML A00DD09mJYjg3R5rVF7H9 UrSEWpsvhzongxvOU7PUK qPYMbdR44hVJw UUllMe6vg2G6n993AENrZ JUudF49Vw5fpOwsWQTpdW HTwO2arougj5cazaliJdV yCXHjCJf1CEj9 UQWmpNusQiSeUAV7CbQ7X PW0eNDryB1auFopttmpgO 9wOyc+E7A3P4TcHneleOV +YZ20KWUlCO74 dYXryUHzq8vcjWk8NiTtL QCxFGX8qFasWVnvd8VvJA CfC27zpZGpu8L7TJKbtOp hcHNlOyBlbXB0 aG4mHIbmxzunw0lajkwjZ mtvt1jijd45eC00G80wKR dpZHRoPSIzMCUiIHZhbGl myn6bdW8nFr6+ XWLfrUV9nIA4iH2aMvPhX xH5AZejZ991ZnYmkGTuKw maj0smk8lahHn6XmVnQAG gdmFsaWduPSJ0 c9OiIk59L21sLUmnTAUzE UApSDUaLIVfyMrwoh2hcB 9wIi8+QQ5cl1rlwl93zQ8 8dHI+PHRkIHN0 eIszNKzhNCZjrZ1tHJqnU zJ5RKOqHjVbxU59dEXiAY imRf6awDetyKxhAG2pWPP puqaba838KhWw g9kfRFRsxIJeVRozPBR5F 80zc2H9LUNqKITbYYF2iF F2aD1jaXhrisbzgWKrwAw gdmVydGljYWwt RRspY935MGJdfEfcFqHmg DQaM2qulhLUSK1bFmydbB Q+VBTfNVE4mQudFEsbNAM jtD9cQBDuL8n1 DwRrYkR6LCcnK6ClrrJ1N KMkgQJkMXVxgVROtF1vnn xou1weceuwRkWqFZYjIXb 8JHl4BTTrjIvj GcThNIC7SxV2DFZ1mCDrl T1vtTrhcfzuvL3jRxe+Rk lOOjwvdGQ+MHPhWFE9eUa vKOpjJQFlfN4d MATvV8w3DpYiKoI8OPamQ 2UjfjX0XCSryTVbQFGecT OErH0laswex9kdwzkzIuB uLJEtCMw1UYr1 ZKZvyZfqKiMmBLU8NpI6O TB5pJMotH0ofQhahofehX 9wOyc+TVJOOjwvdGQ+PHR wRUQ4oFxpRMbn UFUnuQ4tHBBiM4z9AaLoH eT7UBwdE6YwajG1OBDpgB GoPTEceBTMsX7sbckef3q vcjogIzAwMDAw UUn2IMz1OHVdaZxbJiQiW SL2KtB2STO9kHCcyE4gvM hhjboymV4mQfs+PKP4NIJ 7XW80OJ76U0By PjwvdGFibGU+PHRhYmxlI HdpZHRoPScxMDAlJyBzdH dfAV0qSi4cPJOwNWEyxBa krTVgLdIwx0ch YXB (more content not included)... [facility] Coding Summary HTMLBase 64 FbirfxhwZQm8lSf+PGhlY WQ+TM8ZUNFyL50aoWBteE 0hZ6GWBFvWJuwjBELJPEo JIbHrwhGgPR6tuEMkCHMv IC8+MS2xGLCdOzpxzCBpk 1K1xWZ4F65tzx0zVBdftO F2RRAgExYevjtkx8pcgYn 6IDcuNmluOyBt MHKnqP64HBT4sK14Md99p UFybEVuz1awhCn2JsXoUL GhJKL2iUrgPZrse3KwFBM uG16qbYEqv8P2 AXBabEgmjWMsKsOuiSG1m O0tNIiavrfev6qpdnjrYd i1fp47rBUcu5U5yGU7D3J iejM9YPDisWAa GdoczSWTpD2vegjxc5wyf ottTxLuYDYpNPh5IMh3PV LueGhbPzFbGW90TZY7DDO xlrCkT8TnZHLd lZsjElY5z5Z1Ql8JL5EBQ tlsY0LLSHGLMDetyZZ+PC 96dv26S3SlZiruTrj1JEJ xQRN8qLW3pZ4v JKPuYXrkv7Z3vCM3Z7Vxw cHpps2oy8ycVBUgCWzkR7 9wwRGad6R0PFLrnIJ9UPO krIqlMbMfrO14 Oyc+SFKbePlks7SvApral 3tgx4riwHm8BrvmEGJwqp AgaXhnRQR0s0ZvGe5yCQN pkJI0rYU7vM7j RnKzWjD1VWkkD421XaPbi COeJbbeN76jP8SwmJT+PH ZwTsy2ZIWudMkvQH9mO1M hZGRpbmctbGVm yFgqSO4dBBVirbzfWFBuv A8cTWPjQ5m1QhRoUaT0XJ diA2JoFDDltnseAy50dA3 eQkYhUnM9MNja S0XpyuG4MDGcaVUfWWnkH HY1X57vw8R4XOIhFBUkYU T4lFS0eP1laKuwdlzujWP mdDsgdmVydGlj OZpbDGlrU560MMKolVleT kNvZGluZyBEYXRlOiAgMT AvMTkvMjAyMzwvdGQ+PHR xTJP5xBwmZWPw eHNxADpmDv2sxIqcpUlpP W3tETDmfcqxFGAtiN3mMD LnrRPabKyiIU9fSBVmljy bd672RjMaLOU7 DSSvoLRrP7GjoB1kLtApM ZJtSYMgN4LmaERqVLvmX4 61AYvwWlR4FAByltKeF5R sLWFsaWduOiB0 c6R5Zw1Iw6HsfvmlM9Qwy LExDyChWwyiNCg0P2MlMn wvdHI+MJ04OKTpIM66MTp 9SAF9yRztVRav KIOyL6FquC0lWlSrGIGlC GRkOyc+PHRhYmxlIHdpZH RoPScxMDAlJyBzdHlsZT0 pYj4nSGLoNPLa bNjxwWDzGyVss7emHWMdK ZgnYU6iqUvqK1RryRP5DA Ygd8l2Kr49Q35kL3PhtKF +MESqjIA9lXH1 uK0uCnNaMcU4NQqpA889Q eFquXYgQgkcl2rzp3knyT h5CqB2KJXcpsZdxAksIJO 4r8SsDo16V87a IHdpZHRoPSIxNSUiIHZhb Opnvt7ubW4eQx1+PGNvbC U2vXI7hF9kNfDrKkI9KFc yG351QdXtyRXg Axzcr3thf7zgsTk9HnDcP UCaonRqbHrnNAR7q7PhJj 77K0ZmiVava2InQoo9dx3 6nJBrc0B0iBO0 I0CbVIEozdnagCLozUenT F2lPZRrztffAHKnqB0gPU YwS9b2UzBxClC6CEqwD1M vdeJ6NRTkpVGz WNCslUQNjB6xhvaox9fuq wcoWgJbWTDeJDl1PQc6OF TbyUtjHvRjXIH9BvV7KEZ 6cIHwsY2etVmy gjuxyI2lLas+YCW3rUAqt QIDDH4fBscndXB+PHRkIH Q1vTqzQPzpSPSrmK5yXQM eG5j2YcStZcV2 BRztX5XcqnI8NREpaMHgB EXdeZDNwU7pmyhpe7wxhb bsOmJsYMFpNKd3JWv9UMR saWduOiBsZWZ0 WbX5OEE8rRTutY4wrXodb xdraE2uTjt+QmlydGggRG R5VGv3R4CdMgd6PXQeyGv pAO1upMNdCUbl Ck0koXkdyFeqZA4iKPLkd urne740AeUwu0wmNELemS YuSWlbGEK9O02fc2S3GID lKIEaDHQ2mYB7 rD7zyLycarqgbIYfoVcae qDirNgqRQljADtwD394DY MqxBmeJeKrFNr9V3PtEpe 1LECacJszAJ2n sLGlBHlxZn2pzGrinRymM W6rWJBmvlnzb823WnJsu9 epLSDjoQHvXMqoYVQ6U16 wb6C7MGIzZWGe WGN8mUP5yF5tgKuomgzqt GVmdDsgdmVydGljYWwtYW tpL102FJOqqKaaMwBhyVe 1Y4AxTso6QIBy eJmxVP8jbKDyTJsqUz7is UrqoHdwZS2zPDKbnvzru5 64YpHjh5tcEGCakYGqQYk bBUU2D67on9P5 FBXlXRDnVFO3qAQ6rJ0yo GlnbjogbGVmdDsgdmVydG jrONmpERymD448AWGjaLx nPlBhdGllbnQg APgjOWu6L8BfSmmipQZ+P N76KRZlDP83nLFzqMKjz3 tsiBq6YhDhMHHuMOE3sFs zPTawh5LhVCYq N62prMVey6D4TESumDkeg OBaGhVisLU9tT2sSCmkwt gvt6pxanyuJawfi7byvz9 4mE11A69wFUpa ZHRoPSIzMCUiIHZhbGlnb l2hsY1eRp6+VFLzxKY8nO K8oP8oLTZaKjS4HNkiL70 9InRvcCIvPjxj z6msv0kkmMy3NoK5MIZeg jCryPltSWA2u4JxPo36B0 9sIHdpZHRoPSIyMCUiIHZ raOvjuy3lbK9x Ii8+SFXakTV4xHU0fO3kT fObZqZ6LIudC056UmLqfB DfQihmJ22lF9YhsBV+PHR qKzq4EDOxwYce XQ5bzUUuRGmlVb4vDMJ9J nIzTcAgLCvxT0EjIYXqan mbezlvmOI1CFSvTCJqiV5 1Az2ofTsqCQLg mFSOjM6clgmyx3wwbhilU lWoIARvJCm3VKq5LMEihL tvGcWwJXQ3BuE1XYX4jEZ jcL9bvNyiuhbe kT7yZ4IoUEDeevepMf09q C3gXeMvAoF5MEioZpo+TU 9SZdIoMxVsXToZYM36E5N pWcf7RAXkpMas UR5quJNbMNgeIo8zkHdrr LgeBY0yYNJtzptrEKEakT 9tZJUjpWTjkKegSB7yFMG dnphbj774AlFw DXO4PRLevBOtF1LkgJ7qM jFaHLWkCFMpC5FgaISyQW kzM085VWeuCvS4YSBffiV uL0RgJNDydAmb SlV2y4N7Qy4yPW2bOM7qT WF0JZ25CH32mSRhz2U8aU T3A3HaXRXxzjjrnazkdZB 3EPFcUCFbrM30 oAGyAXtfFm2zx4P0m133L OUjPFMhiR23Po8kgJzsTK EtzXGWaB4ozyyhu9ixvev gIzAwMDAwMDt0 OZz4IGAzvQfzGhScMVK8J bC6YBF0rZRwaC9urHksmn zyuZ1xIaj+NjggWWVhcnM 0E1WbUfw1PCIa gHkpLD0bfWAvLNpqDz5im FwooTciDN5pKHYzzdixNI SmzF5iFOTvvGPrkOrcOS5 wMURglxzlf510 WlOeMLG1FHWvcAGaG7Ytn B8sOnLqVKYhRYYdV7BcoI XtNFfaQ486GNivPhX5HJK htsWfQ5XoLNHi oKmzIaP6o5E7Az3DIGrMV Y97UT34tOZln6G9sCH3K6 JaBJBgkhzxpbedvKV7ZPD xGXAtiM69nGVd VOazJt5ev3B3i852SHMgI WRgrL76Av6nuOfoNRMmtN VEqH5qrnhxc8ohxslzGnF uKIAhZLd5JTg4 QVOshPewDvDbVWT6EqK7U TR4cMDnoW2bePngibzqiU 9wOyc+H7E1F3YcKxjhcFS +WP15WUTzNF49 kFPhnZChf1tjmLq0ObLbJ XBsSXC8eJlwXKriv1DkMR VkO23jpJDja7L4LPXnpPl hcHNlOyBlbXB0 qN2mFXievgdau9vulnvhG nnqx8gwcd63uN00W36cUO dpZHRoPSIzMCUiIHZhbGl ger6cwB5sUc5+ TCSdhXJ1wNP9zZ8kFkJqP aJ3TBwsJ776ZpQuaKGwZk pbj4pyy1aauQe3VtIhGTC gdmFsaWduPSJ0 c9OsWa55L62jIUvgNKPuK NCpEMBaDSWpoBkzvd6ntD 9wIi8+UY6af2jyac09uS3 8dHI+PHRkIHN0 lQmpIUqlVRHalK0yPTjaV tA9VPLhSqOjlN57oUDqYP agFm0fxXqevWyyCP3vSSM yrmybb379UjFj e8ulFEFmaPElCEebAKP0B 28ub1S9DWAfJJRbSAE7bF J8wU8mxGgwpipbdPKoxDw gdmVydGljYWwt NNebF598BDSvyNemQvOby FFmD8qchpUERM1uTmsvdQ Q+MCKpQSX7oGmhUCxgMKX rxP0dXTOmX5o7 HgTrOhU2SNrxD0RbetS5I VNojHTxUNVetCBUcV4hmj vcr4meovlmUgOwVWJuISp 8NRy6NXOxyCcf KwCzPBX0PhP5SZS4yIRoj E8bwLhqlycvyV5gMru+Rk lOOjwvdGQ+ZIFeKQO1jXu iSSohSLLlnC2y IOVtJ6s0BrUpVlD6LVoyK 7PgybM2BELkjQWiRYOdgT QMkT4zvhedt2xkwcfyJmV tGKXdTPf6HTq1 MXTpqRfrSwSoTPP1JvX6S BA5fBIkyU3zqPeqsronkA 9wOyc+TVJOOjwvdGQ+PHR yWBX9sZmeEOkt NXRrlE8eIKEvU7l2WtWvN tN9TBszE1TzepB5LFBtlY IgFFHynFRHxS6xjlygs3p vcjogIzAwMDAw UAx4ODy6HMUqxYybWkZkZ PU8WnM1QOJ7yGYeuN4yhW tfmnnnoU5vFaz+HKO6ZEY 4YM84MT97I9Fa PjwvdGFibGU+PHRhYmxlI HdpZHRoPScxMDAlJyBzdH pnUJ8cUh6hHFGgWNFvjSj mnCOhYfEon7ih YXB (more content not included)... [facility] Coding Summaryon 06-30-2023 Coding Summary HTMLBase 64 GnqtjxahROs2pTx+PGhlY WQ+QS6NOTRsQ40bfRTctZ 3aK9KUOIiTTbdzXYSDUDj VNyFtwdRgZS4unGVvZUQu IC8+QM9tRDFxWdtdeKBhi 0B6eBE7A13btp8dVDzhsA L2MIJsTyXyfkzwf9tzjEf 6IDcuNmluOyBt OBGygJ59BKJ6bW45Ji42n DItmGEmb9xwyIq8CmSdBE TwYCZ3nWlxDExfl7HeAHG oH00qsVTki2E1 IAHfaXtmuPHeDsFtfDR4a H2uTErxbfshp1djijfeZg s8ty68hKUps7R8gZJ5V3C xjnA4GJJsoZDt VgkzoNKAdQ1wmxcfo9ffx jxdWjYyWJFiECn0UTu7XY TidCugJhJqOK03YFQ7ILA cpwQkN3WcTETq gHvxSrW4k6L0Kp7TO5FNY xmuP6CQSDWHYVlfsHW+PC 82ef94U9ZaOggwUur9EJP rEGF5pZD7dM0q BAVxRFxau6S7rXB4Y1Vgd cVvxh0bz9qeSUXbRCodD3 4xkLSwk0X6PQZalLU2KOE piPtwYbPqvR14 Oyc+MBJsmFkiy1NxNvxme 7uyl7kcbRs5FqagIJFwcf PjzPllOCA4j6MjJj1sDYV ijDK0eGV3gL0n IrAeNiM9GEraN838CaIor JNiOhdxE31eT8BviHX+PH WkCwj0SKXejDdrAY5cP0E hZGRpbmctbGVm yGvwOY9sRXYxylmjQZIxi L7rIBOvK5t8DnTmDrB1PS pjJ8EzUICawcoeGr27lJ1 zZdOeExP0SQez T1QojlX8IGWxwHIsSWfuL BV9H14gc3G4ZLRxAATsBX Z8pTQ3mD0mcRaxbzobaOF mdDsgdmVydGlj GZkzXSfkV923EDPmwDcuG kNvZGluZyBEYXRlOiAgMT AvMTgvMjAyMzwvdGQ+PHR yXBK4jHlaNTOh xVPbOKkjYb7xsPwdsFgdR O2yCQDnnqhdKUVxgI5oBF AxgLTnmUrzDW5wLJPabhf ev445GgYxYZD8 PJOmnVXqS7QcsB8mNyGaQ SNqSYStW8MjdCEdEYaoR4 88LXgwNnY6RVUzdhEgR1H sLWFsaWduOiB0 h5F3Uw2Dc0GwgxtiH2Qux MCxDdPpScvqHZt3K1CzXz wvdHI+CQ38ZGJlND48NKq 9AUB1xJfbDBck ZJBsO0HiaP6oOcObMPAzE GRkOyc+PHRhYmxlIHdpZH RoPScxMDAlJyBzdHlsZT0 cNf8aMQFjBQAj xZbjfFHgIoFmh7ieKAJmN IoqHO7quUvmT6PveVY2CO Mrz4k0Ci96D69dE7DvdUV +MCMmmTW9qCI2 fU4fLbFfGoH2QZsaP800N sEgvQVkZoina1lnz3aduG y9GqZ5MTYlqtHycMleJHM 9g6LbYk34B66r IHdpZHRoPSIxNSUiIHZhb Flrtm9yfK7cXh7+PGNvbC N8wPY4mZ2kCoAjTrX3KDc hZ833KaLcqSMr Jnnjb2wfe3movIh0VrKrL RNgucLyuIzyHXR0r3YwUq 41T4LkdQnjy1IxNht8gy1 9tWLfj2J4nMF9 J5MrDMXrbqpotKOriXkiI B6tZZUkzxljLZCvbF6sAI FqZ1h1EtVfGfM8WBqyV8J eyvI9ENOlwRSu DPJumHDUtJ4bvzwiy7ntp zamJcCsXKZiZBq7QNz3GA GctUxfEnUaFPD6PwA9QST 3aWCrxV9adYgb acyjbS3bZsd+NTO9jUKht KIVRE0xLnjhxXZ+PHRkIH T6lWeuPSswWLEnoM7kCYA tW8t5RtGnMnB4 CVlaN8UylvP7TMGuhMHcQ BLbnQSYrJ8wufzvp6madh rrZmTrAFNoBZn0XLb8LTE saWduOiBsZWZ0 AoQ4ZWX9cULluK8tkEiwo hxcxM2jHzs+QmlydGggRG R7JKk3G8BjAgx2LSYyuYz xCL1fbXOvBKkz Sy9vrSunwTmeUC7qOZOef hddc621RkNpw9pgILBmiN TlEUbmYRX4W37jy1Z6FPM aCNLnFDW2qXY1 kH1zjIazgybhmMUbvTwqq kGokObrPEynACgaP255HQ XjxPldBuXrYEk7P3UnLlt 2ATVubAcoWJ0v tNUdLXlqXw2clSygpYluD W9dFRMewovmr656KiSmr7 ueIFCvsLObNEafYXV7J04 tk3M8OCIvRFBo GWB8xVJ8rS0rxCuxxikan GVmdDsgdmVydGljYWwtYW wjZ290PIYtpYseDqNgnWi 9H7ClSzo4IZKq tBnzKU0ndYGzVGevPp8su SsmwZxjGL2lYMIagtbry1 08FhOqp9fzZZBbnMUoCAw sLZG7M31um2I0 BVKbODWzBFL8jZP7rD8oz GlnbjogbGVmdDsgdmVydG skUPtaVAfqF460UQFmoCq nPlBhdGllbnQg GVopLQx5D6QvFhqveQN+P H11EAViRA41tPAyfGXmf3 uzyAx3XjSfXDSaRXF1zXu uRJcqi4BnMPNk C09edLFkb8A4PYWjcIons ILbDjJylFJ9eG1kDEmldp wfl8mgwxmyOxgei8iitb4 3sH25P43cLWjz ZHRoPSIzMCUiIHZhbGlnb k7ovB0wBq4+EFJktSA6uF W0kJ0qJYGdIcF4RIlkO16 9InRvcCIvPjxj l0ldq9ghdWz4MaF0LKPbe jNoyNdrMXD0d0PjYx45I2 9sIHdpZHRoPSIyMCUiIHZ kzXhwor1tfG3p Ii8+ESAdrNA8vDS2jK6aE wQaKsQ8SFsdS811SnGnkI GaJlxnW02zK1CdtMC+PHR iGay7KPPmoKle ZW9fsKKpYYcjCv6lGAF9R yUiMzSkXEugU8DpOVNgfl ztyttyfYX2MYAtZVMbaV4 1Qk2xhCdlVCKs eYTBkG7szgnaz9sxmcwoN wXbATUoGSf6QIr9AHRtlK xtMeHsTSS3LxH6EDM0xKD ckV4tbEubypbl lF2hN1JtAQJwbmwhWr21m J4mXqZmYoM4AOceKbl+TU 0VPsIvLxVfTTaTUM22K4D yKpe1HWUatYqd AL5kkLHxOEdyCy3csNgbk EvfUI2cDLEnqqcgMTTzpB 1rVJIkqSIlyOnbWV6bJVK oiwxnn591VjOg PVL6UNSaeDViM8UrnG4pI lBsYCVhYFSaJ0TwzIBeIL zlT740BMzjVpQ4BJBldeF rM2XkRGPhqLqi HoF4o3Y2Xx9hFY6hSU6dK UK9EZ80TZ61mVJqj7Z5bE Z3O2VcMIIyqzldfvflvII 2JKCoHBDrhK64 iURpNBpuFt0gj5W8f825T SVyVSVzqR49Zr5qfGazOH CisZAIkF0kgbfcc1ogmpk gIzAwMDAwMDt0 UEp5MRQwmPlcNkZqAEU3N pE9XKI3yEKsoR9vxBvsvi jmrU9lFjv+NjggWWVhcnM 0P8XnZkl0QWDq tVpaKZ2wyGShNZdyZz1ya QczqXidSS0eELIzstpqET UqcR3fWOWjrUTmhVouHG7 eQRDhtvive724 OeHqAYB3UGWivNLhS2Mqo K7dJeXeMLZmYYLiM4ErfT UkSSifB671RPyaRpX2SFU gttBkW1CcHHLw rPvxIiS0d6L7Jb5VZLvTR U59NL36zQCul9M5qKG9U5 GbMQOrbwsfzjbilJK0WQB cWNBieD43zGMi RTuqIg6xh2S2p990PXOiP UIudQ95Jw7grOtrTMOchD BGzI9uuislt6yvgqlbUhU kLAFcXBg3KNz5 OQPygCklKsHnNNH5GoU5E DE6wKJsaR9cyJnnugnrmE 9wOyc+O3W3B5FhHdfyfKY +MP28OPUkXZ06 gTWitEGco6inzTa6WqMeT KCqOQP9aEbaHDcee5EuSU JoG60ulBOqq0H3UDWidDf hcHNlOyBlbXB0 aB1xHYzhppiip0zaufekD manw6tziq28mM40E56bYZ dpZHRoPSIzMCUiIHZhbGl lzw4gnL3uCx5+ CLOouFU6pNP5hT0ePbMgD yT1YDvqW766YdHeyVSnDn tnf2uaj7whvTj9ZmOeEVR gdmFsaWduPSJ0 x7WyBk03H40fWDozDGRoZ EWqPEFqDGDlpRgexl2kbK 9wIi8+YD7rb2zgmm24eU9 8dHI+PHRkIHN0 jKdzAEngGYSfcJ3aOPrnA xN9BTPtVxUwvX28sLUqEZ yfAe2tbMbubPoyKW3vRXK vugxil956ZcGr a1mpODWmcCZuBVieMMX9N 63ro9Z2WSYlRUHjOQU9pK M5mX7baRbgmehcrEHmfFe gdmVydGljYWwt PYklT596ZIXptUdaGhXiy EAoR0nusfVLAS2jMyhwlR Q+VGHoFGG4sJteCYfbBVD bfO1iSVCxM1l8 ZeSjLjH5BEneT9DxihH7E MNmbNRpMCQlnUSEtS3yza dcu1ohnofgUcCyNLDqOOb 5UBr3FAKbrDgz JhGxPFR7ZoV5YVF5lYGoc J8ewEhurpahrZ7qYli+Rk lOOjwvdGQ+BRPrZGS3pJx sECtiWCWmyZ0p OMClX3v5KcMoAdM2XFemM 9ObdsR9CPPqoUIbGDHvfJ XHbE0xritrl0lmyqxyOlQ zAFHhROc0CCu8 DXXzkCipRkFnNNS7CvY2T XQ7oILuqZ7ucPquqcjjoU 9wOyc+TVJOOjwvdGQ+PHR kGOR7yKnxXRjb KSYkuB0oTDLaI8i7BdVyF uV7QFlkR3NfqqC6SATvjU MjVIOevWHNpY7thszup5o vcjogIzAwMDAw MDr7TGb5PKHmmOtkXdOcZ GW8FbT3CDH4cNTpaG6kaD zipopwyH4oEqz+YDL8RBF 7PY42QH12G1Iv PjwvdGFibGU+PHRhYmxlI HdpZHRoPScxMDAlJyBzdH uhWL3sVb9nUNGgIJOcsSe wxWQfPdCdm9ex YXB (more content not included)... [facility] Outside Recordson 06-28-2023 Outside Records [id number]#[facility] [id number]#[facility]. [facility] 06-24-[facility]23 Coding Summary HTMLBase 64 SnfabrgtVXc8iLe+PGhlY WQ+HZ4ZAQVoA44yqXExtI 6mY3GAKWvEXtdaAHSLWLn LSyIxqfTbYM2rbPJoZGEz IC8+LP3aXPEdTfypuMMxo 6H1kAK8M12uky5zPGmuhS L6ABKoBtYdembgl9dweVt 6IDcuNmluOyBt FRCquW47HWA3eJ76Rq16a CRooWDfp5adtBw0UaQyGV RfBVP0mDbwAAjmv0DcNMZ gF49sjBHut2H9 ZGLazGhkvVJhKfPntWZ2w H6gSIemznubi3opqgyrPz p2zs59rRQfe9G0tDH3B2C usvO1NQWxcGNk RmwulULZpT5fmkhku6adb svrViMaUPOdZHg3OKb1WJ SjtSfeJwYqXF61IBU2MFO ohkQpJ2CdXWWs jGisOkE8n8W8Vp9KK4MSD kkcR8DLLSYEZHpvhRI+PC 88gn08K4FwDxssTlb4LTX uAPV5vTS2sV4q SJJlMXvcw0N2lCX1R0Hvb qQyno8sx9zxQEPmQRroS4 9slFApw2N0ADGrwVK8CEJ voPxqTuGbnB43 Oyc+VKQklJvef2TwFzbum 2net7edpNb0ShktWQUrnr RooJvpGHA3w6CoMe7sRFI xvSQ1hLV4lN3w DoFjCaA8ITpzN183KdDuv VBmVhqcY72iV5FhnPK+PH CyFsr5BNKahHylLB3mG8M hZGRpbmctbGVm qRxoRR3nVIWsfxkrHEDju R8cCWOkL3z6EiSrPeX6AS wlQ2GrEHNeazluWs29cZ9 qSbOcTcT1TIfh Y6NhddF9GCEiaBTpACfeK RA4B75gi8Q5ZZSiIZMdBC F9dPK7eO5qzAprhtmziFS mdDsgdmVydGlj VCpkABocJ495TVWaiNrjG kNvZGluZyBEYXRlOiAgMT AvMTIvMjAyMzwvdGQ+PHR dQMT9mHwqRJBp nCHtJTblOk0noGpksKndN V1oDKEnbgiyUCPxqD0zQN GsmNFbkJzaBT6dGXUzpio db040GuNrDPN2 VXXpcIQmF0HhvE8fZwOoI JVqZXDmO9AepVIxVAitG9 36VXgiTvD2FACybaEdI6X sLWFsaWduOiB0 c1M0Yf2Ah2LcrgikD5Kfv ZWlPeVnQnggFGw4W7ZhOp wvdHI+UP97MXWxOW96VSa 4JVK7qOzpUPrx YGGkE2AsnN7zPnOqONYdB GRkOyc+PHRhYmxlIHdpZH RoPScxMDAlJyBzdHlsZT0 lSw8oIMXiAVNo lKermQGgXuYhb6fmVKNbW PogEF1zxOcbL4UgqRG8RF Bpf3x4Xv06C95oC7MujWZ +RTDjsYM3sXD6 iG3zVnWtPdB7IBrlY078T oAtdXIpPliqy7zdv2arlT b7ZcJ1LHKzdhHvlNuvVUP 8f3UlEt07V26d IHdpZHRoPSIxNSUiIHZhb Jyvlt5iiS4gQv8+PGNvbC E4lMB3fG2uBhOjArG1JHq aS660MySghGIc Dgvpa4qws5qysEc1EbKlP QTjesAolHmrDVR5j0OdUj 47E4KvhWptm2HtFgl6sk6 4vSScz8K1sGT9 V2PbOEZjvbgroMVfqEaeM F1sRPJeblzcGJDovY8nEG BnC2m5PqMpJcU3ZOpcO2W gwaF6QYHnmKKs OIEbmHPDrP2ljijkr5xrc plzMhIsEPWvBJn5MDg7CN CksGwmDaNyZWN2AcE3GOW 4fIRmsO9jaJzz thpxbH5xZzm+QML9zJVjq PGMGV1kCwxqlTQ+PHRkIH X8xOtaTFmbGAAvfD6wLLI jF1y7QpRcQoB5 CHwdO4XxbdF7DKQonSGcP OJjhZAMnS2vbmizy1fauo mtRhOzIQTtAWy6ALf1JYD saWduOiBsZWZ0 TbO9SKN3aYJpxN6imTpyv hpejS1hGoq+QmlydGggRG Z6XBn5I3PwVdg8WUAlkVi nFU5gaGWaVRla Jf4rqNjmzMtsOX8sCXKtv ebfo452NfBvg4frBYPnoJ TcJDmtTNX8A05bm4G0BOX qCVJuTZY4iNV7 bW5jxZkjtydjaQIapYtpr pKrsTpsHImbCAwvA542VN PleXmdGsAjXVa4O9AnTor 6MZFxaNdaFU7u iRDmVPtrSx0dxAwqcEugE L6kUEBfilisq925QyUcg3 haEKRjyAZaAUsbREN2C27 ma5R7WSNjVJMx DPS5jJQ7tD1jmMqljwrrs GVmdDsgdmVydGljYWwtYW okH326RLGvlNtkXbBceCl 7O8XdPsf8WHHz uFwsVN2ncMDnHLnoZa9ge TzqjIgnNP8yJVOzdtugp7 72GoQsg8bxHMYssXWoUIr oFUK5R59cm2H5 JHNoRYErIMX0gJO3eJ1ya GlnbjogbGVmdDsgdmVydG bqRCqiYGkmS101VIExxRj nPlBhdGllbnQg EXdbPPn9H7FuShlfoMC+P I23OJSmAR36kRVqaFCkt9 jcjCe0GtBdCBYiTFZ6lSv hQAdyz1OcAEAg C80plEYkv2Z7GSPdoGhuy GXfKuIokFX2zZ7aESvetk hcy9tosyvnSfrnj3qmgo4 0mF90R54tNJur ZHRoPSIzMCUiIHZhbGlnb b0hxO1jIt6+MVZerNJ5iA M4qC3nKFJtCfW3LLuxY54 9InRvcCIvPjxj p6fer3xlbUw8AxK7WSFna sSiwRdbJWW9n5PgLr47C2 9sIHdpZHRoPSIyMCUiIHZ wdOrfeu8juX2z Ii8+HTFfnMC2sCF7bB5bC wUrVgD6TPizJ860RlUjdY UdBclpY21mS7UgzCH+PHR cVzh4SPHqyZeo BG7urFSoPTeyQi2xDZC6Y kFxTfKuLIlaX3LbGNRstc qjjfuelOU9CVCzTEYkcK0 2Oa5ohSlvEEVd vLBDnQ2ydeviv9vinqznX wEyIVAmDKj5CZm1TJVuzD dhLuRgNOM6DtM7XRE6eTQ fwZ7nbNggyeki kH0jH2OmEULyhwkbQt34h J2xRwUcDmI1ZDtvQjt+TU 6DJcRpPpYrXRlGPI96L3E dAfi0RVZwhKrv CF9tjCCvXQxoKv8ecXybg ZntET6iUONzgetuFGThnX 0pQNJiuLBumXfeAI4tTQR rihfmz023ZpCd CIS9MDBxdEOtL9DuyB1rI oSkAXFbZZNdA2AoyUNaXQ rpO401QNbjGoJ1TDZblzJ gY5GdCONxgSwj HbE9n4T0Dj9kAF8qIG0hZ VZ9ZW38ZH85zAAgu6X3zZ K0N5OgYVSsdmjpqxtpnWW 5TYJgXCXrqH33 tFOgDUdnPq2oj2Q1f977G MVqLWCnpZ79Jd7xeDgpJA ZtcEOSeE7xvocmv7dqjte gIzAwMDAwMDt0 GQu8CAPquOnuDaCjVIL1H eX9ALK0wVAgiE8twPkeli fvjP1rDxj+NjggWWVhcnM 2R7HqPcx9WLFl tHusGR6xvOCnKBueZz6gq JqppViiUD3cSKIwydvfLS MlsO8aWHHxqOMceVeuAD2 lPFYhenmep448 ZyAbWMR5ABDafWYwU9Shm L6yZlBvWWBdOFIiC7YxeM GiTIzuQ747NOdsMyM7DCK abmVwS2CcFWUp uAbtQbD2v6D2Zb1METuAI R91WX50jLVvf0Y7tJS0H2 AoHQOxecgntijrfRX5ZPU iGFGkmN90uYUb WGjdHe5do3B0c031VBGgA IEgcA00Et0cgTwuDLIwzV YXkY6mgoelc2sbpfqbXnR tMQUsVOs6MWh9 EMIxpSiyTqFcDPF9WxM2I CC5oIRtnH4ivJkqijdhwP 9wOyc+F9K6A2FsCemlnHJ +NA08KYDzIO25 xXJxnCOyw7sfeIc2JsHrF MCuZFG4fFzcHWlmm1RdZL EyG47tnTWmf5M9ZNBokTs hcHNlOyBlbXB0 yB4lJOjdvsqew3mxpzesZ vmxr6zcup48oU81K89bMH dpZHRoPSIzMCUiIHZhbGl lwi8wyY7vSz5+ FUJakOR4fDD2nF0dPgOgA iI7SJilL410FuOowKWtKp twl0ngq7fbfLb4JkZsBUM gdmFsaWduPSJ0 v3SiHe96T42cQPnoRGXdH HAhWFMhBHRrcXcftp1axX 9wIi8+GN9cr3ctkm87oS8 8dHI+PHRkIHN0 yDcaKOlpKPLohP5dKYyhH yT7UNKlWkKjyX80fKRlVR wjDx2nhMyrdJepKV2rXRX gkodmc895XbSr a1lfAPXejQQpBFbpYFT5W 33oi1N2QVHgSMAwMNE3bQ G2iA7lmDqketbliUBmzNj gdmVydGljYWwt CStnU344WGAswVomQlEgy HAtI8hjzfYVYY9qQfpqrK Q+OERuMEO5uSjzRLjyDAZ tuO0wKHJxG4p3 FmJsUhM5AOvmV4HpxtZ9H PFmaYIxJAXwkUUFgB8pfr ehu4xgnawwIdKvPCIpHWr 3PSg1VRHfeNyr XpReNCS3RwY3KKW6kPRos H7mjYezqrbssK8oIwk+Rk lOOjwvdGQ+OJRtHNU3yRu bLJfyNTWkuX5p NHMiJ5x5VqVhBzO8FFxiW 3PbaqK3RSQurEZkSGHuiF OMnA3vribtu4wobvfiMeN gLEBpVXt3JDg8 FCVdgSrwOrLjDXS0IyK3N WR2xEHmxP0wzEodengvcR 9wOyc+TVJOOjwvdGQ+PHR bOLB7kOheOZto PMMeaI7lHSSaR8a4LmYdO hO9BSukJ5NhdyD0LWFvaZ CqQGSpnVXDgB4cafxxp9z vcjogIzAwMDAw XVg9BYo7OYXzeDjcHhXwL KZ9VvS5IBG2jOWniX0hvL uudmwtrO4hMyn+KTI0WFI 4ZQ99AU37W6Jo PjwvdGFibGU+PHRhYmxlI HdpZHRoPScxMDAlJyBzdH hdPA5qQw9rPBGdWKDxfHe bsTSpOkOwt4ht YXB (more content not included)... [facility] Coding Summary HTMLBase 64 FmsubbzfQQv4qTu+PGhlY WQ+SS8KZCBtG05bhDXbfB 4tA5UIAVhAVepaXHVHDFj FBdKqcnAuIJ0xzGXwKNUo IC8+CR9hUHXvDchuvQZjh 3H8oNL1Y95tin6aYIkopC F1RAYxZjUfxatwj6guhFv 6IDcuNmluOyBt ZBEgtR14GWT2vD10Dn19o YMieIJud5gpxWe8VyQzHZ BzQLS5nZozOMbkz0XdOQD mA31guAYqg2Q8 HIJcgWxwkMJdKcZuqCV8o W7fQMqobyryq6liiswaBx b1je21oYWqy9Y8iPL0K7U uaoU8HTCdkNGv BeameDHBwP7zvqjer3csm fegCuMsAWCyIAn3INq7KJ CxuSvcAwEvTA31YDI8DYH mgvPyA4AbIIHb cTdjAmV6a5Z2Ii2MF9TLB thxB7KSZVYBUJdsfSS+PC 00ki28Q1CwUiirOgu6NOL fLYG8bYI7yW0n AEOwZJtbk2S7wPY5P2Krl qCjyp6dj6roRKBdIXckG9 6wkQKuf7P4UOApgNB8IZR tlQcfXjSjzB65 Oyc+HPXcbLlxu4OdVjktm 6qfi0ogiUp8TynePQZdin HgzTrmYJN3r8QpJi0aUHI svGK6wSL1rU9r OmZjFdB2CFlxO659AuDks JIeXjkuZ33dZ4ZmdUH+PH ZxXzd2SQMqyRegZG1jF2F hZGRpbmctbGVm bVrdIN1dQLRfydbgVJAij J5dVDWxH8r7VgYdEtM2HO vsM1SfUMLlvevuXl01uV2 uMsMoGoN6SRtw Q0EbpjQ7DQJqyBIwPGscX RB4A04zc7C0ROBoBUTcPS E6jVB6uQ5nxFcjjizdmBV mdDsgdmVydGlj MOonUOayE703JJHztMbxP kNvZGluZyBEYXRlOiAgMT AvMTIvMjAyMzwvdGQ+PHR gAXJ2mRuyFUPx mICrIIgnGd3ftPthaBtyK Q6cDQXbhtrjDRJezD0fFK EfqJZgyErlMF1jXHKyzau vj565JtIqRRF0 VVTvpWZmV4MvdE7kLoSxH LXjGFHiZ1OjxPKrSAngB5 42JIwoPyP3UJSfqjClT3P sLWFsaWduOiB0 e0O2Fm3Bi8NhdufjB9Zag PJnMhWeTkqxNTi2M9EhJh wvdHI+XR86VFTzNR50VEo 0MIO5aNcuJPpg BGRcY2UpiP8oGxByUTNuN GRkOyc+PHRhYmxlIHdpZH RoPScxMDAlJyBzdHlsZT0 pLz9sNYXxFJBj pNjgcTDkIoFbm3nkOYHnL IycXR1koTviX9RhaGP2XR Bod1w7Zd39U15oJ4OjyUY +NCDsmFP7sGK2 iU4jJdKbAbK7YAccG080I lHjtJLaZnsac0dkr5rnkR u9WeP1VRGgajAqsIbgSWI 2o3NeEe51Q22x IHdpZHRoPSIxNSUiIHZhb Glkrb8qaI2mMo0+PGNvbC Z4tCP9cA8nYoHsVjH2RNp kQ364WgGmfMCf Rnrcj0lzb6fvyXt8SlAyL TOocsAjjAefPFX7x4IdPr 74Q5JfcYhax4YcBzo4dd9 4lUTlw3Y3wTQ0 P4XkPVCdbddtsXBosJvsW J5zWJMugpgvBBXwfD0kBU GkT7s7PjKsLtP5GJmpL3J xwyN4LQUsuVSa ZMRqkLFPrF8rrsvrb7xxj mvfUgEyZKRmBFb6QHx2WS UtaQsdFrReTTC6QoQ0OKS 5uSWsiM5tkVse akgsaA9vLui+SEX3jICmi IATAE9aVrrztOA+PHRkIH B4lEffAZskHOZmiI3kILB bM1a8OlMfJyP8 DHzcQ4NtqbM7YNXrdBCvC HZwbYOZpG0tkcixf3yjps hvVrBkSQPhRDj0JXp8RJA saWduOiBsZWZ0 HwR1ATO6oMHwjK4ghIxzk mdjyM7tBlu+QmlydGggRG Z1OSs0W6BvUch6VBDoeXw lHJ2bkVAvJBkd Vo3tpZhdeRrkKO3rJJGni lxiq793BrRqz5noZJIbkX YcENhqOSQ4L90ro2V9ALZ aZKIpHAV3iDE7 vI0zvYnswlthnJSktCpox hCdmWokDJhuIHuhW135JB IveNujMmCrUEz4Q8YaOjw 5MLOkgHpaUY2m yPKqXBezOv4ecXmmsAbtT O8eHMAovlyie533GyWur3 dlNGHvyIPwGYpzKWK1B75 kh7N5HRNoRUKo DPP6lVU0uV0ijJlmwbhaj GVmdDsgdmVydGljYWwtYW fgJ052MLNemLoyUpEzxAy 4D1AmMxa2MWQq lQskQD4olHWoRYloGs7jp IuuxYxzWC1dKFBdwwjqh2 50XsXcg4efYKYrjDErOOf aDDH5K92sz2E1 VSJsKLBtWKN0gRL8iP5fx GlnbjogbGVmdDsgdmVydG xwJCozHHifX496RUHblTx nPlBhdGllbnQg VPrsBQn9E9OvSxherQF+P M30MOPaHJ05xOUlbEHdp9 gpyPh3CoAwDGFbZGM7bJg nHIavr4QwRZGa C13ktIJgn2A7CLWhoWjwh NIyEcRyuDB6dO4fDWvenf gjs5zccufySchyo0bksj1 2vC61Z77jENva ZHRoPSIzMCUiIHZhbGlnb u3cqM6pAi7+PUVbbDL1xD V2gX7hFDHhNiH2PPtaI50 9InRvcCIvPjxj q5vqj8kzoYn1JfA6QAGif rAauIboQTP4i7WmXi71U0 9sIHdpZHRoPSIyMCUiIHZ ifYdesc7whI2y Ii8+WUKplDN7oFH4lK1sB iQuOoE3OYaxZ994AzBvgN LeGbbxM85pK5FepZV+PHR lAlt6AOPhpRrd XM0ruAFoTYorNz7oKEP3H qPgCcFqUDsaQ1FpZPOzlm qbijhxtQH7CDWeZBIrdT0 0Zy2whEgtYQAf uHUJvX2ahelup1zppxltZ gNyCLYqVQu7ZIi9FZCpqK sjMsJvDWZ4RpC0VUF1oRY gkO0imSvjicrh sE5lV0JsIEKiirshWo81q H6fTfXiGbI1RIljYah+TU 9IWdWuXuIpNGuSST99G6U vBdt5WODrwJxi WS6cuZRiLQbuIc0vaYaap XugTO4dPFKvigyvORHqzW 9pIMLbyXZsdMpvZC2uTAR uewvub167AfKn UIN4TBYhyPUcF7IcvG9oY gRvVVAdSBMzN1IkiLZpSE lzA291CNplRjN6XLFojxY fP2OzKAOddSji MnB1q3H3Td1dIC3xXF1hO OA0GL53TI66jQSgh8X5pU Y2S7AmINKcwrchmdapeFW 8LDNiGXWzsI29 yFDrAXwnHs1ym0J9b329P KTlUQQjtS64Vg1ttGusGH HqnLNRuH4odbcwj6cvbys gIzAwMDAwMDt0 ZCo0BHBawZgnZxXkFCM8J pG2YKK5uOZocT0kkInxdy sbcX2pYyh+NjggWWVhcnM 3K6XjQow2ILWa yIoaAC2vxUGtNLlbSi3ye NmsgTbbUO1yWVHcodvyXP IbmO0bUPEgmTWllDbcCS4 xBPQjycuxo695 HqLmXKG7EUCavBKaP7Vrc Q7kClHtAULsKBKaW4GysB IwGFhtZ553LVcjDiN2DKR zklPwT7AdRHOs hNaaLkQ5d0A1Jh2LHDwIP M60RU60vVQrg5H7pVX1G3 ByDPTjubxqagoeyZI1OOR qYJUyaQ87yAUu SQjrTj1yp5L1q177LVDpU VNryO57Aa7sbTipCUKxmJ IFxP9kixaom4dkeqcxYgT eFWKnMIo2LYw8 YLCqcDlmAkQqAHQ9WnX6A SL9pVUnsL2dbMheuocjwY 9wOyc+K0X4W0SoIuuuiXP +WU70AHQbIR91 uWOgcPPkk2neuBi4UnNxL DMlNGB2uMpxCPzfz4BnQC EqN25cuITar4D7CIPrvAz hcHNlOyBlbXB0 tM6xUCpbopgcg1crvzxpJ qybp9rthd88nJ98U66oQJ dpZHRoPSIzMCUiIHZhbGl nut2uzF6nKv6+ TPSaiLH8hLH2cN3xMfDbU hU2IYleC312OhUieBMhTs ssm5xkg6qyoCg5FmCkKOU gdmFsaWduPSJ0 f0UbDw77R07mWDsoMHMmJ PTwWJUsXMYqqJvddy5pmO 9wIi8+QU1jv9cepk74gY6 8dHI+PHRkIHN0 qCyqQRhyCNQxlR8zDOejZ kB2VAYeLuFssR01hSJuFT vkUn1ocSaiuUwaCC6sAGA dstvuu490NsSx n5qiTABtfNHqDXjzNFX2K 49jm1K5KZYxOOMqKYT7mR J9zV1vvTmtecntsUVarWi gdmVydGljYWwt JNwnE523ACEmfSijYrGie FQsD7mjwtFNMV3hWrmhnR Q+TERaVMF9fTbtDLlmMRX zlC2jDRHdN3z1 ZmUdAoD0NVnsG5GttsE2H DJnjAMdNWPnqLLCvO0enf itk3cscqzzLdVlZLVgOQo 9VPj9ZUPuvQvm DqImVDE4YxG3WAX5sKYez Q0pnVxzfmvttM5lCmd+Rk lOOjwvdGQ+KOUwUCQ7rPb vUIonDEWbzX3c FZVxK2l0AnGcToG3OKwaT 2ImnnI2HUFssJSlFDBbwT HMyJ9jiqrvf7kcosmxPeX fPJViMNr8EVw2 PHTkiNfyOtIlJHH6KuV3T UP9tCHycF3fnMrwvtmnpX 9wOyc+TVJOOjwvdGQ+PHR xWKN6uXylJYtv WDBbqR6yVZBjU7u1RoCfB oS0MNuwI8NislM3SYZhbV UuMAUarWTSdW1jkgmzw5d vcjogIzAwMDAw XIo9IQn5DCUrlXfxYnQiX ZY1BwL6GDC6qEHgmB9xiZ sljrtbuQ4kQce+KHZ2GVW 1EU34KI51M4Hc PjwvdGFibGU+PHRhYmxlI HdpZHRoPScxMDAlJyBzdH jyDL5qXo3dEWDuPFQgiUc ikVMyPmZmu9ru YXB (more content not included)... [facility] Patient Handouton 06-23-2023 Patient Handout Nutrition [...] oil, flaxseeds, walnuts, almonds, and seeds. ? [place]-3 fats. These are found in foods such [...] oatmeal, bulgur, barley, quinoa, or brown rice. [place] or whole wheat flour tortillas. Meats and [...] or reduced-fat mayonnaise and salad dressings. Avocado. [place], canola, sesame, or safflower oils. The items [...] fat and hydrogen (more content not included)... [facility] Coding Summaryon 06-22-2023 [facility] RintbbctAKw2xNd+PGhlY WQ+XU2HTNJrD09ggBUigC 4iX3EFXYcYOqzoEWVFGFm XOiVnnaSrWS3shCJmUDUr IC8+XF8lXNEcWgurnTLdy 5Y1cVQ6H10pkt1wADxjvT D5PAHiJvJrwznkb8aqpXb 6IDcuNmluOyBt TLWrtB27TTX0zZ55Vd81i LEgeUCfr5mmwCz7VgLtXP DkZZD2wLihBPrwf5MfRSZ kR57aeRQbe4U3 ZJUeiBxjwIPfQrGomNS3z B0gCBsbsbwbv4csrymjAq v6im26tACcw3Q8cXY9Y6Y aaoD7SOIkcRHz OpzuuREEqO8nitlbn2dkd wbiIwZlQZQeLYv4OKv1BH MchDlgWsKzUE56OKR9CIT gfpXhM1RsYCQa vUzaUjS2j7Z7Zg0NQ3XWZ xwlW2HVVDTBBQtuiEX+PC 78cg20B1PzQnzcIbc9BOE kEJN2cDD5wO7l BDAnZKwgt6Z2vFA7E8Fdj wEzmg1qi2xuGYOwETwdJ1 3fkLZnl6R2OCWgjEQ4DZB tzOhqUwUncX01 Oyc+WVXjzOxjc8CiZtbve 3xnk1qpiDl0YpeqCYBjal VbzOetKEZ9z3JrNj3nBBF nzXT2vAI5hC3g PvWhBgO7MTbqI316QeRmd EKhUwcpB74oY3YmsNZ+PH RcYwp2HGFiwTfoSS8nN7L hZGRpbmctbGVm iKghYB0iJTWmstrmCDSeu B2rNENkO2i6BdZvHiD3BO uoM2ZmRRTzeokzFu01qN2 pZtGrOgR4AWax T2FypiX3DAIklIRoPTlyX PQ5G25xc1R0MJGdQMBnRF D7oVS4kP7pyNgslgsukDV mdDsgdmVydGlj LYruJQtcP237QZUozNhdP kNvZGluZyBEYXRlOiAgMT AvMTAvMjAyMzwvdGQ+PHR aPYM1wNtrICOb fULmLVctBy4eoBghsOzcH Q8hOWQqiztdQRIllB0jYG DnpOYstXtcVP6uKPQvbfy fi120PhLcTNY7 XLBoyDEfT5DocB4iAlHfR ZGiXXOaC4UacXEzVSeoE3 10ALnuKwV3AMRvbaClB0H sLWFsaWduOiB0 m7D8Wk7Rq2VxgppdM2Cwx QOoBzSlXldmBLk2M6BvBj wvdHI+ZX00VKEyWB82SBh 7QPR1qCyoMHhj HLJjL5QpdQ8wIjGvISDhQ GRkOyc+PHRhYmxlIHdpZH RoPScxMDAlJyBzdHlsZT0 gQi3gKQRcZHOg dJxryUOoVsRwy4dlDRMuZ EyvPJ2ddJonE9UusUQ8MX Ftr7d2Nc95C37nG0BljLZ +YSFqlII0hHR9 fU1vEvZsNeE6OFvqH108B lZxuUDmKccyt3rgp7euuQ f7MfA4VSEvwzEbnGhcASB 3d3GaOo15V43w IHdpZHRoPSIxNSUiIHZhb Xdjwn6hlI2rUz2+PGNvbC C2eNN2lV5rMjQqKeN5LNi nJ906DxKblUZb Ttfnl5kkf7uzfHn2VkUhH WIfxlDafRlfIUP7e2KuUx 08G9MmaHsln2ViXlp6ch7 0zPXsh5I5hOO4 A9KoZPNpabovzAYhsCfeZ W6eJSGzxwdcVWZhaC2dGG IjF1x7TiHjBvN9UOaqM6G ywoC5XJRqsYOs ZFVvrFBRrJ0srjtpm1mdn drpJlLqJKVqZVu8TNm3SP YkpEhxGeQwEAW7QzI2HSC 4rQCqrT2eoTrh fsievY7aUal+NOK7qEPkd JXWPY7wLhoqgWL+PHRkIH D4ySwjIDdgHRXfdP2mRJW gJ2v9DtSgNpT7 KLufR1DuctE3IIGtjYBhQ JUmxLPPnB8tntrmr1rull wyOjKxBTSeGCx8CIu0DVB saWduOiBsZWZ0 SiG6AKZ0dOMraO2coLepn bynmL6hBpi+QmlydGggRG K2GTw9A1YcYzx9QVIwcWc kLF8xjKXsRTow Xk4hhWvrpPiyLP8cJGTmv qyum440TnGoo9chDOJosS TeKIeqCUI5F14az2E7QAP pAUJvRGG3lIU1 zA7opSnzemlwaOFlqTxgv rTqwTitHVuoIPorH053AH NtxHalTnOrLDt5K9AzReb 8JDUxlHsvDP3o cAMhNUvwYt5rmRwzwDgvI M6xDSYfmtweb982IwXkb3 aaWYRliGAlBIzyALF2D19 sc7V5XWRsGNCh RAT4rTP8wZ0bnGwyykpwv GVmdDsgdmVydGljYWwtYW qgG647MFGqlClbDxDwiWt 7J6AiGjb8OPXx qJjxHB7otGFnKTfiEd1qk TzupSypVS3aAMSgcrvup6 33ChCkz4wwQCRuqGRxBPn rTQV9H27hs7N7 ZRUaMXDmVFX4iXD6nZ8am GlnbjogbGVmdDsgdmVydG acBQweDCzrM607QMKvmZy nPlBhdGllbnQg AQjjLZv0E7UvDfkrrRJ+P C89MGHvXM39eJOqpZNqt1 xprAi2FgSdQPSgSKY2uXa rIVgat9FoJYPt L21qoQKkd8B6UOIdpGxaf TBwTdQewYY8kV4xLUamit tol7ypnyxbEeryx3bisg3 6lX21V81kGDxo ZHRoPSIzMCUiIHZhbGlnb n6voA1vRx2+MRXbaHC8mQ Z6hV3tJQFzEvC5REswW82 9InRvcCIvPjxj l3jvo8bdxSq9ElJ6DMRcj pDstLosHIQ7k2BvPg89V1 9sIHdpZHRoPSIyMCUiIHZ xgOyxtx0lcB0k Ii8+DRYclAL3bLD1tI6vF sIcUqA3OYcqW449HpQkrZ IeSppaB57jN6CycUQ+PHR cEdo2ESSigMsa FW3huTTrASdiRg7zZLR5O fEaXhOyZKguS7ZbQLZite itqabvvJV9NMYiCQDrhH8 4Xd7ymEooQXXs eDOTvJ9fodruo4aibfutO gLmXEUeQTz6EFb6DCRfjI ucMtYgWAM2CyJ0YAF3qDP fkW2udQdqaxaj cP1cA9QwGKTzydlrTx80j H3iQaCrToS9ADykNdd+TU 7FZmXyUjJhIVmAQS26A9P sFlq0VMYfbNse XH8ywTNxIQgaXq8adFqkm EjoRE3oZQShrfobNCFuoM 3cBATuzXAlpWzuOP8iWJF soxasa792VvCm CPJ6GUDgoKAsU4OwjO2pH tXuMWNpTEKpT6BmnTSiBP kuR183UMuvUmY2YORmdxN fK7NfYUCalCoi SfR4s1F3Ob9eAT1jQI3hX FW1IO39AA17cIJso1D5tE X6B3HcRRAtetjejqqytVF 4UCOgSQJbiR63 xYJaNYwqEq8zz8K9b042P KXlXOPirP02Xe3zkMiaKF NdqSAKuD4fazcye1mjszd gIzAwMDAwMDt0 AGo8QOCjzQqvQiOvEPW0U xP7REX1lZZboR7ftGixyo eqvL5ySoj+NjggWWVhcnM 2O5FmJda1REMh cGquWD9qdUSjQBxiEe6rg IrorQviKM5mROQmagozVX DtaV9vDWWcsRZavThwOM5 zSBUxxhxcs283 ZmZoXTW6JVObyPKeT1Bei H9iGlByDCBhBVRjL6DkvB BmQMpsZ954REryTuT6KSZ lweUtS7FxRLNb jVkuHrS9h2U6Wu6YYVrMH Q34TZ05uKHdy2H2hXD2A9 GaPRTluyjzdtzchVB0WNY rCSMhvC06wWTo JRcdWv7dk7W5l386BKWeT NGsgE18Yi4gcTgaSGBomU WTiD8ykesto7youlgsEnY vVWWyGLp8HOv8 JIEtwVcxDlJvVZQ2XzN7T JQ7jCZwuX3uoIiowdejmO 9wOyc+G3I2B7TwFigtnLY +MV78JDFnDE74 qHZikYAcu9dhxIs0EaQhD PLjHAN5pRgrXHkap6OfUK JbR33fsZPpk6E2HFWzsAb hcHNlOyBlbXB0 bA5cOWfbstmac9ztzuxuW wfgd1lbgj75yR70G56eRX dpZHRoPSIzMCUiIHZhbGl wwq2jhZ3kPk8+ TJGiuFY1oCA9bF3nEhWbO sZ0QRbbN415NiZxlMEbTb fpg7jwx0axfRy5OjPyJWA gdmFsaWduPSJ0 l9JsIs48P44wEOkvCOSjT ILbUZMjMPPbcMjrkd5dzI 9wIi8+ET1pq0jkbc27aL3 8dHI+PHRkIHN0 uEdvYOlzMHEkcC4bLLdmM rS3CABxTxWqmC19oWAtDD eqZq5mnEkxpLmgGY5gBQA vgprjj398LfJd f9twJGObcLYhQBjeHSG4F 39ht1D4SYUiKBHzBPF0vZ I8xZ1wrSzlrtnhqLEwgSb gdmVydGljYWwt EVbiC514EZHweDjjCwNob GVzX6euxuBBFG1wByttsY Q+EQAlHNM8uAiwROtpFEZ lhR6eDEBdM8x5 YhXeIaJ4YYchK2HuoaD8J WMvbEGoJYUwcGQNlP9bqw erw9itgqbvCuOiEDUpINs 1CGr3SUArxCoo ExCdIBR7BvK1HBX4uFUet L8owOmxlyrxtU4uWnl+Rk lOOjwvdGQ+ROErSIF2rSb eYKniOWCclY9d KLXlJ7d8HnEmCcV9KNrkR 3MlpiX3AUIsxQLbDULdfE BQwI0nyzklt7lndbafZaO yPDPfVMb2GLl3 AQIkwNlaTwBjVHD1YkZ0J VR9aVCrsF5dgJoagsxlvA 9wOyc+TVJOOjwvdGQ+PHR jSWC7pZtuLBey ZEHxkR2dBSZfI6i1PlAiC qS1PEjgO7BogrV8PTLxzA LfWELqqBUKjD3fcjlgz8y vcjogIzAwMDAw ZRy7KBm5YLTcdJoaBoJxJ NT7SoU6TDO7kRIhrG4qnO zhadpmsC6mSfo+UBM2BXV 2HE10GY77Z8Es PjwvdGFibGU+PHRhYmxlI HdpZHRoPScxMDAlJyBzdH xrEI4oVl3mEYUdKZIjnVo khQMlTwWeq4hc YXB (more content not included)... [facility] .Auto Diff 1on 06-21-2023 Auto Russell % 13 % High 1-12 [facility] Comment on above: Performed By: #### 1 [id number] ####[facility] (DEFAULT)[address] [place] [id number] Baso Abs# [id number] x10 Normal 0.0-0.2 [facility] Comment on above: Performed By: #### 1 [id number] ####[facility] (DEFAULT)[address] [place] [address] Basophils/100 WBC (Bld) 1.5 % Normal 0.2-2.0 [facility] Comment on above: Performed By: #### 1 [id number] ####[facility] (DEFAULT)[address] [place] [address] Eos Abs# [id number] x10 High 0.0-0.4 [facility] Comment on above: Performed By: #### 1 [id number], 2629887, [id number], [id number] ####[facility] (DEFAULT)[address] [place] [address] 87983 Eosinophils/100 WBC (Bld) 11.2 % High 0.9-4.0 [facility] Comment on above: Performed By: #### 1 [id number], 3128011, [id number], [id number] ####[facility] (DEFAULT)[address] [place] [address] 84232 Lymph Abs# 1.3 x10 Normal 1.3-2.9 [facility] Comment on above: Performed By: #### 1 4451977, 7977024, [id number], [id number] ####[facility] (DEFAULT)[address] [place] [address] 05876 Lymphocytes/100 WBC (Bld) 16 % Normal 14-48 [facility] Comment on above: Performed By: #### 1 7368721, 3058777, [id number], [id number] ####[facility] (DEFAULT)[address] [place] [address] Russell Abs# 1.0 x10 High 0.0-0.8 [facility] Comment on above: Performed By: #### 1 3880157, 9547986, [id number], [id number] ####[facility] (DEFAULT)[address] [place] [address] Neut Abs# 4.6 x10 Normal 1.5-9.2 [facility] Comment on above: Performed By: #### 1 2778775, 1887852, [id number], [id number] ####[facility] (DEFAULT)[address] [place] [address] Neutrophils/100 WBC (Bld) 58 % Normal 44-88 [facility] Comment on above: Performed By: #### 1 2058288, 7969982, [id number], [id number] ####[facility] (DEFAULT)[address] [place] [address] CBC w/ Auto Diffon 3 Erythrocyte distribution width (RBC) [Ratio] 15.9 % High 11.5-15.0 [facility] Comment on above: Performed By: #### 1 5072550, 2927580, 9084151592, [id number] ####[facility] (DEFAULT)[address] [place] [address] Hematocrit (Bld) [Volume fraction] 48.2 % Normal 34.8-51.9 [facility] Comment on above: Performed By: #### 1 5452220, 8523728, [id number], [id number] ####[facility] (DEFAULT)[address] [place] [address] Hemoglobin (Bld) [Mass/Vol] 15.7 g/dL Normal 11.8-17.7 [facility] Comment on above: Performed By: #### 1 3249040, 5554182, [id number], [id number] ####[facility] (DEFAULT)[address] [place] [address] Man Diff? Auto Invalid Interpretation Code [facility] Comment on above: Performed By: #### 1 [id number], 2021454, [id number], [id number] ####[facility] (DEFAULT)[address] [place] [address] MCH (RBC) [Entitic mass] 29 pg Normal 24-34 [facility] Comment on above: Performed By: #### 1 4612354, 4346291, 5938506824, [id number] ####[facility] (DEFAULT)[address] [place] [address] MCHC (RBC) [Mass/Vol] 33 g/dL Normal 26-37 [facility] Comment on above: Performed By: #### 1 4846679, 3133893, [id number], [id number] ####[facility] (DEFAULT)[address] [place] [address] MCV (RBC) [Entitic vol] 89 fL Normal 81-100 [facility] Comment on above: Performed By: #### 1 8881206, 1390531, [id number], [id number] ####[facility] (DEFAULT)[address] [place] [address] Platelet 430 x10 High 138-427 [facility] Comment on above: Performed By: #### 1 7774752, 4892142, 5829533755, [id number] ####[facility] (DEFAULT)[address] [place] [address] 01986 Platelet mean volume (Bld) [Entitic vol] 6.2 fL Low 6.3-10.2 [facility] Comment on above: Performed By: #### 1 8707525, 4258002, [id number], [id number] ####[facility] (DEFAULT)[address] [place] [address] RBC 5.43 x10 High 3.70-5.30 [facility] Comment on above: Performed By: #### 1 1302248, 5028148, 1354364671, [id number] ####[facility] (DEFAULT)[address] [place] [address] WBC 7.9 x10 Normal 3.5-10.5 [facility] Comment on above: Performed By: #### 1 6334585, 1545061, 1621701962, [id number] ####[facility] (DEFAULT)[address] [place] [address] CMP Standardon 06-21-2023 eGFR Non AA >60 Invalid Interpretation Code [facility] Comment on above: Performed By: #### 1 2351027, 3054413, [id number], [id number] ####[facility] (DEFAULT)[address] [place] [address] eGFR AA >60 Invalid Interpretation Code [facility] Comment on above: Performed By: #### 1 2978409, 0502724, [id number], [id number] ####[facility] (DEFAULT)[address] [place] [address] Albumin [Mass/Vol] 3.6 g/dL Normal 3.5-5.0 [facility] Comment on above: Performed By: #### 1 4178843, 7918169, 1207415259, [id number] ####[facility] (DEFAULT)[address] [place] [address] 63324 Alk Phos 69 IU/L Normal 32-91 [facility] Comment on above: Performed By: #### 1 3174935, 3000129, 1655597370, [id number] ####[facility] (DEFAULT)[address] [place] [address] 82781 ALT [Catalytic activity/Vol] 14.0 U/L Low 17.0-63.0 [facility] Comment on above: Performed By: #### 1 4281452, 8916970, 1714672362, [id number] ####[facility] (DEFAULT)[address] [place] [address] 31493 AST [Catalytic activity/Vol] 23 U/L Normal 15-41 [facility] Comment on above: Performed By: #### 1 9676596, 7716671, 1558238202, [id number] ####[facility] (DEFAULT)[address] [place] [address] Bili Total 0.7 mg/dL Normal 0.3-1.2 [facility] Comment on above: Performed By: #### 1 7660945, 0924909, 2259783612, [id number] ####[facility] (DEFAULT)[address] [place] [address] 05985 Calcium [Mass/Vol] 8.9 mg/dL Normal 8.9-10.3 [facility] Comment on above: Performed By: #### 1 7974661, 2673604, 7645457256, [id number] ####[facility] (DEFAULT)[address] [place] [address] 34292 Chloride [Moles/Vol] 99 mmol/L Low 101-111 [facility] Comment on above: Performed By: #### 1 3028664, 5453109, 4418304887, [id number] ####[facility] (DEFAULT)[address] [place] [address] 72141 CO2 [Moles/Vol] 25 mmol/L Normal 21-32 [facility] Comment on above: Performed By: #### 1 9952693, 9391180, 4538917159, [id number] ####[facility] (DEFAULT)[address] [place] [address] 09292 Creatinine [Mass/Vol] 0.96 mg/dL Normal 0.90-1.30 [facility] Comment on above: Performed By: #### 1 4762431, 5238387, 1342647633, [id number] ####[facility] (DEFAULT)[address] [place] [address] 98267 Glucose [Mass/Vol] 105.0 mg/dL Normal 74.0-118.0 [facility] Comment on above: Performed By: #### 1 1320769, 8162072, 8789419013, [id number] ####[facility] (DEFAULT)[address] [place] [address] 40960 Potassium [Moles/Vol] 4.6 mmol/L Normal 3.6-5.1 [facility] Comment on above: Performed By: #### 1 3052459, 2346487, 6511706658, 7979791750 ####[facility] (DEFAULT)[address] [place] [address] 60167 Protein [Mass/Vol] 7.3 g/dL Normal 6.5-8.1 [facility] Comment on above: Performed By: #### 1 7374026, 1691805, 3342709216, [id number] ####[facility] (DEFAULT)[address] [place] [address] 28748 Sodium [Moles/Vol] 133.0 mmol/L Low 136.0-144.0 [facility] Comment on above: Performed By: #### 1 9029307, 3581099, 4131457490, [id number] ####[facility] (DEFAULT)[address] [place] [address] 50708 Urea nitrogen [Mass/Vol] 8 mg/dL Normal 8-26 [facility] Comment on above: Performed By: #### 1 3860149, 4445116, 2693343058, [id number] ####[facility] (DEFAULT)[address] [place] [address] 31749 Albumin/Globulin [Mass ratio] 0.9 {ratio} Low 1.4-2.6 [facility] Comment on above: Performed By: #### 1 8163204, 4304179, 6037920321, [id number] ####[facility] (DEFAULT)[address] [place] [address] 30484 Anion gap [Moles/Vol] 13.6 mmol/L Normal 5.0-19.0 [facility] Comment on above: Performed By: #### 1 7188946, 8704863, 5063857124, [id number] ####[facility] (DEFAULT)[address] [place] [address] 59988 Globulin (S) [Mass/Vol] 3.7 g/dL Normal 1.5-4.3 [facility] Comment on above: Performed By: #### 1 3140936, 2781408, 3521549789, [id number] ####[facility] (DEFAULT)[address] [place] [address] 34750 Osmolality 265 mOsm/L Invalid Interpretation Code [facility] Comment on above: Performed By: #### 1 2698437, 9217158, 3513571569, [id number] ####[facility] (DEFAULT)[address] [place] [address] 86755 Urea nitrogen/Creatinin e [Mass ratio] 8.3 mg/mg Normal 4.6-16.2 [facility] Comment on above: Performed By: #### 1 3519863, 4497837, 4965071711, [id number] ####[facility] (DEFAULT)[address] [place] [address] 72693 Lipid Panel Standardon 06-21 Cholesterol [Mass/Vol] 225.0 mg/dL High 66.0-200.0 [facility] Comment on above: Performed By: #### 1 3764207, 8026825, 8005803380, [id number] ####[facility] (DEFAULT)[address] [place] [address] 47744 Cholesterol in HDL [Mass/Vol] 91 mg/dL High 40-71 [facility] Comment on above: Performed By: #### 1 2673826, 4295220, 4554686487, [id number] ####[facility] (DEFAULT)[address] [place] [address] 71898 Triglyceride [Mass/Vol] 104.0 mg/dL Normal 0.0-150.0 [facility] Comment on above: Performed By: #### 1 8379663, 1046309, 8267210748, [id number] ####[facility] (DEFAULT)[address] [place] [address] 95506 Cholesterol in LDL [Mass/Vol] 113 mg/dL High 1-100 [facility] Comment on above: Performed By: #### 1 5873826, 5942525, 1337208326, [id number] ####[facility] (DEFAULT)[address] [place] [address] 25887 Cholesterol.total/ Cholesterol in HDL [Mass ratio] 2.4 {ratio} Normal 0.0-4.5 [facility] Comment on above: Performed By: #### 1 4247191, 2895156, 0879100822, [id number] ####[facility] (DEFAULT)[address] [place] [address] VLDL. 21 mg/dL Normal 5-40 [facility] Comment on above: Performed By: #### 1 4697430, 0667419, 2160032250, [id number] ####[facility] (DEFAULT)[address] [place] [address] Provider Orderson 06-16-2023 Provider Orders [id number] Normal [facility] Wound Cultureon 06-16-2023 Wound Culture Light growth of Staphylococcus epidermidis Normal skin poonam isolated No pathogens isolated No JUANCHO performed on this organism No organisms seen. [facility] Comment on above: Performed By: #### 6 [id number] ####[facility] (DEFAULT)[address] [place] [address] Coding Summaryon 05-31-2023 Coding Summary HTMLBase 64 RoxziorgNSr3yZo+PGhlY WQ+MX9ZQZRoO86egGIguD 3pA8FFKJuFXyndBNCHKCu SOuJintNbRE2uxNMiQWEh IC8+WG8kBCWuWfonkIKak 0Q3qYW4U14okg5qKRaggJ C2ZQUeGuAvogsml8dfdQh 6IDcuNmluOyBt GRJvxJ95TWU3zV96Qk41h ESyiVKpl7zjmVs1UxVhOZ IsYCP5hDqcHFinc2LfHGV sH71ppGQro4C0 DEDsgQjvsKOdRlHhtVV0i M9gGPjfohmxd9uxdxhrLg b6jp54jMGqa4E4jGF3F7X fpjY9QEZheIYq CmaxmXKBeR7ekjpej3foy nuaWgPyPXBcRFs1HBw8YP NjlHvrDhPrGV39NDB5LVK igxTyH9BbECSl kCyyBkY8p2G5My5PA8KDH tggX7YZDNENLBerzDH+PC 73gm67W2GvWgnuNrx3ARK wCIJ8tNT2qO6s IRHwKXsmz8G3cBE6C0Pcx qYscr3gp8tfOLTxNBiqG2 8naDNpx8S5KKMhpZV6HRE weAlmFxVbdE78 Oyc+JYJhiMehj1RpUakth 9xng7mrnMx1IzqoCJUyzc KtiMnbTWJ6t2KnSs4xHRY ekCT4rUD9yN8q OuNdMuM1HRnxQ580YeSvc SIpXewwK56qZ7SffJT+PH WvMum2DPBldAksZK8iB4X hZGRpbmctbGVm nDrrSE8cEIFmbvfyFEOng X6eOAKrR1h2HjEuAeE1YI jkH7OzWPZnwdxbAp74zI4 eKgFnXpE5UHxh U8IvhfR2IABsiFNrWYbnP FM0N41jl2F1DVLqVJQsPZ Z6cNI5mZ1bwNmleglaeTU mdDsgdmVydGlj YUbaENmxH112EDEdvWhqP kNvZGluZyBEYXRlOiAgMD kvMTgvMjAyMzwvdGQ+PHR lOIV1nJpkHDWn cYJhLYyzLe6dbXonkMezL H1gRNPfkcfgSUFnsJ8hAW TavWYzwXjsHZ8cQQMlela tr441PeFpBDV2 DHZfeCJrE7CpwA1eItMoJ EFsDDLnU9FzvRCgSRnwW0 78KEvkTbV8YEXmgrZfN2A sLWFsaWduOiB0 w8H3Kh1Yr4QktxfjW1Nco UKdZuTnWhewXMu7K9WaKd wvdHI+WA01UZZfNG89JJr 9BNF9dIjrOXgs BURwS3ZwgE1wEsBbCVEzC GRkOyc+PHRhYmxlIHdpZH RoPScxMDAlJyBzdHlsZT0 eQx6hJWDrPSYd aOvxaYChNnLif1bvTOPmG SldXJ3zkEseA6WpqFS9KR Lcg7f6Ch51S51yX7DsuDA +LMXxwEN8tGK1 nP7iRqLlSlP1JCccX837K pTldYOcEzdus3zug8evvP w5HhW5SFXhhkPlkVbzPDN 3f2QxAm62N58q IHdpZHRoPSIxNSUiIHZhb Wwnkk3imR0rYp8+PGNvbC X0fYI7pG4dDiWnMjJ0ALl rF213EqKwrJUo Xtqdy9gpo2mjrAy3WgVfI LEumdWuxAtlIDG5l0XqCz 22M4OjoIssa2JaBib1zz0 8gWAyg4B5xKH8 G8ZlGDEwwsmmhCOfqLfwQ K8dYJZjiiblREVqoL8qKV IyM6a3XtSjGxN9XVhkV2M xdpG8IISknDGu SWVzvFXZqK7ggsodm8ses ptyRuUeVJGlINb2SJv3KA FtwDlqFbBxJPI6GqY0GUX 4zUYiaY3qcGmm msbmhF8hMdw+RRJ7cUWae PNQZY4xWrslzPB+PHRkIH P0gPtjJCybWKUlhU1cWIE eD5c5CdHwIkU3 HLioI8YdddH7UJBuyPMlP BSrbODIuH2ydjawt8knkv qwRzMhDEJvONu1KAw3SXL saWduOiBsZWZ0 HpY7XKZ4wTWlqM9lxBsup wjluE4qJsy+QmlydGggRG H4ASm4L1KjKgf5JBIjzNu oMB3jkSZkXQho Ix0loOreyYjiVV2rBIMvq ddhg344WxYih4qyLSUnvT YdKSzcVUA3C51di5C9MKP xKDMkGSJ0hJJ1 tZ4hlPqgimmaeAQoeJkaj xRmxPgcVGthODkxW256HV QdfAfsJvNcNQo2Z9SsMnv 0KFLobExsCQ2o oKPqMFmoOl9oiPsguEyiF H4zINOooorfo836IcKli0 gjNNVnwEOqGDleOTT9R46 zs8X0ENRaRXRr GSZ8oXZ1uD4ycPybravzs GVmdDsgdmVydGljYWwtYW aeP998HVHrcUptIgGhrQp 0Q8OgJhx3YSOj gGznKR6unNCvKZioCm7ec EisnOnuUO9mBTQhxpikq1 84UtIis8nyYNPooILtRWp sFTG2K96kj0K0 WKLeHBHnIGV4bEG6bI3ee GlnbjogbGVmdDsgdmVydG bmGNxuMRdwW657KOTgsMp nPlBhdGllbnQg UVpnWZl6R6YkYmzwuVR+P Q75FHNfBC27yGOarSIhd9 cuoUo5TtRfDBLvEKO3hUc sOZkmj7QmXXZe K52zxXZnx6Y5TVSbsQqoe VAxVgDfyMD5pR2aRBggrs ans4dkngwxHwmhy5bzzq6 8wL73K75fAPpj ZHRoPSIzMCUiIHZhbGlnb o9nxW4dDr5+VHFckME9mU H6cF9fAZDcHhP8EQtsG32 9InRvcCIvPjxj t6rse6yktYp2TsB2NKKis uFblSkxXCQ0o2GhMd83I6 9sIHdpZHRoPSIyMCUiIHZ vkBemzg4bwW1i Ii8+ZNWbhAG3wGV2tW8fO qQeExG9BEgtV552NrXzjD HbIiifS26eZ8PjvUM+PHR sQsd2XMLojZvf XJ6vgFYoCKvaFs4zCSZ4G oHsZjPmXHauJ8ZvBIMvvv xjqduapND2PIYeHFBpiY4 8Se8uhPlpXWUa eVXMzS2mptgce2jdorgbA cRyPCBnZCu5LNd8RGMpwO ybNtHeQSP0WnQ4NNC1hET tyS4cpDlzjpds rR4tU9NaAPWnbixxKl97s P3vEnHkOvB5WNkoIfl+TU 5NUyPdPeMnJEdTRI72R9F vEfx5KHXxzDpg IW4haQCbXTzkKk8cqGpox FknJK9iPKJwtineYGCseT 5zGJQjsPWnvBpyFQ8fPMS yxonfs619ReDv YAX5ODRgcTEgD3GtaZ8jF eMfXLClJEThK7HjuYIoVK ibV426SGzcBrI0GBOhrfZ hZ4LcQVTgjBxi KnJ8t8C9Iy7zVZ5iRL7nA MK3WZ40AT70tMHxd3B9aB R3Q7TbKJAajieohntkdRU 3YLCfEWRfjM91 uPMyUNnuGv2wn9L5t748X XToPSVwfB59Vd7yeGklLJ BgfYSEoS0fhxkel9xhlqm gIzAwMDAwMDt0 WBv0WZNilWrjHdCkONU1J fM9LSM0nBYmfU6auNibzq xjcH8kBfa+NjggWWVhcnM 6F1IeRlg3IYHd gUjrAK3tfVHaGIkrVb6ao AcmoYcrGP4aZBPeluufAZ JtfG9wQHUsoWEppFcvUH8 yDAOjgrqkh855 YvOuKRX2QYZraPSrS4Qfu D5cPqGuNPQgSWBtG9YmcE FpCRgoS858RHsfCuD4TOI vnfLrN3DoOEFw cRmbCyF6n1U9Mc8DWMfFF X71QV83uHYmx8G1sYY8M8 KgUBUjonhztidfqAR9SCH zLVQtnC29bSFf GHboKc5oq9F7n581BWOdC AUwwX51Rm9dmMdbRCAwsX COkT8hsyxlo4bniqgkKuW pSPQlXZm4ZPx9 EKRcdDflEcHxMVJ6OuA4F NS5sTMgfP7krKhsikjrgC 9wOyc+C7D0R5YwIprsgSV +DW51TMHmYS00 fQLulQViy8jelHq2ZfOfX OGmPUA4xZgmULcqa9HmKE XiP58odSYjp3X1WTHtiCr hcHNlOyBlbXB0 xP9tKYbfjjtgf1eumulxM umdc0whrl41sM18D52eYA dpZHRoPSIzMCUiIHZhbGl uhv8lmH2mWk7+ ZFOfoUT7kCT3tN9mWgOkK yV0JNdbO887BaTkfVGaGm ctg9tdz4ltrQh5ToEbSNZ gdmFsaWduPSJ0 d3DtMn98U47pXAghVWUiW OWyAUSjKRMvtKscdq9mzK 9wIi8+PT0li4asph02mK1 8dHI+PHRkIHN0 hNxkGJqzWWNgqY0zULkhR vV6EMVdJbMgqE20iAXlNK bbNe7onJghmFztJW2eWVL yfwkjx632IwYi u0dlFWMfhMVwPLlhPDF8L 96sf9E6ESYfDXMqFAA1bN H1kP0itOtjverzoKHaxJv gdmVydGljYWwt BAlzV438UNFkqNrbIyFeq TFwR4nbtkDSDS9dUaqdvC Q+HAFtMSP8aLxhSJnlXCM hcV0gGYAtW7i1 UiIyKtE3LLkhQ7TbknE1B XKuyOCbTBVqqDMFyR9lss ich1jywbidCoKcBJEzJTo 6GGj8NIDekXdj WmRaLIJ1QsB9ONN6rKWha L5zrQfsxhavmT7fRzw+Rk lOOjwvdGQ+HTSnORQ9kGj mUJbcMBCuaL9d XGHrG0b5PwRlUfM4EHmnP 9TadwL8FKJixRKlRMLgaK JLuG9povrhw2izwkxqSyR wHYFzQXn1KSw5 HCUtdVtqJmGiNYM4DlZ5O XU2hLVktN3wnPlpcqxnsJ 9wOyc+TVJOOjwvdGQ+PHR jPCN4cQzzEUkl FYOkfS4mJIRqX1i0GfRlD rI4EHxjC6VcvxZ3SYEepN XbHJOnaUEYjL9rbtfzt2k vcjogIzAwMDAw EIh4UFf4NYSxpUcqFwMzZ NO4QhA0MTR1rZHyrS0hfQ eoiwwybL9aPfg+ILS4RHJ 3EY89OR69F2Wa PjwvdGFibGU+PHRhYmxlI HdpZHRoPScxMDAlJyBzdH ndVV4gNt6uYPKbMCShwBl xzAKoCzFzg5qu YXB (more content not included)... [facility] US LE Venous Duplex Righton 05-26-2023 [...] Adrian Staples MD 05/26/23 11:14 a Technologist: [facility] Provider Orderson 05-19-2023 Provider Orders [id number]. [id number] [facility] Encounters Encounter Date Encounter Type Care Provider Facility Start: 08-03-2023 End: 08-04-2023 ambulatory Charisse A Karen [employer] [employer] Start: 07-26-2023 End: 07-27-2023 ambulatory Charisse A Karen [employer] [facility] Start: 07-22-2023 End: 07-23-2023 ambulatory Charisse A Karen [employer] [facility] Start: 07-19-2023 End: 07-20-2023 ambulatory Charisse A Karen [employer] [facility] Start: 07-12-2023 End: 07-13-2023 ambulatory Charisse A Karen [employer] [facility] Start: 07-05-2023 End: 07-06-2023 ambulatory Charisse A Karen [employer] [facility] Start: 07-02-2023 End: 07-03-2023 ambulatory Charisse A Karen [employer] [facility] Start: 06-30-2023 End: 07-01-2023 ambulatory Charisse A Karen [employer] [facility] Start: 06-28-2023 End: 06-29-2023 ambulatory Charisse A Karen [employer] [facility] Start: 06-23-2023 End: 06-24-2023 ambulatory Charisse A Karen [employer] Facility:[facility] Start: 06-23-2023 End: 06-24-2023 ambulatory Charisse A Karen [employer] [facility] Start: 06-21-2023 End: 06-22-2023 ambulatory Charisse A Karen [employer] [facility] Start: 06-21-2023 End: 06-22-2023 ambulatory Charisse A Karen [employer] [facility] Start: 06-16-2023 End: 06-17-2023 ambulatory Charisse A Karen [employer] [facility] Start: 06-16-2023 End: 06-17-2023 ambulatory Charisse A Karen [employer] Facility:[facility] Start: 05-26-2023 End: 05-27-2023 ambulatory Charisse Jones [employer]C Facility:[facility] Payers Date Payer Category Payer Medicare [id number] 1955 Unknown [id number] 2.16.8 40.1.267086.3.579.2.8 1955 Unknown [id number] 2.16.8 40.1.495498.3.579.2. 1955 Unknown [id number] 2.16.8 40.1.066057.3.579.2. 1955 Unknown [id number] 2.16.8 40.1.664334.3.579.2. 1955 Unknown [id number] 2.16.8 40.1.179102.3.579.2. 1955 Unknown [id number] 2.16.8 40.1.439933.3.579.2. 1955 Unknown [id number] 2.16.8 40.1.387465.3.579.2. 1955 Unknown [id number] 2.16.8 40.1.584441.3.579.2. 1955 Unknown [id number] 2.16.8 40.1.751984.3.579.2. 1955 Unknown [id number] 2.16.8 40.1.792369.3.579.2. 1955 Unknown [id number] 2.16.8 40.1.729325.3.579.2. 1955 Unknown [id number] 2.16.8 40.1.968257.3.579.2. 1955 Unknown [id number] 2.16.8 40.1.209488.3.579.2. 1955 Unknown [id number] 2.16.8 40.1.125228.3.579.2.718 1955 Unknown [id number] 2.16.8 40.1.292244.3.579.2.718 1955 Unknown [id number] 2.16.8 40.1.567062.3.579.2.718 Medication management note 09-14-2023 Note Date & Type Note Facility 09-14-2023 Note Entered by Ashley Echeverria on September 14, 2023 08:04:05 EST From: Rosalinda Echeverria To: [id number] Sent: 09/14/2023 08:04:05 EST Subject: Medication Management Not Approved: Refill not appropriate, proposed to provider amLODIPine (AMLODIPINE BESYLATE 5 MG TAB) take 1 tablet by mouth once daily Qty: 30 tab(s) Days Supply: 30 Refills: 0 Substitutions Allowed Route To Pharmacy - [id number] Signed by Rosalinda Echeverria From: [id number] To: Karen PARRA, Charisse Tidwell CNP Sent: September 13, 2023 8:55:00 AM 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 Subject: Medication Management Due: September 14, 2023 12:30:25 AM 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 [employer] On Hold Pending Signature Drug: amLODIPine (amLODIPine 5 mg oral tablet), 1 tab(s) PO Daily Quantity: 30 tab(s) Days Supply: 30 Refills: 1 Substitutions Allowed Notes from Pharmacy: Dispensed Drug: amLODIPine (amLODIPine 5 mg oral tablet), take 1 tablet by mouth once daily Quantity: 30 tab(s) Days Supply: 30 Refills: 0 Substitutions Allowed Notes from Pharmacy: [facility] Summary Purpose Family History No Family History Records Found Advance Directives No Advanced Directives Records Found Additional Source Comments (unrecognized sect ion and content) No Status Records Found INFORMATION SOURCE (unrecogn ized section and content) DATE CREATED AUTHOR 09/30/2023 [facility] FOR RECORDS PERTAINING TO PATIENTS WHO [...] BE BASED ON THE PRIMARY CLINICAL RECORDS. [facility] [employer] [facility]. provides no warranty or guarantee of the accuracy or completeness of information in this document.
== END 2023-10-26 09:20 | disposition home or self-care (01) ==
LOC: VC 09:19
PROVIDERS: PCP Radiology Diagnostic Radiology; Visit Provider Radiology Diagnostic Radiology
DX: I80.01 Phlebitis and thrombophlebitis of superficial vessels of right lower extremity (principal)
CPT/HCPCS: 93971; G0463